=== PATIENT | male | born 1970 | race Caucasian/White ===

== ENCOUNTER 2020-06-06 12:29 | Outpatient (REF) | payer OTHER, SELFPAY ==
--- NOTE | ~2020-06-06 | XR_ITS ---
EXAMINATION: XR SHOULDER, LEFT CLINICAL INFORMATION: Pain left shoulder COMPARISON: MRI left shoulder 10/12/2018 TECHNIQUE: AP external rotation, Grashey, scapular Y, and axillary views of the left shoulder. FINDINGS: There is no visible acute fracture or dislocation. There are several hypodense lesions in the proximal humerus and the scapula compression lytic lesions. The soft tissues are normal. XR/XR shoulder LT min 2V IMPRESSION: No visible acute fracture or dislocation. Hypodense lesions in the proximal humerus question lytic lesions.
== END 2020-06-06 12:30 | disposition home or self-care (01) ==
LOC: HO.XRAY 12:29
PROVIDERS: PCP Internal Medicine; Visit Provider Physician Assistant
DX: M25.512 Pain in left shoulder (principal); M19.012 Primary osteoarthritis, left shoulder
CPT/HCPCS: 20610; 73030; 99212; J1040

== ENCOUNTER 2020-06-12 07:35 | Outpatient (REF) | payer OTHER, SELFPAY ==
--- NOTE | ~2020-06-12 | XR_ITS ---
EXAMINATION: XR SHOULDER, RIGHT CLINICAL INFORMATION: Pain in the right shoulder COMPARISON: 06/28/2016 TECHNIQUE: Three views of the right shoulder. FINDINGS: There is no fracture or dislocation. The glenohumeral joint is well aligned with the joint space maintained. The acromioclavicular joint is intact. Healed right scapular fracture. Vascular stents noted. The visualized lung is clear. The visualized ribs are intact. Calcifications in the right neck soft tissues. XR/XR shoulder RT min 2V IMPRESSION: Normal appearance of the right shoulder. Healed right scapular fracture.
== END 2020-06-12 07:36 | disposition home or self-care (01) ==
LOC: HO.HOSX 07:35
PROVIDERS: Visit Provider Physician Assistant
DX: M25.511 Pain in right shoulder (principal)
CPT/HCPCS: 20610; 73030; 99212; J1040

== ENCOUNTER 2020-07-04 04:29 | Inpatient (IN) | payer OTHER, SELFPAY ==
[2020-07-04] VITALS (9 sets, daily range): BP systolic 120–163; BP diastolic 62–86; PULSE 60–112; RESP 16–22; TEMP 36.1–39.3; O2SAT 96–100; BMI 29.2
--- NOTE | ~2020-07-04 | XR_ITS ---
EXAMINATION: CHEST AND RIGHT KNEE CLINICAL INFORMATION: Fever COMPARISON: Chest 07/09/2019. CT chest 08/15/2017 TECHNIQUE: Chest AP upright one view. Right knee 4 views. FINDINGS: Chest: The lungs are well-expanded with patchy radiopaque opacity in the right lower lobe and minimal density in the right middle lobe. This could be remote aspiration of barium contrast or calcification from old inflammatory process. Heart size and vascularity is normal. There is a right SVC stent in place. No gross bony abnormality seen. Right knee: There is diffuse osteopenia around the knee joint. No visible fracture, dislocation or subluxation seen. There is moderate suprapatellar joint effusion. There is bj along the distal posterior thigh likely vascular intervention. There is calcification in the infrapatellar bursa. There is mild edema. XR/XR chest 1V IMPRESSION: No acute process. Dense radiopaque material in the right lower lobe and minimal in right middle lobe is stable stable to last chest x-ray 07/09/[address] chest 08/15/2017. Diffuse osteopenia in this young patient. There is moderate suprapatellar joint effusion with soft tissue edema. Recommend outpatient MRI for further evaluation.
--- NOTE | ~2020-07-04 | CT_ITS ---
EXAMINATION: CT KNEE WITHOUT CONTRAST, RIGHT CLINICAL INFORMATION: Severe right knee pain. COMPARISON: XR right knee 07/04/2020. TECHNIQUE: Helical scanning was performed with submillimeter collimation in the axial plane with multiplanar 2-D reconstructions. This CT examination was performed using dose optimization techniques as appropriate, variously including the following: *Automated exposure control *Adjustment of mA and/or kV according to patient size (this includes techniques or standardized protocols for targeted exams where dose is matched to indication/reason for exam; i.e. extremities or head) *Use of iterative reconstruction technique DLP: 190 mGy-cm FINDINGS: There is no fracture or malalignment. There is no joint space narrowing. There is a small lateral patellar marginal osteophyte. There is patchy osteopenia in the visualized bones. There is scattered diffuse mild cortical irregularity. There is a moderate size joint effusion. There are extensive scattered vascular calcifications. CT/CT knee RT wo con IMPRESSION: 1. Moderate joint effusion. 2. No acute osseous abnormalities of the right knee. The soft tissue structures of the right knee cannot be adequately evaluated with CT scanning. MRI, unless contraindicated, is the imaging study of choice.
--- NOTE | ~2020-07-04 | XR_ITS ---
EXAMINATION: CHEST AND RIGHT KNEE CLINICAL INFORMATION: Fever COMPARISON: Chest 07/09/2019. CT chest 08/15/2017 TECHNIQUE: Chest AP upright one view. Right knee 4 views. FINDINGS: Chest: The lungs are well-expanded with patchy radiopaque opacity in the right lower lobe and minimal density in the right middle lobe. This could be remote aspiration of barium contrast or calcification from old inflammatory process. Heart size and vascularity is normal. There is a right SVC stent in place. No gross bony abnormality seen. Right knee: There is diffuse osteopenia around the knee joint. No visible fracture, dislocation or subluxation seen. There is moderate suprapatellar joint effusion. There is bj along the distal posterior thigh likely vascular intervention. There is calcification in the infrapatellar bursa. There is mild edema. XR/XR knee RT 4V IMPRESSION: No acute process. Dense radiopaque material in the right lower lobe and minimal in right middle lobe is stable stable to last chest x-ray 07/09/[address] chest 08/15/2017. Diffuse osteopenia in this young patient. There is moderate suprapatellar joint effusion with soft tissue edema. Recommend outpatient MRI for further evaluation.
[2020-07-04 05:54] LABS: COVID-19 Test Negative (Negative); IDNOW Serial# 9DD0AD1C
[2020-07-04 06:46] LABS: Basophils Percent Auto 0.1 % (0-2); MANUAL DIFF FLAG SCAN; PLT CLUMP 1; SCAN SMEAR FLAG 1
[2020-07-04] MEDS: Acetaminophen 325 MG TABLET 650 MG PO ×2 (06:46→13:48)
[2020-07-04 06:48] LABS: Eosinophils Percent Auto 0.1 % (0-4); Imm Gran Abs Auto 0.03 X10*3/uL (0.00-0.03); Imm Gran Pct Auto 0.4 % (0.0-0.4); Lymphocytes Absolute Auto 0.3 X10*3/uL (1.2-4.9); Mean Corpuscular HGB Conc 32.4 g/dl (31.0-36.0); Mean Corpuscular Volume 89.7 fL (80-98); Mean Platelet Volume 12.2 fL (9.4-12.4); Monocytes Absolute Auto 0.9 X10*3/uL (0.1-1.2); Monocytes Percent Auto 11.5 % (2-11); Neutrophils Absolute Auto 6.4 X10*3/uL (2.0-8.3); Neutrophils Percent Auto 83.9 % (45-73); Platelet Count 114 X10*3/uL (160-400); Red Blood Count 3.79 X10*6/uL (4.60-5.80); White Blood Count 7.6 X10*3/uL (4.8-10.8)
[2020-07-04 07:03] LABS: Lactic Acid 1.4 mmol/L (0.5-2.0)
[2020-07-04 07:22] LABS: SLIDE REVIEW VERIFIED
[2020-07-04 07:25] LABS: Anion Gap 24 (12-20); Blood Urea Nitrogen 62 mg/dL (9-16); Carbon Dioxide 22 mmol/L (22-29); Chloride 92 mmol/L (96-108); Creatinine Clr Calc Pharmacy 8.9; Estimated Glomerular Filt Rate 6; Glucose Random 132 mg/dL (60-115); Potassium 4.2 mmol/L (3.3-5.1); Sodium 134 mmol/L (135-145)
--- NOTE | 2020-07-04 07:50 | ED.GENADULT ---
HPI - General Adult General Chief complaint: Extremity Injury, Lower Stated complaint: R KNEE PAIN/SWELLING X'S 2 DAYS,NO INJURY Time Seen by Provider: 07/04/20 07:37 Source: patient Mode of arrival: ambulatory Limitations: no limitations History of Present Illness HPI narrative: Patient comes emergency room complaining of severe right knee pain. Patient denies any injury. Patient states the whole right knee hurts, started yesterday night, got worse at night around midnight. Patient denies fever or chills until it was noted that he has fever when he got to the emergency room. Patient states he is a dialysis patient, compliant, had dialysis yesterday and is due tomorrow Related Data Home Medications Medication Instructions Recorded Confirmed cholecalciferol (vitamin D3) 50 50 mcg PO DAILY 06/06/20 mcg (2,000 unit) capsule lanthanum 500 mg chewable tablet 500 mg PO TID 06/06/20 loratadine 10 mg tablet 10 mg PO DAILY 06/06/20 multivitamin 1 tab PO DAILY 06/06/20 warfarin 5 mg tablet 0 mg PO 06/06/20 Allergies Allergy/AdvReac Type Severity Reaction Status Date / Time No Known Drug Allergies Allergy Unknown UNKNOWN Verified 06/06/20 13:01 Review of Systems Review of Systems: Constitutional : No Weight loss, No Fever, No Chills, No Night Sweats, No Fatigue, No Malaise ENT/Mouth : No Hearing loss, No Ear Pain, No Nasal Congestion, No Sinus Pain, No Hoarseness, No sore throat, No Rhinorrhea, No Swallowing Difficulty Eyes: No Eye Pain, No Swelling, No Redness, No Foreign Body, No Discharge, No Vision Changes Cardiovascular : No Chest Pain, No SOB, No Dyspnea on Exertion, No Orthopnea, No Edema, No Palpitations Respiratory : No Cough, No Sputum, No Wheezing, No Smoke Exposure, No Dyspnea Gastrointestinal : No Nausea, No Vomiting, No Diarrhea, No Constipation, No abdominal Pain, No Hematochezia, No Melena Genitourinary : no irregular bleeding, No Dysuria, No Urinary Frequency, No Hematuria, No Urinary Incontinence, No Urgency, No Flank Pain, No Urinary Flow Changes, No Hesitancy Musculoskeletal : Complaining of right knee pain, unable to bear weight due to the pain, No Myalgias, No Joint Swelling Skin : No Skin Lesions, No rash Neuro : No Weakness, No Numbness, No Paresthesias, No Loss of Consciousness, No Dizziness, No Headache Psych : No Anxiety/Panic, No Depression, No SI/HI/AH/VH, No Social Issues, Heme/Lymph: No Bruising, No Bleeding,No Lymphadenopathy Endocrine : No Polyuria, No Polydipsia, No Temperature Intolerance [facility] Past Medical History Medical History Hyperlipidemia Hyperparathyroidism Hypertension Myocardial infarction Renal failure Social History Social History (Updated 06/06/20 @ 13:05 by Jocelyn Ledesma [facility] Alcohol intake: never Smoking Status: Never smoker Advance Directives: No Current occupational status: unemployed Physical Exam Vital Signs: Vital Signs: Last Vital Signs Temp 99.6 F 07/04/20 08:29 Pulse 96 07/04/20 10:14 Resp 22 H 07/04/20 10:14 BP 140/69 H 07/04/20 10:14 Pulse Ox 100 07/04/20 11:42 Body Mass Index 29.2 Appearance: Alert. Oriented X3. No acute distress. Eyes: Pupils equal, round and reactive to light on the right side, chronically opacified cornea on the left side ENT: Pharynx normal. Neck: Normal inspection. Neck supple. No lymph nodes noted. No crepitus CVS: Normal heart rate and rhythm. Pulses normal. Normal S1 and S2 Respiratory: No respiratory distress. Breath sounds normal. No Wheezing. No rales Abdomen: Soft and nontender. No rigidity. No distention. good BS x4 Skin: Skin warm and dry. Normal skin color. Normal skin turgor. Extremities: No lower extremity edema. Significant pain to palpation over the patella, moderate swelling/effusion appreciated on palpation, pain is worse over the medial and lateral aspects of the right patella. Neuro: Oriented X 3. No motor deficit. No sensory deficit. Moving all extermities. No slurred speech. Course Course Course Narrative: At this time, patient has fever. White blood cell count within normal limits and lactic acid as well. Patient recently had his 2nd immunization for COVID, likely having fever secondary to his immunization. At this time sepsis is not suspected. CT scan of the knee pending. Today's chest x-ray is stable, similar to July 2019 x-ray I discussed CT scan with the patient, there is fluid below the patella, we will attempt to drain fluid from the right knee joint and sent to the lab to rule out infection. 13:20: Arthrocentesis was done, we obtained 45 mL purulent appearing fluid, sent to the lab. Patient was empirically started on ceftriaxone and vancomycin for possible septic joint, pharmacy was consulted for the vancomycin dose due to the patient's chronic renal failure. IV fluids being given slowly, patient has history of severe renal insufficiency, trying to avoid fluid overloaded. Patient's fluid based on ideal body weight of 59 kg Synovial fluid shows a white blood cell count of 157,220, orthopedics consult is pending. It seems that the cultures were canceled, I spoke to the lab, seems that the cultures for the synovial fluid are included in the current orders. I spoke to JAY Diop from orthopedics will run the case by Dr. Castano. Patient is to be admitted by Medicine and patient will need an arthroscopy tomorrow morning Medical Decision Making Lab Data Result diagrams: 07/04/20 06:36 07/04/20 06:36 Labs: Lab Results 07/04/20 07/04/20 07/04/20 Range/Units 05:28 06:36 06:36 WBC 7.6 (4.8-10.8) X10*3/uL RBC 3.79 L (4.60-5.80) X10*6/uL Hgb 11.0 L (14.0-18.0) g/dl Hct 34.0 L (42-52) % MCV 89.7 (80-98) fL MCH 29.0 (27.0-33.0) pg MCHC 32.4 (31.0-36.0) g/dl RDW 15.0 (11.0-16.0) % Plt Count 114 L (160-400) X10*3/uL MPV 12.2 (9.4-12.4) fL Immature Gran % (Auto) 0.4 (0.0-0.4) % Neut % (Auto) 83.9 H (45-73) % Lymph % (Auto) 4.0 L (20-40) % [place] % (Auto) 11.5 H (2-11) % Eos % (Auto) 0.1 (0-4) % Baso % (Auto) 0.1 (0-2) % Lymph # (Auto) 0.3 L (1.2-4.9) X10*3/uL [place] # (Auto) 0.9 (0.1-1.2) X10*3/uL Eos # (Auto) 0.0 (0.0-0.4) X10*3/uL Baso # (Auto) 0.0 (0.0-0.2) X10*3/uL Abs Immat Gran (auto) 0.03 (0.00-0.03) X10*3/uL Absolute Neuts (auto) 6.4 (2.0-8.3) X10*3/uL Absolute Nucleated RBC 0.000 (0.0-0.012) X10*3/uL Nucleated RBC % (auto) 0.0 (0.0-0.2) /100WBC Smear Tech's Comments VERIFIED Sodium (135-145) mmol/L Potassium (3.3-5.1) mmol/L Chloride (96-108) mmol/L Carbon Dioxide (22-29) mmol/L Anion Gap (12-20) BUN (9-16) mg/dL Creatinine (0.5-1.4) mg/dL Estim Creat Clear Calc Estimated GFR Random Glucose (60-115) mg/dL Lactic Acid 1.4 (0.5-2.0) mmol/L Calcium (8.4-10.2) mg/dL Synovial Source Synovial WBC X10*3/uL Synovial RBC X10*6/uL Synovial Neutrophils % Synovial Monocytes % COVID-19 ([facility]) Negative (Negative) COVID-19 Clin Com See Note 07/04/20 07/04/20 Range/Units 06:36 13:20 WBC (4.8-10.8) X10*3/uL RBC (4.60-5.80) X10*6/uL Hgb (14.0-18.0) g/dl Hct (42-52) % MCV (80-98) fL MCH (27.0-33.0) pg MCHC (31.0-36.0) g/dl RDW (11.0-16.0) % Plt Count (160-400) X10*3/uL MPV (9.4-12.4) fL Immature Gran % (Auto) (0.0-0.4) % Neut % (Auto) (45-73) % Lymph % (Auto) (20-40) % [place] % (Auto) (2-11) % Eos % (Auto) (0-4) % Baso % (Auto) (0-2) % Lymph # (Auto) (1.2-4.9) X10*3/uL [place] # (Auto) (0.1-1.2) X10*3/uL Eos # (Auto) (0.0-0.4) X10*3/uL Baso # (Auto) (0.0-0.2) X10*3/uL Abs Immat Gran (auto) (0.00-0.03) X10*3/uL Absolute Neuts (auto) (2.0-8.3) X10*3/uL Absolute Nucleated RBC (0.0-0.012) X10*3/uL Nucleated RBC % (auto) (0.0-0.2) /100WBC Smear Tech's Comments Sodium 134 L (135-145) mmol/L Potassium 4.2 (3.3-5.1) mmol/L Chloride 92 L (96-108) mmol/L Carbon Dioxide 22 (22-29) mmol/L Anion Gap 24 H (12-20) BUN 62 H (9-16) mg/dL Creatinine 9.96 H* (0.5-1.4) mg/dL Estim Creat Clear Calc 8.9 Estimated GFR 6 Random Glucose 132 H (60-115) mg/dL Lactic Acid (0.5-2.0) mmol/L Calcium 8.0 L (8.4-10.2) mg/dL Synovial Source R knee Synovial WBC 157.220 X10*3/uL Synovial RBC 0.060 X10*6/uL Synovial Neutrophils 98 % Synovial Monocytes 2 % COVID-19 ([facility]) (Negative) COVID-19 Clin Com Imaging Data Chest x-ray: Radiologist's impression: FINDINGS: Chest: The lungs are well-expanded with patchy radiopaque opacity in the right lower lobe and minimal density in the right middle lobe. This could be remote aspiration of barium contrast or calcification from old inflammatory process. Heart size and vascularity is normal. There is a right SVC stent in place. No gross bony abnormality seen. Right knee: There is diffuse osteopenia around the knee joint. No visible fracture, dislocation or subluxation seen. There is moderate suprapatellar joint effusion. There is bj along the distal posterior thigh likely vascular intervention. There is calcification in the infrapatellar bursa. There is mild edema. XR/XR chest 1V IMPRESSION: No acute process. Dense radiopaque material in the right lower lobe and minimal in right middle lobe is stable stable to last chest x-ray 07/09/[address] chest 08/15/2017. Diffuse osteopenia in this young patient. There is moderate suprapatellar joint effusion with soft tissue edema. Recommend outpatient MRI for further evaluation. CT scan of knee: Radiologist's impression: FINDINGS: There is no fracture or malalignment. There is no joint space narrowing. There is a small lateral patellar marginal osteophyte. There is patchy osteopenia in the visualized bones. There is scattered diffuse mild cortical irregularity. There is a moderate size joint effusion. There are extensive scattered vascular calcifications. CT/CT knee RT wo con IMPRESSION: 1. Moderate joint effusion. 2. No acute osseous abnormalities of the right knee. The soft tissue structures of the right knee cannot be adequately evaluated with CT scanning. MRI, unless contraindicated, is the imaging study of choice. Discharge Plan Discharge Clinical Impression: Septic joint of right knee joint Qualifiers: Septic arthritis organism: due to unspecified organism Qualified Code(s): M00.9 - Pyogenic arthritis, unspecified Patient Disposition: Admitted As Inpatient
[2020-07-04] MEDS: 0.9 % Sodium Chloride 1,000 ML 999 ML IVCONT ×2 (08:38→15:15)
[2020-07-04] MEDS: Morphine Sulfate 2 MG/ML CARTRIDGE IVPUSH ×3 (10:23→22:59)
--- NOTE | 2020-07-04 12:51 | PC.NURSE ---
provider at bedside draining knee.
[2020-07-04 13:27] LABS: Source Synovial Fluid R knee
[2020-07-04] MEDS: Lidocaine HCl 2 % MPF 5 ML VIAL 15 ML INFILTRATI (13:49)
[2020-07-04] MEDS: cefTRIAXone sodium 1 GM in 0.9 % Sodium Chloride 50 ML IV (13:49)
[2020-07-04] MEDS: Lidocaine HCl 1 % MPF 5 ML VIAL SUBCUT ×2 (13:50)
[2020-07-04 14:13] LABS: MN% 8.9 %; PMN% 91.1 %
[2020-07-04 14:53] LABS: BF Shift QC OK YES; Man Diluent Bkgrd OK YES; Monocytes Synovial Fluid 2 %; Neutrophils Synovial Fluid 98 %
[2020-07-04] MEDS: vancomycin HCL 1,000 MG in 0.9 % Sodium Chloride 250 ML 270 MG IV (15:15)
--- NOTE | 2020-07-04 15:31 | PM.CNOR ---
History of Present Illness HPI Consult date: 07/04/20 Consult reason: joint pain Chief complaint: right knee septic arthritis Narrative: Patient presents to the ED for right knee pain. He states this began last evening and then this morning when he woke up this morning he was unable to WB on his right lower extremity. The patient presented to the ED where a CT was obtained and he was find to have a moderate effusion. The ED provider drained the right knee and observed purulent joint fluid. The fluid was sent for analysis and culture and orthopedics was then consulted. Review of Systems Review of Systems: Yes all other systems are reviewed and are negative [facility] Past Medical History Medical History (Updated 07/04/20 @ 17:05 by Chikis Moreira PA-C) Anemia of chronic disease Blind left eye ESRD (end stage renal disease) Hyperlipidemia Hyperparathyroidism Hypertension Myocardial infarction Renal failure Social History Social History Alcohol intake: never Smoking Status: Never smoker Advance Directives: No Current occupational status: unemployed Meds Allergies Allergy/AdvReac Type Severity Reaction Status Date / Time No Known Drug Allergies Allergy Unknown UNKNOWN Verified 06/06/20 13:01 Active Medications: Current Medications Generic Name Dose Route Start Last Admin Trade Name Freq PRN Reason Stop Dose Admin Sodium Chloride 1,000 mls @ 999 mls/hr 07/04/20 14:40 07/04/20 15:15 Ns IVCONT 07/04/20 15:40 999 mls/hr .[id number] ONE Administration Home Medications Medication Instructions Recorded Confirmed Last Taken Type cholecalciferol (vitamin D3) 50 50 mcg PO DAILY 06/06/20 Unknown History mcg (2,000 unit) capsule lanthanum 500 mg chewable tablet 500 mg PO TID 06/06/20 Unknown History loratadine 10 mg tablet 10 mg PO DAILY 06/06/20 Unknown History multivitamin 1 tab PO DAILY 06/06/20 Unknown History warfarin 5 mg tablet 0 mg PO 06/06/20 Unknown History Physical Exam Vital Signs: Vital Signs: Last Vital Signs Temp 99.6 F 07/04/20 08:29 Pulse 96 07/04/20 10:14 Resp 22 H 07/04/20 10:14 BP 140/69 H 07/04/20 10:14 Pulse Ox 100 07/04/20 11:42 Body Mass Index 29.2 Const: General: cooperative, healthy appearing, comfortable, no acute distress, well developed, alert and awake Orientation/consciousness: patient oriented x3 HENMT: Head: Yes normal to inspection, Yes normocephalic and Yes atraumatic Eyes: General: appearance normal, both eyes and all related structures Neck: Neck: Yes normal visual inspection and Yes no lymphadenopathy Resp: Effort & Inspection: normal respiratory effort and able to speak in complete sentences Cardio: Rate: regular rate Peripheral pulses: Peripheral pulses 2+ throughout GI: Inspection: Yes normal to inspection Palpation (GI): Soft to palpation Skin: General skin exam: no rashes or lesions noted Neuro: General: patient oriented x3 Extrem: Other: Right knee moderate swelling. Significant tenderness to palpation of all landmarks of the knee. Patient is unable to perform AROM or PROM of the right knee due to pain. Skin intact. Sensation intact. Pedal pulse intact. Psych: Mental Status: mental status grossly normal Results Labs Result Diagrams: 07/04/20 06:36 07/04/20 06:36 Labs: Abnormal lab results 07/04/20 07/04/20 Range/Units 06:36 06:36 RBC 3.79 L (4.60-5.80) X10*6/uL Hgb 11.0 L (14.0-18.0) g/dl Hct 34.0 L (42-52) % Plt Count 114 L (160-400) X10*3/uL Neut % (Auto) 83.9 H (45-73) % Lymph % (Auto) 4.0 L (20-40) % [place] % (Auto) 11.5 H (2-11) % Lymph # (Auto) 0.3 L (1.2-4.9) X10*3/uL Sodium 134 L (135-145) mmol/L Chloride 92 L (96-108) mmol/L Anion Gap 24 H (12-20) BUN 62 H (9-16) mg/dL Creatinine 9.96 H* (0.5-1.4) mg/dL Random Glucose 132 H (60-115) mg/dL Calcium 8.0 L (8.4-10.2) mg/dL H & H 07/04/20 Range/Units 06:36 Hgb 11.0 L (14.0-18.0) g/dl Hct 34.0 L (42-52) % All other labs normal. Assessment and Plan (1) Septic arthritis of knee, right: Status: Acute Patient admitted to the medicine service and plan for arthroscopy with Dr. Castano tomorrow. I discussed the case with Dr. Castano and explained the extent of the injury to the patient and options available which include surgical intervention. I explained the procedure in detail along with the length of recovery and rehab course. I explained the risk, benefits and alternatives. Risk including, but not limited to infection, blood clots, bleeding, and nerve/tissue damage to surrounding areas. I answered all their questions and with their understanding they have consented to move forward with a right knee arthroscopy. The patient will have a med clearance with the medical team, reverse Warfarin and NPO after midnight.
--- NOTE | 2020-07-04 15:45 | P.HPHOSP_ITS ---
History of Present Illness Date of Service: 07/04/20 Chief Complaint: Right knee pain and fever 47-year-old French-speaking male with a history of end-stage renal disease on hemodialysis, who presents to the emergency department today with complaint of right knee pain, swelling that started around midnight this morning and is associated with severe pain, especially with ambulation and fever, temperature was 102 in ED. He denies trauma to the knee. Gram stain of athrocentesis fluid shows gram positive cocci and therefore concern for staph. He is received Ceftriaxone and Vancomycin and ortho is a planning to take to the OR tomorrow for wash out. Review of Systems Review of Systems: Gen: no fever Resp: no sob, no cough CV: no chest, no GASTELUM, no leg edema GI: No n/v, no abd pain Neuro: No confusion MusK: right knee pain and swelling [facility] Medical History (Updated 07/04/20 @ 15:56 by Todd Rosenthal MD) Anemia of chronic disease Blind left eye ESRD (end stage renal disease) Hyperlipidemia Hyperparathyroidism Hypertension Myocardial infarction Renal failure Social History Alcohol intake: never Smoking Status: Never smoker Advance Directives: No Current occupational status: unemployed Meds Allergies Allergy/AdvReac Type Severity Reaction Status Date / Time No Known Drug Allergies Allergy Unknown UNKNOWN Verified 06/06/20 13:01 Active Medications: Current Medications Generic Name Dose Route Start Last Admin Trade Name Freq PRN Reason Stop Dose Admin Cefazolin Sodium/Dextrose 2 gm in 50 mls @ 100 mls/hr 07/04/20 15:31 Ancef IV 07/04/20 16:00 PREOP ONE Home Medications Medication Instructions Recorded Confirmed Last Taken Type cholecalciferol (vitamin D3) 50 50 mcg PO DAILY 06/06/20 Unknown History mcg (2,000 unit) capsule lanthanum 500 mg chewable tablet 500 mg PO TID 06/06/20 Unknown History loratadine 10 mg tablet 10 mg PO DAILY 06/06/20 Unknown History multivitamin 1 tab PO DAILY 06/06/20 Unknown History warfarin 5 mg tablet 0 mg PO 06/06/20 Unknown History Physical Exam Vital Signs and Narrative: Vital Signs: Last Vital Signs Temp 99.6 F 07/04/20 08:29 Pulse 96 07/04/20 10:14 Resp 22 H 07/04/20 10:14 BP 140/69 H 07/04/20 10:14 Pulse Ox 100 07/04/20 11:42 Body Mass Index 29.2 Constitutional Awake and Alert, No apparent distress HEENT--cataract of right eye Neck Supple, No lymphadenopathy Cardiovascular RRR, No M/R/G, S1 S2, No S3 S4, No pedal edema Respiratory Lungs clear, No respiratory distress Gastrointestinal Non tender, Non-distended Skin No rash Muscular SK: the righ knee is tenderness and swollen, hard to tell if red given dark complexion Neurological Alert & oriented x3 Psychological Appropriate affect Results Labs CBC and Chem 7: 07/04/20 06:36 07/04/20 06:36 Labs: Laboratory Results - last 24 hr 07/04/20 07/04/20 07/04/20 05:28 06:36 06:36 MCV 89.7 MCH 29.0 MCHC 32.4 RDW 15.0 Plt Count 114 L MPV 12.2 Immature Gran % (Auto) 0.4 Neut % (Auto) 83.9 H Lymph % (Auto) 4.0 L [place] % (Auto) 11.5 H Eos % (Auto) 0.1 Baso % (Auto) 0.1 Lymph # (Auto) 0.3 L [place] # (Auto) 0.9 Eos # (Auto) 0.0 Baso # (Auto) 0.0 Abs Immat Gran (auto) 0.03 Absolute Neuts (auto) 6.4 Absolute Nucleated RBC 0.000 Nucleated RBC % (auto) 0.0 Smear Tech's Comments VERIFIED Anion Gap Estim Creat Clear Calc Estimated GFR Random Glucose Lactic Acid 1.4 Calcium Synovial Source Synovial WBC Synovial RBC Synovial Neutrophils Synovial Monocytes COVID-19 ([facility]) Negative COVID-19 Clin Com See Note 07/04/20 07/04/20 06:36 13:20 MCV MCH MCHC RDW Plt Count MPV Immature Gran % (Auto) Neut % (Auto) Lymph % (Auto) [place] % (Auto) Eos % (Auto) Baso % (Auto) Lymph # (Auto) [place] # (Auto) Eos # (Auto) Baso # (Auto) Abs Immat Gran (auto) Absolute Neuts (auto) Absolute Nucleated RBC Nucleated RBC % (auto) Smear Tech's Comments Anion Gap 24 H Estim Creat Clear Calc 8.9 Estimated GFR 6 Random Glucose 132 H Lactic Acid Calcium 8.0 L Synovial Source R knee Synovial WBC 157.220 Synovial RBC 0.060 Synovial Neutrophils 98 Synovial Monocytes 2 COVID-19 ([facility]) COVID-19 Clin Com Imaging Radiologist's Impressions: Impressions Chest X-Ray 07/04/20 07:51 IMPRESSION: No acute process. Dense radiopaque material in the right lower lobe and minimal in right middle lobe is stable stable to last chest x-ray 07/09/[address] chest 08/15/2017. Diffuse osteopenia in this young patient. There is moderate suprapatellar joint effusion with soft tissue edema. Recommend outpatient MRI for further evaluation. Knee X-Ray 07/04/20 08:09 IMPRESSION: No acute process. Dense radiopaque material in the right lower lobe and minimal in right middle lobe is stable stable to last chest x-ray 07/09/[address] chest 08/15/2017. Diffuse osteopenia in this young patient. There is moderate suprapatellar joint effusion with soft tissue edema. Recommend outpatient MRI for further evaluation. Knee CT 07/04/20 09:27 IMPRESSION: 1. Moderate joint effusion. 2. No acute osseous abnormalities of the right knee. The soft tissue structures of the right knee cannot be adequately evaluated with CT scanning. MRI, unless contraindicated, is the imaging study of choice. Assessment and Plan (1) Septic joint of right knee joint: Qualifiers: Septic arthritis organism: due to unspecified organism Qualified Code(s): M00.9 - Pyogenic arthritis, unspecified Status: Acute (2) Anemia of chronic disease: Status: Acute (3) ESRD (end stage renal disease): Status: Acute (4) Hypertension: Status: Acute (5) Hyperparathyroidism: Status: Inactive 49 year old male with with ESRD on HD MWF here with right knee septic arthritis in abscence of trauma, suspect hematological spread 1. Septic Knee/ septic arthtis with gram positiv cocci -Vancomycin around dialysis -Continue Ceftriaxone -To OR tomorow for washout by Ortho -Follow blood culture -Echo to rule out IE -ID consult 2. ESRD--Dialysis per Nephrology 3. 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 Anemia of chronic disease--H/H stable. Full code
--- NOTE | 2020-07-04 15:51 | PC.NURSE ---
patient on NPO diet. on schedule for surgery tomorrow ahrdik to clean out knee infection.
--- NOTE | 2020-07-04 20:59 | PC.NURSE ---
Floor called more than a half hour to given report. This junior underwriter was told that the RN would call me back but I have not heard back so I called the floor again to give report.
[2020-07-04 22:59] LABS: INTERNATIONAL NORM RATIO 1.2 (0.9-1.1); Prothrombin Time 14.1 SEC (10.8-13.0)
[2020-07-05] VITALS (18 sets, daily range): BP systolic 105–168; BP diastolic 63–90; PULSE 81–122; RESP 12–20; TEMP 36.3–39.2; O2SAT 96–100
[2020-07-05] MEDS: 0.9 % Sodium Chloride Flush 3 ML SYRINGE IVFLUSH ×5 (00:58→23:48)
[2020-07-05] MEDS: Morphine Sulfate 2 MG/ML CARTRIDGE IVPUSH ×3 (07:43→19:56)
--- NOTE | 2020-07-05 10:37 | HO.PM.IMPN ---
Subjective Subjective Date of Service: 07/05/20 Interval History: f/u right septic knee. Has lots of pain Review of Systems Gen: no fever Resp: no sob, no cough CV: no chest, no GASTELUM, no leg edema GI: No n/v, no abd pain Neuro: No confusion MusK:right knee pain Physical Exam Vital Signs: Vital Signs: Last Vital Signs Temp 98.3 F 07/05/20 08:00 Pulse 97 07/05/20 08:00 Resp 19 07/05/20 08:00 BP 161/90 H 07/05/20 08:00 Pulse Ox 100 07/05/20 08:00 Body Mass Index 29.2 Const: Other: Constitutional Awake and Alert, No apparent distress HEENT--cataract of right eye Neck Supple, No lymphadenopathy Cardiovascular RRR, No M/R/G, S1 S2, No S3 S4, No pedal edema Respiratory Lungs clear, No respiratory distress Gastrointestinal Non tender, Non-distended Skin No rash Muscular SK: the righ knee is very tenderness and swollen, hard to tell if red given dark complexion Neurological Alert & oriented x3 Psychological Appropriate affect Objective Data Current Medications Generic Name Dose Route Start Last Admin Trade Name Freq PRN Reason Stop Dose Admin Acetaminophen 650 mg 07/04/20 18:11 Acetaminophen 325 Mg Tablet PO Q6H PRN Pain, Mild (Pain Scale 1-3) Cefazolin Sodium/Dextrose 2 gm in 50 mls @ 100 mls/hr 07/05/20 12:00 Ancef IV 07/05/20 12:29 PREOP ONE Morphine Sulfate 2 mg 07/04/20 18:11 07/05/20 07:43 Morphine Sulfate 2 Mg/Ml Cartridge IVPUSH 2 mg Q4H PRN Administration Pain, Severe (Pain Scale 7-10) Sodium Chloride 3 ml 07/05/20 00:00 07/05/20 07:37 0.9 % Sodium Chloride Flush 3 Ml Syringe IVFLUSH 3 ml QSHIFT [facility] Administration Labs CBC & Chem 7: 07/04/20 06:36 07/04/20 06:36 Microbiology Microbiology Results: Microbiology 07/04/20 13:19 Knee aspirate Gram Stain - Final 07/04/20 13:19 Knee aspirate Gross Specimen Examination - Final 07/04/20 13:19 Knee aspirate Fluid Crystals - Final 07/04/20 13:19 Knee aspirate Joint Fluid Culture - Preliminary Staphylococcus aureus 07/04/20 06:36 Blood - Venous Blood Culture - Preliminary No growth after 24 hours. 07/04/20 06:36 Blood - Venous Blood Culture - Preliminary No growth after 24 hours. Assessment and Plan (1) Septic joint of right knee joint: Status: Acute (2) Anemia of chronic disease: Status: Acute (3) ESRD (end stage renal disease): Status: Acute (4) Hypertension: Status: Acute (5) Hyperparathyroidism: Status: Inactive Assessment and Plan: 49 year old male with with ESRD on HD MWF here with right knee septic arthritis in abscence of trauma, suspect hematological spread 1. Septic Knee/ septic arthtis d/t Staph Aureus -Vancomycin around dialysis -Stop Ceftriaxone -To OR todayfor washout by Ortho -Follow blood culture -Echo to rule out IE -ID consult 2. ESRD--HD MWF 3. 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 Anemia of chronic disease--H/H stable, check after surgery Full code
--- NOTE | 2020-07-05 12:26 | P.CONAN_ITS ---
Documented by User: Kesha Farrar 07/05/20 13:38 [facility] Past Medical History Medical History Anemia of chronic disease Blind left eye ESRD (end stage renal disease) Hyperlipidemia Hyperparathyroidism Hypertension Myocardial infarction Renal failure Social History Social History Household Members: None Housing: Apartment Alcohol intake: never Smoking Status: Never smoker Current occupational status: unemployed Meds Allergies Allergy/AdvReac Type Severity Reaction Status Date / Time No Known Drug Allergies Allergy Unknown UNKNOWN Verified 06/06/20 13:01 Home Medications Medication Instructions Recorded Confirmed Last Taken Type cholecalciferol (vitamin D3) 50 50 mcg PO DAILY 06/06/20 07/04/20 07/03/20 History mcg (2,000 unit) capsule lanthanum 500 mg chewable tablet 500 mg PO TIDWM 06/06/20 07/04/20 07/03/20 History loratadine 10 mg tablet 10 mg PO DAILY 06/06/20 07/04/20 07/03/20 History multivitamin 1 tab PO DAILY 06/06/20 07/04/20 07/03/20 History warfarin 5 mg tablet 5 mg PO DAILY 06/06/20 07/04/20 07/03/20 History diphenhydramine HCl [Banophen] 25 mg PO BEDTIME 07/04/20 07/04/20 07/03/20 History midodrine 10 mg PO TUTHSA@1645 07/04/20 07/04/20 Unknown History Exam Airway Mallampati Class: III TM Dist: >3cm Neck ROM: Full Assessment and Plan Assessment Anesthesia Assessment: Anesthesia Plan Discussed and Chart Reviewed Final Anesthetic Review NPO: Yes ASA Class: III Final Preanesthetic Review: No Changes in Pt Med Stat, Meds/Allgs Chart Reviewed, Consent Obtained/Reviewed and Anes Risks/Benef Reviewed Patient Risk: Intermediate Procedure Risk: Low Assessment/Block/Sedation in SS: Assess/Block/Sedation-SS Anesthetic Plan Anesthetic Plan: GA Disposition: Standard PACU Documented by User: Jadon Horn MD 07/05/20 14:13 PMFSH Active Problems Active Problems: All Active Problems (Updated 07/04/20 @ 17:05 by Chikis Moreira PA-C) Septic arthritis of knee, right (Acute) Hypertension (Acute) Blind left eye (Acute) Anemia of chronic disease (Acute) ESRD (end stage renal disease) (Acute) Septic joint of right knee joint (Acute) Arthritis of shoulder region, right, degenerative (Acute) Right shoulder pain (Acute) Arthritis of shoulder region, left, degenerative (Acute) Left shoulder pain (Acute) Past Medical History Medical History Anemia of chronic disease Blind left eye ESRD (end stage renal disease) Hyperlipidemia Hyperparathyroidism Hypertension Myocardial infarction Renal failure Social History Social History Household Members: None Housing: Apartment Alcohol intake: never Smoking Status: Never smoker Current occupational status: unemployed Meds Allergies Allergy/AdvReac Type Severity Reaction Status Date / Time No Known Drug Allergies Allergy Unknown UNKNOWN Verified 06/06/20 13:01 Active Medications: Current Medications Generic Name Dose Route Start Last Admin Trade Name Freq PRN Reason Stop Dose Admin Acetaminophen 650 mg 07/04/20 18:11 Acetaminophen 325 Mg Tablet PO Q6H PRN Pain, Mild (Pain Scale 1-3) Cefazolin Sodium/Dextrose 2 gm in 50 mls @ 100 mls/hr 07/05/20 12:00 Ancef IV 07/05/20 12:29 PREOP ONE Vancomycin HCl 1,250 mg/ 250 mls @ 166.667 mls/hr 07/05/20 14:00 Sodium Chloride IV [id number]@1400 SOF[facility] Morphine Sulfate 2 mg 07/04/20 18:11 07/05/20 07:43 Morphine Sulfate 2 Mg/Ml Cartridge IVPUSH 2 mg Q4H PRN Administration Pain, Severe (Pain Scale 7-10) Pharmacy Consult 1 each 07/05/20 10:57 Consult Rx Vancomycin Dosing MISCELLANE DAILY PRN Consult order Sodium Chloride 3 ml 07/05/20 00:00 07/05/20 07:37 0.9 % Sodium Chloride Flush 3 Ml Syringe IVFLUSH 3 ml QSHIFT [facility] Administration Home Medications Medication Instructions Recorded Confirmed Last Taken Type cholecalciferol (vitamin D3) 50 50 mcg PO DAILY 06/06/20 07/04/20 07/03/20 History mcg (2,000 unit) capsule lanthanum 500 mg chewable tablet 500 mg PO TIDWM 06/06/20 07/04/20 07/03/20 History loratadine 10 mg tablet 10 mg PO DAILY 06/06/20 07/04/20 07/03/20 History multivitamin 1 tab PO DAILY 06/06/20 07/04/20 07/03/20 History warfarin 5 mg tablet 5 mg PO DAILY 06/06/20 07/04/20 07/03/20 History diphenhydramine HCl [Banophen] 25 mg PO BEDTIME 07/04/20 07/04/20 07/03/20 History midodrine 10 mg PO TUTHSA@1645 07/04/20 07/04/20 Unknown History Exam Exam Date and Time: July 05, 2020 1226 Height,Weight and Vital Signs: Height 5 ft 6 in Weight 82.024 kg Last Vital Signs Temp 98.3 F 07/05/20 08:00 Pulse 97 07/05/20 08:00 Resp 19 07/05/20 08:00 BP 161/90 H 07/05/20 08:00 Pulse Ox 100 07/05/20 08:00 Pertinent Lab Results Pertinent Lab Results: Laboratory Tests 07/04/20 07/04/20 07/04/20 05:28 06:36 06:36 WBC 7.6 RBC 3.79 L Hgb 11.0 L Hct 34.0 L MCV 89.7 MCH 29.0 MCHC 32.4 RDW 15.0 Plt Count 114 L MPV 12.2 Immature Gran % (Auto) 0.4 Neut % (Auto) 83.9 H Lymph % (Auto) 4.0 L [place] % (Auto) 11.5 H Eos % (Auto) 0.1 Baso % (Auto) 0.1 Lymph # (Auto) 0.3 L [place] # (Auto) 0.9 Eos # (Auto) 0.0 Baso # (Auto) 0.0 Abs Immat Gran (auto) 0.03 Absolute Neuts (auto) 6.4 Absolute Nucleated RBC 0.000 Nucleated RBC % (auto) 0.0 Smear Tech's Comments VERIFIED PT INR Sodium Potassium Chloride Carbon Dioxide Anion Gap BUN Creatinine Estim Creat Clear Calc Estimated GFR Random Glucose Lactic Acid 1.4 Calcium Synovial Source Synovial WBC Synovial RBC Synovial Neutrophils Synovial Monocytes Synovial Glucose COVID-19 (VAL[facility]IN) Negative [facility] Com See Note 07/04/20 07/04/20 07/04/20 06:36 13:20 13:20 WBC RBC Hgb Hct MCV MCH MCHC RDW Plt Count MPV Immature Gran % (Auto) Neut % (Auto) Lymph % (Auto) [place] % (Auto) Eos % (Auto) Baso % (Auto) Lymph # (Auto) [place] # (Auto) Eos # (Auto) Baso # (Auto) Abs Immat Gran (auto) Absolute Neuts (auto) Absolute Nucleated RBC Nucleated RBC % (auto) Smear Tech's Comments PT INR Sodium 134 L Potassium 4.2 Chloride 92 L Carbon Dioxide 22 Anion Gap 24 H BUN 62 H Creatinine 9.96 H* Estim Creat Clear Calc 8.9 Estimated GFR 6 Random Glucose 132 H Lactic Acid Calcium 8.0 L Synovial Source R knee Synovial WBC 157.220 Synovial RBC 0.060 Synovial Neutrophils 98 Synovial Monocytes 2 Synovial Glucose TNP COVID-19 ([facility]) [facility] Com 07/04/20 22:37 WBC RBC Hgb Hct MCV MCH MCHC RDW Plt Count MPV Immature Gran % (Auto) Neut % (Auto) Lymph % (Auto) [place] % (Auto) Eos % (Auto) Baso % (Auto) Lymph # (Auto) [place] # (Auto) Eos # (Auto) Baso # (Auto) Abs Immat Gran (auto) Absolute Neuts (auto) Absolute Nucleated RBC Nucleated RBC % (auto) Smear Tech's Comments PT 14.1 H INR 1.2 H Sodium Potassium Chloride Carbon Dioxide Anion Gap BUN Creatinine Estim Creat Clear Calc Estimated GFR Random Glucose Lactic Acid Calcium Synovial Source Synovial WBC Synovial RBC Synovial Neutrophils Synovial Monocytes Synovial Glucose COVID-19 (VALENTIN) [id number] Com
--- NOTE | 2020-07-05 12:35 | PM.CNNEP ---
History of Present Illness Reason for Consult Consult date: 07/05/20 Chief Complaint Chief complaint: right knee septic arthritis History of Present Illness Narrative: 47-year-old with a history of end-stage renal disease on hemodialysis, who presents to the emergency department yesterday with complaint of right knee pain and swelling that started around midnight which was getting worse with ambulation . It was associated with fever and his temperature was 102 in ED. He denies trauma to the knee. Gram stain of athrocentesis fluid shows gram positive cocci and therefore concern for staph. He is received Ceftriaxone and Vancomycin and ortho is a planning to take to the OR today for wash out. Nephrology has been consulted to assist in his clinical care during his current hospital stay Review of Systems Review of Systems Yes all other systems are reviewed and are negative PMFSH Past Medical History Medical History (Updated 07/05/20 @ 12:40 by Pedro Delgado MD) Anemia of chronic disease Blind left eye ESRD (end stage renal disease) Hyperlipidemia Hyperparathyroidism Hypertension Myocardial infarction Renal failure Social History Social History Household Members: None Housing: Apartment Alcohol intake: never Smoking Status: Never smoker Current occupational status: unemployed Meds Allergies Allergy/AdvReac Type Severity Reaction Status Date / Time No Known Drug Allergies Allergy Unknown UNKNOWN Verified 06/06/20 13:01 Active Medications: Current Medications Generic Name Dose Route Start Last Admin Trade Name Freq PRN Reason Stop Dose Admin Acetaminophen 650 mg 07/04/20 18:11 Acetaminophen 325 Mg Tablet PO Q6H PRN Pain, Mild (Pain Scale 1-3) Vancomycin HCl 1,250 mg/ 250 mls @ 166.667 mls/hr 07/05/20 14:00 Sodium Chloride IV [id number]@1400 [facility] Morphine Sulfate 2 mg 07/04/20 18:11 07/05/20 07:43 Morphine Sulfate 2 Mg/Ml Cartridge IVPUSH 2 mg Q4H PRN Administration Pain, Severe (Pain Scale 7-10) Pharmacy Consult 1 each 07/05/20 10:57 Consult Rx Vancomycin Dosing MISCELLANE DAILY PRN Consult order Sodium Chloride 3 ml 07/05/20 00:00 07/05/20 07:37 0.9 % Sodium Chloride Flush 3 Ml Syringe IVFLUSH 3 ml QSHIFT [facility] Administration Home Medications Medication Instructions Recorded Confirmed Last Taken Type cholecalciferol (vitamin D3) 50 50 mcg PO DAILY 06/06/20 07/04/20 07/03/20 History mcg (2,000 unit) capsule lanthanum 500 mg chewable tablet 500 mg PO TIDWM 06/06/20 07/04/20 07/03/20 History loratadine 10 mg tablet 10 mg PO DAILY 06/06/20 07/04/20 07/03/20 History multivitamin 1 tab PO DAILY 06/06/20 07/04/20 07/03/20 History warfarin 5 mg tablet 5 mg PO DAILY 06/06/20 07/04/20 07/03/20 History diphenhydramine HCl [Banophen] 25 mg PO BEDTIME 07/04/20 07/04/20 07/03/20 History midodrine 10 mg PO TUTHSA@1645 07/04/20 07/04/20 Unknown History Physical Exam Vital Signs: Last Vital Signs Temp 101.1 F H 07/05/20 12:31 Pulse 122 H 07/05/20 12:31 Resp 19 07/05/20 12:31 BP 105/63 07/05/20 12:31 Pulse Ox 96 07/05/20 12:31 Body Mass Index 29.2 Const General: No no acute distress Orientation/consciousness: patient oriented x3 Neck Neck: Yes supple Resp Auscultation: diminished lung sounds Cardio Heart sounds: no rubs GI Palpation (GI): Soft to palpation Neuro General: patient oriented x3 and moves all extremities Results Lab Results Result Diagrams: 07/04/20 06:36 07/04/20 06:36 Lab results: Chemistry 07/04/20 06:36 Sodium 134 L Potassium 4.2 Carbon Dioxide 22 BUN 62 H Creatinine 9.96 H* Calcium 8.0 L Hematology 07/04/20 06:36 WBC 7.6 Hgb 11.0 L Plt Count 114 L Assessment and Plan (1) ESRD (end stage renal disease): Problem details: Usually gets HD on MWF HD ordered. seen on HD For OR today; Renal Diet ( 2 Gm Na, 2 Gm K, phos restricted with fluid restriction 1500mls/24 hours) Renvela 1600 mg PO tid with meals No indication for Procrit Shall closely follow along Status: Acute
--- NOTE | 2020-07-05 13:24 | MHC.SHP ---
Pre-Procedural Eval Section A The patient is an INPATIENT: Yes Section B Chief Complaint: right knee septic arthritis Allergies: Allergies Allergy/AdvReac Type Severity Reaction Status Date / Time No Known Drug Allergies Allergy Unknown UNKNOWN Verified 06/06/20 13:01 Plan I have reviewed the history and physical and performed a pertinent physical examination on my patient. No changes have occurred unless specified.
--- NOTE | 2020-07-05 13:40 | P.CONAN_ITS ---
[facility] Active Problems Active Problems: All Active Problems (Updated 07/05/20 @ 12:40 by Pedro Delgado MD) Septic arthritis of knee, right (Acute) Hypertension (Acute) Blind left eye (Acute) Anemia of chronic disease (Acute) ESRD (end stage renal disease) (Acute) Septic joint of right knee joint (Acute) Arthritis of shoulder region, right, degenerative (Acute) Right shoulder pain (Acute) Arthritis of shoulder region, left, degenerative (Acute) Left shoulder pain (Acute) Past Medical History Medical History Anemia of chronic disease Blind left eye ESRD (end stage renal disease) Hyperlipidemia Hyperparathyroidism Hypertension Myocardial infarction Renal failure Social History Social History Household Members: None Housing: Apartment Alcohol intake: never Smoking Status: Never smoker Current occupational status: unemployed Meds Allergies Allergy/AdvReac Type Severity Reaction Status Date / Time No Known Drug Allergies Allergy Unknown UNKNOWN Verified 06/06/20 13:01 Active Medications: Current Medications Generic Name Dose Route Start Last Admin Trade Name Freq PRN Reason Stop Dose Admin Acetaminophen 650 mg 07/04/20 18:11 Acetaminophen 325 Mg Tablet PO Q6H PRN Pain, Mild (Pain Scale 1-3) Acetaminophen 650 mg 07/05/20 13:35 Acetaminophen 325 Mg Tablet PO ONCE PRN Pain, Mild (Pain Scale 1-3) Fentanyl 50 mcg 07/05/20 13:35 Fentanyl Citrate/Pf 100 Mcg/2 Ml Vial IVPUSH Q5M PRN Pain, Severe (Pain Scale 7-10) Vancomycin HCl 1,250 mg/ 250 mls @ 166.667 mls/hr 07/05/20 14:00 Sodium Chloride IV MOWEFR@1400 [facility] Sodium Chloride 500 mls @ 20 mls/hr 07/05/20 13:45 Ns IVCONT .Q24H [facility] Morphine Sulfate 2 mg 07/04/20 18:11 07/05/20 07:43 Morphine Sulfate 2 Mg/Ml Cartridge IVPUSH 2 mg Q4H PRN Administration Pain, Severe (Pain Scale 7-10) Ondansetron HCl 4 mg 07/05/20 13:35 Ondansetron Hcl 4 Mg/2 Ml Vial IVPUSH ONCE PRN Nausea and Vomiting Oxycodone HCl 5 mg 07/05/20 13:35 Oxycodone Hcl Immed Release 5 Mg Tablet PO ONCE PRN Pain, Severe (Pain Scale 7-10) Pharmacy Consult 1 each 07/05/20 10:57 Consult Rx Vancomycin Dosing MISCELLANE DAILY PRN Consult order Sodium Chloride 3 ml 07/05/20 00:00 07/05/20 07:37 0.9 % Sodium Chloride Flush 3 Ml Syringe IVFLUSH 3 ml QSMDFT [facility] Administration Home Medications Medication Instructions Recorded Confirmed Last Taken Type cholecalciferol (vitamin D3) 50 50 mcg PO DAILY 06/06/20 07/04/20 07/03/20 History mcg (2,000 unit) capsule lanthanum 500 mg chewable tablet 500 mg PO TIDWM 06/06/20 07/04/20 07/03/20 History loratadine 10 mg tablet 10 mg PO DAILY 06/06/20 07/04/20 07/03/20 History multivitamin 1 tab PO DAILY 06/06/20 07/04/20 07/03/20 History warfarin 5 mg tablet 5 mg PO DAILY 06/06/20 07/04/20 07/03/20 History diphenhydramine HCl [Banophen] 25 mg PO BEDTIME 07/04/20 07/04/20 07/03/20 History midodrine 10 mg PO TUTHSA@1645 07/04/20 07/04/20 Unknown History Exam Exam Date and Time: July 05, 2020 1340 Height,Weight and Vital Signs: Height 5 ft 6 in Weight 82.024 kg Last Vital Signs Temp 100.1 F 07/05/20 13:22 Pulse 114 H 07/05/20 13:22 Resp 18 07/05/20 13:22 BP 120/71 07/05/20 13:22 Pulse Ox 97 07/05/20 13:22 Pertinent Lab Results Pertinent Lab Results: Laboratory Tests 07/04/20 07/04/20 07/04/20 05:28 06:36 06:36 WBC 7.6 RBC 3.79 L Hgb 11.0 L Hct 34.0 L MCV 89.7 MCH 29.0 MCHC 32.4 RDW 15.0 Plt Count 114 L MPV 12.2 Immature Gran % (Auto) 0.4 Neut % (Auto) 83.9 H Lymph % (Auto) 4.0 L [place] % (Auto) 11.5 H Eos % (Auto) 0.1 Baso % (Auto) 0.1 Lymph # (Auto) 0.3 L [place] # (Auto) 0.9 Eos # (Auto) 0.0 Baso # (Auto) 0.0 Abs Immat Gran (auto) 0.03 Absolute Neuts (auto) 6.4 Absolute Nucleated RBC 0.000 Nucleated RBC % (auto) 0.0 Smear Tech's Comments VERIFIED PT INR Sodium Potassium Chloride Carbon Dioxide Anion Gap BUN Creatinine Estim Creat Clear Calc Estimated GFR Random Glucose Lactic Acid 1.4 Calcium Synovial Source Synovial WBC Synovial RBC Synovial Neutrophils Synovial Monocytes Synovial Glucose COVID-19 ([facility]) Negative COVID-19 Clin Com See Note 07/04/20 07/04/20 07/04/20 06:36 13:20 13:20 WBC RBC Hgb Hct MCV MCH MCHC RDW Plt Count MPV Immature Gran % (Auto) Neut % (Auto) Lymph % (Auto) [place] % (Auto) Eos % (Auto) Baso % (Auto) Lymph # (Auto) [place] # (Auto) Eos # (Auto) Baso # (Auto) Abs Immat Gran (auto) Absolute Neuts (auto) Absolute Nucleated RBC Nucleated RBC % (auto) Smear Tech's Comments PT INR Sodium 134 L Potassium 4.2 Chloride 92 L Carbon Dioxide 22 Anion Gap 24 H BUN 62 H Creatinine 9.96 H* Estim Creat Clear Calc 8.9 Estimated GFR 6 Random Glucose 132 H Lactic Acid Calcium 8.0 L Synovial Source R knee Synovial WBC 157.220 Synovial RBC 0.060 Synovial Neutrophils 98 Synovial Monocytes 2 Synovial Glucose TNP COVID-19 ([facility]IN) COVID-19 Clin Com 07/04/20 22:37 WBC RBC Hgb Hct MCV MCH MCHC RDW Plt Count MPV Immature Gran % (Auto) Neut % (Auto) Lymph % (Auto) [place] % (Auto) Eos % (Auto) Baso % (Auto) Lymph # (Auto) [place] # (Auto) Eos # (Auto) Baso # (Auto) Abs Immat Gran (auto) Absolute Neuts (auto) Absolute Nucleated RBC Nucleated RBC % (auto) Smear Tech's Comments PT 14.1 H INR 1.2 H Sodium Potassium Chloride Carbon Dioxide Anion Gap BUN Creatinine Estim Creat Clear Calc Estimated GFR Random Glucose Lactic Acid Calcium Synovial Source Synovial WBC Synovial RBC Synovial Neutrophils Synovial Monocytes Synovial Glucose COVID-19 (VALENTIN) COVID-19 Clin Com
[2020-07-05] MEDS: fentaNYL citrate/PF 100 MCG/2 ML VIAL 50 MCG IVPUSH (13:44)
--- NOTE | 2020-07-05 14:58 | P.OP_ITS ---
Operative Note Operative Note Date of Service: 07/05/20 Narrative: ARTHROSCOPIC SURGERY NOTE SURGEON: Dr Nela Jennings) Instrum SUPERVISOR PASTE PLANT: none PREOP DIAGNOSIS: Septic arthritis right knee POSTOP DIAGNOSIS: same OPERATIVE PROCEDURE: arthroscopic irrigation and debridement right knee CLINICAL NOTE: this unfortunate individual at developed a septic arthritic knee. He has a significant health issues including chronic renal failure for which he reaches dialysis. After explaining the risks benefits and alternatives and answering all his questions it was meshed agreed upon care following procedure MOTION: 10-90 STABILITY: Cruciate and collateral ligaments intact OPERATIVE DETAILS PREPARATION: GA, STANDARD TECHNIQUE, no turn a sharpe SURGICAL TIME-OUT: Patient identified; procedure confirmed; site confirmed. Medical and allergy history reviewed. No preoperative antibiotics. No DVT prophylaxis. All other items discussed and agreed upon. INCISIONS: Superolateral, inferolateral, inferomedial stab incisions[] SYNOVIUM: hemorrhagic synovial present. This synovial cyst changes were present throughout the knee and was debrided through all compartments SYNOVIAL FLUID: turbid fluid drained from the knee MEDIAL COMPARTMENT: there was degenerative changes seen in both the medial and femoral articular surfaces. The meniscus was intact. INTERCONDYLAR NOTCH: ACL intact. PCL intact. LATERAL COMPARTMENT: lateral meniscus intact. Articular surfaces demonstrated grade 3 injury on the femoral side and grade 2-3 on the tibial side. The popliteus tendon was intact. ANTERIOR COMPARTMENT: There was increased synovial tissue in the superior patellar pouch as well as the medial lateral gutters which were debrided. The patella demonstrated that there was grade 2 injury at the lateral facet. The femoral sulcus was intact. At this point a total of 9 L fluid was irrigated through the knee. At the completion of this the tissue in the knee looked devoid of any necrotic or purulence material CLOSURE: Steri-Strips and sterile dressing then applied. RECOMMENDATIONS: 1)Restore motion strength 2)Resume activities as tolerated with physical therapy
[2020-07-05] MEDS: vancomycin HCL 1,250 MG in 0.9 % Sodium Chloride 250 ML 166.67 MG IV (16:33)
--- NOTE | 2020-07-05 18:49 | PC.NURSE ---
Pt returned from PACU with keila dressing to right knee and ice applied. states pain improving from med given in PACU.
[2020-07-06 03:37] VITALS: BP 136/81; PULSE 97; RESP 20; TEMP 36.4; O2SAT 98
[2020-07-06 08:00] VITALS: BP 126/81; PULSE 90; RESP 19; TEMP 36.8; O2SAT 99
--- NOTE | 2020-07-06 08:33 | PM.PNORT ---
Subjective Subjective Date of Service: 07/06/20 Principal diagnosis: Right knee septic arthritis Interval history: POD 1 s/p arthroscopy I&D right knee No overnight events Patient is resting in bed this morning, states the pain has improved and is able to slightly bend the knee. Physical Exam Vital Signs: Vital Signs: Last Vital Signs Temp 97.6 F 07/06/20 03:37 Pulse 97 07/06/20 03:37 Resp 20 07/06/20 03:37 BP 136/81 07/06/20 03:37 Pulse Ox 98 07/06/20 03:37 Body Mass Index 29.2 Const: General: cooperative, healthy appearing and no acute distress Resp: Effort & Inspection: normal respiratory effort and able to speak in complete sentences Cardio: Rate: regular rate Peripheral pulses: Peripheral pulses 2+ throughout GI: Palpation (GI): Soft to palpation Skin: General skin exam: no rashes or lesions noted Extrem: Other: Right knee incision clean dry and intact. Mild swelling with tenderness. He is able to SLR. Flexion to about 30. Progress Note: A&P Assessment and plan (1) Septic arthritis of knee, right: Status: Acute Assessment and Plan: continue pain mgmnt continue abx begin PT for ROM and quad strength Dispo-PT eval and medical clearance. Fall Risk Details Current Medications: Current Medications Generic Name Dose Route Start Last Admin Trade Name Freq PRN Reason Stop Dose Admin Acetaminophen 650 mg 07/04/20 18:11 Acetaminophen 325 Mg Tablet PO Q6H PRN Pain, Mild (Pain Scale 1-3) Vancomycin HCl 1,250 mg/ 250 mls @ 166.667 mls/hr 07/05/20 14:00 07/05/20 18:03 Sodium Chloride IV Infused MOWEFR@1400 SOFIA Infusion Sodium Chloride 500 mls @ 20 mls/hr 07/05/20 13:45 07/05/20 16:45 Ns IVCONT Not Given .Q24H SOFIA Morphine Sulfate 2 mg 07/04/20 18:11 07/05/20 19:56 Morphine Sulfate 2 Mg/Ml Cartridge IVPUSH 2 mg Q4H PRN Administration Pain, Severe (Pain Scale 7-10) Pharmacy Consult 1 each 07/05/20 10:57 Consult Rx Vancomycin Dosing MISCELLANE DAILY PRN Consult order Sodium Chloride 3 ml 07/05/20 00:00 07/05/20 19:56 0.9 % Sodium Chloride Flush 3 Ml Syringe IVFLUSH 3 ml QSHIFT SOFIA Administration Sodium Chloride 3 ml 07/05/20 16:00 07/05/20 23:48 0.9 % Sodium Chloride Flush 3 Ml Syringe IVFLUSH 3 ml QSHIFT SOFIA Administration Time Spent With Patient Time: Total time spent is greater than 50% in coordination of care (as documented) at patient's floor/unit and/or counseling patient: Time with patient: less than 15 minutes
[2020-07-06 09:00] VITALS: BP 126/81; PULSE 90; O2SAT 99
[2020-07-06] MEDS: 0.9 % Sodium Chloride Flush 3 ML SYRINGE IVFLUSH ×4 (09:00→21:35)
[2020-07-06] MEDS: Morphine Sulfate 2 MG/ML CARTRIDGE IVPUSH ×2 (09:06→16:02)
--- NOTE | 2020-07-06 09:32 | MHC.CM.PN ---
PATIENT LIVES WITH FAMILY. HE USES A CANE AND WALKER NEEDED. SON (FLEX) IS ALSO PATIENT'S PAYROLL TAX SPECIALIST (10 HOURS/WEEK, M-F) [facility] RN MAKES Q6M VISITS TO HOME FOR ASSESSMENT OF NEEDS, BUT HE DOES NOT CURRENTLY HAVE [facility] CASE MANAGEMENT FOLLOWING FOR ANY DISCHARGE NEEDS.
--- NOTE | 2020-07-06 11:31 | MHC.CM.PN ---
PER PHYSICIAN ROUNDS, PATIENT WILL LIKELY REQUIRE LT IV ABX. CURRENTLY AWAITING CULTURES CALL TO EDUARDO OF [facility] ([phone]) TO UPDATE. CURRENTLY IT IS UNKNOWN IF ABX WILL BE MORE THAN ONCE PER DAY, OR WHAT ABX IT WILL BE. EDUARDO STATES THAT A REFERRAL CAN BE PLACED TO [facility] IF NEEDED. IF [facility] IS UNABLE TO OFFER SERVICES, EDUARDO ASKS THAT THE NEXT REFERRAL BE TO [facility] CASE MANAGEMENT FOLLOWING FOR RESULTS.
--- NOTE | 2020-07-06 13:08 | HO.POSTANES ---
Post Anesthesia Evaluation Post Anesthesia Evaluation Vital Signs: Vital Signs Temp Pulse Resp BP Pulse Ox 07/06/20 09:00 90 126/81 99 07/06/20 08:00 98.2 F 90 19 126/81 99 07/06/20 03:37 97.6 F 97 20 136/81 98 Anesthesia: General Mental Status: Awake Pain Control: Satisfactory Nausea/Vomiting: None Hydration: Adequate Anesthesia-Related Issues: No Anes. Related Issues
--- NOTE | 2020-07-06 13:59 | PM.PNNEP ---
Subjective Subjective Date of Service: 07/06/20 Principal diagnosis: Right knee septic arthritis Interval history: Events noted. All recent data reviewed Physical Exam Vital Signs: Vital Signs: Last Vital Signs Temp 98.2 F 07/06/20 08:00 Pulse 90 07/06/20 09:00 Resp 19 07/06/20 08:00 BP 126/81 07/06/20 09:00 Pulse Ox 99 07/06/20 09:00 Body Mass Index 29.2 Const: General: comfortable Neck: Neck: Yes supple Resp: Auscultation: diminished lung sounds Cardio: Jugular venous distension: no JVD GI: Palpation (GI): Soft to palpation Neuro: General: moves all extremities Objective Data Labs CBC & Chem 7: 07/04/20 06:36 07/04/20 06:36 Labs: Laboratory Results - last 24 hr 07/04/20 13:20 Synovial Total Protein TNP Microbiology Microbiology Results: Microbiology 07/04/20 13:19 Knee aspirate Gram Stain - Final 07/04/20 13:19 Knee aspirate Anaerobic Culture - Preliminary Culture in progress. 07/04/20 13:19 Knee aspirate Gross Specimen Examination - Final 07/04/20 13:19 Knee aspirate Fluid Crystals - Final 07/04/20 13:19 Knee aspirate Joint Fluid Culture - Final Staphylococcus aureus 07/04/20 06:36 Blood - Venous Blood Culture - Preliminary No growth after 48 hours. 07/04/20 06:36 Blood - Venous Blood Culture - Preliminary No growth after 48 hours. Assessment & Plan Assessment and plan (1) ESRD (end stage renal disease): Problem details: Usually gets HD on MWF HD tomorrow; Renal Diet ( 2 Gm Na, 2 Gm K, phos restricted with fluid restriction 1500mls/24 hours) Renvela 1600 mg PO tid with meals No indication for Procrit Vancomycin after HD Shall closely follow along Status: Acute Time Spent With Patient Time: Total time spent is greater than 50% in coordination of care (as documented) at patient's floor/unit and/or counseling patient:
[2020-07-06 16:00] VITALS: BP 119/87; PULSE 102; RESP 16; TEMP 36.7; O2SAT 94
--- NOTE | 2020-07-06 18:11 | CA_ITS ---
Transthoracic Echocardiogram Patient (Last, First, Middle): Meño Galvez, Gender: Male Date of : 1970 Age: 49 Procedure Date: 07/06/2020 Procedure Type: Transthoracic Echocardiogram Location: S3E Height: 167.64 cm Weight: 81.65 kg BSA: 1.91 m2 Heart Rate: bpm BP: 163 / 86 mmHg Manager Nc: [email or web address] Referring MD: Todd Rosenthal MD Motorized Squad Commanding Officer: Trey Velez MD Symptoms: sepsis, rule out endocarditis Study Quality: Poor ECG Rhythm: Sinus Conclusions: - 1. Technically extremely limited study with poor visualization of cardiac structure and function. 2. Vegetations cannot be ruled out on this study Findings Left Ventricle The left ventricle was not well visualized. Right Ventricle Normal right ventricular cavity size. Atria The left atrium was not well visualized. Interatrial shunt cannot be excluded. The right atrium was not well visualized. Aortic Valve The aortic valve was not well visualized. Mitral Valve The mitral valve was not well visualized. There is moderate mitral annular calcification. Pulmonic Valve The pulmonic valve was not well visualized. Tricuspid Valve The tricuspid valve was not well visualized. Great Vessels The aorta was not well visualized. The pulmonary artery was not well visualized. Venous The inferior vena cava was not well visualized. Pericardium/Pleural The pericardium was not well visualized. Prior Study Comparison Carton study was extremely limited and comparison cannot be made Recommendations, Care & Conclusions Consider a LADI if clinically appropriate. Measurements 2D Linear Measurements IVSd: 0.93 0.6-0.9/0.6-1.0 cm LVIDd: 5.48 3.9-5.3/4.2-5.9 cm LVPWd: 1.30 0.7-1.1 cm LV Mass: 307.08 67-162/88-224 g Mitral Valve MV VTI: 0.30 MV Pk Clint: 1.36 MV Mn Clint: 0.88 MV Pk Grad: 7.41 MV Mn Grad: 3.64 MV Pk E: 1.16 MV PK A: 1.32 MV Decel Time: 172.19 E/A: 0.88 E'Medial: 0.08 E/E' Med: 0.10 Decel Dawson: 6.76 Aortic Valve AoV Pk Clint: 1.40 AoV Pk Grad: 7.89 LVOT LVOT Pk Clint: 1.09 LVOT Mn Clint: 0.76 LVOT VTI: 0.18 LVOT Pk Grad: 4.79 LVOT Mn Grad: 2.64 Diastolic Function MV Pk E: 1.16 MV Pk A: 1.32 E/A: 0.88 E'Medial: 0.08 E/E' Med: 0.10 Tricuspid Valve RA Press: 3.00 Updated in Other Vendor System with Status of Final Trey Velez MD electronically signed on 07/07/2020 11:39:12 AM with status of Final
[2020-07-06 20:00] VITALS: BP 151/81; PULSE 92; RESP 16; TEMP 36.8; O2SAT 98
[2020-07-06 23:26] VITALS: BP 134/68; PULSE 100; RESP 16; TEMP 36.7; O2SAT 96
[2020-07-07] VITALS (7 sets, daily range): BP systolic 110–140; BP diastolic 72–92; PULSE 66–112; RESP 15–18; TEMP 36–36.8; O2SAT 93–100
[2020-07-07] MEDS: 0.9 % Sodium Chloride Flush 3 ML SYRINGE IVFLUSH ×4 (08:22→21:36)
--- NOTE | 2020-07-07 09:46 | PM.PNORT ---
Subjective Subjective Date of Service: 07/07/20 Principal diagnosis: Right knee septic arthritis Interval history: POD2 s/p right knee with I&D. Pain is well managed. No overnight events. Physical Exam Vital Signs: Vital Signs: Last Vital Signs Temp 97 F 07/07/20 08:00 Pulse 84 07/07/20 08:00 Resp 18 07/07/20 08:00 BP 140/72 H 07/07/20 08:00 Pulse Ox 100 07/07/20 08:00 Body Mass Index 29.2 Const: General: cooperative, healthy appearing and no acute distress Resp: Effort & Inspection: normal respiratory effort and able to speak in complete sentences Cardio: Rate: regular rate Peripheral pulses: Peripheral pulses 2+ throughout GI: Palpation (GI): Soft to palpation Skin: Lesions: no lesions Rashes: no rashes Extrem: Other: Right knee incision is clean, dry, and intact. Mild swelling and tenderness. Able to perform STR. ROM extension to 20 degrees flexion to 60 degrees. Progress Note: A&P Assessment and plan (1) Septic arthritis of knee, right: Status: Acute Assessment and Plan: continue pain mgmnt continue abx begin PT for ROM and quad strength Dispo-PT eval and medical clearance. Fall Risk Details Current Medications: Current Medications Generic Name Dose Route Start Last Admin Trade Name Freq PRN Reason Stop Dose Admin Acetaminophen 650 mg 07/04/20 18:11 Acetaminophen 325 Mg Tablet PO Q6H PRN Pain, Mild (Pain Scale 1-3) Vancomycin HCl 1,250 mg/ 250 mls @ 166.667 mls/hr 07/05/20 14:00 07/05/20 18:03 Sodium Chloride IV Infused MOWEFR@1400 SOFIA Infusion Morphine Sulfate 2 mg 07/04/20 18:11 07/06/20 16:02 Morphine Sulfate 2 Mg/Ml Cartridge IVPUSH 2 mg Q4H PRN Administration Pain, Severe (Pain Scale 7-10) Pharmacy Consult 1 each 07/05/20 10:57 Consult Rx Vancomycin Dosing MISCELLANE DAILY PRN Consult order Sodium Chloride 3 ml 07/05/20 00:00 07/07/20 08:22 0.9 % Sodium Chloride Flush 3 Ml Syringe IVFLUSH 3 ml QSHIFT SOFIA Administration Sodium Chloride 3 ml 07/05/20 16:00 07/07/20 08:27 0.9 % Sodium Chloride Flush 3 Ml Syringe IVFLUSH Not Given QSHIFT SOFIA Time Spent With Patient Time: Total time spent is greater than 50% in coordination of care (as documented) at patient's floor/unit and/or counseling patient: Time with patient: less than 15 minutes
--- NOTE | 2020-07-07 10:29 | P.PNIM_ITS ---
Subjective Subjective Date of Service: 07/07/20 Interval History: f/u right septic knee. Has moderate pain Review of Systems Gen: no fever Resp: no sob, no cough CV: no chest, no GASTELUM, no leg edema GI: No n/v, no abd pain Neuro: No confusion MusK:right knee pain Physical Exam Vital Signs: Vital Signs: Last Vital Signs Temp 97 F 07/07/20 08:00 Pulse 84 07/07/20 08:00 Resp 18 07/07/20 08:00 BP 140/72 H 07/07/20 08:00 Pulse Ox 100 07/07/20 08:00 Body Mass Index 29.2 Const: Other: Constitutional Awake and Alert, No apparent distress HEENT--cataract of right eye Neck Supple, No lymphadenopathy Cardiovascular RRR, No M/R/G, S1 S2, No S3 S4, No pedal edema Respiratory Lungs clear, No respiratory distress Gastrointestinal Non tender, Non-distended Skin No rash Muscular SK: the righ knee is very tenderness and swollen, dressing in place Neurological Alert & oriented x3 Psychological Appropriate affect Objective Data Current Medications Generic Name Dose Route Start Last Admin Trade Name Freq PRN Reason Stop Dose Admin Acetaminophen 650 mg 07/04/20 18:11 Acetaminophen 325 Mg Tablet PO Q6H PRN Pain, Mild (Pain Scale 1-3) Vancomycin HCl 1,250 mg/ 250 mls @ 166.667 mls/hr 07/05/20 14:00 07/05/20 18:03 Sodium Chloride IV Infused MOWEFR@1400 SOFIA Infusion Morphine Sulfate 2 mg 07/04/20 18:11 07/06/20 16:02 Morphine Sulfate 2 Mg/Ml Cartridge IVPUSH 2 mg Q4H PRN Administration Pain, Severe (Pain Scale 7-10) Pharmacy Consult 1 each 07/05/20 10:57 Consult Rx Vancomycin Dosing MISCELLANE DAILY PRN Consult order Sodium Chloride 3 ml 07/05/20 00:00 07/07/20 08:22 0.9 % Sodium Chloride Flush 3 Ml Syringe IVFLUSH 3 ml QSNDFT [facility] Administration Sodium Chloride 3 ml 07/05/20 16:00 07/07/20 08:27 0.9 % Sodium Chloride Flush 3 Ml [facility] & Chem 7: 07/04/20 06:36 07/04/20 06:36 Microbiology Microbiology Results: Microbiology 07/04/20 13:19 Knee aspirate Gram Stain - Final 07/04/20 13:19 Knee aspirate Anaerobic Culture - Final 07/04/20 13:19 Knee aspirate Gross Specimen Examination - Final 07/04/20 13:19 Knee aspirate Fluid Crystals - Final 07/04/20 13:19 Knee aspirate Joint Fluid Culture - Final Staphylococcus aureus 07/04/20 06:36 Blood - Venous Blood Culture - Preliminary No growth after 48 hours. 07/04/20 06:36 Blood - Venous Blood Culture - Preliminary No growth after 48 hours. Assessment and Plan (1) Septic joint of right knee joint: Status: Acute (2) Anemia of chronic disease: Status: Acute (3) ESRD (end stage renal disease): Status: Acute (4) Hypertension: Status: Acute (5) Hyperparathyroidism: Status: Inactive Assessment and Plan: 49 year old male with with ESRD on HD MWF here with right knee septic arthritis in abscence of trauma, suspect hematological spread 1. Septic Knee/ septic arthtis d/t Staph Aureus -Vancomycin around dialysis -Pen sensitive staph Aur. will ask ID if we need to switch to Nafcillin -To OR todayfor washout by Ortho -BCx are so far negative -Echo to rule out IE -ID following 2. ESRD--HD MWF 3. 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 Anemia of chronic disease--H/H stable, check after surgery Full code
--- NOTE | 2020-07-07 12:24 | PM.PNNEP ---
Subjective Subjective Date of Service: 07/07/20 Principal diagnosis: Right knee septic arthritis Interval history: Seen on HD. Events noted. D/W Hospitalist Physical Exam Vital Signs: Vital Signs: Last Vital Signs Temp 97 F 07/07/20 08:00 Pulse 84 07/07/20 08:00 Resp 18 07/07/20 08:00 BP 140/72 H 07/07/20 08:00 Pulse Ox 100 07/07/20 08:00 Body Mass Index 29.2 Const: General: No acute distress Orientation/consciousness: patient oriented x3 Neck: Neck: Yes supple Resp: Auscultation: diminished lung sounds Cardio: Rate: regular rate GI: Palpation (GI): Soft to palpation Neuro: General: patient oriented x3 and moves all extremities Objective Data Labs CBC & Chem 7: 07/04/20 06:36 07/04/20 06:36 Microbiology Microbiology Results: Microbiology 07/04/20 13:19 Knee aspirate Gram Stain - Final 07/04/20 13:19 Knee aspirate Anaerobic Culture - Final 07/04/20 13:19 Knee aspirate Gross Specimen Examination - Final 07/04/20 13:19 Knee aspirate Fluid Crystals - Final 07/04/20 13:19 Knee aspirate Joint Fluid Culture - Final Staphylococcus aureus 07/04/20 06:36 Blood - Venous Blood Culture - Preliminary No growth after 48 hours. 07/04/20 06:36 Blood - Venous Blood Culture - Preliminary No growth after 48 hours. Assessment & Plan Assessment and plan (1) ESRD (end stage renal disease): Problem details: Usually gets HD on MWF Seen on HD ; Renal Diet ( 2 Gm Na, 2 Gm K, phos restricted with fluid restriction 1500mls/24 hours) Renvela 1600 mg PO tid with meals No indication for Procrit Shall closely follow along Status: Acute Time Spent With Patient Time: Total time spent is greater than 50% in coordination of care (as documented) at patient's floor/unit and/or counseling patient:
[2020-07-07] MEDS: Acetaminophen 325 MG TABLET 650 MG PO ×2 (12:37→22:31)
[2020-07-07] MEDS: vancomycin HCL 1,250 MG in 0.9 % Sodium Chloride 250 ML 166.67 MG IV (13:10)
[2020-07-07 13:25] LABS: Vancomycin Trough 19.3 mcg/mL (10.0-20.0)
--- NOTE | 2020-07-07 15:12 | PC.NURSE ---
vanco trough 19.3, vanco administered, per Cliff in pharmacy stop vanco infusion. Patient received approximately 125mls of vanco dose.
--- NOTE | 2020-07-07 20:11 | P.CNID_ITS ---
History of Present Illness Data of Consult Service Date: 07/07/20 Requesting physician: Todd Rosenthal Primary Care Provider: Tessa Shelton MD [facility] Reason for consult: septic right knee He presents to hospital with one day of fever and chills and right knee swelling. He has MSSA in knee fluid and no crystals Orthopedics is falling him He does dialysis for ESRD. He denies trauma to area or recent other infections. Review of Systems Review of Systems: Yes all other systems are reviewed and are negative [facility] Past Medical History Medical History Anemia of chronic disease Blind left eye ESRD (end stage renal disease) Hyperlipidemia Hyperparathyroidism Hypertension Myocardial infarction Renal failure Family History Family history: reviewed and not pertinent Social History Social History Household Members: None Housing: Apartment Alcohol intake: never Smoking Status: Never smoker service: No Current occupational status: unemployed and disabled Meds Allergies Allergy/AdvReac Type Severity Reaction Status Date / Time No Known Drug Allergies Allergy Unknown UNKNOWN Verified 06/06/20 13:01 Active Medications: Current Medications Generic Name Dose Route Start Last Admin Trade Name Freq PRN Reason Stop Dose Admin Acetaminophen 650 mg 07/04/20 18:11 07/07/20 12:37 Acetaminophen 325 Mg Tablet PO 650 mg Q6H PRN Administration Pain, Mild (Pain Scale 1-3) Cefazolin Sodium/Dextrose 2 gm in 50 mls @ 100 mls/hr 07/08/20 16:45 Ancef IV DIALYSIS X2 TUTHSA SOFIA Morphine Sulfate 2 mg 07/04/20 18:11 07/06/20 16:02 Morphine Sulfate 2 Mg/Ml Cartridge IVPUSH 2 mg Q4H PRN Administration Pain, Severe (Pain Scale 7-10) Pharmacy Consult 1 each 07/05/20 10:57 Consult Rx Vancomycin Dosing MISCELLANE DAILY PRN Consult order Sodium Chloride 3 ml 07/05/20 00:00 07/07/20 15:38 0.9 % Sodium Chloride Flush 3 Ml Syringe IVFLUSH 3 ml QSHIFT SOFIA Administration Sodium Chloride 3 ml 07/05/20 16:00 07/07/20 15:38 0.9 % Sodium Chloride Flush 3 Ml Syringe IVFLUSH 3 ml QSHIFT SOFIA Administration Home Medications Medication Instructions Recorded Confirmed Last Taken Type cholecalciferol (vitamin D3) 50 50 mcg PO DAILY 06/06/20 07/04/20 07/03/20 History mcg (2,000 unit) capsule lanthanum 500 mg chewable tablet 500 mg PO TIDWM 06/06/20 07/04/20 07/03/20 History loratadine 10 mg tablet 10 mg PO DAILY 06/06/20 07/04/20 07/03/20 History multivitamin 1 tab PO DAILY 06/06/20 07/04/20 07/03/20 History warfarin 5 mg tablet 5 mg PO DAILY 06/06/20 07/04/20 07/03/20 History diphenhydramine HCl [Banophen] 25 mg PO BEDTIME 07/04/20 07/04/20 07/03/20 History midodrine 10 mg PO [id number]@[id number] 07/04/20 07/04/20 Unknown History Physical Exam Vital Signs: Vital Signs: Last Vital Signs Temp 97.3 F 07/07/20 19:26 Pulse 91 07/07/20 19:26 Resp 15 07/07/20 19:26 BP 140/92 H 07/07/20 19:26 Pulse Ox 100 07/07/20 16:00 Body Mass Index 29.2 Const: General: cooperative Orientation/consciousness: patient oriented x3 HENMT: Other: left eye blindness Head: Yes normal to inspection Mouth: Normal oral and palatal mucosa present Eyes: General: appearance normal, both eyes and all related structures Resp: Effort & Inspection: normal respiratory effort Cardio: Rate: regular rate Rhythm: regular rhythm GI: Palpation (GI): Soft to palpation and nontender Skin: General skin exam: no rashes or lesions noted Neuro: General: patient oriented x3 Extrem: Other: right knee swollen,wrapped Results Labs CBC & Chem 7: 07/04/20 06:36 07/04/20 06:36 Microbiology Microbiology Results: Microbiology 07/04/20 13:19 Knee aspirate Gram Stain - Final 07/04/20 13:19 Knee aspirate Anaerobic Culture - Final 07/04/20 13:19 Knee aspirate Gross Specimen Examination - Final 07/04/20 13:19 Knee aspirate Fluid Crystals - Final 07/04/20 13:19 Knee aspirate Joint Fluid Culture - Final Staphylococcus aureus 07/04/20 06:36 Blood - Venous Blood Culture - Preliminary No growth after 48 hours. 07/04/20 06:36 Blood - Venous Blood Culture - Preliminary No growth after 48 hours. Assessment and Plan (1) Septic arthritis of knee, right: Problem details: MSSA There is no bacteremia Organism sensitive to Kefzol Status: Acute Would give 2 g IV Kefzol after dialysis for four weeks Check echo even though blood cultures negative look for endocarditis. and make sure no metastatic site in knee (2) ESRD (end stage renal disease): Problem details: Usually gets HD on MWF Seen on HD ; Renal Diet ( 2 Gm Na, 2 Gm K, phos restricted with fluid restriction 1500mls/24 hours) Renvela 1600 mg PO tid with meals No indication for Procrit Shall closely follow along Status: Acute
[2020-07-07 21:14] LABS: INTERNATIONAL NORM RATIO 1.5 (0.9-1.1); Prothrombin Time 17.8 SEC (10.8-13.0)
[2020-07-07] MEDS: Calcium Carbonate 750 MG TAB.CHEW PO (21:35)
[2020-07-07] MEDS: Warfarin Sodium 5 MG TABLET PO (21:35)
[2020-07-08 04:00] VITALS: BP 115/75; PULSE 97; RESP 18; TEMP 35.8; O2SAT 100
[2020-07-08 07:25] LABS: INTERNATIONAL NORM RATIO 1.4 (0.9-1.1); Prothrombin Time 17.1 SEC (10.8-13.0)
[2020-07-08 08:00] VITALS: BP 131/58; PULSE 50; RESP 17; TEMP 36.3; O2SAT 98
--- NOTE | 2020-07-08 09:45 | HO.PM.IMPN ---
Subjective Subjective Date of Service: 07/08/20 Interval History: f/u right septic arthritis, has pain in the knee and trouble walking Review of Systems Gen: no fever Resp: no sob, no cough CV: no chest, no GASTELUM, no leg edema GI: No n/v, no abd pain Neuro: No confusion MusK:right knee pain, pain with walking Physical Exam Vital Signs: Vital Signs: Last Vital Signs Temp 97.3 F 07/08/20 08:00 Pulse 50 07/08/20 08:00 Resp 17 07/08/20 08:00 BP 131/58 L 07/08/20 08:00 Pulse Ox 98 07/08/20 08:00 Body Mass Index 29.2 Const: Other: Constitutional Awake and Alert, No apparent distress HEENT--cataract of right eye Neck Supple, No lymphadenopathy Cardiovascular RRR, No M/R/G, S1 S2, No S3 S4, No pedal edema Respiratory Lungs clear, No respiratory distress Gastrointestinal Non tender, Non-distended Skin No rash Muscular SK: the righ knee is very tenderness and swollen, dressing in place Neurological Alert & oriented x3 Psychological Appropriate affect Objective Data Current Medications Generic Name Dose Route Start Last Admin Trade Name Freq PRN Reason Stop Dose Admin Acetaminophen 650 mg 07/04/20 18:11 07/07/20 22:31 Acetaminophen 325 Mg Tablet PO 650 mg Q6H PRN Administration Pain, Mild (Pain Scale 1-3) Calcium Carbonate 750 mg 07/07/20 21:22 07/07/20 21:35 Calcium Carbonate 750 Mg Tab.Chew PO 750 mg Q6H PRN Administration Dyspepsia Cefazolin Sodium/Dextrose 2 gm in 50 mls @ 100 mls/hr 07/08/20 16:45 Ancef IV TuThSa@1645 [facility] Morphine Sulfate 2 mg 07/04/20 18:11 07/06/20 16:02 Morphine Sulfate 2 Mg/Ml Cartridge IVPUSH 2 mg Q4H PRN Administration Pain, Severe (Pain Scale 7-10) Pharmacy Consult 1 each 07/05/20 10:57 Consult Rx Vancomycin Dosing MISCELLANE DAILY PRN Consult order Sodium Chloride 3 ml 07/05/20 00:00 07/07/20 21:36 0.9 % Sodium Chloride Flush 3 Ml Syringe IVFLUSH 3 ml QSHIFT [facility] Administration Sodium Chloride 3 ml 07/05/20 16:00 04/03/21 01:21 0.9 % Sodium Chloride Flush 3 Ml Syringe IVFLUSH Not Given QSHIFT [facility] Warfarin Sodium 5 mg 07/07/20 20:15 07/07/20 21:35 Warfarin Sodium 5 Mg Tablet PO 5 mg DAILY@1800 [facility] Administration Labs CBC & Chem 7: 07/04/20 06:36 07/04/20 06:36 Microbiology Microbiology Results: Microbiology 07/04/20 13:19 Knee aspirate Gram Stain - Final 07/04/20 13:19 Knee aspirate Anaerobic Culture - Final 07/04/20 13:19 Knee aspirate Gross Specimen Examination - Final 07/04/20 13:19 Knee aspirate Fluid Crystals - Final 07/04/20 13:19 Knee aspirate Joint Fluid Culture - Final Staphylococcus aureus 07/04/20 06:36 Blood - Venous Blood Culture - Preliminary No growth after 48 hours. 07/04/20 06:36 Blood - Venous Blood Culture - Preliminary No growth after 48 hours. Assessment and Plan (1) Septic joint of right knee joint: Status: Acute (2) Anemia of chronic disease: Status: Acute (3) ESRD (end stage renal disease): Problem details: Usually gets HD on MWF Seen on HD ; Renal Diet ( 2 Gm Na, 2 Gm K, phos restricted with fluid restriction 1500mls/24 hours) Renvela 1600 mg PO tid with meals No indication for Procrit Shall closely follow along Status: Acute (4) Hypertension: Status: Acute (5) Hyperparathyroidism: Status: Inactive Assessment and Plan: 49 year old male with with ESRD on HD MWF here with right knee septic arthritis in abscence of trauma, suspect hematological spread 1. Septic Knee/ septic arthtis d/t Staph Aureus -2gram of Ancef post dialysis for 4 weeks -Pen sensitive staph Aur. ID recommend -To OR todayfor washout by Ortho -BCx are so far negative -Echo 07/06, no vegetatiion -ID following 2. ESRD--HD MWF 3. 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 Anemia of chronic disease--H/H stable, check after surgery Need for hospitalization: Needs IV Abx for septic arthritis and unable marked difficulty walking and will need rehab at this point and is being arranged by CM Full code
--- NOTE | 2020-07-08 10:17 | PM.DS ---
DS: Providers Provider Date of Service: 08/07/20 Date of admission: 07/04/20 16:04 Primary care physician: Tessa Shelton MD Consults: 07/04/20 16:05 Consult to Nephrology Routine Consulting Provider: Pedro Delgado Reason for consultation: ESRD on HD MWF 07/04/20 18:11 Consult to Infectious Diseases Routine Consulting Provider: Pham Keane Reason for consultation: septic knee Has provider been notified: No DS: Diagnosis Discharge Diagnosis (1) Septic joint of right knee joint: Status: Acute (2) Anemia of chronic disease: Status: Acute (3) ESRD (end stage renal disease): Status: Acute Problem details: Usually gets HD on MWF Seen AM ; Renal Diet ( 2 Gm Na, 2 Gm K, phos restricted with fluid restriction 1500mls/24 hours) Renvela 1600 mg PO tid with meals No indication for Procrit Shall arrange antibiotics in outpt HD UNit if D/[place] (4) Hypertension: Status: Acute (5) Hyperparathyroidism: Status: Inactive DS: Medications Discharge Medications Home Medications: Home Medications Medication Instructions Recorded Confirmed cholecalciferol (vitamin D3) 50 50 mcg PO DAILY 06/06/20 07/04/20 mcg (2,000 unit) capsule lanthanum 500 mg chewable tablet 500 mg PO TIDWM 06/06/20 07/04/20 loratadine 10 mg tablet 10 mg PO DAILY 06/06/20 07/04/20 multivitamin 1 tab PO DAILY 06/06/20 07/04/20 warfarin 5 mg tablet 5 mg PO DAILY 06/06/20 07/04/20 diphenhydramine HCl [Banophen] 25 mg PO BEDTIME 07/04/20 07/04/20 midodrine 10 mg PO TUTHSA@1645 07/04/20 07/04/20 DS: Summary Hospital Course Hospital Course: Chief Complaint: Right knee pain and fever HPI: 47-year-old Indonesian-speaking male with a history of end-stage renal disease on hemodialysis, who presents to the emergency department today with complaint of right knee pain, swelling that started around midnight this morning and is associated with severe pain, especially with ambulation and fever, temperature was 102 in ED. He denies trauma to the knee. Gram stain of athrocentesis fluid shows gram positive cocci and therefore concern for staph. He is received Ceftriaxone and Vancomycin and ortho is a planning to take to the OR tomorrow for wash out. Hospital course: Patient presented with right knee pain, swelling and fever. Arhtocentesis analysis was consitent with septic arthritis with gram positive cocci in gram stain and ultimately Staph Aureus, MSSA. He was started promptoly IV Vancomycin and Ceftriaxone. Orho took him the OR the next day for exploration and washout. Blood cultures have been negative. Echo showed no vegetation. Infectious disease has recommended transitioning to IV Ancef 2 gram around dialysis for 4 weeks. He is presently afebrile. He doesn have persitent pain in the knee and difficulty ambulation and therefore will go to short term rehab on PT's advise. He will continue to need dialysis MWF. He is on coumadin for history fistula thrombosis and has been resumeed on coumadin with goal of INR 2 to 3 Time Spent with Patient Time attestation: Total time spent providing and/or coordinating discharge services: Discharge coordination time: Greater than 30 minutes Physical Exam Vital Signs: Vital Signs: Last Vital Signs Temp 97.3 F 07/08/20 08:00 Pulse 50 07/08/20 08:00 Resp 17 07/08/20 08:00 BP 131/58 L 07/08/20 08:00 Pulse Ox 98 07/08/20 08:00 Body Mass Index 29.2 DS: Data Data Completed and Pending Labs on day of discharge: Laboratory Results - last 24 hr 07/07/20 07/07/20 07/08/20 12:17 20:50 06:30 PT 17.8 H D 17.1 H INR 1.5 H 1.4 H Vancomycin Trough 19.3 Preliminary micro results at discharge 07/04/20 06:36 Blood Culture - Preliminary Blood - Venous No growth after 48 hours. 07/04/20 06:36 Blood Culture - Preliminary Blood - Venous No growth after 48 hours. Discharge Plan Discharge Anticipated Discharge Date/Time: 07/08/20 10:07 Patient Disposition: Home Health Service Discharge Diagnosis: septic joint Referrals: [facility] [Outside] Tessa Shelton MD [Primary Care Provider] - Chikis Moreira PA-C [Physician Retail Management Trainee] - (2 weeks) Discharge Medications: New cefazolin 1 gram recon soln See Rx Instructions .ROUTE .COMPLEX Qty: 28 RF: 0 oxycodone 5 mg tablet 5 mg PO Q6H PRN (Reason: pain) Qty: 14 RF: 0 Continued diphenhydramine HCl [Banophen] 25 mg Tablet 25 mg PO BEDTIME RF: 0 midodrine 10 mg Tablet 10 mg PO TUTHSA@1645 RF: 0 No Action oxycodone 5 mg tablet 5 mg PO Q6H PRN (Reason: pain) Qty: 20 RF: 0 Discharge Orders: Discharge Order (Routine); Ordered 07/08/20 Ordered By: Todd Rosenthal Diet: advance to usual diet Activity on Discharge: As tolerated Stand Alone Forms: Patient Portal Discharge page Care Plan Goals: full recovery from septic arthritis Health Concerns: Septic arthritis Plan of Treatment: IV ancef 2 gram with dialysis for 4 weeks, short term rehab, follow INR per protocol goal of INR 2 to 3 Assessment: Septic joint on iv antibiotics Discharge Date/Time: 07/08/20 14:45
--- NOTE | 2020-07-08 10:33 | MHC.CM.PN ---
Addendum entered by Yaritza Cristobal 07/08/20 13:08: PATIENT NOW REFUSING REHAB. REFERRAL PLACED TO [facility] FOR SERVICES. (IN ROOM) AND PATIENT AWARE THAT VERIFICATION OF PCP WILL NEED TO BE DONE ON FRIDAY BEFORE AGENCY CAN START CARE. THIS CONTROL BOARD OPERATOR WILL FOLLOW UP WITH AGENCY ON FRIDAY. MD MADE AWARE OF PATIENT'S DESIRE TO HAVE HIS ORIGINAL HD SCHEDULE RESUMED (), HE IS CURRENTLY MOVED TO [facility] Original Note: , [place], AWARE OF PLANNED DISCHARGE TO [facility] FOR STR AND HD. TRAN[facility]ORT [facility]. REQUEST FOR 1300 DOWN FILLER AND TRANSPORT. PATIENT, RN AND UNIT AWARE OF PLAN. IMM 07/06 IN CHART.
[2020-07-08] MEDS: Acetaminophen 325 MG TABLET 650 MG PO (10:35)
[2020-07-08 11:09] LABS: COVID-19 Test Negative (Negative); IDNOW Serial# 9DD0AD1C
[2020-07-08 12:00] VITALS: BP 115/71; PULSE 88; RESP 18; TEMP 36.4; O2SAT 99
--- NOTE | 2020-07-08 13:11 | PM.PNNEP ---
Subjective Subjective Date of Service: 07/08/20 Principal diagnosis: Right knee septic arthritis Interval history: Events noted. All recent data reviewed Physical Exam Vital Signs: Vital Signs: Last Vital Signs Temp 97.5 F 07/08/20 12:00 Pulse 88 07/08/20 12:00 Resp 18 07/08/20 12:00 BP 115/71 07/08/20 12:00 Pulse Ox 99 07/08/20 12:00 Body Mass Index 29.2 Const: General: No acute distress Orientation/consciousness: patient oriented x3 Neck: Neck: Yes supple Resp: Auscultation: diminished lung sounds Cardio: Heart sounds: no rubs GI: Palpation (GI): Soft to palpation Neuro: General: patient oriented x3 and moves all extremities Objective Data Labs CBC & Chem 7: 07/04/20 06:36 07/04/20 06:36 Labs: Laboratory Results - last 24 hr 07/07/20 07/07/20 07/08/20 12:17 20:50 06:30 PT 17.8 H D 17.1 H INR 1.5 H 1.4 H Vancomycin Trough 19.3 COVID-19 ([facility]) COVID-19 Clin Com 07/08/20 10:36 PT INR Vancomycin Trough COVID-19 ([facility]) Negative COVID-19 Clin Com See Note Microbiology Microbiology Results: Microbiology 07/04/20 13:19 Knee aspirate Gram Stain - Final 07/04/20 13:19 Knee aspirate Anaerobic Culture - Final 07/04/20 13:19 Knee aspirate Gross Specimen Examination - Final 07/04/20 13:19 Knee aspirate Fluid Crystals - Final 07/04/20 13:19 Knee aspirate Joint Fluid Culture - Final Staphylococcus aureus 07/04/20 06:36 Blood - Venous Blood Culture - Preliminary No growth after 48 hours. 07/04/20 06:36 Blood - Venous Blood Culture - Preliminary No growth after 48 hours. Assessment & Plan Assessment and plan (1) ESRD (end stage renal disease): Problem details: Usually gets HD on MWF Seen AM ; Renal Diet ( 2 Gm Na, 2 Gm K, phos restricted with fluid restriction 1500mls/24 hours) Renvela 1600 mg PO tid with meals No indication for Procrit Shall arrange antibiotics in outpt HD UNit if D/[place] Status: Acute Time Spent With Patient Time: Total time spent is greater than 50% in coordination of care (as documented) at patient's floor/unit and/or counseling patient:
--- NOTE | 2020-07-08 14:04 | MHC.CM.PN ---
INSURANCE AUTH OBTAINED FROM [facility] RN [phone] BERNARDO TO START CARE ON FRIDAY. PATIENT WILL NEED INR DRAWN ATTHIS TIME. HE IS AUTHORIZED FOR HOME P.T. AND RN SKILLS. PATIENT WILL RECEIVE HIS IV ABX AT HD ON --FRI AND PATIENT AWARE
--- NOTE | 2020-07-08 14:19 | W.MHC.F2F ---
Service Date Service Date: 07/08/20 Encounter Date of encounter: 07/08/20 Reasons for Services Reason for fpc: wound care Homebound: Leaving the home is medically contraindicated at this time without the asist of a device and/or another person due th the listed conditions above and below. Homebound supporting statement: Homebound due to legally blind and now with septic knee that is making ambulating very difficulty in need of wound care therefore needs the asisance of another person Certification: Based on the above findings, I certify that this patient is confined to the home and needs intermittent fpc care, physical therapy and/or speech therapy, or continues to need occupational therapy. The patient is under my care, and I have initiated the establishment of the plan of care. The patient will be followed by a physician who will periodically review the plan of care.
== END 2020-07-08 14:45 | disposition home health service (06) | DRG 485 ==
LOC: HO.ED 16:24 → HO.EDOVER 16:55 → HO.S3 20:11
PROVIDERS: Orthopaedic Surgery; Admitting Provider Internal Medicine; Emergency Provider Emergency Medicine; PCP Internal Medicine; Visit Provider Internal Medicine
PROC: 0SBC4ZZ Excision of Right Knee Joint, Percutaneous Endoscopic Approach (ICD-10-PCS; CPT 29870; principal; 2020-07-05 13:00)
DX: M00.061 Staphylococcal arthritis, right knee (principal); N18.6 End stage renal disease; I12.0 Hypertensive chronic kidney disease with stage 5 chronic kidney disease or end stage renal disease; B95.61 Methicillin susceptible Staphylococcus aureus infection as the cause of diseases classified elsewhere; M71.38 Other bursal cyst, other site; E78.5 Hyperlipidemia, unspecified; D63.1 Anemia in chronic kidney disease; Z20.822 Contact with and (suspected) exposure to COVID-19; Z86.718 Personal history of other venous thrombosis and embolism; I25.2 Old myocardial infarction; Z99.2 Dependence on renal dialysis; Z79.01 Long term (current) use of anticoagulants; Z79.899 Other long term (current) drug therapy
CPT/HCPCS: 36415; 71045; 73564; 73700; 80048; 80202; 82945; 83605; 84157; 85025; 85610; 87040; 87071; 87073; 87077; 87186; 87205; 87635; 89051; 89060; 90999; 93306; 96365; 96367; 96368; 96372; 96375; 97110; 97116; 97162; 99285; J0131; J0690; J0696; J1170; J2250; J2270; J2405; J3010; J3370

== ENCOUNTER 2020-07-11 15:25 | Emergency (ER) | payer OTHER, SELFPAY ==
--- NOTE | ~2020-07-11 | US_ITS ---
EXAMINATION: US VENOUS ULTRASOUND WITH DOPPLER LOWER EXTREMITY, RIGHT CLINICAL INFORMATION: Right calf pain COMPARISON: Knee CT 07/04/2020 TECHNIQUE: Ultrasound of the deep veins is performed from the hip to the calf with compression sonography and color and pulse Doppler assessment. Spectral analysis with color-flow imaging is performed. FINDINGS: There is normal venous compression and respiratory variation and augmented flow. The visualized common femoral vein, superficial femoral vein, profunda femoral vein, popliteal vein, and the trifurcation region shows no evidence of deep venous thrombosis. There is no significant popliteal fossa cyst. A right-sided the joint effusion is present which was seen on the prior knee CT. The contralateral left femoral vein appears unremarkable. If the patient's symptoms persist, followup ultrasound in 5 days 7 days might be of value to exclude proximal propagation from a non-visualized calf vein. US/US venous duplex LE RT IMPRESSION: No DVT demonstrated in the right lower extremity. Right knee joint effusion
[2020-07-11 16:04] VITALS: BP 134/63; PULSE 67; RESP 17; TEMP 37.2; O2SAT 98; BMI 28.0
[2020-07-11 20:45] VITALS: BP 138/67; TEMP 36.9
--- NOTE | 2020-07-11 20:58 | ED.EXTPRO ---
HPI - Extremity Problem General Chief complaint: Extremity Problem Stated complaint: leg pain Time Seen by Provider: 07/11/20 20:51 Source: patient and family Mode of arrival: ambulatory Limitations: no limitations History of Present Illness HPI Narrative: Patient with history of septic arthritis right knee since 07/05 culture grew MSSA on 2 g IV Kefzol during dialysis noticed increased pain in right calf area today no fever no chills patient had dialysis today. Patient denied any fever or chills patient is on Coumadin Related Data Home Medications Medication Instructions Recorded Confirmed cholecalciferol (vitamin D3) 50 50 mcg PO DAILY 06/06/20 07/04/20 mcg (2,000 unit) capsule lanthanum 500 mg chewable tablet 500 mg PO TIDWM 06/06/20 07/04/20 loratadine 10 mg tablet 10 mg PO DAILY 06/06/20 07/04/20 multivitamin 1 tab PO DAILY 06/06/20 07/04/20 warfarin 5 mg tablet 5 mg PO DAILY 06/06/20 07/04/20 diphenhydramine HCl [Banophen] 25 mg PO BEDTIME 07/04/20 07/04/20 midodrine 10 mg PO TUTA@1645 07/04/20 07/04/20 Previous Rx's Medication Instructions Recorded cefazolin See Rx Instructions .ROUTE 07/08/20 .COMPLEX #28 ea oxycodone 5 mg PO Q6H PRN #14 tab 07/08/20 oxycodone 5 mg PO Q6H PRN #20 tab 07/11/20 Allergies Allergy/AdvReac Type Severity Reaction Status Date / Time No Known Drug Allergies Allergy Unknown UNKNOWN Verified 06/06/20 13:01 Review of Systems Review of Systems: Constitutional : No Weight loss, No Fever, No Chills ENT/Mouth : No sore throat, No Rhinorrhea Eyes: No Eye Pain, No Swelling Cardiovascular : No Chest Pain, no palpitations Respiratory : No Cough, No Sputum, no shortness of breath Gastrointestinal : no Nausea, No Vomiting, No Diarrhea, No abdominal Pain, no black stools Genitourinary : No Dysuria, No Urinary Frequency Musculoskeletal : No joint pain, No Myalgias, No Joint Swelling Skin : No Skin Lesions, No rash Neuro : No Weakness, No Numbness, No Dizziness, No Headache Psych : No Anxiety/Panic, No Depression Heme/Lymph: No Bruising, No Lymphadenopathy Endocrine : No Polyuria, No Polydipsia All other systems reviewed and are negative [facility] Past Medical History Medical History Anemia of chronic disease Blind left eye ESRD (end stage renal disease) Hyperlipidemia Hyperparathyroidism Hypertension Myocardial infarction Renal failure Social History Social History Household Members: None Housing: Apartment Alcohol intake: never Smoking Status: Never smoker Use of substances other than those prescribed or required for medical reasons: No Advance Directives: No Advance Directives Information Provided: Yes service: No Current occupational status: unemployed and disabled Physical Exam Vital Signs: Vital Signs: Last Vital Signs Temp 98.4 F 07/11/20 20:45 Pulse 67 07/11/20 16:04 Resp 17 07/11/20 16:04 BP 138/67 07/11/20 20:45 Pulse Ox 98 07/11/20 16:04 Body Mass Index 28.0 Const: General: comfortable and no acute distress Orientation/consciousness: patient oriented x3 HENMT: Head: Yes normocephalic and Yes atraumatic Eyes: Other: Left eye legally blind right eye normal pupils Neck: Neck: Yes normal visual inspection, Yes full ROM and Yes no lymphadenopathy Chest: Chest palpation & inspection: normal inspection of the chest and normal palpation of entire chest wall Resp: Effort & Inspection: normal respiratory effort Auscultation: clear to auscultation bilaterally, no crackles, no rales and no rhonchi Cardio: Palpation: normal PMI Rate: regular rate Rhythm: regular rhythm Heart sounds: S1 normal heart sound present and S2 normal heart sound present Peripheral pulses: Peripheral pulses 2+ throughout GI: Inspection: Yes normal to inspection Palpation (GI): Soft to palpation and nontender Auscultation: normal bowel sounds : General: Yes no CVA tenderness Back/Spine/Pelvis: Back: no CVA tenderness Thoracic/Lumbar Spine: thoracic and lumbar spine normal to inspection Skin: General skin exam: no rashes or lesions noted Neuro: General: patient oriented x3, gait normal, moves all extremities, no focal motor deficits and CN's II-XI intact bilaterally Extrem: Upper/lower leg/hip images: 1. Diffuse tenderness right calf area no significant swelling noticed no skin discoloration right knee joint good range of movement no effusion MDM - Extremity (Nontraumatic) MDM Narrative Medical decision making narrative: Patient history of septic arthritis on IV Kefzol during dialysis days came with right leg calf pain already on Coumadin INR is 2.5 Doppler test is negative for blood clot likely muscular pain discharge patient home on oxycodone Lab Data Attestation: I reviewed the patient's lab results. Result diagrams: 07/11/20 21:22 07/11/20 21: Labs: Lab Results 07/11/20 07/11/20 07/11/20 Range/Units 21:22 21:22 21:22 WBC 8.0 (4.8-10.8) X10*3/uL RBC 3.44 L (4.60-5.80) X10*6/uL Hgb 10.0 L (14.0-18.0) g/dl Hct 31.4 L (42-52) % MCV 91.3 (80-98) fL MCH 29.1 (27.0-33.0) pg MCHC 31.8 (31.0-36.0) g/dl RDW 15.3 (11.0-16.0) % Plt Count 280 D (160-400) X10*3/uL MPV 10.8 (9.4-12.4) fL Immature Gran % (Auto) 0.6 H (0.0-0.4) % Neut % (Auto) 82.9 H (45-73) % Lymph % (Auto) 6.5 L (20-40) % Stearns % (Auto) 9.3 (2-11) % Eos % (Auto) 0.6 (0-4) % Baso % (Auto) 0.1 (0-2) % Lymph # (Auto) 0.5 L (1.2-4.9) X10*3/uL Stearns # (Auto) 0.7 (0.1-1.2) X10*3/uL Eos # (Auto) 0.1 (0.0-0.4) X10*3/uL Baso # (Auto) 0.0 (0.0-0.2) X10*3/uL Abs Immat Gran (auto) 0.05 H (0.00-0.03) X10*3/uL Absolute Neuts (auto) 6.6 (2.0-8.3) X10*3/uL Absolute Nucleated RBC 0.000 (0.0-0.012) X10*3/uL Nucleated RBC % (auto) 0.0 (0.0-0.2) /100WBC Smear Tech's Comments VERIFIED PT 30.4 H D (10.8-13.0) SEC INR 2.5 H (0.9-1.1) APTT 46.2 H (24.1-38.0) SEC Sodium 140 (135-145) mmol/L Potassium 4.2 (3.3-5.1) mmol/L Chloride 93 L (96-108) mmol/L Carbon Dioxide 29 (22-29) mmol/L Anion Gap 22 H (12-20) BUN 62 H (9-16) mg/dL Creatinine 10.61 H* (0.5-1.4) mg/dL Estim Creat Clear Calc 8.4 Estimated GFR 5 Random Glucose 116 H (60-115) mg/dL Lactic Acid (0.5-2.0) mmol/L Calcium 7.4 L D (8.4-10.2) mg/dL Total Bilirubin 0.5 (0.0-1.0) mg/dL Direct Bilirubin 0.2 (0.0-0.5) mg/dL AST 27 (5-37) U/L ALT 24 (0-40) U/L Alkaline Phosphatase 134 H (39-117) U/L Total Protein 7.6 (6.5-8.0) g/dL Albumin 3.5 (3.5-5.0) g/dL 07/11/20 Range/Units 21:22 WBC (4.8-10.8) X10*3/uL RBC (4.60-5.80) X10*6/uL Hgb (14.0-18.0) g/dl Hct (42-52) % MCV (80-98) fL MCH (27.0-33.0) pg MCHC (31.0-36.0) g/dl RDW (11.0-16.0) % Plt Count (160-400) X10*3/uL MPV (9.4-12.4) fL Immature Gran % (Auto) (0.0-0.4) % Neut % (Auto) (45-73) % Lymph % (Auto) (20-40) % Stearns % (Auto) (2-11) % Eos % (Auto) (0-4) % Baso % (Auto) (0-2) % Lymph # (Auto) (1.2-4.9) X10*3/uL Stearns # (Auto) (0.1-1.2) X10*3/uL Eos # (Auto) (0.0-0.4) X10*3/uL Baso # (Auto) (0.0-0.2) X10*3/uL Abs Immat Gran (auto) (0.00-0.03) X10*3/uL Absolute Neuts (auto) (2.0-8.3) X10*3/uL Absolute Nucleated RBC (0.0-0.012) X10*3/uL Nucleated RBC % (auto) (0.0-0.2) /100WBC Smear Tech's Comments PT (10.8-13.0) SEC INR (0.9-1.1) APTT (24.1-38.0) SEC Sodium (135-145) mmol/L Potassium (3.3-5.1) mmol/L Chloride (96-108) mmol/L Carbon Dioxide (22-29) mmol/L Anion Gap (12-20) BUN (9-16) mg/dL Creatinine (0.5-1.4) mg/dL Estim Creat Clear Calc Estimated GFR Random Glucose (60-115) mg/dL Lactic Acid 1.8 (0.5-2.0) mmol/L Calcium (8.4-10.2) mg/dL Total Bilirubin (0.0-1.0) mg/dL Direct Bilirubin (0.0-0.5) mg/dL AST (5-37) U/L ALT (0-40) U/L Alkaline Phosphatase (39-117) U/L Total Protein (6.5-8.0) g/dL Albumin (3.5-5.0) g/dL Discharge Plan Discharge Clinical Impression: Musculoskeletal leg pain Qualifiers: Laterality: right Qualified Code(s): M79.604 - Pain in right leg Patient Disposition: Home, Self-Care Instructions: Musculoskeletal Pain (ED) Additional Instructions: The workup is negative for blood clot or any significant infection. Take pain medication as prescribed and follow with PCP Prescriptions: New oxycodone 5 mg tablet 5 mg PO Q6H PRN (Reason: pain) Qty: 20 RF: 0 No Action diphenhydramine HCl [Banophen] 25 mg Tablet 25 mg PO BEDTIME RF: 0 midodrine 10 mg Tablet 10 mg PO TUTHSA@1645 RF: 0 cefazolin 1 gram recon soln See Rx Instructions .ROUTE .COMPLEX Qty: 28 RF: 0 oxycodone 5 mg tablet 5 mg PO Q6H PRN (Reason: pain) Qty: 14 RF: 0
--- NOTE | 2020-07-11 21:29 | PC.NURSE ---
iv inserted, labs drawn, pt states it is always very difficult to obtain an O2 sat- unable to obtain one at this time
--- NOTE | 2020-07-11 21:30 | PC.NURSE ---
us at bedside
[2020-07-11 21:31] LABS: Basophils Percent Auto 0.1 % (0-2); Eosinophils Absolute Auto 0.1 X10*3/uL (0.0-0.4); Eosinophils Percent Auto 0.6 % (0-4); Hematocrit 31.4 % (42-52); Imm Gran Abs Auto 0.05 X10*3/uL (0.00-0.03); Imm Gran Pct Auto 0.6 % (0.0-0.4); Lymphocytes Absolute Auto 0.5 X10*3/uL (1.2-4.9); Lymphocytes Percent Auto 6.5 % (20-40); MANUAL DIFF FLAG SCAN; Mean Corpuscular HGB Conc 31.8 g/dl (31.0-36.0); Mean Corpuscular Hemoglobin 29.1 pg (27.0-33.0); Mean Corpuscular Volume 91.3 fL (80-98); Mean Platelet Volume 10.8 fL (9.4-12.4); Monocytes Absolute Auto 0.7 X10*3/uL (0.1-1.2); Monocytes Percent Auto 9.3 % (2-11); Neutrophils Absolute Auto 6.6 X10*3/uL (2.0-8.3); Neutrophils Percent Auto 82.9 % (45-73); Platelet Count 280 X10*3/uL (160-400); Red Blood Count 3.44 X10*6/uL (4.60-5.80); Red Cell Distribution Width 15.3 % (11.0-16.0); SCAN SMEAR FLAG 1
[2020-07-11 21:53] LABS: INTERNATIONAL NORM RATIO 2.5 (0.9-1.1); Prothrombin Time 30.4 SEC (10.8-13.0)
[2020-07-11 21:55] LABS: SLIDE REVIEW VERIFIED
[2020-07-11 22:00] LABS: Lactic Acid 1.8 mmol/L (0.5-2.0)
[2020-07-11 22:11] LABS: Partial Thromboplastin Time 46.2 SEC (24.1-38.0)
[2020-07-11 22:39] LABS: Alanine Aminotransferase 24 U/L (0-40); Albumin Level 3.5 g/dL (3.5-5.0); Alkaline Phosphatase 134 U/L (39-117); Anion Gap 22 (12-20); Aspartate Amino Transferase 27 U/L (5-37); Bilirubin Direct 0.2 mg/dL (0.0-0.5); Bilirubin Total 0.5 mg/dL (0.0-1.0); Blood Urea Nitrogen 62 mg/dL (9-16); Calcium 7.4 mg/dL (8.4-10.2); Carbon Dioxide 29 mmol/L (22-29); Chloride 93 mmol/L (96-108); Creatinine Clr Calc Pharmacy 8.4; Estimated Glomerular Filt Rate 5; Glucose Random 116 mg/dL (60-115); Potassium 4.2 mmol/L (3.3-5.1); Sodium 140 mmol/L (135-145); Total Protein 7.6 g/dL (6.5-8.0)
[2020-07-11] MEDS: oxyCODONE HCl Immed Release 5 MG TABLET PO (22:55)
[2020-07-11 22:59] VITALS: BP 133/68; PULSE 71; RESP 18; TEMP 37.1; O2SAT 97
== END 2020-07-11 23:08 | disposition home or self-care (01) ==
PROVIDERS: Emergency Provider Internal Medicine; PCP Internal Medicine
DX: M79.661 Pain in right lower leg (principal); I12.0 Hypertensive chronic kidney disease with stage 5 chronic kidney disease or end stage renal disease; N18.6 End stage renal disease; D63.1 Anemia in chronic kidney disease; Z99.2 Dependence on renal dialysis; E78.5 Hyperlipidemia, unspecified; I25.2 Old myocardial infarction; Z79.01 Long term (current) use of anticoagulants
CPT/HCPCS: 36415; 80048; 80076; 83605; 85025; 85610; 85730; 87040; 93971; 99283; 99284

== ENCOUNTER 2020-08-10 15:54 | Outpatient (REF) | payer OTHER, SELFPAY ==
--- NOTE | ~2020-08-10 | US_ITS ---
EXAMINATION: US SOFT TISSUE OF THE NECK CLINICAL INFORMATION: Lump, anterior neck. COMPARISON: None TECHNIQUE: Linear transducer grayscale and color Doppler examination of the neck and submandibular area. FINDINGS: Limited ultrasound imaging through the anterior neck reveals diffuse thickening of the subcutaneous soft tissues with several serpiginous and irregular-shaped hypoechoic areas in the right and left anterior neck. On color ultrasound, there is intraluminal filling in the left anterior neck of hypoechoic spaces suggestive of varicose veins or hemangioma. No such color filling is seen in the right anterior neck, however the soft tissue pattern is similar to the left side. No solid mass or fluid collection is seen in the anterior neck. US/US soft tiss head and/or neck IMPRESSION: Diffuse anterior neck subcutaneous soft tissue thickening, there is likely underlying cellulitis or edema. In the left anterior neck, there is color filling of hypoechoic spaces, vascular anomaly likely representing varicose veins or hemangioma. Swelling in the neck is a new finding finding as per the patient and this representing any kind of AV malformation or AV fistula is considered less likely. There is right anterior neck soft tissue swelling/edema or cellulitis with no color filling to suspect any vascular abnormality. Consider CT or MRI neck with and without contrast.
== END 2020-08-10 15:55 | disposition home or self-care (01) ==
LOC: HO.US 15:54
PROVIDERS: PCP Internal Medicine; Visit Provider Internal Medicine
DX: R22.1 Localized swelling, mass and lump, neck (principal)
CPT/HCPCS: 76536

== ENCOUNTER 2020-08-18 09:35 | Inpatient (IN) | payer OTHER, SELFPAY ==
[2020-08-18] VITALS (9 sets, daily range): BP systolic 114–158; BP diastolic 71–90; PULSE 76–91; RESP 14–20; TEMP 36.2–37.1; O2SAT 98–100; BMI 29.0
--- NOTE | 2020-08-18 10:05 | ED_ITS ---
HPI - General Adult General Chief complaint: General Medical Stated complaint: Low H&H Time Seen by Provider: 08/18/20 09:39 Source: patient Mode of arrival: ambulatory Limitations: no limitations History of Present Illness HPI narrative: Patient presents to ED for low hemoglobin/hematocrit. After dialysis patient labs drawn and seen him to be anemic. Patient presently denies any physical complaints. Patient states no dizziness, weakness, shortness of breath, chest pain, or passing out. Patient denies any rectal bleeding or vomiting blood Related Data Home Medications Medication Instructions Recorded Confirmed cholecalciferol (vitamin D3) 50 50 mcg PO DAILY 06/06/20 08/18/20 mcg (2,000 unit) capsule lanthanum 500 mg chewable tablet 500 mg PO TIDWM 06/06/20 08/18/20 loratadine 10 mg tablet 10 mg PO DAILY 06/06/20 08/18/20 multivitamin 1 tab PO DAILY 06/06/20 08/18/20 diphenhydramine HCl [Banophen] 25 mg PO BEDTIME 07/04/20 08/18/20 midodrine 10 mg PO MOWEFR@1645 07/04/20 08/18/20 epoetin beta, methoxy peg [Mircera] 130 mcg SUBCUT Q2W 08/18/20 08/18/20 Previous Rx's Medication Instructions Recorded cefazolin See Rx Instructions .ROUTE 07/08/20 .COMPLEX #28 ea oxycodone 5 mg PO Q6H PRN #20 tab 07/11/20 Allergies Allergy/AdvReac Type Severity Reaction Status Date / Time No Known Drug Allergies Allergy Unknown UNKNOWN Verified 06/06/20 13:01 Review of Systems Review of Systems: Yes all other systems are reviewed and are negative Constitutional: Constitutional: Reports as per HPI and Reports no additional constitutional complaints Eyes: Eyes: Reports as per HPI and Reports no additional eye complaints ENT: Reports system reviewed and no additional complaints, except as docum ented and Reports as per HPI Cardiovascular: Cardiovascular: Reports as per HPI and Reports no additional cardiovascular complaints Respiratory: Respiratory: Reports as per HPI and Reports no additional respiratory complaints Gastrointestinal: Gastrointestinal: Reports as per HPI and Reports no additional gastrointestinal complaints Genitourinary: Genitourinary: Reports no additional male genitourinary complaints and Reports as per HPI Musculoskeletal: Musculoskeletal: Reports no additional musculoskeletal complaints and Reports as per HPI Neurologic: Reports system reviewed and no additional complaints, except as documented and Reports as per HPI Psychiatric: Psychiatric: Reports no additional psychiatric complaints and Reports as per HPI [facility] Past Medical History Medical History Anemia of chronic disease Blind left eye ESRD (end stage renal disease) Hyperlipidemia Hyperparathyroidism Hypertension Myocardial infarction Renal failure Social History Social History Household Members: None Housing: Apartment Alcohol intake: never Smoking Status: Never smoker Advance Directives: No Advance Directives Information Provided: No service: No Current occupational status: unemployed and disabled Physical Exam Vital Signs: Vital Signs: Last Vital Signs Temp 97.5 F 08/18/20 12:53 Pulse 78 08/18/20 14:00 Resp 14 08/18/20 14:00 BP 114/84 08/18/20 14:00 Pulse Ox 100 08/18/20 09:51 Body Mass Index 29.0 Const: General: cooperative, healthy appearing, comfortable, no acute distress, well developed, alert and awake Orientation/consciousness: patient oriented x3 HENMT: Head: Yes normal to inspection, Yes No palpable skull fracture present, Yes normocephalic and Yes atraumatic Eyes: General: appearance normal, both eyes and all related structures Neck: Neck: Yes normal visual inspection, Yes full ROM, Yes no lymphadenopathy, Yes no meningeal signs, Yes trachea midline, Yes supple and No tender Chest: Chest palpation & inspection: normal inspection of the chest and normal palpation of entire chest wall Resp: Effort & Inspection: normal respiratory effort and able to speak in complete sentences Auscultation: clear to auscultation bilaterally Cardio: Jugular venous distension: no JVD Heart sounds: S1 normal heart sound present GI: Other: rectal exam negative for any black stool, melena, or bright celena blood Inspection: Yes normal to inspection and No abdominal wall ecchymosis Palpation (GI): Soft to palpation, not firm, nontender, no guarding and not rigid : General: No CVA tenderness and Yes no CVA tenderness Back/Spine/Pelvis: Back: no CVA tenderness, No CVA tenderness and No back tenderness Skin: General skin exam: no rashes or lesions noted and elasticity normal Neuro: General: patient oriented x3, gait normal, no meningeal signs and CN's II-XI intact bilaterally Cranial nerves: Yes CN's II-XII intact bilaterally Extrem: General: Yes normal to inspection and Yes full ROM Psych: Appearance: grossly normal, well kempt and not disheveled Course Course Course Narrative: Patient will labs drawan and than re-evaluate patient Reevaluation(s) Reevaluation #1: Patient labs shows anemia. vital signs are stable and patient is asymptomatic. Patient seems to have GI bleding as per decrease in hemoglobin/hematocrit, positive guac stool, and recently being on warafin. Will contact Dr. Diamond of [facility]. Reevaluation #2: Dr. Diamond of [facility] evaluated patient and agreed with patient to receive 1 RBCs, protnoix and admitted for endoscopy. patient signed conset for blood tranfusion. Dr. Florentino, the hospitalist, accepeted the case for admission. Medical Decision Making MDM Narrative Medical decision making narrative: GI bleed Lab Data Result diagrams: 08/18/20 10:07 08/18/20 10:07 Labs: Lab Results 08/18/20 08/18/20 08/18/20 Range/Units 10:07 10:07 10:07 WBC 5.5 (4.8-10.8) X10*3/uL RBC 2.18 L D (4.60-5.80) X10*6/uL Hgb 6.4 L* D (14.0-18.0) g/dl Hct 21.5 L D (42-52) % MCV 98.6 H (80-98) fL MCH 29.4 (27.0-33.0) pg MCHC 29.8 L (31.0-36.0) g/dl RDW 15.5 (11.0-16.0) % Plt Count 205 D (160-400) X10*3/uL MPV 11.4 (9.4-12.4) fL Immature Gran % (Auto) 0.4 (0.0-0.4) % Neut % (Auto) 70.3 (45-73) % Lymph % (Auto) 15.7 L (20-40) % [place] % (Auto) 11.4 H (2-11) % Eos % (Auto) 2.0 (0-4) % Baso % (Auto) 0.2 (0-2) % Lymph # (Auto) 0.9 L (1.2-4.9) X10*3/uL [place] # (Auto) 0.6 (0.1-1.2) X10*3/uL Eos # (Auto) 0.1 (0.0-0.4) X10*3/uL Baso # (Auto) 0.0 (0.0-0.2) X10*3/uL Abs Immat Gran (auto) 0.02 (0.00-0.03) X10*3/uL Absolute Neuts (auto) 3.9 (2.0-8.3) X10*3/uL Absolute Nucleated RBC 0.000 (0.0-0.012) X10*3/uL Nucleated RBC % (auto) 0.0 (0.0-0.2) /100WBC PT 14.6 H D (10.8-13.0) SEC INR 1.2 H (0.9-1.1) APTT 101.6 H* D (24.1-38.0) SEC Sodium 140 (135-145) mmol/L Potassium 3.8 (3.3-5.1) mmol/L Chloride 97 (96-108) mmol/L Carbon Dioxide 30 H (22-29) mmol/L Anion Gap 17 (12-20) BUN 27 H D (9-16) mg/dL Creatinine 4.96 H* (0.5-1.4) mg/dL Estim Creat Clear Calc 17.6 Estimated GFR 12 Random Glucose 82 (60-115) mg/dL Calcium 7.4 L (8.4-10.2) mg/dL Total Bilirubin 0.3 (0.0-1.0) mg/dL AST 20 (5-37) U/L ALT < 6 (0-40) U/L Alkaline Phosphatase 93 D (39-117) U/L Total Protein 8.2 H (6.5-8.0) g/dL Albumin 3.6 (3.5-5.0) g/dL Stool Occult Blood (NEGATIVE) Blood Type Antibody Screen Crossmatch 08/18/20 08/18/20 Range/Units 10:07 10:53 WBC (4.8-10.8) X10*3/uL RBC (4.60-5.80) X10*6/uL Hgb (14.0-18.0) g/dl Hct (42-52) % MCV (80-98) fL MCH (27.0-33.0) pg MCHC (31.0-36.0) g/dl RDW (11.0-16.0) % Plt Count (160-400) X10*3/uL MPV (9.4-12.4) fL Immature Gran % (Auto) (0.0-0.4) % Neut % (Auto) (45-73) % Lymph % (Auto) (20-40) % [place] % (Auto) (2-11) % Eos % (Auto) (0-4) % Baso % (Auto) (0-2) % Lymph # (Auto) (1.2-4.9) X10*3/uL [place] # (Auto) (0.1-1.2) X10*3/uL Eos # (Auto) (0.0-0.4) X10*3/uL Baso # (Auto) (0.0-0.2) X10*3/uL Abs Immat Gran (auto) (0.00-0.03) X10*3/uL Absolute Neuts (auto) (2.0-8.3) X10*3/uL Absolute Nucleated RBC (0.0-0.012) X10*3/uL Nucleated RBC % (auto) (0.0-0.2) /100WBC PT (10.8-13.0) SEC INR (0.9-1.1) APTT (24.1-38.0) SEC Sodium (135-145) mmol/L Potassium (3.3-5.1) mmol/L Chloride (96-108) mmol/L Carbon Dioxide (22-29) mmol/L Anion Gap (12-20) BUN (9-16) mg/dL Creatinine (0.5-1.4) mg/dL Estim Creat Clear Calc Estimated GFR Random Glucose (60-115) mg/dL Calcium (8.4-10.2) mg/dL Total Bilirubin (0.0-1.0) mg/dL AST (5-37) U/L ALT (0-40) U/L Alkaline Phosphatase (39-117) U/L Total Protein (6.5-8.0) g/dL Albumin (3.5-5.0) g/dL Stool Occult Blood POSITIVE (NEGATIVE) Blood Type A Positive Antibody Screen NEGATIVE Crossmatch See Detail Discharge Plan Discharge Clinical Impression: Acute GI bleeding Patient Disposition: Admitted As Inpatient
--- NOTE | 2020-08-18 10:09 | PC.NURSE ---
IV inserted and labs obtained. Awaiting type and screen draw from trained calibration technician at this time.
[2020-08-18 10:16] LABS: MANUAL DIFF FLAG NO
[2020-08-18 10:17] LABS: OBS Int Ctl Valid YES; OBS1 POSITIVE (NEGATIVE)
[2020-08-18 10:18] LABS: Basophils Percent Auto 0.2 % (0-2); Eosinophils Absolute Auto 0.1 X10*3/uL (0.0-0.4); Hematocrit 21.5 % (42-52); Imm Gran Abs Auto 0.02 X10*3/uL (0.00-0.03); Imm Gran Pct Auto 0.4 % (0.0-0.4); Lymphocytes Absolute Auto 0.9 X10*3/uL (1.2-4.9); Lymphocytes Percent Auto 15.7 % (20-40); Mean Corpuscular HGB Conc 29.8 g/dl (31.0-36.0); Mean Corpuscular Hemoglobin 29.4 pg (27.0-33.0); Mean Corpuscular Volume 98.6 fL (80-98); Mean Platelet Volume 11.4 fL (9.4-12.4); Monocytes Absolute Auto 0.6 X10*3/uL (0.1-1.2); Monocytes Percent Auto 11.4 % (2-11); Neutrophils Absolute Auto 3.9 X10*3/uL (2.0-8.3); Neutrophils Percent Auto 70.3 % (45-73); Platelet Count 205 X10*3/uL (160-400); Red Blood Count 2.18 X10*6/uL (4.60-5.80); Red Cell Distribution Width 15.5 % (11.0-16.0); White Blood Count 5.5 X10*3/uL (4.8-10.8)
[2020-08-18 10:24] LABS: INTERNATIONAL NORM RATIO 1.2 (0.9-1.1); Prothrombin Time 14.6 SEC (10.8-13.0)
[2020-08-18 10:26] LABS: Hemoglobin 6.4 g/dl (14.0-18.0)
[2020-08-18 10:40] LABS: Partial Thromboplastin Time 101.6 SEC (24.1-38.0)
[2020-08-18 11:12] LABS: Alanine Aminotransferase < 6 U/L (0-40); Albumin Level 3.6 g/dL (3.5-5.0); Alkaline Phosphatase 93 U/L (39-117); Anion Gap 17 (12-20); Aspartate Amino Transferase 20 U/L (5-37); Bilirubin Total 0.3 mg/dL (0.0-1.0); Blood Urea Nitrogen 27 mg/dL (9-16); Calcium 7.4 mg/dL (8.4-10.2); Carbon Dioxide 30 mmol/L (22-29); Chloride 97 mmol/L (96-108); Creatinine Clr Calc Pharmacy 17.6; Estimated Glomerular Filt Rate 12; Glucose Random 82 mg/dL (60-115); Potassium 3.8 mmol/L (3.3-5.1); Sodium 140 mmol/L (135-145); Total Protein 8.2 g/dL (6.5-8.0)
--- NOTE | 2020-08-18 11:15 | PC.NURSE ---
Mihai THOMPSON aware of critical labs with plan to consult the GI specialist and transfuse with one unit of blood. T&S in process at this time.
--- NOTE | 2020-08-18 12:00 | P.CNGI_ITS ---
History of Present Illness Data of Consult Service Date: 08/18/20 Requesting physician: Mihai Galdamez Primary Care Provider: Unknown Physician HPI Reason for consult: anemia 47-year-old with a history of end-stage renal disease on hemodialysis, who I am asked to see for assessment for anemia. In house counterintelligence specialist used. He denies any symptoms such as chest pain, SOB, wheezing, or melena, rectal bleeding, however he did have HGB 6.4 noted on dialysis routine labs so sent to the ED for assessment. His nml baseline HB is around 10-11 g/dl. He denies having had prior endoscopy or colonoscopy. denies hemturia, nose bleeds, or wounds. Rectal exam done by ED and brown stool noted.no melena or red blood. His only cmplaint of right knee pain which has been there since septic arthritis was treated 1 month ago. He does take ibuprofen but unsure of how much he was taking, said he stopped it 4-5 d ago. Review of Systems Review of Systems: Constitutional : No Weight loss, No Fever, No Chills ENT/Mouth : No sore throat, No Rhinorrhea Eyes: No Swelling, No Redness Cardiovascular : No Chest Pain, No SOB, No Edema Respiratory : No Cough, No Sputum, No Wheezing Gastrointestinal : see HPI Genitourinary : NO Dysuria, No Urinary Frequency, No Hematuria, No Urgency Musculoskeletal : POS joint pain--right knee, No Myalgias, No Joint Swelling Skin : No Skin Lesions, No rash Neuro : No Weakness, No Numbness, No Dizziness, No Headache Psych : No Anxiety/Panic, No Depression Heme/Lymph: No Bruising, No Lymphadenopathy Endocrine : No Polyuria, No Polydipsia All other systems reviewed and are negative. [facility] Past Medical History Medical History Anemia of chronic disease Blind left eye ESRD (end stage renal disease) Hyperlipidemia Hyperparathyroidism Hypertension Myocardial infarction Renal failure Social History Social History Household Members: None Housing: Apartment Alcohol intake: never Smoking Status: Never smoker Advance Directives: No Advance Directives Information Provided: No service: No Current occupational status: unemployed and disabled Meds Allergies Allergy/AdvReac Type Severity Reaction Status Date / Time No Known Drug Allergies Allergy Unknown UNKNOWN Verified 06/06/20 13:01 Home Medications Medication Instructions Recorded Confirmed Last Taken Type cholecalciferol (vitamin D3) 50 50 mcg PO DAILY 06/06/20 08/18/20 08/18/20 History mcg (2,000 unit) capsule lanthanum 500 mg chewable tablet 500 mg PO TIDWM 06/06/20 08/18/20 08/18/20 History loratadine 10 mg tablet 10 mg PO DAILY 06/06/20 08/18/20 08/18/20 History multivitamin 1 tab PO DAILY 06/06/20 08/18/20 08/18/20 History diphenhydramine HCl [Banophen] 25 mg PO BEDTIME 07/04/20 08/18/20 07/03/20 History midodrine 10 mg PO MOWEFR@1645 07/04/20 08/18/20 Unknown History epoetin beta, methoxy peg [Mircera] 130 mcg SUBCUT Q2W 08/18/20 08/18/20 08/09/20 History Physical Exam Vital Signs: Vital Signs: Last Vital Signs Temp 98.0 F 08/18/20 09:51 Pulse 79 08/18/20 09:51 Resp 18 08/18/20 09:51 BP 115/71 08/18/20 09:51 Pulse Ox 100 08/18/20 09:51 Body Mass Index 29.0 Const: General: cooperative, no acute distress, awake, Cushingoid facies and ill appearing Orientation/consciousness: patient oriented x3 HENMT: Head: Yes normal to inspection, Yes No palpable skull fracture present, Yes normocephalic and Yes atraumatic Eyes: General: appearance normal, both eyes and all related structures Neck: Neck: Yes normal visual inspection, Yes full ROM, Yes no lymphadenopathy, Yes no meningeal signs, Yes trachea midline, Yes supple and No tender Chest: Chest palpation & inspection: normal inspection of the chest and normal palpation of entire chest wall Resp: Effort & Inspection: normal respiratory effort and able to speak in complete sentences Auscultation: clear to auscultation bilaterally Cardio: Jugular venous distension: no JVD Heart sounds: S1 normal heart sound present GI: Inspection: Yes normal to inspection and No abdominal wall ecchymosis Palpation (GI): Soft to palpation, not firm, nontender, no guarding and not rigid : General: No CVA tenderness and Yes no CVA tenderness Back/Spine/Pelvis: Back: no CVA tenderness, No CVA tenderness and No back tenderness Skin: General skin exam: no rashes or lesions noted (right forearm AV fistula) and elasticity normal Neuro: General: patient oriented x3, gait normal, no meningeal signs and CN's II-XI intact bilaterally Cranial nerves: Yes CN's II-XII intact bilaterally Extrem: General: Yes normal to inspection and Yes full ROM Psych: Appearance: grossly normal, well kempt and not disheveled Results Labs CBC & Chem 7: 08/18/20 10:07 08/18/20 10:07 Labs: Short CBC 08/18/20 Range/Units 10:07 WBC 5.5 (4.8-10.8) X10*3/uL Hgb 6.4 L* D (14.0-18.0) g/dl Hct 21.5 L D (42-52) % Plt Count 205 D (160-400) X10*3/uL BMP 08/18/20 10:07 Sodium 140 Potassium 3.8 Chloride 97 Carbon Dioxide 30 H BUN 27 H D Creatinine 4.96 H* Calcium 7.4 L Liver Function 08/18/20 Range/Units 10:07 Total Bilirubin 0.3 (0.0-1.0) mg/dL AST 20 (5-37) U/L ALT < 6 (0-40) U/L Alkaline Phosphatase 93 D (39-117) U/L Albumin 3.6 (3.5-5.0) g/dL Assessment and Plan (1) Anemia: Status: Acute 1/ obscure occult GI bleeding is possible, may have AVM, enteropathy, neoplasia, ulcer, hemolysis PLAN: 1/ Fluid and vol resus aim for HGb 9-10 g/dl 2/ check hematinics and hemolysis labs 3/ plan for EGD and colonoscopy Friday, can eat today and tomorrow, clears on Friday with prep for Friday. will do earlier if any decompensation or overt GI bleeding. 4/ can commence standard dose PPI e.g pantoprzole 40 mg OD PO
[2020-08-18] MEDS: diphenhydrAMINE HCL 50 MG/ML VIAL IVPUSH (12:25)
[2020-08-18] MEDS: Pantoprazole Sodium 40 MG/10 ML VIAL 80 MG IVPUSH (12:28)
--- NOTE | 2020-08-18 12:39 | PC.NURSE ---
Blood transfusion started. Pt pre-medicated for benedryl for a history of urticaric reaction in the past.
--- NOTE | 2020-08-18 15:29 | PC.NURSE ---
Transfusion complete. No reaction noted. VSS. Lungs clear.
[2020-08-18 16:38] LABS: Partial Thromboplastin Time 41.8 SEC (24.1-38.0)
--- NOTE | 2020-08-18 17:06 | HP_ITS ---
DATE OF SERVICE: 08/18/2020 CHIEF COMPLAINT: Anemia. HISTORY OF PRESENTING ILLNESS: This is a 50-year-old gentleman, who was recently discharged from [facility] on July 08, 2020 after being diagnosed to have right knee septic arthritis and was discharged home on IV Ancef 2 g for 4 weeks. The patient was discharged to rehab facility. From there, he was transferred to home, currently ambulating with the use of a walker. He was receiving his hemodialysis this morning where blood work revealed that he has significant drop in his hematocrit to 21.5, with the last hematocrit on July 11 was 31.4. The patient denies any hematemesis. He has no melena. He denies any recent for fall, ecchymosis. He does sometimes use [id number] Motrin for muscular pain. He denies any chest pain or shortness of breath. He gets lightheaded sometimes after hemodialysis. The patient is not sure if he receives Procrit shots. In the emergency room, workup revealed a hematocrit of 21.5 with a hemoglobin of 6.4. Last hemoglobin on July 11 was 10. The patient's electrolytes were stable. Creatinine is 4.96 with history of end-stage renal disease, calcium is 7.4, total protein is 8.2. Imaging studies none obtained. The patient is receiving 1 unit of packed RBC. The patient was seen by Gastroenterology in the emergency room, and the plan is to proceed with colonoscopy and upper endoscopy on Friday. PAST MEDICAL HISTORY: Significant for, 1. Recent admission to [facility] on July 08 for right knee septic arthritis. Currently receiving IV Ancef. 2. The patient has history of anemia of chronic disease. 3. End-stage renal disease, on hemodialysis. 4. History of hyperlipidemia. 5. History of hyperparathyroidism. 6. History of hypertension. 7. History of myocardial infarction. 8. History of renal failure. 9. History of thrombosis of fistula, is on Coumadin. SOCIAL HISTORY: No history of smoking. No history of alcohol use. The patient usually walks without a walker, but currently due to right knee pain, has been using a wheeled walker. FAMILY HISTORY: Reviewed and noncontributory with no history of premature coronary artery disease. ALLERGIES: THE PATIENT HAS NO KNOWN DRUG ALLERGIES. MEDICATIONS: On admission are cefazolin (dose needs to be verified). Vitamin D3, 50 mcg daily. Benadryl 25 mg at bedtime. Claritin 10 mg daily. Midodrine 10 mg on Tuesdays, , and Saturdays. Multivitamin 1 by mouth daily. Oxycodone 5 mg q.6 hours as needed. Coumadin 5 mg by mouth daily. Medications needs to be reconciled. 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 No dizziness. CVS: No chest pain or palpitation. RESPIRATORY: No cough or sputum production. No shortness of breath with exertion. GI: No nausea. No vomiting. No abdominal discomfort. No melena or rectal bleeding. : No urinary symptoms. Rest of all other systems are reviewed and are negative. PHYSICAL EXAMINATION: GENERAL: The patient is sitting comfortably. Does not appear to be in acute distress. VITAL SIGNS: BP 114/84 with pulse of 78, respiratory rate of 14. The patient is afebrile. HEENT: The patient is blind in left eye. Right eye pupil equal and reactive. NECK: Supple. No JVD. LUNGS: Clear to auscultation bilaterally with no wheeze, crackles, or rhonchi. HEART: Regular rate and rhythm with no murmur, regurg, or gallop. No added sounds. GASTROINTESTINAL: Abdomen is soft, nontender. Bowel sounds are audible. SKIN: Without any rashes. EXTREMITIES: Without clubbing, cyanosis, or edema. Right knee tenderness with limited range of motion. Mild swelling. NEUROLOGIC: The patient is alert and oriented x3. PSYCHOLOGIC: Appropriate affect. LABORATORY DATA: Showed hemoglobin 6.4, hematocrit 21.5, WBC 5.5, and platelet count of 205. Sodium 140, potassium 3.8, bicarb 30, BUN 27, creatinine of 4.9. The patient's PTT is 101.6. IMAGING STUDIES: Not obtained. ASSESSMENT AND PLAN: This is a 50-year-old gentleman with history of end-stage renal disease (on hemodialysis Friday, Friday, Friday), here with significant drop in hematocrit as compared to last month with no active source of bleeding found. PROBLEM LIST: 1. Acute on chronic anemia. The patient is noted to have significant drop in hematocrit. He denies GI bleed. The patient's PTT is significantly elevated. We will repeat PTT. Question that was drawn soon after receiving heparin at the hemodialysis unit. The patient is evaluated by Gastroenterology. They recommend upper and lower endoscopy on Friday. The patient received 1 unit of packed RBC. We will follow hematocrit post transfusion. Currently asymptomatic. The patient previously was on Coumadin due to fistula thrombosis. His INR today is 1.1, likely the patient has stopped use of Coumadin. We will review medication reconciliation. 2. History of septic arthritis with gram-positive cocci. Currently on IV antibiotics. If the patient has not finished the full course of cefazolin, we will continue antibiotics. 3. End-stage renal disease. We will continue dialysis as per Nephrology. 4. History of hypertension. Current blood pressure is stable. We will continue home medications. 5. Code status: The patient is full code. MD ANA ROSA Abbott/RONY / [id number]
[2020-08-18] MEDS: 0.9 % Sodium Chloride Flush 3 ML SYRINGE IVFLUSH (18:05)
--- NOTE | 2020-08-18 18:06 | PC.NURSE ---
Pt resting in bed awaiting bed assignment for admission.
--- NOTE | 2020-08-18 19:57 | PC.NURSE ---
REPORT GIVEN PT AWAITING TRANSPORT TO FLOOR.
[2020-08-18] MEDS: Acetaminophen 325 MG TABLET 650 MG PO (21:43)
[2020-08-19] VITALS (11 sets, daily range): BP systolic 130–151; BP diastolic 70–86; PULSE 69–90; RESP 14–20; TEMP 36.1–37.1; O2SAT 96–100
[2020-08-19] MEDS: diphenhydrAMINE HCL 25 MG TABLET PO ×2 (00:01→13:57)
[2020-08-19] MEDS: 0.9 % Sodium Chloride Flush 3 ML SYRINGE IVFLUSH ×4 (00:01→23:33)
[2020-08-19 05:02] LABS: MANUAL DIFF FLAG NO
[2020-08-19 05:05] LABS: Basophils Percent Auto 0.4 % (0-2); Eosinophils Absolute Auto 0.1 X10*3/uL (0.0-0.4); Hematocrit 23.7 % (42-52); Hemoglobin 7.1 g/dl (14.0-18.0); Imm Gran Abs Auto 0.01 X10*3/uL (0.00-0.03); Imm Gran Pct Auto 0.2 % (0.0-0.4); Lymphocytes Absolute Auto 0.8 X10*3/uL (1.2-4.9); Lymphocytes Percent Auto 13.9 % (20-40); Mean Corpuscular Hemoglobin 30.2 pg (27.0-33.0); Mean Corpuscular Volume 100.9 fL (80-98); Mean Platelet Volume 12.1 fL (9.4-12.4); Monocytes Absolute Auto 0.5 X10*3/uL (0.1-1.2); Monocytes Percent Auto 9.6 % (2-11); Neutrophils Percent Auto 73.9 % (45-73); Platelet Count 200 X10*3/uL (160-400); Red Blood Count 2.35 X10*6/uL (4.60-5.80); Red Cell Distribution Width 15.6 % (11.0-16.0); White Blood Count 5.4 X10*3/uL (4.8-10.8)
[2020-08-19 05:11] LABS: INTERNATIONAL NORM RATIO 1.2 (0.9-1.1); Prothrombin Time 14.2 SEC (10.8-13.0)
[2020-08-19] MEDS: Omeprazole 40 MG CAPSULE.DR PO (09:33)
[2020-08-19 11:20] LABS: Hemoglobin 7.1 g/dl (14.0-18.0)
--- NOTE | 2020-08-19 13:04 | HO.PM.IMPN ---
Subjective Subjective Date of Service: 08/19/20 <Viviana Vela NP - Last Filed: 08/19/20 13:16> 08/19/20 <Todd Rosenthal MD - Last Filed: 08/19/20 14:32> Interval History: Follow up Anemia No dizziness, rectal bleeding or abdominal pain <Viviana Vela NP - Last Filed: 08/19/20 13:16> Physical Exam Vital Signs: Vital Signs: Last Vital Signs Temp 97.3 F 08/19/20 11:49 Pulse 81 08/19/20 11:49 Resp 20 08/19/20 11:49 BP 136/70 08/19/20 11:49 Pulse Ox 96 08/19/20 11:49 Body Mass Index 29.0 <Viviana Vela NP - Last Filed: 08/19/20 13:16> Appearing in no acute distress Left eye blind lung sounds are clear to auscultation heart regular rate rhythm, clear S1, S2 positive bowel sounds, abdomen is soft, nontender. obese neuro patient is alert x3, no focal deficits <Viviana Vela NP - Last Filed: 08/19/20 13:16> Objective Data Current Medications Generic Name Dose Route Start Last Admin Trade Name Freq PRN Reason Stop Dose Admin Acetaminophen 650 mg 08/18/20 14:35 08/18/20 21:43 Acetaminophen 325 Mg Tablet PO 650 mg Q6H PRN Administration Pain, Mild (Pain Scale 1-3) Omeprazole 40 mg 08/19/20 08:25 08/19/20 09:33 Omeprazole 40 Mg Capsule.Dr PO 40 mg DAILY@0630 SOFIA Administration Ondansetron HCl 4 mg 08/18/20 14:35 Ondansetron Hcl 4 Mg/2 Ml Vial IVPUSH Q8H PRN Nausea and Vomiting Pharmacy Consult 1 each 08/18/20 14:22 Consult Rx Perform Med Rec MISCELLANE ONCE PRN Consult order Sodium Chloride 3 ml 08/18/20 16:00 08/19/20 09:33 0.9 % Sodium Chloride Flush 3 Ml Syringe IVFLUSH 3 ml QSHIFT SOFIA Administration <Viviana Vela NP - Last Filed: 08/19/20 13:16> Labs CBC & Chem 7: : 08/19/20 10:56 08/18/20 10:07 <Viviana Vela NP - Last Filed: 08/19/20 13:16> Assessment and Plan (1) Anemia: Status: Acute <Viviana Vela NP - Last Filed: 08/19/20 13:16> Assessment and Plan: 50-year-old with history of end-stage renal disease on dialysis presents with significant in hematocrit with no source of bleeding. Acute on chronic anemia. No obvious bleeding. - seen and evaluated by Gastroenterology with rec to keep hemoglobin between 9-10, colonoscopy an EGD on Friday - transfuse 2 units today - H&H End-stage renal disease on dialysis. MWF - nephrology consultation to set up dialysis Subtherapeutic INR. Does not appear the patient has been taking his warfarin - continue to hold for now due to anemia Hypertension. Stable blood pressure. DVT prophylaxis with mechanical compression boots Full code Attending: Dr. Rosenthal <Viviana Vela NP - Last Filed: 08/19/20 13:16> (2) ESRD (end stage renal disease): Status: Acute <Viviana Vela NP - Last Filed: 08/19/20 13:16> Assessment and Plan: I saw and examined the patient and discussed findings and mangement with OCCUPATIONAL HEALTH PHYSIOTHERAPIST and agree with assessment and plan as outlined above. <Todd Rosenthal MD - Last Filed: 08/19/20 14:32>
[2020-08-19] MEDS: Acetaminophen 325 MG TABLET 650 MG PO (13:59)
--- NOTE | 2020-08-19 14:05 | PM.PNNEP ---
Subjective Subjective Date of Service: 08/19/20 Interval history: seen and examined Physical Exam Vital Signs: Vital Signs: Last Vital Signs Temp 97.3 F 08/19/20 11:49 Pulse 81 08/19/20 11:49 Resp 20 08/19/20 11:49 BP 136/70 08/19/20 11:49 Pulse Ox 96 08/19/20 11:49 Body Mass Index 29.0 Objective Data Labs CBC & Chem 7: 08/19/20 10:56 08/18/20 10:07 Labs: Laboratory Results - last 24 hr 08/18/20 08/18/20 08/19/20 10:53 16:12 04:44 WBC RBC Hgb Hct MCV MCH MCHC RDW Plt Count MPV Immature Gran % (Auto) Neut % (Auto) Lymph % (Auto) [place] % (Auto) Eos % (Auto) Baso % (Auto) Lymph # (Auto) [place] # (Auto) Eos # (Auto) Baso # (Auto) Abs Immat Gran (auto) Absolute Neuts (auto) Absolute Nucleated RBC Nucleated RBC % (auto) PT 14.2 H INR 1.2 H APTT 41.8 H D Blood Type A Positive Antibody Screen NEGATIVE Crossmatch See Detail 08/19/20 08/19/20 04:44 10:56 WBC 5.4 RBC 2.35 L Hgb 7.1 L 7.1 L Hct 23.7 L 23.0 L MCV 100.9 H MCH 30.2 MCHC 30.0 L RDW 15.6 Plt Count 200 MPV 12.1 Immature Gran % (Auto) 0.2 Neut % (Auto) 73.9 H Lymph % (Auto) 13.9 L [place] % (Auto) 9.6 Eos % (Auto) 2.0 Baso % (Auto) 0.4 Lymph # (Auto) 0.8 L [place] # (Auto) 0.5 Eos # (Auto) 0.1 Baso # (Auto) 0.0 Abs Immat Gran (auto) 0.01 Absolute Neuts (auto) 4.0 Absolute Nucleated RBC 0.000 Nucleated RBC % (auto) 0.0 PT INR APTT Blood Type Antibody Screen Crossmatch Assessment & Plan Assessment and plan (1) ESRD (end stage renal disease): Status: Acute (2) Anemia: Status: Acute Assessment and Plan: HD per schedule on Friday epogen 84257 units sc weekly renal diet phosphate binders blood transfusion per primary team GI following EGD and colonoscopy on Friday Time Spent With Patient Time: Total time spent is greater than 50% in coordination of care (as documented) at patient's floor/unit and/or counseling patient:
[2020-08-19] MEDS: oxyCODONE HCl Immed Release 5 MG TABLET PO (16:05)
--- NOTE | 2020-08-19 16:25 | MHC.CM.PN ---
CM MET WITH PT AND HIS WHO WAS AT BEDSIDE. 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 SHE REPORTS THE PT USUALLY USES A ROLLATOR FOR AMBULATION BUT ALSO HAS A CANE. PT ALSO GOES TO HD THREE TIMES PER WEEK. PTS REPORTS THEY ALREADY HAVE HCP'S COMPLETED AND SHE BELIEVES A COPY IS AT [facility]. PTS PCP IS JUAN LUIS EPSTEIN CURRENT DC PLAN IS HOME WITH RESUMPTION OF UNDERGROUND FOREMAN AND [facility] FAMILY WILL TRANSPORT
--- NOTE | 2020-08-19 16:36 | PC.NURSE ---
1611 Pt had a 10 BVT. Viviana Vela NP notified. Patient asymptomatic. No new orders at this time. Patient resting in bed with no complaints.
[2020-08-19 21:59] LABS: Hematocrit 27.3 % (42-52); Hemoglobin 8.6 g/dl (14.0-18.0)
[2020-08-20] VITALS (8 sets, daily range): BP systolic 139–149; BP diastolic 78–91; PULSE 79–88; RESP 16–20; TEMP 36.1–37.2; O2SAT 95–100
[2020-08-20 05:07] LABS: Hematocrit 27.2 % (42-52); Hemoglobin 8.5 g/dl (14.0-18.0); Mean Corpuscular HGB Conc 31.3 g/dl (31.0-36.0); Mean Corpuscular Hemoglobin 30.6 pg (27.0-33.0); Mean Corpuscular Volume 97.8 fL (80-98); Mean Platelet Volume 11.5 fL (9.4-12.4); Platelet Count 181 X10*3/uL (160-400); Red Blood Count 2.78 X10*6/uL (4.60-5.80); White Blood Count 6.4 X10*3/uL (4.8-10.8)
[2020-08-20] MEDS: Omeprazole 40 MG CAPSULE.DR PO (05:24)
[2020-08-20 05:33] LABS: Anion Gap 21 (12-20); Blood Urea Nitrogen 58 mg/dL (9-16); Carbon Dioxide 27 mmol/L (22-29); Chloride 98 mmol/L (96-108); Creatinine Clr Calc Pharmacy 9.8; Estimated Glomerular Filt Rate 6; Glucose Random 88 mg/dL (60-115); Potassium 4.6 mmol/L (3.3-5.1); Sodium 141 mmol/L (135-145)
[2020-08-20] MEDS: 0.9 % Sodium Chloride Flush 3 ML SYRINGE IVFLUSH ×3 (08:48→23:57)
[2020-08-20] MEDS: diphenhydrAMINE HCL 25 MG TABLET PO (08:48)
--- NOTE | 2020-08-20 09:48 | PM.PNNEP ---
Subjective Subjective Date of Service: 08/20/20 Interval history: seen and examined no complaints Physical Exam Vital Signs: Vital Signs: Last Vital Signs Temp 98.9 F 08/20/20 09:32 Pulse 88 08/20/20 09:32 Resp 18 08/20/20 09:32 BP 147/85 H 08/20/20 09:32 Pulse Ox 100 08/20/20 05:27 Body Mass Index 29.0 Const: General: no acute distress and awake HENMT: Head: Yes normocephalic and Yes atraumatic Neck: Neck: Yes supple Resp: Auscultation: clear to auscultation bilaterally Cardio: Heart sounds: S1 normal heart sound present and S2 normal heart sound present GI: Palpation (GI): Soft to palpation and nontender Extrem: General: No edema Objective Data Labs CBC & Chem 7: 08/20/20 04:43 08/20/20 04:42 Labs: Laboratory Results - last 24 hr 08/18/20 08/19/20 08/19/20 10:53 10:56 21:53 WBC RBC Hgb 7.1 L 8.6 L D Hct 23.0 L 27.3 L MCV MCH MCHC RDW Plt Count MPV Absolute Nucleated RBC Nucleated RBC % (auto) Sodium Potassium Chloride Carbon Dioxide Anion Gap BUN Creatinine Estim Creat Clear Calc Estimated GFR Random Glucose Calcium Blood Type A Positive Antibody Screen NEGATIVE Crossmatch See Detail 08/20/20 08/20/20 04:42 04:43 WBC 6.4 RBC 2.78 L Hgb 8.5 L Hct 27.2 L MCV 97.8 MCH 30.6 MCHC 31.3 RDW 16.0 Plt Count 181 MPV 11.5 Absolute Nucleated RBC 0.000 Nucleated RBC % (auto) 0.0 Sodium 141 Potassium 4.6 D Chloride 98 Carbon Dioxide 27 Anion Gap 21 H BUN 58 H D Creatinine 8.87 H* Estim Creat Clear Calc 9.8 Estimated GFR 6 Random Glucose 88 Calcium 7.0 L Blood Type Antibody Screen Crossmatch Assessment & Plan Assessment and plan (1) ESRD (end stage renal disease): Status: Acute (2) Anemia: Status: Acute Assessment and Plan: usually gets dialysis m-w-f presented with low Hb s/p blood transfusion REC HD tomorrow epogen [id number] units sc weekly renal diet phosphate binders blood transfusion per primary team EGD and colonoscopy on Friday Time Spent With Patient Time: Total time spent is greater than 50% in coordination of care (as documented) at patient's floor/unit and/or counseling patient:
--- NOTE | 2020-08-20 12:48 | HO.PM.IMPN ---
Subjective Subjective Date of Service: 08/20/20 <Viviana Vela NP - Last Filed: 08/20/20 12:52> 09/05/20 <Todd Rosenthal MD - Last Filed: 09/05/20 17:43> Interval History: Follow up anemia ESRD No pain appetite good no bleeding <Viviana Vela NP - Last Filed: 08/20/20 12:52> Physical Exam Vital Signs: Vital Signs: Last Vital Signs Temp 98.9 F 08/20/20 12:37 Pulse 86 08/20/20 12:37 Resp 16 08/20/20 12:37 BP 142/82 H 08/20/20 12:37 Pulse Ox 95 08/20/20 11:27 Body Mass Index 29.0 <Viviana Vela NP - Last Filed: 08/20/20 12:52> Appearing in no acute distress lung sounds are clear to auscultation heart regular rate rhythm, clear S1, S2 positive bowel sounds, abdomen is soft, nontender neuro patient is alert x3, no focal deficits <Viviana Vela NP - Last Filed: 08/20/20 12:52> Objective Data Current Medications Generic Name Dose Route Start Last Admin Trade Name Freq PRN Reason Stop Dose Admin Acetaminophen 650 mg 08/18/20 14:35 08/19/20 13:59 Acetaminophen 325 Mg Tablet PO 650 mg Q6H PRN Administration Pain, Mild (Pain Scale 1-3) Omeprazole 40 mg 08/19/20 08:25 08/20/20 05:24 Omeprazole 40 Mg Capsule.Dr PO 40 mg DAILY@0630 SOFIA Administration Ondansetron HCl 4 mg 08/18/20 14:35 Ondansetron Hcl 4 Mg/2 Ml Vial IVPUSH Q8H PRN Nausea and Vomiting Pharmacy Consult 1 each 08/18/20 14:22 Consult Rx Perform Med Rec MISCELLANE ONCE PRN Consult order Polyethylene Glycol/Electrolytes 4,000 ml 08/20/20 19:00 Peg 3350/Na Sulf,Bicarb,Cl/Kcl 4,000 Ml Soln.Recon PO 08/20/20 19:01 ONCE ONE Sodium Chloride 3 ml 08/18/20 16:00 08/20/20 08:48 0.9 % Sodium Chloride Flush 3 Ml Syringe IVFLUSH 3 ml QSHIFT SOFIA Administration <Viviana Vela NP - Last Filed: 08/20/20 12:52> Labs CBC & Chem 7: : 08/21/20 05:39 08/21/20 05:39 <Viviana Vela NP - Last Filed: 08/20/20 12:52> Assessment and Plan (1) Anemia: Status: Acute <Viviana Vela NP - Last Filed: 08/20/20 12:52> Assessment and Plan: 50-year-old with history of end-stage renal disease on dialysis presents with significant in hematocrit with no source of bleeding. Acute on chronic anemia. No obvious bleeding. - seen and evaluated by Gastroenterology - transfused 3 untits PRBC - H&H - NPO after midnight, bowel prep ordered for EGD and colo tomorrow End-stage renal disease on dialysis. MWF - Dialysis tomorrow Subtherapeutic INR. Does not appear the patient has been taking his warfarin - continue to hold for now due to anemia Hypertension. Stable blood pressure. DVT prophylaxis with mechanical compression boots Full code Attending: Dr. Rosenthal <Viviana Vela NP - Last Filed: 08/20/20 12:52>
[2020-08-20] MEDS: Acetaminophen 325 MG TABLET 650 MG PO (21:54)
[2020-08-20] MEDS: PEG 3350/Na Sulf,Bicarb,Cl/KCL 4,000 ML SOLN.RECON 4000 ML PO (22:23)
[2020-08-20] MEDS: ondansetron HCL 4 MG/2 ML VIAL IVPUSH (23:57)
[2020-08-21] VITALS (14 sets, daily range): BP systolic 101–164; BP diastolic 67–91; PULSE 74–91; RESP 15–20; TEMP 36.1–37.1; O2SAT 16–100
--- NOTE | 2020-08-21 02:06 | MHC.PIE ---
p - pt is scheduled for AM dialysis & upper endo/colonoscopy in afternoon. go-lytely prep unavailable until 2200 due to unavailability from pharmacy despite phone call to pharmacy. 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 i - go lytely prep began @ 2200, pt tolerating until 2330 -- vomited approx 1L bile. cleaned. stool still brown liquid. medicated with zofran 4mg iv @ 2357 with some effect but at 0130 reports he cannot drink any more. notified Dr. henderson/ hospitalist, Dr. Adair/ GI. e - no new orders as of yet. awaiting response from Dr. Diamond
[2020-08-21] MEDS: Metoclopramide HCl 10 MG/2 ML VIAL 5 MG IVPUSH (03:34)
--- NOTE | 2020-08-21 06:35 | MHC.PIE ---
p - pt unable to take more go lytely despite freq encouragement & reglan 5mg iv for nausea, took 2500ml only, dark brown liquid stool with moderate amount of small pieces of formed stool i - notified Dr. Diamond/GI and Dr. Crawford/hospitalist. per Dr. Diamond, will still do EGD e -pt on bsc moving bowels & will continue to monitor
[2020-08-21 06:54] LABS: Hematocrit 28.2 % (42-52); Hemoglobin 8.7 g/dl (14.0-18.0); Mean Corpuscular HGB Conc 30.9 g/dl (31.0-36.0); Mean Corpuscular Volume 97.2 fL (80-98); Mean Platelet Volume 12.1 fL (9.4-12.4); Platelet Count 188 X10*3/uL (160-400); Red Cell Distribution Width 15.9 % (11.0-16.0)
[2020-08-21 07:50] LABS: Anion Gap 26 (12-20); Blood Urea Nitrogen 71 mg/dL (9-16); Calcium 6.9 mg/dL (8.4-10.2); Carbon Dioxide 25 mmol/L (22-29); Chloride 95 mmol/L (96-108); Creatinine Clr Calc Pharmacy 8.3; Estimated Glomerular Filt Rate 5; Glucose Random 80 mg/dL (60-115); Potassium 4.5 mmol/L (3.3-5.1); Sodium 141 mmol/L (135-145)
[2020-08-21] MEDS: 0.9 % Sodium Chloride Flush 3 ML SYRINGE IVFLUSH ×2 (09:13→20:36)
--- NOTE | 2020-08-21 10:38 | CONS_ITS ---
DATE OF SERVICE: 08/19/2020 HISTORY OF PRESENT ILLNESS: I was asked to assist in the management of this 50-year-old patient, who has a history of end-stage renal disease on chronic hemodialysis, who presented to the hospital because of anemia. The patient was sent to the hospital for further management. He was noted to have a low hemoglobin at the dialysis unit. The patient denies any chest pain or shortness of breath. Denies any nausea, vomiting, or diarrhea. He is receiving a unit of blood, and was seen by Gastroenterology in the emergency room with a plan to proceed with colonoscopy and endoscopy, on Friday. PAST MEDICAL HISTORY: Remarkable for end-stage renal disease, hypertension, hyperparathyroidism, coronary artery disease, history of NH, history of right knee septic arthritis, and dyslipidemia. PAST SURGICAL HISTORY: Notable for vascular access placement. MEDICATIONS: As an inpatient and outpatient were reviewed. ALLERGIES: HE IS NOT ALLERGIC TO MEDICATION. SOCIAL HISTORY: He does not smoke. FAMILY HISTORY: Negative. REVIEW OF SYSTEMS: 10-point review of system is negative, except pertinent in history of present illness. PHYSICAL EXAMINATION: VITAL SIGNS: Blood pressure is 136/70, heart rate is 81, respiratory rate 20, and temperature . CONSTITUTIONAL: He looks his stated age, in no acute distress. NEUROLOGIC: Alert and awake. HEAD: Atraumatic and normocephalic. NECK: Supple. LUNGS: Good air entry bilaterally. CARDIOVASCULAR: S1 and S2. No rub. ABDOMEN: Soft and nontender. EXTREMITY: With peripheral edema. LABORATORY DATA: Labs showed a white count of 5.4, hemoglobin 7.1, and platelet count of 200. Sodium 140, potassium 3.8, chloride 97, CO2 of 30, BUN 27, and creatinine of 4.96. IMPRESSION: 1. End-stage renal disease. 2. Anemia. This is a patient with history of end-stage renal disease on chronic hemodialysis, who presented with low hemoglobin with questionable bleeding, although there is no evidence for upper GI bleeding. The patient is to be seen by Gastroenterology with a plan to proceed with a colonoscopy and an upper endoscopy on Friday. We will arrange for his hemodialysis as per schedule. We will have him on a renal diet. Continue phosphate binders and dose Epogen per protocol. Thank you for allowing me to participate in the care of this patient. MD ZAIRE Hall/RONY / [phone]
--- NOTE | 2020-08-21 11:00 | P.CDIC_ITS ---
CDI Concurrent Query Service Date: 08/21/20 Documentation Clarification: Please clarify if you are treating a proba ble/suspected/likely or confirmed: Acute Blood Loss Anemia Other Anemia, please specify PLEASE DO NOT DELETE/MODIFY EXISTING CONTENT Additional information is needed in order to code to the highest accuracy and appropriate Severity of Illness (SOI). Please clarify the information noted below in your progress notes and discharge summary. Risk Factors/Clinical Indicators/Treatments 50 year old male admitted with low H/H after dialysis stool occult blood positive ED Impression: GI Bleed H&P: Acute on Chronic Anemia GI: transfusion PRBC, Protonix, endoscopy planned. Acute Anemia obscure occult GIB is possible Nephrology: ESRD, Anemia CDS: Awilda Murillo RN Contact Number: [phone] Please Review the information above and exercise your independent professional judgment in responding to the query. If you concur, pleas document in the PROGRESS NOTES and DISCHARGE SUMMARY. If you do not agree with the query, please document in the query above. THIS QUERY IS PART OF THE PERMANENT MEDICAL RECORD
--- NOTE | 2020-08-21 12:11 | PM.PNNEP ---
Subjective Subjective Date of Service: 08/21/20 Interval history: Seen on HD this AM. Tolerating HD. Events noted. All recent data reviewed. D/W HD RN Physical Exam Vital Signs: Vital Signs: Last Vital Signs Temp 97.5 F 08/21/20 08:00 Pulse 79 08/21/20 08:00 Resp 19 08/21/20 08:00 BP 150/81 H 08/21/20 08:00 Pulse Ox 98 08/21/20 08:00 Body Mass Index 29.0 Const: General: cooperative Orientation/consciousness: patient oriented x3 HENMT: Head: Yes normal to inspection Eyes: EOM: EOMs intact bilaterally Resp: Auscultation: diminished lung sounds Cardio: Jugular venous distension: no JVD GI: Palpation (GI): Soft to palpation Neuro: General: patient oriented x3 Psych: Appearance: grossly normal Objective Data Labs CBC & Chem 7: 08/21/20 05:39 08/21/20 05:39 Labs: Laboratory Results - last 24 hr 08/18/20 08/21/20 08/21/20 10:53 05:39 05:39 WBC 6.0 RBC 2.90 L Hgb 8.7 L Hct 28.2 L MCV 97.2 MCH 30.0 MCHC 30.9 L RDW 15.9 Plt Count 188 MPV 12.1 Absolute Nucleated RBC 0.000 Nucleated RBC % (auto) 0.0 Sodium 141 Potassium 4.5 Chloride 95 L Carbon Dioxide 25 Anion Gap 26 H BUN 71 H Creatinine 10.49 H* Estim Creat Clear Calc 8.3 Estimated GFR 5 Random Glucose 80 Calcium 6.9 L Crossmatch See Detail Assessment & Plan Assessment and plan (1) ESRD (end stage renal disease): Problem details: usually gets dialysis m-w-f Seen on HD this AM; Tolerating HD presented with low Hb s/p blood transfusion Procrit 81785 units MWF renal diet; Phosphate binders with meals EGD and colonoscopy; Shall F/U Status: Acute Time Spent With Patient Time: Total time spent is greater than 50% in coordination of care (as documented) at patient's floor/unit and/or counseling patient: Procedures Date of Service Date of Service: 08/21/20
--- NOTE | 2020-08-21 13:55 | HO.PM.IMPN ---
Subjective Subjective Date of Service: 08/21/20 <Viviana Vela NP - Last Filed: 08/21/20 13:58> 08/21/20 <Que Mccoy MD - Last Filed: 08/21/20 15:40> Interval History: Follow up GI bleed No bleeding noted No nausea, vomiting ot diarrhea <Viviana Vela NP - Last Filed: 08/21/20 13:58> Physical Exam Vital Signs: Vital Signs: Last Vital Signs Temp 97.7 F 08/21/20 12:39 Pulse 84 08/21/20 12:39 Resp 18 08/21/20 12:39 BP 161/72 H 08/21/20 12:39 Pulse Ox 97 08/21/20 12:39 Body Mass Index 29.0 <Viviana Vela NP - Last Filed: 08/21/20 13:58> Appearing in no acute distress lung sounds are clear to auscultation heart regular rate rhythm, clear S1, S2 positive bowel sounds, abdomen is soft, nontender, obese neuro patient is alert x3, no focal deficits <Viviana Vela NP - Last Filed: 08/21/20 13:58> Objective Data Current Medications Generic Name Dose Route Start Last Admin Trade Name Freq PRN Reason Stop Dose Admin Acetaminophen 650 mg 08/18/20 14:35 08/20/20 21:54 Acetaminophen 325 Mg Tablet PO 650 mg Q6H PRN Administration Pain, Mild (Pain Scale 1-3) Omeprazole 40 mg 08/19/20 08:25 08/21/20 05:59 Omeprazole 40 Mg Capsule.Dr PO Not Given DAILY@0630 ON LICENSE OF [facility] Ondansetron HCl 4 mg 08/18/20 14:35 08/20/20 23:57 Ondansetron Hcl 4 Mg/2 Ml Vial IVPUSH 4 mg Q8H PRN Administration Nausea and Vomiting Pharmacy Consult 1 each 08/18/20 14:22 Consult Rx Perform Med Rec MISCELLANE ONCE PRN Consult order Sodium Biphosphate/Sodium Phosphate 133 ml 08/21/20 08:54 Sodium Phosphate,[place]-Dibasic 133 Ml Enema GA ONCE PRN Consult order Sodium Chloride 3 ml 08/18/20 16:00 08/21/20 09:13 0.9 % Sodium Chloride Flush 3 Ml Syringe IVFLUSH 3 ml QSHIFT SOFIA Administration <Viviana Vela NP - Last Filed: 08/21/20 13:58> Labs CBC & Chem 7: : 08/21/20 05:39 08/21/20 05:39 <Viviana Vela NP - Last Filed: 08/21/20 13:58> Assessment and Plan (1) Anemia: Status: Acute <Viviana Vela NP - Last Filed: 08/21/20 13:58> (2) ESRD (end stage renal disease): Status: Acute <Viviana Vela NP - Last Filed: 08/21/20 13:58> Assessment and Plan: 50-year-old with history of end-stage renal disease on dialysis presents with significant in hematocrit with no source of bleeding. Acute on chronic anemia. No obvious bleeding.Multifactorial secondary to ESRD and GI bleed - seen and evaluated by Gastroenterology - transfused 3 untits PRBC - H&H - EGD and colo today End-stage renal disease on dialysis. MWF - Dialysis today - Nephro following - Procrit Subtherapeutic INR. Does not appear the patient has been taking his warfarin - continue to hold for now due to anemia Hypertension. Stable blood pressure. DISPO: Discharge tomorrow if medically stable DVT prophylaxis with mechanical compression boots Full code Attending: Dr. Mccoy <Viviana Vela NP - Last Filed: 08/21/20 13:58>
--- NOTE | 2020-08-21 14:05 | MHC.CM.PN ---
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 Family will provide transportation. Anticipate DC tomorrow per MD rounds. CM will follow.
[2020-08-21] MEDS: Sodium Phosphate,Mono-Dibasic 133 ML ENEMA PR (15:10)
--- NOTE | 2020-08-21 15:18 | PC.NURSE ---
Fleet Enema administered per Dr. Diamond's order. Tolerated well. Output yellow liquid, no solids. Dr. Diamond notified.
--- NOTE | 2020-08-21 15:19 | MHC.SHP ---
Pre-Procedural Eval Section A The patient is an INPATIENT: Yes The History & Physical has been completed within 30 days and I have reviewed it.: Yes Section B Chief Complaint: profund anemia Allergies: Allergies Allergy/AdvReac Type Severity Reaction Status Date / Time No Known Drug Allergies Allergy Unknown UNKNOWN Verified 06/06/20 13:01 Plan Diagnosis/Plan: Unchanged I have reviewed the history and physical and performed a pertinent physical examination on my patient. No changes have occurred unless specified.
--- NOTE | 2020-08-21 15:20 | P.BOP_ITS ---
Brief Operative Note Date of Service: 08/21/20 Pre-op diagnosis: anemia Post-op diagnosis: same Procedure: see op note Surgeon: Lisa Diamond MD Anesthesia: MAC Was an Photographer'S Assistant used for this Procedure?: No Estimated blood loss (mL): 0 Condition: stable Disposition: PACU
--- NOTE | 2020-08-21 15:20 | W.PM.OPN ---
Operative Note Operative Note Date of Service: 08/21/20 Narrative: Operative Information Procedure Description: EGD, Colonoscopy FLEXIBLE TRANSORAL UPPER GASTROINTESTINAL ENDOSCOPY AND COLONOSCOPY PROCEDURE NOTE UPPER ENDOSCOPY Consent: Indications for the procedure and potential complications of bleeding, perforation, reaction to medications and missed diagnosis were discussed with the patient and informed consent was obtained. Instrument: Olympus GIF H 190 J mid size upper endoscope Monitoring: Vital signs and clinical assessment, continuous EKG monitoring, Pulse oximetry, Carbon Dioxide monitoring and blood pressure monitoring were done throughout the procedure. Procedure: The patient was placed in the left lateral decubitis position and pre-procedure medications were administered and a bite block was placed. The endoscope was inserted into the mouth and advanced under direct vision to the third part of duodenum. A careful inspection was made as the upper endoscope was withdrawn including a retroflexed examination of the proximal stomach; Findings and interventions are described below. Findings: Larynx:normal Esophagus: GE junction at 45 cm, diaphragm hiatus at 45 cm, mild esophagitis noted with irregular Z line and possible short segment barretts, bx taken Stomach: mild gastritis. Biopsies were obtained. Grade 2 flap valve on retroflexed examination of the cardia. Duodenum: bulbar duodenitis, bx taken Intervention: Biopsies as noted above COLONOSCOPY Instrument: Olympus variable stiffness adult scope 190L Colonoscopy Monitoring: Vital signs and clinical assessment, continuous EKG monitoring, Pulse oximetry, Carbon Dioxide monitoring and blood pressure monitoring were done throughout the procedure. Colon withdrawal time was 11 minutes. Procedure: The patient was placed in the left lateral decubitis position and pre-procedure medications were administered. After a digital rectal examination of the ano-rectum, the video colonoscope was inserted into the rectum and advanced through the colon to the cecum/TI. The colonoscope was slowly withdrawn in a retrograde panoramic fashion and the colon mucosa was carefully examined including a retroflexed view of the rectum. Findings and interventions are described below. Procedure Difficulty:normal Findings: Terminal Ileum-normal Cecum:7-9 mm sessile polyp removed with forceps Ascending Colon: 8-10 mm sessile polyp with fecal cap removed with cold snare Transverse Colon -8-10 mm sessile polyp removed with cold snare Descending Colon:normal Sigmoid Colon: few small diverticula seen Rectum: Retroflexion with small internal hemorrhoids, grade I Anorectum - normal Note: in some areas mucosa appeared atrophied and scarred, random colon bx taken to r/o any infiltrative disorder Colon preparation: Douglas Bowel Preparation Scale Right colon; 2 Transverse colon: 2 Left colon; 2 (0 = Unprepared colon segment with mucosa not seen due to solid stool that cannot be cleared. 1 = Portion of mucosa of the colon segment seen, but other areas of the colon segment not well seen due to staining, residual stool and/or opaque liquid. 2 = Minor amount of residual staining, small fragments of stool and/or opaque liquid, but mucosa of colon segment seen well. 3 = Entire mucosa of colon segment seen well with no residual staining, small fragments of stool or opaque liquid) Impression and Post Procedure Diagnosis: Endoscopy Findings: duodenitis esophagitis Colonoscopy Findings: polyps internal hemorrhoids diverticular disease Plan: Await Pathology results Repeat Colonoscopy in 3-5 years or earlier if clinically indicated High fiber diet leaflet avoid straining at stool, epsom salts and sitz bath, anusol supps or cream prn o/p small bowel capsule endoscopy as no active bleeding sites seen Above findings were reviewed with the patient and relevant handouts were provided if indicated.
--- NOTE | 2020-08-21 15:34 | HO.ANESPROP2 ---
[facility] Active Problems Active Problems: All Active Problems (Updated 08/21/20 @ 13:55 by Viviana Vela NP) Anemia (Acute) ESRD (end stage renal disease) (Acute) Anemia (Acute) Acute GI bleeding (Acute) Hypertension (Acute) Blind left eye (Acute) Anemia of chronic disease (Acute) ESRD (end stage renal disease) (Acute) Septic joint of right knee joint (Acute) Arthritis of shoulder region, right, degenerative (Acute) Right shoulder pain (Acute) Arthritis of shoulder region, left, degenerative (Acute) Left shoulder pain (Acute) Past Medical History Medical History Anemia of chronic disease Blind left eye ESRD (end stage renal disease) Hyperlipidemia Hyperparathyroidism Hypertension Myocardial infarction Renal failure Social History Social History Household Members: Spouse Housing: House Do you presently have visiting nurse or other home services: No Alcohol intake: never Smoking Status: Never smoker service: No Current occupational status: unemployed and disabled Meds Allergies Allergy/AdvReac Type Severity Reaction Status Date / Time No Known Drug Allergies Allergy Unknown UNKNOWN Verified 06/06/20 13:01 Active Medications: Current Medications Generic Name Dose Route Start Last Admin Trade Name Freq PRN Reason Stop Dose Admin Acetaminophen 650 mg 08/18/20 14:35 08/20/20 21:54 Acetaminophen 325 Mg Tablet PO 650 mg Q6H PRN Administration Pain, Mild (Pain Scale 1-3) Omeprazole 40 mg 08/19/20 08:25 08/21/20 05:59 Omeprazole 40 Mg Capsule.Dr PO Not Given DAILY@0630 [facility] Ondansetron HCl 4 mg 08/18/20 14:35 08/20/20 23:57 Ondansetron Hcl 4 Mg/2 Ml Vial IVPUSH 4 mg Q8H PRN Administration Nausea and Vomiting Pharmacy Consult 1 each 08/18/20 14:22 Consult Rx Perform Med Rec MISCELLANE ONCE PRN Consult order Sodium Biphosphate/Sodium Phosphate 133 ml 08/21/20 08:54 08/21/20 15:10 Sodium Phosphate,Bond-Dibasic 133 Ml Enema [place] 133 ml ONCE PRN Administration Consult order Sodium Chloride 3 ml 08/18/20 16:00 08/21/20 09:13 0.9 % Sodium Chloride Flush 3 Ml Syringe IVFLUSH 3 ml QSHIFT [facility] Administration Home Medications Medication Instructions Recorded Confirmed Last Taken Type cholecalciferol (vitamin D3) 50 50 mcg PO DAILY 06/06/20 08/18/20 08/18/20 History mcg (2,000 unit) capsule lanthanum 500 mg chewable tablet 500 mg PO TIDWM 06/06/20 08/18/20 08/18/20 History loratadine 10 mg tablet 10 mg PO DAILY 06/06/20 08/18/20 08/18/20 History multivitamin 1 tab PO DAILY 06/06/20 08/18/20 08/18/20 History diphenhydramine HCl [Banophen] 25 mg PO BEDTIME 07/04/20 08/18/20 07/03/20 History midodrine 10 mg PO MOWEFR@1645 07/04/20 08/18/20 Unknown History epoetin beta, methoxy peg [Mircera] 130 mcg SUBCUT Q2W 08/18/20 08/18/20 08/09/20 History Exam Exam Date and Time: August 21, 2020 1534 Height,Weight and Vital Signs: Height 5 ft 6 in Weight 81.647 kg Last Vital Signs Temp 98.3 F 08/21/20 14:53 Pulse 78 08/21/20 14:53 Resp 16 08/21/20 14:53 BP 164/87 H 08/21/20 14:53 Pulse Ox 100 08/21/20 14:53 Pertinent Lab Results Pertinent Lab Results: Laboratory Tests 08/18/20 08/18/20 08/18/20 10:07 10:07 10:07 WBC 5.5 RBC 2.18 L D Hgb 6.4 L* D Hct 21.5 L D MCV 98.6 H MCH 29.4 MCHC 29.8 L RDW 15.5 Plt Count 205 D MPV 11.4 Immature Gran % (Auto) 0.4 Neut % (Auto) 70.3 Lymph % (Auto) 15.7 L Bond % (Auto) 11.4 H Eos % (Auto) 2.0 Baso % (Auto) 0.2 Lymph # (Auto) 0.9 L Bond # (Auto) 0.6 Eos # (Auto) 0.1 Baso # (Auto) 0.0 Abs Immat Gran (auto) 0.02 Absolute Neuts (auto) 3.9 Absolute Nucleated RBC 0.000 Nucleated RBC % (auto) 0.0 PT 14.6 H D INR 1.2 H APTT 101.6 H* D Sodium 140 Potassium 3.8 Chloride 97 Carbon Dioxide 30 H Anion Gap 17 BUN 27 H D Creatinine 4.96 H* Estim Creat Clear Calc 17.6 Estimated GFR 12 Random Glucose 82 Calcium 7.4 L Total Bilirubin 0.3 AST 20 ALT < 6 Alkaline Phosphatase 93 D Total Protein 8.2 H Albumin 3.6 Stool Occult Blood Blood Type Antibody Screen Crossmatch 08/18/20 08/18/20 08/18/20 10:07 10:53 16:12 WBC RBC Hgb Hct MCV MCH MCHC RDW Plt Count MPV Immature Gran % (Auto) Neut % (Auto) Lymph % (Auto) Bond % (Auto) Eos % (Auto) Baso % (Auto) Lymph # (Auto) Bond # (Auto) Eos # (Auto) Baso # (Auto) Abs Immat Gran (auto) Absolute Neuts (auto) Absolute Nucleated RBC Nucleated RBC % (auto) PT INR APTT 41.8 H D Sodium Potassium Chloride Carbon Dioxide Anion Gap BUN Creatinine Estim Creat Clear Calc Estimated GFR Random Glucose Calcium Total Bilirubin AST ALT Alkaline Phosphatase Total Protein Albumin Stool Occult Blood POSITIVE Blood Type A Positive Antibody Screen NEGATIVE Crossmatch See Detail 08/19/20 08/19/20 08/19/20 04:44 04:44 10:56 WBC 5.4 RBC 2.35 L Hgb 7.1 L 7.1 L Hct 23.7 L 23.0 L MCV 100.9 H MCH 30.2 MCHC 30.0 L RDW 15.6 Plt Count 200 MPV 12.1 Immature Gran % (Auto) 0.2 Neut % (Auto) 73.9 H Lymph % (Auto) 13.9 L Bond % (Auto) 9.6 Eos % (Auto) 2.0 Baso % (Auto) 0.4 Lymph # (Auto) 0.8 L Bond # (Auto) 0.5 Eos # (Auto) 0.1 Baso # (Auto) 0.0 Abs Immat Gran (auto) 0.01 Absolute Neuts (auto) 4.0 Absolute Nucleated RBC 0.000 Nucleated RBC % (auto) 0.0 PT 14.2 H INR 1.2 H APTT Sodium Potassium Chloride Carbon Dioxide Anion Gap BUN Creatinine Estim Creat Clear Calc Estimated GFR Random Glucose Calcium Total Bilirubin AST ALT Alkaline Phosphatase Total Protein Albumin Stool Occult Blood Blood Type Antibody Screen Crossmatch 08/19/20 08/20/20 08/20/20 21:53 04:42 04:43 WBC 6.4 RBC 2.78 L Hgb 8.6 L D 8.5 L Hct 27.3 L 27.2 L MCV 97.8 MCH 30.6 MCHC 31.3 RDW 16.0 Plt Count 181 MPV 11.5 Immature Gran % (Auto) Neut % (Auto) Lymph % (Auto) Bond % (Auto) Eos % (Auto) Baso % (Auto) Lymph # (Auto) Bond # (Auto) Eos # (Auto) Baso # (Auto) Abs Immat Gran (auto) Absolute Neuts (auto) Absolute Nucleated RBC 0.000 Nucleated RBC % (auto) 0.0 PT INR APTT Sodium 141 Potassium 4.6 D Chloride 98 Carbon Dioxide 27 Anion Gap 21 H BUN 58 H D Creatinine 8.87 H* Estim Creat Clear Calc 9.8 Estimated GFR 6 Random Glucose 88 Calcium 7.0 L Total Bilirubin AST ALT Alkaline Phosphatase Total Protein Albumin Stool Occult Blood Blood Type Antibody Screen Crossmatch 08/21/20 08/21/20 05:39 05:39 WBC 6.0 RBC 2.90 L Hgb 8.7 L Hct 28.2 L MCV 97.2 MCH 30.0 MCHC 30.9 L RDW 15.9 Plt Count 188 MPV 12.1 Immature Gran % (Auto) Neut % (Auto) Lymph % (Auto) Bond % (Auto) Eos % (Auto) Baso % (Auto) Lymph # (Auto) Bond # (Auto) Eos # (Auto) Baso # (Auto) Abs Immat Gran (auto) Absolute Neuts (auto) Absolute Nucleated RBC 0.000 Nucleated RBC % (auto) 0.0 PT INR APTT Sodium 141 Potassium 4.5 Chloride 95 L Carbon Dioxide 25 Anion Gap 26 H BUN 71 H Creatinine 10.49 H* Estim Creat Clear Calc 8.3 Estimated GFR 5 Random Glucose 80 Calcium 6.9 L Total Bilirubin AST ALT Alkaline Phosphatase Total Protein Albumin Stool Occult Blood Blood Type Antibody Screen Crossmatch Airway Mallampati Class: IV TM Dist: >3cm Neck ROM: Full Heart: RRR Lungs: CTA
[2020-08-21] MEDS: 0.9 % Sodium Chloride 500 ML 20 ML IVCONT (15:47)
[2020-08-21] MEDS: Acetaminophen 325 MG TABLET 650 MG PO (17:00)
--- NOTE | 2020-08-21 18:30 | PM.DS ---
DS: Providers Provider Date of Service: 08/21/20 Date of admission: 08/18/20 14:35 Primary care physician: Unknown Physician Consults: 08/19/20 13:17 Consult to Nephrology Routine Consulting Provider: Cee Hernandez Reason for consultation: dialysis MWF Has provider been notified: No DS: Diagnosis Discharge Diagnosis (1) Anemia: Status: Acute (2) ESRD (end stage renal disease): Status: Acute DS: Medications Discharge Medications Home Medications: Home Medications Medication Instructions Recorded Confirmed cholecalciferol (vitamin D3) 50 50 mcg PO DAILY 06/06/20 08/18/20 mcg (2,000 unit) capsule lanthanum 500 mg chewable tablet 500 mg PO TIDWM 06/06/20 08/18/20 loratadine 10 mg tablet 10 mg PO DAILY 06/06/20 08/18/20 multivitamin 1 tab PO DAILY 06/06/20 08/18/20 diphenhydramine HCl [Banophen] 25 mg PO BEDTIME 07/04/20 08/18/20 midodrine 10 mg PO MOWEFR@1645 07/04/20 08/18/20 epoetin beta, methoxy peg [Mircera] 130 mcg SUBCUT Q2W 08/18/20 08/18/20 Previous Rx's Medication Instructions Recorded cefazolin See Rx Instructions .ROUTE 07/08/20 .COMPLEX #28 ea oxycodone 5 mg PO Q6H PRN #20 tab 07/11/20 DS: Summary Hospital Course Hospital Course: HP as per admitting provider This is a 50-year-old gentleman, who was recently discharged from [facility] [place] on July 08, 2020 after being diagnosed to have right knee septic arthritis and was discharged home on IV Ancef 2 g for 4 weeks. The patient was discharged to rehab facility. From there, he was transferred to home, currently ambulating with the use of a walker. He was receiving his hemodialysis this morning where blood work revealed that he has significant drop in his hematocrit to 21.5, with the last hematocrit on July 11 was 31.4. The patient denies any hematemesis. He has no melena. He denies any recent for fall, ecchymosis. He does sometimes use [id number] Motrin for muscular pain. He denies any chest pain or shortness of breath. He gets lightheaded sometimes after hemodialysis. The patient is not sure if he receives Procrit shots. In the emergency room, workup revealed a hematocrit of 21.5 with a hemoglobin of 6.4. Last hemoglobin on July 11 was 10. The patient's electrolytes were stable. Creatinine is 4.96 with history of end-stage renal disease, calcium is 7.4, total protein is 8.2. Imaging studies none obtained. The patient is receiving 1 unit of packed RBC. The patient was seen by Gastroenterology in the emergency room, and the plan is to proceed with colonoscopy and upper endoscopy on Friday . Anemia. Multifactorial as patient does have history of end-stage renal disease on dialysis but hemoglobin and hematocrit had gone down significantly. He received 3 units of packed red blood cells. He had EGD and colonoscopy which showed duodenitis, esophagitis, polyps and internal hemorrhoids. No overt bleeding noted. H&H stable. Continue on PPI. Follow up with Gastroenterology for capsule endoscopy. End-stage renal disease. Dialysis schedule Friday, Friday and Friday. Last dialysis session 08/21. continue as per regular schedule. Time Spent with Patient Time attestation: Total time spent providing and/or coordinating discharge services: Physical Exam Vital Signs: Vital Signs: Last Vital Signs Temp 97.7 F 08/21/20 18:00 Pulse 77 08/21/20 18:00 Resp 20 08/21/20 18:00 BP 145/76 H 08/21/20 18:00 Pulse Ox 100 08/21/20 18:00 Body Mass Index 29.0 DS: Data Data Completed and Pending Completed studies during hospitalization [Text1]: Procedures Drainage of Right Knee Joint, Percutaneous Approach, Diagnostic (07/04/20) Excision of Right Knee Joint, Percutaneous Endoscopic Approach (07/04/20) Irrigation of Joints using Irrigating Substance, Percutaneous Endoscopic Approach (07/04/20) Performance of Urinary Filtration, Intermittent, Less than 6 Hours Per Day (07/04/20) Pending studies at discharge: Pending at discharge 08/21/20 16:24 Surgical [PTH] Routine Labs on day of discharge: Laboratory Results - last 24 hr 08/21/20 08/21/20 05:39 05:39 WBC 6.0 RBC 2.90 L Hgb 8.7 L Hct 28.2 L MCV 97.2 MCH 30.0 MCHC 30.9 L RDW 15.9 Plt Count 188 MPV 12.1 Absolute Nucleated RBC 0.000 Nucleated RBC % (auto) 0.0 Sodium 141 Potassium 4.5 Chloride 95 L Carbon Dioxide 25 Anion Gap 26 H BUN 71 H Creatinine 10.49 H* Estim Creat Clear Calc 8.3 Estimated GFR 5 Random Glucose 80 Calcium 6.9 L Discharge Plan Discharge Patient Disposition: Home, Self-Care Discharge Diagnosis: Anemia Esophagitis End-stage renal disease on dialysis Referrals: Physician,Unknown [Primary Care Provider] - 1 Week Discharge Medications: Continued diphenhydramine HCl [Banophen] 25 mg Tablet 25 mg PO BEDTIME RF: 0 midodrine 10 mg Tablet 10 mg PO MOWEFR@1645 RF: 0 oxycodone 5 mg tablet 5 mg PO Q6H PRN (Reason: pain) Qty: 20 RF: 0 Mircera 150 mcg/0.3 mL Syringe 130 mcg SUBCUT Q2W RF: 0 loratadine 10 mg tablet 10 mg PO DAILY RF: 0 cholecalciferol (vitamin D3) 50 mcg (2,000 unit) capsule 50 mcg PO DAILY RF: 0 lanthanum 500 mg tablet,chewable 500 mg PO TIDWM RF: 0 multivitamin Tablet 1 tab PO DAILY RF: 0 Discontinued cefazolin 1 gram recon soln See Rx Instructions .ROUTE .COMPLEX Qty: 28 RF: 0 Diet: advance to usual diet Activity on Discharge: As tolerated Stand Alone Forms: Patient Portal Discharge page Care Plan Goals: Resolution of anemia No overt bleeding Health Concerns: Anemia Esophagitis End-stage renal disease on dialysis Plan of Treatment: Follow-up with primary care provider as needed Follow your regularly scheduled dialysis days of Friday, Friday and Friday Assessment: See discharge summary
--- NOTE | 2020-08-21 18:36 | P.PNIM_ITS ---
Subjective Subjective Date of Service: 08/21/20 Interval History: Follow-up anemia, end-stage renal disease on dialysis No overt bleeding, diarrhea No abdominal pain nausea or vomiting Physical Exam Vital Signs: Vital Signs: Last Vital Signs Temp 97.7 F 08/21/20 18:00 Pulse 77 08/21/20 18:00 Resp 20 08/21/20 18:00 BP 145/76 H 08/21/20 18:00 Pulse Ox 100 08/21/20 18:00 Body Mass Index 29.0 Appearing in no acute distress lung sounds are clear to auscultation heart regular rate rhythm, clear S1, S2 positive bowel sounds, abdomen is soft, nontender neuro patient is alert x3, no focal deficits Objective Data Current Medications Generic Name Dose Route Start Last Admin Trade Name Freq PRN Reason Stop Dose Admin Acetaminophen 650 mg 08/18/20 14:35 08/21/20 17:00 Acetaminophen 325 Mg Tablet PO 650 mg Q6H PRN Administration Pain, Mild (Pain Scale 1-3) Sodium Chloride 500 mls @ 20 mls/hr 08/21/20 15:45 08/21/20 15:47 Ns IVCONT 20 mls/hr .Q24H SOFIA Administration Omeprazole 40 mg 08/19/20 08:25 08/21/20 05:59 Omeprazole 40 Mg Capsule.Dr PO Not Given DAILY@0630 [facility] Ondansetron HCl 4 mg 08/18/20 14:35 08/20/20 23:57 Ondansetron Hcl 4 Mg/2 Ml Vial IVPUSH 4 mg Q8H PRN Administration Nausea and Vomiting Pharmacy Consult 1 each 08/18/20 14:22 Consult Rx Perform Med Rec MISCELLANE ONCE PRN Consult order Sodium Biphosphate/Sodium Phosphate 133 ml 08/21/20 08:54 08/21/20 15:10 Sodium Phosphate,Howell-Dibasic 133 Ml Enema ND 133 ml ONCE PRN Administration Consult order Sodium Chloride 3 ml 08/18/20 16:00 08/21/20 09:13 0.9 % Sodium Chloride Flush 3 Ml Syringe IVFLUSH 3 ml QSHIFT SOFIA Administration Labs CBC & Chem 7: 08/21/20 05:39 08/21/20 05:39 Assessment and Plan (1) Anemia: Status: Acute Assessment and Plan: 50-year-old with history of end-stage renal disease on dialysis presents with significant in hematocrit with no source of bleeding. Acute on chronic anemia. No obvious bleeding. Multifactorial secondary to ESRD and GI bleed EGD and colo, Esophagitis, duodenitis, Internal hemorrhoids. - seen and evaluated by Gastroenterology - transfused 3 untits PRBC during admission - H&H - continue PPI - Discuss with [employer] when patient can restart warfarin End-stage renal disease on dialysis. MWF - Dialysis today - Nephro following - Procrit Subtherapeutic INR. Does not appear the patient has been taking his warfarin - continue to hold for now due to anemia Hypertension. Stable blood pressure. DISPO: Discharge home tomorrow if medically stable DVT prophylaxis with mechanical compression boots Full code Attending: Dr. Mccoy
--- NOTE | 2020-08-21 19:27 | PC.NURSE ---
PT TO ROOM 478 FROM PACU AT 1750 IN NO ACUTE DISTRESS. PT IS A&O X3. HAS PAIN IN RIGHT KNEE WHICH IS WRAPPED WITH JOURDAN WRAP. TRANSFERRED SELF FROM STRETCHER TO BED. DIALYSIS CATH NOTED RIGHT BACK. BP 145/76. MONITOR SHOWS NSR, 70.S NO ECTOPY. O2 SAT 100% ON ROOM AIR. AT BEDSIDE. DIET CHANGED TO LOW SODIUM AND PT ATE 100% OF SUPPER.
[2020-08-22] MEDS: 0.9 % Sodium Chloride Flush 3 ML SYRINGE IVFLUSH ×2 (01:08→07:57)
[2020-08-22 04:00] VITALS: BP 145/82; PULSE 88; RESP 18; TEMP 36.9; O2SAT 99
[2020-08-22] MEDS: Omeprazole 40 MG CAPSULE.DR PO (05:51)
[2020-08-22 08:00] VITALS: BP 156/86; PULSE 85; RESP 19; TEMP 36.3; O2SAT 100
--- NOTE | 2020-08-22 10:17 | HO.POSTANES ---
Post Anesthesia Evaluation Post Anesthesia Evaluation Vital Signs: Vital Signs Temp Pulse Resp BP Pulse Ox 08/22/20 08:00 97.4 F 85 19 156/86 H 100 08/22/20 04:00 98.4 F 88 18 145/82 H 99 08/21/20 23:42 97.9 F 82 18 132/72 100 Anesthesia: Monitored Mental Status: Awake Pain Control: Satisfactory Nausea/Vomiting: None Hydration: Adequate Anesthesia-Related Issues: No Anes. Related Issues
[2020-08-22] MEDS: Acetaminophen 325 MG TABLET 650 MG PO (10:20)
[2020-08-22 11:58] VITALS: BP 153/81; PULSE 72; RESP 20; TEMP 36.8; O2SAT 100
--- NOTE | 2020-08-22 14:09 | PM.DS ---
DS: Providers Provider Date of Service: 08/22/20 Date of admission: 08/18/20 14:35 Date of discharge: 08/22/20 Primary care physician: Unknown Physician Consults: 08/19/20 13:17 Consult to Nephrology Routine Consulting Provider: Cee Hernandez Reason for consultation: dialysis MWF Has provider been notified: No DS: Diagnosis Discharge Diagnosis (1) Anemia: Status: Acute DS: Medications Discharge Medications Home Medications: Home Medications Medication Instructions Recorded Confirmed cholecalciferol (vitamin D3) 50 50 mcg PO DAILY 06/06/20 08/18/20 mcg (2,000 unit) capsule lanthanum 500 mg chewable tablet 500 mg PO TIDWM 06/06/20 08/18/20 loratadine 10 mg tablet 10 mg PO DAILY 06/06/20 08/18/20 multivitamin 1 tab PO DAILY 06/06/20 08/18/20 diphenhydramine HCl [Banophen] 25 mg PO BEDTIME 07/04/20 08/18/20 midodrine 10 mg PO MOWEFR@1645 07/04/20 08/18/20 Mircera 130 mcg SUBCUT Q2W 08/18/20 08/18/20 Previous Rx's Medication Instructions Recorded oxycodone 5 mg PO Q6H PRN #20 tab 07/11/20 DS: Summary Hospital Course Hospital Course: HP as per admitting provider This is a 50-year-old gentleman, who was recently discharged from [facility] on July 08, 2020 after being diagnosed to have right knee septic arthritis and was discharged home on IV Ancef 2 g for 4 weeks. The patient was discharged to rehab facility. From there, he was transferred to home, currently ambulating with the use of a walker. He was receiving his hemodialysis this morning where blood work revealed that he has significant drop in his hematocrit to 21.5, with the last hematocrit on July 11 was 31.4. The patient denies any hematemesis. He has no melena. He denies any recent for fall, ecchymosis. He does sometimes use [id number] Motrin for muscular pain. He denies any chest pain or shortness of breath. He gets lightheaded sometimes after hemodialysis. The patient is not sure if he receives Procrit shots. In the emergency room, workup revealed a hematocrit of 21.5 with a hemoglobin of 6.4. Last hemoglobin on July 11 was 10. The patient's electrolytes were stable. Creatinine is 4.96 with history of end-stage renal disease, calcium is 7.4, total protein is 8.2. Imaging studies none obtained. The patient is receiving 1 unit of packed RBC. The patient was seen by Gastroenterology in the emergency room, and the plan is to proceed with colonoscopy and upper endoscopy on Friday . Anemia. Multifactorial as patient does have history of end-stage renal disease on dialysis but hemoglobin and hematocrit had gone down significantly. He received 3 units of packed red blood cells. He had EGD and colonoscopy which showed duodenitis, esophagitis, polyps and internal hemorrhoids( official procedure report and patholgy report pending). No overt bleeding noted. H&H stable. Continue on PPI. Follow up with Gastroenterology for capsule [id number] with pathology report as well as CBC out patiently with PCP and GI. End-stage renal disease. Dialysis schedule Friday, Friday and Friday. Last dialysis session 08/21. continue as per regular schedule. Above management discussed with the patient and his in detail length -both understand and in agreement with the above plan, time spent 50 minutes and 50% time spent on counseling. Significant findings: As above. Procedures performed: None. Treatment and response: As above. Complications: None. Time Spent with Patient Time attestation: Total time spent providing and/or coordinating discharge services: Discharge coordination time: Greater than 30 minutes Quality: Stroke Does the patient have a stroke diagnosis?: No Physical Exam Vital Signs: Vital Signs: Last Vital Signs Temp 98.3 F 08/22/20 11:58 Pulse 72 08/22/20 11:58 Resp 20 08/22/20 11:58 BP 153/81 H 08/22/20 11:58 Pulse Ox 100 08/22/20 11:58 Body Mass Index 29.0 Physical exam: Constitutional: Not in acute distress Cvs: rrr, [id number] , no murmur res: clear to auscultation ,no rhonchii or wheezing abd: no rebound or guarding ,nt, bs present. ext pulses present , no cyanosis neuro: axo3 , nonfocal. Psych: Euthymic and pleasant. Muscular cutaneous mistry: No pain or swelling. skin: no rash. DS: Data Data Completed and Pending Completed studies during hospitalization [Text1]: Procedures Drainage of Right Knee Joint, Percutaneous Approach, Diagnostic (07/04/20) Excision of Right Knee Joint, Percutaneous Endoscopic Approach (07/04/20) Irrigation of Joints using Irrigating Substance, Percutaneous Endoscopic Approach (07/04/20) Performance of Urinary Filtration, Intermittent, Less than 6 Hours Per Day (07/04/20) Pending studies at discharge: Pending at discharge 08/21/20 16:28 Surgical [PTH] Routine Discharge Plan Discharge Patient Disposition: Home, Self-Care Discharge Diagnosis: Anemia Esophagitis End-stage renal disease on dialysis Referrals: Destinee RUFFIN [Outside] - 1 Week Lisa Diamond MD [Physician] - 1 Week (follow up outpatiently for further Gi workup.) Chasidy Fischer MD [Physician] - 1 Week (Follow-up with PCP in next 1-2 weeks time and monitor CBC.) Physician,Unknown [Primary Care Provider] - 1 Week Discharge Medications: New omeprazole 40 mg capsule,delayed release(DR/EC) 40 mg PO DAILY Qty: 30 RF: 0 Continued diphenhydramine HCl [Banophen] 25 mg Tablet 25 mg PO BEDTIME RF: 0 midodrine 10 mg Tablet 10 mg PO MOWEFR@1645 RF: 0 oxycodone 5 mg tablet 5 mg PO Q6H PRN (Reason: pain) Qty: 20 RF: 0 Mircera 150 mcg/0.3 mL Syringe 130 mcg SUBCUT Q2W RF: 0 Discontinued cefazolin 1 gram recon soln See Rx Instructions .ROUTE .COMPLEX Qty: 28 RF: 0 Discharge Orders: Discharge Order (Routine); Ordered 08/22/20 Ordered By: Alexis Martinez Diet: advance to usual diet Activity on Discharge: As tolerated Stand Alone Forms: Patient Portal Discharge page Care Plan Goals: Resolution of anemia No overt bleeding Health Concerns: Anemia Esophagitis End-stage renal disease on dialysis Plan of Treatment: Follow-up with primary care provider as needed Follow your regularly scheduled dialysis days of Friday, Friday and Friday. moniter cbc with pcp in 1 week. Further management outpatient as per PCP and Nephrology. Avoid aspirin or NSAIDs or blood thinners for now until seen by pcp. Further GI workup outpatient as per Dr Karthik Rinaldi MD. Assessment: See discharge summary Discharge Date/Time: 08/22/20 15:00
--- NOTE | 2020-08-22 14:09 | MHC.CM.PN ---
Patient will go home with resumption of [facility] and [facility] services. will provide transport. Patient, nurse are aware.
== END 2020-08-22 15:00 | disposition home or self-care (01) | DRG 377 ==
LOC: HO.ED 12:18 → HO.EDOVER 14:48 → HO.IMC 17:43
PROVIDERS: Internal Medicine Gastroenterology; Nurse Practitioner Acute Care; Physician Assistant; Admitting Provider Hospitalist; Emergency Provider Emergency Medicine; PCP Internal Medicine; Visit Provider Internal Medicine
PROC: 0DB98ZX Excision of Duodenum, Via Natural or Artificial Opening Endoscopic, Diagnostic (ICD-10-PCS; principal; 2020-08-21 15:10)
DX: K57.31 Diverticulosis of large intestine without perforation or abscess with bleeding (principal); N18.6 End stage renal disease; K20.91 Esophagitis, unspecified with bleeding; I12.0 Hypertensive chronic kidney disease with stage 5 chronic kidney disease or end stage renal disease; D62 Acute posthemorrhagic anemia; E03.9 Hypothyroidism, unspecified; K29.81 Duodenitis with bleeding; R79.1 Abnormal coagulation profile; K64.8 Other hemorrhoids; D63.1 Anemia in chronic kidney disease; E78.5 Hyperlipidemia, unspecified; Z99.2 Dependence on renal dialysis; Z79.899 Other long term (current) drug therapy
CPT/HCPCS: 36415; 80048; 80053; 82272; 85014; 85018; 85025; 85027; 85610; 85730; 86850; 86900; 86901; 86923; 88305; 88342; 96374; 96375; 99285; J1200; J2405; J2765; P9016; Q0163

== ENCOUNTER → 2020-09-07 08:32 | Outpatient (BNVA) | payer OTHER, SELFPAY | PROVIDERS: PCP Internal Medicine; Visit Provider Internal Medicine Gastroenterology ==

== ENCOUNTER → 2020-09-12 13:24 | Outpatient (BNVA) | payer OTHER, SELFPAY | PROVIDERS: PCP Internal Medicine; Visit Provider Physician Assistant | DX: M25.661 Stiffness of right knee, not elsewhere classified (principal); Z98.890 Other specified postprocedural states | CPT/HCPCS: 99212 ==

== ENCOUNTER 2020-09-16 19:30 | Emergency (ER) | payer OTHER, SELFPAY ==
--- NOTE | ~2020-09-16 | CT_ITS ---
EXAMINATION: CT ABDOMEN AND PELVIS WITH CONTRAST CLINICAL INFORMATION: Abdominal pain, left flank pain. COMPARISON: None TECHNIQUE: Multidetector volumetric images were obtained from the superior aspect of the liver through the pubic symphysis following administration 85 mL of Omnipaque 350 intravenous contrast. Sagittal and coronal reformatted images were obtained on the technologist's workstation. Oral contrast: No. This CT examination was performed using dose optimization techniques as appropriate, variously including the following: Automated exposure control. Adjustment of mA and/or kV according to patient size (this includes techniques or standardized protocols for targeted exams where dose is matched to indication/reason for exam; i.e. extremities or head). Use of iterative reconstruction technique. DLP: 943 mGy-cm FINDINGS: LUNG BASES: See chest CT report. LIVER, GALLBLADDER, AND BILIARY TREE: There is mild hepatomegaly, but the liver is normal in shape. Attenuation is difficult to judge's clerk after contrast.. No focal hepatic lesion or biliary ductal dilatation is present. The gallbladder is contracted and contains at least one small gallstone without gallbladder wall thickening or obvious pericholecystic inflammatory changes. PANCREAS: Unremarkable. SPLEEN: Spleen is enlarged measuring 14.4 cm in size. ADRENAL GLANDS: Unremarkable. KIDNEYS AND URETERS: Kidneys are atrophic and polycystic consistent with renal failure. BLADDER: Small and contracted. GASTROINTESTINAL TRACT: Dense structures are noted throughout the colon, most likely ingested. This produces significant artifact. The small and large bowel are otherwise unremarkable. The appendix is not seen, but there is no evidence of appendicitis. ABDOMINAL WALL: No significant hernia is appreciated. LYMPH NODES: Small shotty retroperitoneal lymph nodes are present, but there is no retroperitoneal lymphadenopathy. VASCULAR: A translumbar IVC hemodialysis catheter is present with its tip at the cavoatrial junction. Calcific atherosclerotic changes present in the aorta and iliac vessels. No aneurysm. Extensive abdominal wall collaterals secondary to occluded SVC. PELVIC VISCERA: Prostate and seminal vesicles are unremarkable. OSSEOUS STRUCTURES: Sclerotic bony changes of renal failure are present. There are rounded lytic lesions present in both femoral heads medially which probably represents brown tumors related to renal failure and secondary hyperparathyroidism. CT/CT abdomen pelvis w con IMPRESSION: 1. Hepatosplenomegaly. 2. Atrophic cystic kidneys consistent with chronic renal failure. 3. Scattered dense structures throughout the colon, presumably ingested of uncertain significance. Please correlate with clinical history. 4. Osseous changes of renal failure and femoral head brown tumors most likely secondary to secondary hyperparathyroidism. 5. There is cholelithiasis, but no convincing evidence of cholecystitis. This critical result was discussed with Dr. Alarcon at 1:15 PM on the day of the exam and it was ascertained that the content and urgency of the report was understood at the time of direct communication.
--- NOTE | ~2020-09-16 | CT_ITS ---
EXAMINATION: CT ANGIOGRAM OF THE CHEST WITH AND WITHOUT CONTRAST (CT PULMONARY ANGIOGRAM FOR PE) CLINICAL INFORMATION: Reason for Exam sob, flank pain COMPARISON: Prior chest radiographs and prior CT chest the most recent of which was 08/15/2017 TECHNIQUE: Prior to contrast administration, noncontrast localization images were obtained. Subsequently, multidetector volumetric imaging was performed from the thoracic inlet to below the diaphragms following the administration of 80 mL Omnipaque 350 intravenous contrast. No contrast reaction reported Sagittal, coronal, and MIP oblique sagittal reformatted images were obtained on the CT workstation, uploaded to PACS, and reviewed. This CT examination was performed using dose optimization techniques as appropriate, variously including the following: *Automated exposure control *Adjustment of mA and/or kV according to patient size (this includes techniques or standardized protocols for targeted exams where dose is matched to indication/reason for exam; i.e. extremities or head) *Use of iterative reconstruction technique Total exam dose-length product 943 mGy-cm FINDINGS: QUALITY OF STUDY/CONTRAST BOLUS: Suboptimal. The SVC is occluded and contrast injected has entered multiple chest wall and mediastinum collaterals. PULMONARY ARTERIES: No large central or segmental pulmonary emboli. Of note, new since the prior study, there is a stent present in a right lower lobe pulmonary artery that is about 1 cm in diameter. The stent is patent and there is no thrombosis around it. THORACIC AORTA: No aneurysm or dissection. Common trunk of the innominate and left carotid. LUNG: The lungs are grossly abnormal with innumerable calcified small nodular densities present in the right lower lobe and right upper lobe as well as to a lesser extent and not as calcified in the left lower. This is most likely related to prior aspiration event. There is most likely underlying emphysematous changes PLEURA: Small bilateral effusions are present. MEDIASTINUM: Normal heart size. No pericardial effusion. No hilar or mediastinal lymphadenopathy. No evidence of septal bowing or right heart strain. The stent is present in the SVC extending into the subclavian vein and probably cephalic vein. Stents are also present in the arm. These are all thrombosed and extensive chest wall and mediastinal collaterals filled. CHEST WALL/AXILLA: No axillary or internal mammary lymphadenopathy. Please see discussion above regarding chest wall collaterals. OSSEOUS STRUCTURES: No acute or suspicious osseous abnormality. Large Schmorl's node noted at the superior endplate of L1 UPPER ABDOMEN: Polycystic atrophic kidneys are present. A dialysis catheter is present with its tip in the distal IVC near the atrial junction. Gallstones are present No reflux of contrast into the hepatic veins to suggest elevated right heart pressures. CT/CT angio chest PE protocol IMPRESSION: 1. No evidence of pulmonary emboli but limited exam 2. A stent is present in the left lower lobe pulmonary artery that was not present previously 3. Dense calcific densities present in the lungs as described above possibly from remote aspiration event. 4. 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 Cholelithiasis 6. Small cystic kidneys with chronic renal failure VTE: Negative, but very limited This critical result was discussed with at 1:00 AM on the day the exam and it was ascertained that the content and urgency of the report was understood at the time of direct communication.
--- NOTE | ~2020-09-16 | XR_ITS ---
EXAMINATION: XR CHEST CLINICAL INFORMATION: Question of a stent in the left lower lobe pulmonary artery COMPARISON: CT scan earlier this evening TECHNIQUE: 2 views of the chest were obtained. FINDINGS: Heart size normal. Again seen is dense material in the right lower lobe better characterized on the CT scan. No evidence of CHF. Tiny pleural effusions are present. Stents are present in the SVC and subclavian vein. A translumbar hemodialysis catheter has its tip at the IVC atrial junction. On the lateral radiograph, it is possible to see a metallic stent in the position that was noted on the CT scan. The stent appears somewhat deformed. Please correlate with the surgical/vascular history. XR/XR chest 2V IMPRESSION: A stent is present in the right lower lobe pulmonary artery. This critical result was discussed with at 1:30 AM on the day the exam and it was ascertained that the content and urgency of the report was understood at the time of direct communication.
[2020-09-16 20:05] VITALS: BP 137/77; PULSE 99; RESP 20; TEMP 36.8; O2SAT 100; BMI 28.4
[2020-09-16 22:40] LABS: Basophils Percent Auto 0.1 % (0-2); Eosinophils Percent Auto 0.4 % (0-4); Hematocrit 30.3 % (42-52); Hemoglobin 9.4 g/dl (14.0-18.0); Imm Gran Abs Auto 0.04 X10*3/uL (0.00-0.03); Imm Gran Pct Auto 0.4 % (0.0-0.4); Lymphocytes Absolute Auto 0.5 X10*3/uL (1.2-4.9); Lymphocytes Percent Auto 4.7 % (20-40); MANUAL DIFF FLAG NO; Mean Corpuscular Hemoglobin 28.7 pg (27.0-33.0); Mean Corpuscular Volume 92.7 fL (80-98); Mean Platelet Volume 11.1 fL (9.4-12.4); Monocytes Absolute Auto 0.8 X10*3/uL (0.1-1.2); Monocytes Percent Auto 8.1 % (2-11); Neutrophils Absolute Auto 8.6 X10*3/uL (2.0-8.3); Neutrophils Percent Auto 86.3 % (45-73); Platelet Count 169 X10*3/uL (160-400); Red Blood Count 3.27 X10*6/uL (4.60-5.80); Red Cell Distribution Width 14.8 % (11.0-16.0); White Blood Count 9.9 X10*3/uL (4.8-10.8)
--- NOTE | 2020-09-16 23:03 | ED_ITS ---
HPI - General Adult General Chief complaint: General Medical Stated complaint: left sided pain Time Seen by Provider: 09/16/20 23:01 History of Present Illness HPI narrative: 50-year-old male with a long history of end-stage renal disease. On dialysis for the last 20 years. Presents today with having left sided chest and flank pain. No shortness of breath no diaphoresis. The pain is worse with movement. Patient had previous blood clots in the past. Never had a heart attack. Positive history of GI bleed. History of hypertension. Blind. No coughing or congestion or upper respiratory symptoms. No diaphoresis. No change in bowel movement. No history of kidney stones in past. Patient from home. No pain in legs. Patient gets dialysis Friday. Has been compliant with his regiment Related Data Home Medications Medication Instructions Recorded Confirmed cholecalciferol (vitamin D3) 50 50 mcg PO DAILY 06/06/20 08/18/20 mcg (2,000 unit) capsule lanthanum 500 mg chewable tablet 500 mg PO TIDWM 06/06/20 08/18/20 loratadine 10 mg tablet 10 mg PO DAILY 06/06/20 08/18/20 multivitamin 1 tab PO DAILY 06/06/20 08/18/20 diphenhydramine HCl [Banophen] 25 mg PO BEDTIME 07/04/20 08/18/20 midodrine 10 mg PO MOWEFR@1645 07/04/20 08/18/20 Mircera 130 mcg SUBCUT Q2W 08/18/20 08/18/20 Previous Rx's Medication Instructions Recorded oxycodone 5 mg PO Q6H PRN #20 tab 07/11/20 omeprazole 40 mg PO DAILY #30 cap 08/22/20 bisacodyl 5 mg tablet,delayed 10 mg PO ONCE 1 Days #2 tab 08/28/20 release polyethylene glycol 3350 17 238 g PO ONCE 1 Days #238 g 08/28/20 gram/dose oral powder Allergies Allergy/AdvReac Type Severity Reaction Status Date / Time No Known Drug Allergies Allergy Unknown UNKNOWN Verified 09/12/20 13:41 Review of Systems Review of Systems: Constitutional: No Weight loss, No Fever, No Chills, No Night Sweats, No Fatigue, No Malaise ENT/Mouth: No Hearing loss, No Ear Pain, No Nasal Congestion, No Sinus Pain, No Hoarseness, No sore throat, No Rhinorrhea, No Swallowing Difficulty Eyes: No Eye Pain, No Swelling, No Redness, No Foreign Body, No Discharge, No Vision Changes Cardiovascular: No Chest Pain, No SOB, No Dyspnea on Exertion, No Orthopnea, No Edema, No Palpitations Respiratory: No Cough, No Sputum, No Wheezing, No Smoke Exposure, No Dyspnea Gastrointestinal: No Nausea, No Vomiting, No Diarrhea, No Constipation, positive pain to the left chest, left flank area Genitourinary: no irregular bleeding, No Dysuria, No Urinary Frequency, No Hematuria, No Urinary Incontinence, No Urgency, No Flank Pain, No Urinary Flow Changes, No Hesitancy Musculoskeletal: No joint pain, No Myalgias, No Joint Swelling Skin: No Skin Lesions, No rash Neuro: No Weakness, No Numbness, No Paresthesias, No Loss of Consciousness, No Dizziness, No Headache Psych: No Anxiety/Panic, No Depression, No SI/HI/AH/VH, No Social Issues, Heme/Lymph: No Bruising, No Bleeding,No Lymphadenopathy Endocrine: No Polyuria, No Polydipsia, No Temperature Intolerance [facility] Past Medical History Medical History Anemia of chronic disease Blind left eye ESRD (end stage renal disease) Hyperlipidemia Hyperparathyroidism Hypertension Myocardial infarction Renal failure Social History Social History Household Members: Spouse Housing: House Do you presently have visiting nurse or other home services: No Alcohol intake: never Advance Directives: No service: No Current occupational status: unemployed and disabled Physical Exam Vital Signs: Vital Signs: Last Vital Signs Temp 98.2 F 09/16/20 20:05 Pulse 99 09/16/20 20:05 Resp 18 09/17/20 00:55 BP 137/77 09/16/20 20:05 Pulse Ox 100 09/16/20 20:05 Body Mass Index 28.4 Appearance: Alert. Oriented X3. No acute distress. Eyes: Pupils equal, round and reactive to light. ENT: Pharynx normal. Neck: Normal inspection. Neck supple. No lymph nodes noted. No crepitus CVS: Normal heart rate and rhythm. Pulses normal. Normal S1 and S2 Respiratory: No respiratory distress. Breath sounds normal. No Wheezing. No rales Abdomen: Soft and nontender. No rigidity. No distention. good BS x4 Skin: Skin warm and dry. Normal skin color. Normal skin turgor. Extremities: No lower extremity edema. Neurovascular intact to all extremities. No Lacerations. No Rash Neuro: Oriented X 3. No motor deficit. No sensory deficit. Moving all extermities. No slurred speech Medical Decision Making MDM Narrative Medical decision making narrative: Patient given pain medication with good results. Pain has subsided. CTA of the chest showed a stent in the left pulmonary artery. There is no pulmonary emboli noted. No obstruction. No abscess no perforation. CT scan of the abdomen is grossly negative for any acute evidence of obstruction, abscess, perforation. Will discharge patient home. Currently in stable condition. Patient's labs are consistent with having end-stage renal disease. CTA of the chest did not show any acute evidence of blood clots. There is no obvious obstruction, abscess, perforation in the abdomen. Of note patient has a shunt noted in the left lower lobe pulmonary artery. Question etiology of this shunt being there. Patient does not recall getting any procedures done. Patient is finding on CT was discussed with Dr. steele from vascular. [place] there was nothing to do acutely. Most likely the shunt traveled from somewhere else. Will have patient follow-up with Nephrology on an outpatient basis. Currently in stable condition interestingly patient's pain is now gone away. Lab Data Result diagrams: 09/16/20 22:35 09/16/20 22:35 Labs: Lab Results 09/16/20 09/16/20 Range/Units 22:35 22:35 WBC 9.9 (4.8-10.8) X10*3/uL RBC 3.27 L (4.60-5.80) X10*6/uL Hgb 9.4 L (14.0-18.0) g/dl Hct 30.3 L (42-52) % MCV 92.7 (80-98) fL MCH 28.7 (27.0-33.0) pg MCHC 31.0 (31.0-36.0) g/dl RDW 14.8 (11.0-16.0) % Plt Count 169 (160-400) X10*3/uL MPV 11.1 (9.4-12.4) fL Immature Gran % (Auto) 0.4 (0.0-0.4) % Neut % (Auto) 86.3 H (45-73) % Lymph % (Auto) 4.7 L (20-40) % [place] % (Auto) 8.1 (2-11) % Eos % (Auto) 0.4 (0-4) % Baso % (Auto) 0.1 (0-2) % Lymph # (Auto) 0.5 L (1.2-4.9) X10*3/uL [place] # (Auto) 0.8 (0.1-1.2) X10*3/uL Eos # (Auto) 0.0 (0.0-0.4) X10*3/uL Baso # (Auto) 0.0 (0.0-0.2) X10*3/uL Abs Immat Gran (auto) 0.04 H (0.00-0.03) X10*3/uL Absolute Neuts (auto) 8.6 H (2.0-8.3) X10*3/uL Absolute Nucleated RBC 0.000 (0.0-0.012) X10*3/uL Nucleated RBC % (auto) 0.0 (0.0-0.2) /100WBC Sodium 140 (135-145) mmol/L Potassium 3.9 (3.3-5.1) mmol/L Chloride 94 L (96-108) mmol/L Carbon Dioxide 31 H (22-29) mmol/L Anion Gap 19 (12-20) BUN 42 H (9-16) mg/dL Creatinine 8.80 H* (0.5-1.4) mg/dL Estim Creat Clear Calc 9.8 Estimated GFR 6 Random Glucose 125 H D (60-115) mg/dL Calcium 7.3 L (8.4-10.2) mg/dL Total Bilirubin 0.5 (0.0-1.0) mg/dL AST 15 (5-37) U/L ALT < 6 (0-40) U/L Alkaline Phosphatase 82 (39-117) U/L Total Protein 7.8 (6.5-8.0) g/dL Albumin 3.5 (3.5-5.0) g/dL Discharge Plan Discharge Clinical Impression: Acute chest wall pain Patient Disposition: Home, Self-Care Instructions: Chest Wall Pain (ED) Additional Instructions: A shunt was found in your left lower pulmonary artery. Question if this is a shunt that was placed tear versus a shunt that traveled there. You must follow- up with your kidney doctor for follow-up. Prescriptions: No Action diphenhydramine HCl [Banophen] 25 mg Tablet 25 mg PO BEDTIME RF: 0 midodrine 10 mg Tablet 10 mg PO MOWEFR@1645 RF: 0 oxycodone 5 mg tablet 5 mg PO Q6H PRN (Reason: pain) Qty: 20 RF: 0 Mircera 150 mcg/0.3 mL Syringe 130 mcg SUBCUT Q2W RF: 0 omeprazole 40 mg capsule,delayed release(DR/EC) 40 mg PO DAILY Qty: 30 RF: 0 loratadine 10 mg tablet 10 mg PO DAILY RF: 0 cholecalciferol (vitamin D3) 50 mcg (2,000 unit) capsule 50 mcg PO DAILY RF: 0 lanthanum 500 mg tablet,chewable 500 mg PO TIDWM RF: 0 multivitamin Tablet 1 tab PO DAILY RF: 0 polyethylene glycol 3350 [Miralax] 17 gram/dose powder 238 g PO ONCE 1 Days Qty: 238 RF: 0 bisacodyl [Dulcolax (bisacodyl)] 5 mg tablet,delayed release (DR/EC) 10 mg PO ONCE 1 Days Qty: 2 RF: 0 Referrals: Tessa Sheltno MD [Primary Care Provider] - 2 days Leonardo Steele MD [Physician] - 09/20/20 (Please follow-up with your kidney doctor next 2 days. Please also follow-up with your primary doctor. A shunt was found in your left lower pulmonary artery.)
[2020-09-16 23:17] LABS: Alanine Aminotransferase < 6 U/L (0-40); Albumin Level 3.5 g/dL (3.5-5.0); Alkaline Phosphatase 82 U/L (39-117); Anion Gap 19 (12-20); Aspartate Amino Transferase 15 U/L (5-37); Bilirubin Total 0.5 mg/dL (0.0-1.0); Blood Urea Nitrogen 42 mg/dL (9-16); Calcium 7.3 mg/dL (8.4-10.2); Carbon Dioxide 31 mmol/L (22-29); Chloride 94 mmol/L (96-108); Creatinine Clr Calc Pharmacy 9.8; Estimated Glomerular Filt Rate 6; Glucose Random 125 mg/dL (60-115); Potassium 3.9 mmol/L (3.3-5.1); Sodium 140 mmol/L (135-145); Total Protein 7.8 g/dL (6.5-8.0)
[2020-09-17 00:55] VITALS: RESP 18
[2020-09-17] MEDS: HYDROmorphone HCl 0.5 MG/0.5 ML SYRINGE IVPUSH (00:55)
--- NOTE | 2020-09-17 03:04 | PC.NURSE ---
spoke with another provider, agreed to plan to discharge home. Preparing for discharge.
== END 2020-09-17 03:10 | disposition home or self-care (01) ==
PROVIDERS: Emergency Provider Emergency Medicine Emergency Medical Services; PCP Internal Medicine
DX: R07.89 Other chest pain (principal); R10.9 Unspecified abdominal pain; I12.0 Hypertensive chronic kidney disease with stage 5 chronic kidney disease or end stage renal disease; N18.6 End stage renal disease; Z99.2 Dependence on renal dialysis; Z86.718 Personal history of other venous thrombosis and embolism
CPT/HCPCS: 36415; 71046; 71275; 74177; 80053; 85025; 96374; 99283; 99284; J1170

== ENCOUNTER → 2020-10-17 15:12 | Outpatient (BNVA) | payer OTHER, SELFPAY | PROVIDERS: PCP Internal Medicine; Visit Provider Orthopaedic Surgery | DX: Z98.890 Other specified postprocedural states (principal) | CPT/HCPCS: 99212 ==

== ENCOUNTER 2020-11-23 14:00 | Outpatient (RCR) | payer OTHER, SELFPAY ==
--- NOTE | 2020-09-29 15:16 | MHC.PT.EP ---
[facility] [place] Office [place] Office [place] Office [address] Rhonda Little [address] [phone] F: [phone] F: [phone] F: [phone] F: [phone] Physical Therapy Plan of Care Date of Evaluation: Date of Surgery: 07/05/20 Diagnosis: S/p R knee arthroscopy Assessment: Pt is a 50yo M with PMH including end stage renal disease, on dialysis who presents s/p R knee arthroscopy 07/05/20. Pt presents with current impairments in pain, ROM, strength, endurance, balance, and gait. He is significantly limited with R knee ROM, affecting his mobility. He is functionally limited by prolonged standing, ambulation, stairs, squatting, and ADLs. He is a good candidate for skilled PT to address current impairments and facilitate return to PLOF. Frequency and Duration: The patient will be seen 3x/week, 5 weeks Short Term Goals: Pt will be I with HEP to promote self management of symptoms. Pt will improve R knee flex/ext by 5 degrees Skilled Nursing Goals: Pt will tolerate prolonged standing >30 min with pain <5/10 to assist with ADLs Pt will ambulate with LRAD for 2500' with improved gait mechanics to assist with community mobility. Pt will demonstrate full strength R knee to assist with functional mobility Treatment Plan: Modalities to reduce pain, spasms and effusion. Manual therapy to restore motion and function. Therapeutic exercise to improve strength and flexibility. Neuromuscular re-education for posture and balance. Therapeutic activities to return to functional activities of daily living. Electronically signed by: Coty Castillo, PT, DPT Please sign and return to therapist. Thank you for your referral.
--- NOTE | 2020-11-23 18:01 | MHC.PT.DC ---
[facility] [place] Office [place] Office [place] Office [address] Rhonda Little [address] [phone] F: [phone] F: [phone] F: [phone] F: [phone] Physical Therapy Discharge Report Diagnosis: S/p R knee arthroscopy with I&D Date of Surgery: 07/05/20 Date of Evaluation: 09/28/20 Date of Discharge: 11/23/20 Treatments to Date: 12 Cancellations to Date: 2 No Shows to Date: 3 Discharge Status: Achieved Goals Improved Function Independent with HEP Discharge Summary: Pt has attended skilled PT services from 09/28/20-11/23/20. Pt has overall demonstrated improvements in strength and ROM since SOC. His R knee ROM is -8 to 112 degrees this date. His R knee extension strength is 4/5 within available range, and R knee flexion strength is 4+/5. Pt is being D/C from skilled PT services as he has improved function, achieved goals, and is I with HEP. Provided pt with updated printed copy of HEP this date. Pt reports no questions or concerns for PT at this time. Electronically signed by: Coty Castillo, PT, DPT Please sign and return to therapist. Thank you for your referral.
== END 2020-11-23 18:10 | disposition home or self-care (01) ==
LOC: HO.PT 14:00
PROVIDERS: Visit Provider Physician Assistant
DX: M25.661 Stiffness of right knee, not elsewhere classified (principal); Z98.890 Other specified postprocedural states
CPT/HCPCS: 97035; 97110; 97140; 97150; 97162; 97530

== ENCOUNTER 2020-12-19 09:07 | Outpatient (REF) | payer OTHER, SELFPAY ==
[2020-12-19 09:47] LABS: MANUAL DIFF FLAG NO
[2020-12-19 09:55] LABS: Basophils Percent Auto 0.2 % (0-2); Eosinophils Absolute Auto 0.1 X10*3/uL (0.0-0.4); Eosinophils Percent Auto 1.2 % (0-4); Hematocrit 33.1 % (42-52); Hemoglobin 10.5 g/dl (14.0-18.0); Imm Gran Abs Auto 0.01 X10*3/uL (0.00-0.03); Imm Gran Pct Auto 0.2 % (0.0-0.4); Lymphocytes Absolute Auto 0.8 X10*3/uL (1.2-4.9); Lymphocytes Percent Auto 15.7 % (20-40); Mean Corpuscular HGB Conc 31.7 g/dl (31.0-36.0); Mean Corpuscular Hemoglobin 28.8 pg (27.0-33.0); Mean Corpuscular Volume 90.7 fL (80-98); Mean Platelet Volume 11.6 fL (9.4-12.4); Monocytes Absolute Auto 0.7 X10*3/uL (0.1-1.2); Monocytes Percent Auto 13.5 % (2-11); Neutrophils Absolute Auto 3.4 X10*3/uL (2.0-8.3); Neutrophils Percent Auto 69.2 % (45-73); Platelet Count 176 X10*3/uL (160-400); Red Blood Count 3.65 X10*6/uL (4.60-5.80); White Blood Count 4.9 X10*3/uL (4.8-10.8)
[2020-12-19 10:28] LABS: Alanine Aminotransferase 6 U/L (0-40); Albumin Level 4.1 g/dL (3.5-5.0); Alkaline Phosphatase 87 U/L (39-117); Anion Gap 21 (12-20); Aspartate Amino Transferase 21 U/L (5-37); Bilirubin Total 0.9 mg/dL (0.0-1.0); Blood Urea Nitrogen 49 mg/dL (9-16); Calcium 8.8 mg/dL (8.4-10.2); Carbon Dioxide 29 mmol/L (22-29); Chloride 96 mmol/L (96-108); Cholesterol 161 mg/dL; Estimated Glomerular Filt Rate 7; Glucose Random 89 mg/dL (60-115); HDL Cholesterol 49 mg/dL; LDL Cholesterol Calculated 100 mg/dl; Potassium 4.6 mmol/L (3.3-5.1); Sodium 141 mmol/L (135-145); Total Protein 8.3 g/dL (6.5-8.0); Triglycerides 61 mg/dL
== END 2020-12-19 09:08 | disposition home or self-care (01) ==
LOC: HO.LAB 09:07
PROVIDERS: PCP Internal Medicine; Visit Provider Internal Medicine
DX: E78.00 Pure hypercholesterolemia, unspecified (principal); M25.512 Pain in left shoulder; N18.6 End stage renal disease
CPT/HCPCS: 36415; 80053; 80061; 85025

== ENCOUNTER 2021-04-25 09:23 | Inpatient (IN) | payer OTHER, SELFPAY ==
--- NOTE | ~2021-04-25 | XR_ITS ---
EXAMINATION: XR CHEST CLINICAL INFORMATION: Chest pain COMPARISON: Previous chest x-ray most recent September 2020 TECHNIQUE: Frontal view of the chest was obtained. FINDINGS: The cardiac and mediastinal contours are stable. There are are vascular stents right subclavian vein and SVC. There is a catheter seen in the IVC with tip projecting over the right atrium. This appears unchanged. There is dense material seen in the right lung base. This is unchanged. The lungs are otherwise clear. There is no pleural effusion or pneumothorax. There or old left posterior fifth and sixth rib fractures. XR/XR chest 1V IMPRESSION: Stable chest x-ray findings from September 2020. No evidence for acute disease in the chest.
--- NOTE | 2021-04-25 09:27 | ECG_ITS ---
Test Reason : svt Blood Pressure : / mmHG Vent. Rate : 090 BPM Atrial Rate : 090 BPM P-R Int : 198 ms QRS Dur : 066 ms QT Int : 420 ms P-R-T Axes : 000 022 092 degrees QTc Int : 513 ms Sinus rhythm with sinus arrhythmia with Fusion complexes Cannot rule out Anteroseptal infarct , age undetermined T wave abnormality, consider inferolateral ischemia Abnormal ECG When compared with ECG of 15-APR-2018 00:47, Fusion complexes are now Present Minimal criteria for Anteroseptal infarct are now Present Non-specific change in ST segment in Anterior leads T wave inversion now evident in Anterolateral leads QT has lengthened Referred By: Mihai Galdamez Electronically Signed By:
[2021-04-25 09:57] LABS: COVID-19 Test Negative (Negative); IDNOW Serial# 9DD0AD1C
--- NOTE | 2021-04-25 10:19 | ED.GENADULT ---
HPI - General Adult General Chief complaint: General Medical Stated complaint: CP,SVT RESOLVED Time Seen by Provider: 04/25/21 09:26 Source: patient Mode of arrival: ambulatory Limitations: no limitations History of Present Illness HPI narrative: 50-year-old male history of renal failure, hypertension, arthritis of left shoulder/right shoulder/bilateral knees presents to the ED for resolved chest pain during dialysis. Patient states while receiving dialysis this morning started having chest pain. Patient states he received 2 hours of dialysis. Patient states once dialysis was stopped patient states chest pain resolved. EMS came on the scene and did the EKG which showed patient was in SVT and was given adenosine and SVT resolved. Patient meets complaint presently is left shoulder. Related Data Home Medications Medication Instructions Recorded Confirmed cholecalciferol (vitamin D3) 50 50 mcg PO DAILY 06/06/20 08/18/20 mcg (2,000 unit) capsule lanthanum 500 mg chewable tablet 500 mg PO TIDWM 06/06/20 08/18/20 loratadine 10 mg tablet 10 mg PO DAILY 06/06/20 08/18/20 multivitamin 1 tab PO DAILY 06/06/20 08/18/20 diphenhydramine HCl 25 mg tablet 25 mg PO BEDTIME 07/04/20 08/18/20 (Banophen) midodrine 10 mg tablet 10 mg PO MOWEFR@1645 07/04/20 08/18/20 epoetin beta, methoxy peg 150 130 mcg SUBCUT Q2W 08/18/20 08/18/20 mcg/0.3 mL injection syringe (Mircera) Previous Rx's Medication Instructions Recorded oxycodone 5 mg tablet 5 mg PO Q6H PRN #20 tab 07/11/20 omeprazole 40 mg capsule,delayed 40 mg PO DAILY #30 cap 08/22/20 release bisacodyl 5 mg tablet,delayed 10 mg PO ONCE 1 Days #2 tab 08/28/20 release (Dulcolax (bisacodyl)) polyethylene glycol 3350 17 238 g PO ONCE 1 Days #238 g 08/28/20 gram/dose oral powder (Miralax) Allergies Allergy/AdvReac Type Severity Reaction Status Date / Time No Known Drug Allergies Allergy Unknown UNKNOWN Verified 09/12/20 13:41 Review of Systems Review of Systems: Resolved chest pain. Resolve SVT. Presently left shoulder pain. Yes all other systems are reviewed and are negative [facility] Past Medical History Medical History Anemia of chronic disease Blind left eye ESRD (end stage renal disease) Hyperlipidemia Hyperparathyroidism Hypertension Myocardial infarction Renal failure Social History Social History Household Members: Spouse Housing: House Do you presently have visiting nurse or other home services: No Alcohol intake: never Advance Directives: No Advance Directives Information Provided: No service: No Current occupational status: unemployed and disabled Physical Exam Vital Signs: Vital Signs: Last Vital Signs Temp 98 F 04/25/21 11:59 Pulse 94 04/25/21 11:59 Resp 18 04/25/21 11:59 BP 142/89 H 04/25/21 11:59 Pulse Ox 98 04/25/21 11:59 BMI result Body Mass Index 26.6 Const: General: cooperative, healthy appearing, comfortable, no acute distress, well developed, alert, awake and Physically active Orientation/consciousness: patient oriented x3 HENMT: Head: Yes normal to inspection, Yes No palpable skull fracture present, Yes normocephalic, Yes atraumatic and No abrasion Eyes: General: appearance normal, both eyes and all related structures Neck: Neck: Yes normal visual inspection, Yes full ROM, Yes no lymphadenopathy, Yes no meningeal signs, Yes trachea midline, Yes supple, No anterior neck swelling and No tender Chest: Chest palpation & inspection: normal inspection of the chest and normal palpation of entire chest wall Resp: Effort & Inspection: normal respiratory effort and able to speak in complete sentences Auscultation: clear to auscultation bilaterally Cardio: Jugular venous distension: no JVD Heart sounds: S1 normal heart sound present and S2 normal heart sound present GI: Inspection: Yes normal to inspection and No abdominal wall ecchymosis Palpation (GI): Soft to palpation, not firm, nontender, no guarding and not rigid : General: No CVA tenderness and Yes no CVA tenderness Back/Spine/Pelvis: Back: no CVA tenderness, No CVA tenderness and No back tenderness Skin: General skin exam: no rashes or lesions noted and elasticity normal Neuro: General: patient oriented x3, gait normal, no meningeal signs and CN's II-XI intact bilaterally Cranial nerves: Yes CN's II-XII intact bilaterally Extrem: Other: Left upper extremity normal negative for any swelling, deformity, ecchymosis, erythema, coldness, or hardness. Positive for mild shoulder tenderness on palpation.. Left upper extremity motor/neuro/vascular exam intact General: Yes normal to inspection and Yes full ROM Psych: Appearance: grossly normal, well kempt and not disheveled Course Course Course Narrative: Patient came to the ED but was not able to get a good EKG during ED visit due to left shoulder pain and patient not able to stay still. Dilaudid ordered a repeat EKG will be done. Labs, COVID, chest x-ray ordered Reevaluation(s) Reevaluation #1: Repeat EKG negative STEMI. Troponin negative. Chest x-ray negative pneumonia. COVID swab negative. Patient states pain resolved after Dilaudid. PTT 79. Patient's PTT usually elevated will do repeat troponin PTT. Time: 11:16 Reevaluation #2: Patient's 2nd troponin increased more than 50%. Went to re-evaluate patient and patient denies having any chest pain. Repeat EKG ordered. Patient states presently asymptomatic. Time: 15:15 Reevaluation #3: Case discussed with Dr. Marcia sparrow of Cardiology who recommends patient be admitted NSTEMI. Recommends heparinize Time: 15:30 Medical Decision Making MDM Narrative Medical decision making narrative: NSTEMI Lab Data Result diagrams: 04/25/21 10:26 04/25/21 10:26 Labs: Lab Results 04/25/21 04/25/21 04/25/21 Range/Units 09:38 10:26 10:26 WBC 4.2 L (4.8-10.8) X10*3/uL RBC 3.79 L (4.60-5.80) X10*6/uL Hgb 11.2 L (14.0-18.0) g/dl Hct 34.7 L (42.0-52.0) % MCV 91.6 (80.0-98.0) fL MCH 29.6 (27.0-33.0) pg MCHC 32.3 (31.0-36.0) g/dl RDW 14.6 (11.0-16.0) % Plt Count 124 L (160-400) X10*3/uL MPV 11.7 (9.4-12.4) fL Immature Gran % (Auto) 0.2 (0.0-0.4) % Neut % (Auto) 70.0 (45-73) % Lymph % (Auto) 17.3 L (20-40) % [place] % (Auto) 11.1 H (2-11) % Eos % (Auto) 1.2 (0-4) % Baso % (Auto) 0.2 (0-2) % Lymph # (Auto) 0.7 L (1.2-4.9) X10*3/uL [place] # (Auto) 0.5 (0.1-1.2) X10*3/uL Eos # (Auto) 0.1 (0.0-0.4) X10*3/uL Baso # (Auto) 0.0 (0.0-0.2) X10*3/uL Abs Immat Gran (auto) 0.01 (0.00-0.03) X10*3/uL Absolute Neuts (auto) 3.0 (2.0-8.3) x10*3/uL Absolute Nucleated RBC 0.000 (0.0-0.012) X10*3/uL Nucleated RBC % (auto) 0.0 (0.0-0.2) /100WBC PT 11.7 (9.9-13.0) SEC INR 1.0 (0.9-1.1) APTT 73.9 H* (24.1-38.0) SEC Sodium (135-145) mmol/L Potassium (3.3-5.1) mmol/L Chloride (96-108) mmol/L Carbon Dioxide (22-29) mmol/L Anion Gap (12-20) BUN (9-16) mg/dL Creatinine (0.5-1.4) mg/dL Estim Creat Clear Calc Estimated GFR Random Glucose (60-115) mg/dL Calcium (8.4-10.2) mg/dL Total Bilirubin (0.0-1.0) mg/dL AST (5-37) U/L ALT (0-40) U/L Alkaline Phosphatase (39-117) U/L Troponin I High Sens (<3.5-35.0) ng/L B-Natriuretic Peptide (<100) pg/mL Total Protein (6.5-8.0) g/dL Albumin (3.5-5.0) g/dL COVID-19 (VALENTIN) Negative (Negative) COVID-19 Clin Com See Note 04/25/21 04/25/21 04/25/21 Range/Units 10:26 10:26 13:46 WBC (4.8-10.8) X10*3/uL RBC (4.60-5.80) X10*6/uL Hgb (14.0-18.0) g/dl Hct (42.0-52.0) % MCV (80.0-98.0) fL MCH (27.0-33.0) pg MCHC (31.0-36.0) g/dl RDW (11.0-16.0) % Plt Count (160-400) X10*3/uL MPV (9.4-12.4) fL Immature Gran % (Auto) (0.0-0.4) % Neut % (Auto) (45-73) % Lymph % (Auto) (20-40) % [place] % (Auto) (2-11) % Eos % (Auto) (0-4) % Baso % (Auto) (0-2) % Lymph # (Auto) (1.2-4.9) X10*3/uL [place] # (Auto) (0.1-1.2) X10*3/uL Eos # (Auto) (0.0-0.4) X10*3/uL Baso # (Auto) (0.0-0.2) X10*3/uL Abs Immat Gran (auto) (0.00-0.03) X10*3/uL Absolute Neuts (auto) (2.0-8.3) x10*3/uL Absolute Nucleated RBC (0.0-0.012) X10*3/uL Nucleated RBC % (auto) (0.0-0.2) /100WBC PT (9.9-13.0) SEC INR (0.9-1.1) APTT 45.6 H D (24.1-38.0) SEC Sodium 142 (135-145) mmol/L Potassium 4.0 (3.3-5.1) mmol/L Chloride 95 L (96-108) mmol/L Carbon Dioxide 31 H (22-29) mmol/L Anion Gap 20 (12-20) BUN 29 H (9-16) mg/dL Creatinine 6.92 H* (0.5-1.4) mg/dL Estim Creat Clear Calc TNP Estimated GFR 8 Random Glucose 88 (60-115) mg/dL Calcium 9.1 (8.4-10.2) mg/dL Total Bilirubin 0.7 (0.0-1.0) mg/dL AST 23 (5-37) U/L ALT 12 (0-40) U/L Alkaline Phosphatase 75 (39-117) U/L Troponin I High Sens 16.8 (<3.5-35.0) ng/L B-Natriuretic Peptide (<100) pg/mL Total Protein 8.4 H (6.5-8.0) g/dL Albumin 4.2 (3.5-5.0) g/dL COVID-19 (VALENTIN) (Negative) COVID-19 Clin Com 04/25/21 Range/Units 13:46 WBC (4.8-10.8) X10*3/uL RBC (4.60-5.80) X10*6/uL Hgb (14.0-18.0) g/dl Hct (42.0-52.0) % MCV (80.0-98.0) fL MCH (27.0-33.0) pg MCHC (31.0-36.0) g/dl RDW (11.0-16.0) % Plt Count (160-400) X10*3/uL MPV (9.4-12.4) fL Immature Gran % (Auto) (0.0-0.4) % Neut % (Auto) (45-73) % Lymph % (Auto) (20-40) % [place] % (Auto) (2-11) % Eos % (Auto) (0-4) % Baso % (Auto) (0-2) % Lymph # (Auto) (1.2-4.9) X10*3/uL [place] # (Auto) (0.1-1.2) X10*3/uL Eos # (Auto) (0.0-0.4) X10*3/uL Baso # (Auto) (0.0-0.2) X10*3/uL Abs Immat Gran (auto) (0.00-0.03) X10*3/uL Absolute Neuts (auto) (2.0-8.3) x10*3/uL Absolute Nucleated RBC (0.0-0.012) X10*3/uL Nucleated RBC % (auto) (0.0-0.2) /100WBC PT (9.9-13.0) SEC INR (0.9-1.1) APTT (24.1-38.0) SEC Sodium (135-145) mmol/L Potassium (3.3-5.1) mmol/L Chloride (96-108) mmol/L Carbon Dioxide (22-29) mmol/L Anion Gap (12-20) BUN (9-16) mg/dL Creatinine (0.5-1.4) mg/dL Estim Creat Clear Calc Estimated GFR Random Glucose (60-115) mg/dL Calcium (8.4-10.2) mg/dL Total Bilirubin (0.0-1.0) mg/dL AST (5-37) U/L ALT (0-40) U/L Alkaline Phosphatase (39-117) U/L Troponin I High Sens 135.9 H* D (<3.5-35.0) ng/L B-Natriuretic Peptide 142 H (<100) pg/mL Total Protein (6.5-8.0) g/dL Albumin (3.5-5.0) g/dL COVID-19 (VALENTIN) (Negative) COVID-19 Clin Com ECG Data Interpretation: EKG 1: SInus rhyth with 1st degree AV block Vent Rate 68, CT 228, QRS 92, QTC 455. Negative STEMI EKG 2: Sinus rhythm with 1st degree AV block. Vent Rate, CT 214, QRS 86, and QTC 450. Negative STemi Critical Care Time Critical Care Time Critical Care Time: Yes Total Critical Care Time: 60 Attestation: Repeat EKG ordered. Spoke with cardiology. Patient started on heparin Discharge Plan Discharge Clinical Impression: Non-ST elevation [place] (NSTEMI) Patient Disposition: Admitted As Inpatient
--- NOTE | 2021-04-25 10:27 | ECG_ITS ---
Test Reason : svt Blood Pressure : / mmHG Vent. Rate : 082 BPM Atrial Rate : 082 BPM P-R Int : 214 ms QRS Dur : 086 ms QT Int : 386 ms P-R-T Axes : 058 061 098 degrees QTc Int : 450 ms Sinus rhythm with 1st degree A-V block Cannot rule out Anterior infarct (cited on or before 25-APR-2021) Lateral T wave changes - consider ischemia Abnormal ECG When compared with ECG of 25-APR-2021 09:57, Fusion complexes are no longer Present Nonspecific T wave abnormality has replaced inverted T waves in Anterior leads QT has shortened Referred By: Mihai Galdamez Electronically Signed By:Gilbert Middleton
[2021-04-25 10:30] LABS: MANUAL DIFF FLAG NO
[2021-04-25 10:33] LABS: Basophils Percent Auto 0.2 % (0-2); Eosinophils Absolute Auto 0.1 X10*3/uL (0.0-0.4); Eosinophils Percent Auto 1.2 % (0-4); Hematocrit 34.7 % (42.0-52.0); Hemoglobin 11.2 g/dl (14.0-18.0); Imm Gran Abs Auto 0.01 X10*3/uL (0.00-0.03); Imm Gran Pct Auto 0.2 % (0.0-0.4); Lymphocytes Absolute Auto 0.7 X10*3/uL (1.2-4.9); Lymphocytes Percent Auto 17.3 % (20-40); Mean Corpuscular HGB Conc 32.3 g/dl (31.0-36.0); Mean Corpuscular Hemoglobin 29.6 pg (27.0-33.0); Mean Corpuscular Volume 91.6 fL (80.0-98.0); Mean Platelet Volume 11.7 fL (9.4-12.4); Monocytes Absolute Auto 0.5 X10*3/uL (0.1-1.2); Monocytes Percent Auto 11.1 % (2-11); Platelet Count 124 X10*3/uL (160-400); Red Blood Count 3.79 X10*6/uL (4.60-5.80); Red Cell Distribution Width 14.6 % (11.0-16.0); White Blood Count 4.2 X10*3/uL (4.8-10.8)
[2021-04-25 10:45] LABS: Prothrombin Time 11.7 SEC (9.9-13.0)
[2021-04-25] MEDS: HYDROmorphone HCl 0.5 MG/0.5 ML SYRINGE IVPUSH (10:47)
[2021-04-25 10:54] LABS: Troponin-I High Sensitivity 16.8 ng/L (<3.5-35.0)
[2021-04-25 11:07] LABS: Partial Thromboplastin Time 73.9 SEC (24.1-38.0)
[2021-04-25 11:57] LABS: Alanine Aminotransferase 12 U/L (0-40); Albumin Level 4.2 g/dL (3.5-5.0); Alkaline Phosphatase 75 U/L (39-117); Anion Gap 20 (12-20); Aspartate Amino Transferase 23 U/L (5-37); Bilirubin Total 0.7 mg/dL (0.0-1.0); Blood Urea Nitrogen 29 mg/dL (9-16); Calcium 9.1 mg/dL (8.4-10.2); Carbon Dioxide 31 mmol/L (22-29); Chloride 95 mmol/L (96-108); Estimated Glomerular Filt Rate 8; Glucose Random 88 mg/dL (60-115); Sodium 142 mmol/L (135-145); Total Protein 8.4 g/dL (6.5-8.0)
[2021-04-25 11:59] VITALS: BP 142/89; PULSE 94; RESP 18; TEMP 36.6; O2SAT 98; BMI 26.6
[2021-04-25 14:00] LABS: Partial Thromboplastin Time 45.6 SEC (24.1-38.0)
[2021-04-25 14:17] LABS: Troponin-I High Sensitivity 135.9 ng/L (<3.5-35.0)
--- NOTE | 2021-04-25 14:18 | ECG_ITS ---
Test Reason : SVT Blood Pressure : / mmHG Vent. Rate : 068 BPM Atrial Rate : 068 BPM P-R Int : 228 ms QRS Dur : 092 ms QT Int : 428 ms P-R-T Axes : 077 060 096 degrees QTc Int : 455 ms Sinus rhythm with 1st degree A-V block Cannot rule out Anterior infarct (cited on or before 25-APR-2021) Abnormal ECG When compared with ECG of 25-APR-2021 10:28, No significant change was found Referred By: Mihai Galdamez Electronically Signed By:Gilbert Middleton
[2021-04-25 14:45] LABS: B Type Natriuretic Peptide 142 pg/mL (<100)
[2021-04-25] MEDS: Heparin Sodium,Porcine 5,000 UNIT/ML VIAL 4000 UNIT IVPUSH (15:51)
--- NOTE | 2021-04-25 16:14 | PHA.MEDREC ---
Pharmacy Consult ? Medication Reconciliation Pharmacy has completed the medication reconciliation. Pt states that he was at [facility] and they stopped all his medication, has not taken anything in a few month
--- NOTE | 2021-04-25 16:29 | PM.IMHP ---
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 Presented with chest pain from hemodialysis. Patient stated he was feeling well when he went into hemodialys. then suddenly he had midsternal chest pressure radiating to arm last about 5 minutes, denies shortness of breath, diaphoresis. Was found to be in SVT, was given adenosine and rhythm broke. In ED, EKG with no ST elevations, troponin increased from 16.8 to 135.9. patient is currently asymptomatic. Review of Systems Review of Systems: Constitutional: Denies fever, denies Chills Eyes: denies blurry vision ENT: denies sore throat CVS:chest pain Respiratory: Denies dyspnea GI: no abdominal pain : denies dysuria MSK: denies neck pain Skin: denies rash Neuro: denies specific motor weakness Psych: denies suicidal ideation Endocrine: denies heat/cold intolerance Hematologic: denies easy bleeding Allergy: denies hives [facility] Medical History Acute GI bleeding Anemia of chronic disease Arthritis of shoulder region, right, degenerative Blind left eye CAD (coronary artery disease) ESRD (end stage renal disease) Hyperlipidemia Hyperparathyroidism Hypertension MSSA bacteremia Myocardial infarction MILAD (obstructive sleep apnea) Peripheral vascular disease Septic joint of right knee joint Family History Mother HTN (hypertension) Surgical History S/P left knee arthroscopy Social History Household Members: Spouse Housing: House Do you presently have visiting nurse or other home services: No Alcohol intake: never Patient Tobacco Use Status: Never used Tobacco Advance Directives: No Advance Directives Information Provided: No service: No Current occupational status: unemployed and disabled Meds Allergies Allergy/AdvReac Type Severity Reaction Status Date / Time No Known Drug Allergies Allergy Unknown UNKNOWN Verified 09/12/20 13:41 Active Medications: Current Medications Aspirin (Aspirin 81 Mg Tab.Chew) 81 mg PO DAILY [facility] Atorvastatin Calcium (Atorvastatin Calcium 80 Mg Tablet) 80 mg PO BEDTIME [facility] Heparin Sodium (Porcine) (Heparin Sodium,Porcine 5,000 Unit/Ml Vial) 3,000 unit 40 unit/kg (3000 unit) IVPUSH PROTOCOL BOLUS PRN; Protocol PRN Reason: 40 unit/kg - Heparin Protocol Heparin Sodium (Porcine) (Heparin Sodium,Porcine 5,000 Unit/Ml Vial) 6,000 unit 80 unit/kg (6000 unit) IVPUSH PROTOCOL BOLUS PRN; Protocol PRN Reason: 80 unit/kg - Heparin Protocol Heparin Sodium/Sodium Chloride () 25,000 unit in 250 mls @ 0 mls/hr IVCONT .Q0M SOFIA; Protocol Metoprolol Tartrate (Metoprolol Tartrate 25 Mg Tablet) 25 mg PO BID SOFIA; Protocol Pharmacy Consult (Consult Rx Perform Med Rec) 1 each MISCELLANE ONCE PRN PRN Reason: Consult order Sodium Chloride (0.9 % Sodium Chloride Flush 3 Ml Syringe) 3 ml IVFLUSH QSHIFT [facility] Home Medications Medication Instructions Recorded Confirmed Last Taken Type No Known Home Meds 04/25/21 04/25/21 Unknown History Physical Exam Vital Signs and Narrative: Vital Signs: Last Vital Signs Temp 98 F 04/25/21 11:59 Pulse 94 04/25/21 11:59 Resp 18 04/25/21 11:59 BP 142/89 H 04/25/21 11:59 Pulse Ox 98 04/25/21 11:59 BMI result Body Mass Index 26.6 General: no acute distress HEENT: atraumatic Neck: normal to visual inspection CVS: S1, S2, RRR Resp: CTA bilateral Chest: non tender GI: soft, non tender, non distended : no CVA tenderness Skin: no rashes Extremities: no edema Neuro: Oriented X3, grossly intact Psych: cooperative Results Labs CBC and Chem 7: 04/25/21 10:26 04/25/21 10:26 Labs: Laboratory Results - last 24 hr 04/25/21 04/25/21 04/25/21 09:38 10:26 10:26 MCV 91.6 MCH 29.6 MCHC 32.3 RDW 14.6 Plt Count 124 L MPV 11.7 Immature Gran % (Auto) 0.2 Neut % (Auto) 70.0 Lymph % (Auto) 17.3 L [place] % (Auto) 11.1 H Eos % (Auto) 1.2 Baso % (Auto) 0.2 Lymph # (Auto) 0.7 L [place] # (Auto) 0.5 Eos # (Auto) 0.1 Baso # (Auto) 0.0 Abs Immat Gran (auto) 0.01 Absolute Neuts (auto) 3.0 Absolute Nucleated RBC 0.000 Nucleated RBC % (auto) 0.0 PT 11.7 INR 1.0 APTT 73.9 H* Anion Gap Estim Creat Clear Calc Estimated GFR Random Glucose Calcium Total Bilirubin AST ALT Alkaline Phosphatase Troponin I High Sens B-Natriuretic Peptide Total Protein Albumin COVID-19 (VALENTIN) Negative COVID-19 DxTerity Com See Note 04/25/21 04/25/21 04/25/21 10:26 10:26 13:46 MCV MCH MCHC RDW Plt Count MPV Immature Gran % (Auto) Neut % (Auto) Lymph % (Auto) [place] % (Auto) Eos % (Auto) Baso % (Auto) Lymph # (Auto) [place] # (Auto) Eos # (Auto) Baso # (Auto) Abs Immat Gran (auto) Absolute Neuts (auto) Absolute Nucleated RBC Nucleated RBC % (auto) PT INR APTT 45.6 H D Anion Gap 20 Estim Creat Clear Calc TNP Estimated GFR 8 Random Glucose 88 Calcium 9.1 Total Bilirubin 0.7 AST 23 ALT 12 Alkaline Phosphatase 75 Troponin I High Sens 16.8 B-Natriuretic Peptide Total Protein 8.4 H Albumin 4.2 COVID-19 (VALENTIN) COVID-19 DxTerity Com 04/25/21 13:46 MCV MCH MCHC RDW Plt Count MPV Immature Gran % (Auto) Neut % (Auto) Lymph % (Auto) [place] % (Auto) Eos % (Auto) Baso % (Auto) Lymph # (Auto) [place] # (Auto) Eos # (Auto) Baso # (Auto) Abs Immat Gran (auto) Absolute Neuts (auto) Absolute Nucleated RBC Nucleated RBC % (auto) PT INR APTT Anion Gap Estim Creat Clear Calc Estimated GFR Random Glucose Calcium Total Bilirubin AST ALT Alkaline Phosphatase Troponin I High Sens 135.9 H* D B-Natriuretic Peptide 142 H Total Protein Albumin COVID-19 (VALENTIN) COVID-19 DxTerity Com Imaging Radiologist's Impressions: Impressions Chest X-Ray 04/25/21 10:21 IMPRESSION: Stable chest x-ray findings from September 2020. No evidence for acute disease in the chest. Assessment and Plan (1) Non-ST elevation [place] (NSTEMI): Status: Acute 50-year-old male presented with chest pain NSTEMI in setting of known coronary and peripheral vascular disease IV heparin aspirin, statin, beta-isadora check echo cardiology eval end-stage renal disease on hemodialysis nephrology history of hypertension no longer taking medications, continue metoprolol, monitor Quality Stroke Does the patient have a stroke diagnosis?: No VTE Prior VTE?: No VTE Risk Level:: Medical - moderate - high VTE Device Contraindication: Treatment Not Indicated VTE Drug Contraindication: N/A - Med Ordered
[2021-04-25 16:54] VITALS: BP 160/67; PULSE 67; RESP 18; TEMP 36.4; O2SAT 98
[2021-04-25] MEDS: Aspirin 81 MG TAB.CHEW PO (17:39)
[2021-04-25] MEDS: Heparin Sodium,Porcine/1/2NS 25,000 UNIT/250 ML IV.SOLN 8.98 UNIT IVCONT (17:46)
[2021-04-25] MEDS: Metoprolol Tartrate 25 MG TABLET PO (22:07)
[2021-04-25] MEDS: Atorvastatin Calcium 80 MG TABLET PO (22:08)
[2021-04-25] MEDS: 0.9 % Sodium Chloride Flush 3 ML SYRINGE IVFLUSH (22:08)
[2021-04-26 01:16] LABS: Hematocrit 34.8 % (42.0-52.0); Hemoglobin 11.2 g/dl (14.0-18.0); Mean Corpuscular HGB Conc 32.2 g/dl (31.0-36.0); Mean Corpuscular Hemoglobin 29.7 pg (27.0-33.0); Mean Corpuscular Volume 92.3 fL (80.0-98.0); Mean Platelet Volume 11.4 fL (9.4-12.4); Platelet Count 120 X10*3/uL (160-400); Red Blood Count 3.77 X10*6/uL (4.60-5.80); Red Cell Distribution Width 14.6 % (11.0-16.0); White Blood Count 3.5 X10*3/uL (4.8-10.8)
[2021-04-26] MEDS: oxyCODONE HCl Immed Release 5 MG TABLET PO (01:23)
[2021-04-26 01:27] VITALS: BP 140/62; PULSE 72; RESP 15; TEMP 36.6; O2SAT 97
--- NOTE | 2021-04-26 03:48 | PC.NURSE ---
Addendum entered by Wilton Min RN 04/26/21 07:23: Dilaudid 0.5mg IVP ordered and given @ 0427 with good affect. Trop trending up 450.2 - Dr Florentino made aware - Heparin drip running as ordered. Next PTTHD in for tomorrow morning at 0600. Patient reports relief - sleeping. Original Note: Patient c/o left shoulder pain - same pain as admission. Patient encouraged to try oxycodone - medicated w/ 5mg IR @ 0123 with little affect. Patient still moaning. Dr Talbot made aware of issue w/ pain control.
[2021-04-26 04:00] VITALS: BP 153/66; PULSE 69; RESP 11; TEMP 36.4; O2SAT 99
[2021-04-26] MEDS: HYDROmorphone HCl 0.5 MG/0.5 ML SYRINGE IVPUSH (04:27)
[2021-04-26 05:20] VITALS: BP 153/68; PULSE 80; RESP 19
[2021-04-26 06:17] LABS: PLT CLUMP 1; Red Cell Distribution Width 14.6 % (11.0-16.0)
[2021-04-26 06:19] LABS: Hemoglobin 10.7 g/dl (14.0-18.0); Mean Corpuscular HGB Conc 31.5 g/dl (31.0-36.0); Mean Corpuscular Hemoglobin 29.1 pg (27.0-33.0); Mean Corpuscular Volume 92.4 fL (80.0-98.0); Mean Platelet Volume 11.9 fL (9.4-12.4); Red Blood Count 3.68 X10*6/uL (4.60-5.80)
[2021-04-26 06:24] LABS: Platelet Count 118 X10*3/uL (160-400); White Blood Count 4.1 X10*3/uL (4.8-10.8)
[2021-04-26 06:28] LABS: Prothrombin Time 11.7 SEC (9.9-13.0)
[2021-04-26 06:30] LABS: PTT Heparin Drip 68.5 SEC (53-77.9)
[2021-04-26 06:32] LABS: Anion Gap 21 (12-20); Blood Urea Nitrogen 39 mg/dL (9-16); Calcium 8.6 mg/dL (8.4-10.2); Carbon Dioxide 30 mmol/L (22-29); Chloride 94 mmol/L (96-108); Creatinine Clr Calc Pharmacy 8.8; Estimated Glomerular Filt Rate 6; Glucose Random 86 mg/dL (60-115); Potassium 4.6 mmol/L (3.3-5.1); Sodium 140 mmol/L (135-145)
[2021-04-26 06:47] LABS: Troponin-I High Sensitivity 450.2 ng/L (<3.5-35.0)
--- NOTE | 2021-04-26 08:44 | PC.NURSE ---
Critical lab received (Troponin 450). Dr. Florentino aware, no new orders. will continue to monitor. pt currently having a cardiac echo done at bedside.
--- NOTE | 2021-04-26 09:30 | CA_ITS ---
Transthoracic Echocardiogram Patient (Last, First, Middle): Meño Galvez, Gender: Male Date of : 1970 Age: 50 Procedure Date: 04/26/2021 Procedure Type: Transthoracic Echocardiogram Location: ER Height: 167.64 cm Weight: 74.84 kg BSA: 1.84 m2 Heart Rate: bpm BP: 153 / 68 mmHg Registered Clinical Dietitian: JOHAN Referring MD: Abelardo Florentino MD Symptoms: nstemi Study Quality: Technically Difficult/Contrast Conclusions: - The left ventricular systolic function is low normal. The visually estimated ejection fraction is between 50-55%. - The apex and apical anterior segments are hypokinetic. - The apical septum and mid anteroseptal segments are akinetic. - Normal right ventricular cavity size and systolic function. Findings Procedure Information Contrast agent, definity, is being given per protocol without apparent complications. Left Ventricle Normal left ventricular cavity size. The left ventricular systolic function is low normal. The visually estimated ejection fraction is between 50-55%. Abnormal diastolic function is noted. Spectral Doppler is indicative of an impaired relaxation filling pattern. E/E prime ratio is between 8 and 15 consistent with indeterminate filling pressures. Wall Motion Rest Echo Findings The apex and apical anterior segments are hypokinetic. The apical septum and mid anteroseptal segments are akinetic. Right Ventricle Normal right ventricular cavity size and systolic function. Atria The left atrium is mildly dilated. Aortic Valve The aortic valve was not well visualized. There is no aortic valve stenosis. There is no aortic valve regurgitation. Mitral Valve There is moderate mitral annular calcification. There is no mitral valve regurgitation. There is no mitral valve stenosis. Pulmonic Valve The pulmonic valve is likely normal. Tricuspid Valve The tricuspid valve was not well visualized. There is no tricuspid valve regurgitation. Tricuspid regurgitation envelope is inadequate for calculation of right ventricular systolic pressure. Normal right atrial pressure. Venous The inferior vena cava is normal in size and collapses greater than 50% with inspiration. Pericardium/Pleural There is no evidence of pericardial effusion. Prior Study Comparison Changes noted compared to prior study dated: 07/06/2020. EF 5055%, RWMA from CAD. Measurements 2D Linear Measurements Ao Root: 3.50 2.1-3.5 cm LVOT Diam: 2.20 3.0+(-)1.3 cm Mitral Valve MV Pk E: 1.08 MV PK A: 1.25 MV Decel Time: 215.00 E/A: 0.90 E'Lateral: 7.94 E'Medial: 6.74 E/E' Med: 16.00 E/E' Lat: 13.60 PHT: 63.00 MVA PHT: 3.49 Decel [place]: 5.00 Aortic Valve AoV Pk Clint: 1.18 AoV Mn Clint: 0.70 AoV VTI: 0.21 AoV Pk Grad: 6.00 Aov Mn Grad: 2.00 CHARLEY Cont.VTI: 3.62 LVOT LVOT Pk Clint: 0.90 LVOT Mn Clint: 0.59 LVOT VTI: 0.20 LVOT Pk Grad: 3.00 LVOT Mn Grad: 2.00 LVOT Diam: 2.20 LVOT Area: 3.80 Diastolic Function MV Pk E: 1.08 MV Pk A: 1.25 E/A: 0.90 E'Medial: 6.74 E/E' Med: 16.00 E' Laterial: 7.94 E/E' Lat: 13.60 Right Ventricle TAPSE (mm): 1.68 TVS' Clint: 9.57 Great Vessels Aorta Ao Root-2D: 3.50 2.0-3.7 cm Updated in Other Vendor System with Status of Final Gilbert Middleton MD electronically signed on 04/26/2021 4:20:20 PM with status of Final
[2021-04-26 10:28] VITALS: BP 131/68; PULSE 73; RESP 14; TEMP 36.1; O2SAT 100
[2021-04-26] MEDS: Metoprolol Tartrate 25 MG TABLET PO (10:36)
[2021-04-26] MEDS: Aspirin 81 MG TAB.CHEW PO (10:36)
--- NOTE | 2021-04-26 11:15 | MHC.CM.PN ---
Addendum entered by Kelli Rodriguez 04/26/21 11:18: PER MD ROUNDS, PT MAY BE TRANSFERRED TO [facility] Original Note: PT REPORTS HE LIVES AT HOME WITH HIS AND HAS A TUBE TRAILER FILLER THAT ASSISTS WITH HIS CARE HE REPORTS HE HAS DAILY TUBE TRAILER FILLER HOURS, PERIODIC VISITS FROM A [facility] NURSE, AND OP HD 3X/WEEK. PT REPORTS HE HAS BOTH A CANE AND A WALKER HE USES NEEDED. PT REPORTS HIS IS HIS HCP, COPY REQUESTED PTS PCP IS JUAN LUIS WESLEY, ORIGINAL LEFT AT BEDSIDE, COPY SENT TO [facility] CURRENT DC PLAN IS HOME WITH RESUMPTION OF SERVICES FAMILY TO TRANSPORT
--- NOTE | 2021-04-26 11:24 | PM.DS ---
DS: Providers Provider Date of Service: 04/26/21 Date of admission: 04/25/21 16:22 Primary care physician: Tessa Shelton MD Consults: 04/25/21 15:54 Consult to Cardiology Routine Consulting Provider: Gilbert Middleton Reason for consultation: nstemi Consult to Nephrology Routine Consulting Provider: Michael Kaba Reason for consultation: esrd DS: Diagnosis Discharge Diagnosis (1) Non-ST elevation AR (NSTEMI): Status: Acute DS: Summary Hospital Course Hospital Course: from hpi: Chief Complaint: chest pain ? 50-year-old male with an extensive past medical history including end-stage renal disease on hemodialysis, coronary disease, peripheral vascular disease, multiple failed AV fistulas - previously on Coumadin, hypertension, hyperlipidemia, no longer on medications.? Presented with chest pain from hemodialysis.? Patient stated he was feeling well when he went into hemodialys.? then suddenly he had midsternal chest pressure radiating to arm last about 5 minutes, denies shortness of breath, diaphoresis.? Was found to be in SVT, was given adenosine and rhythm broke.? In ED, EKG with no ST elevations, troponin increased from 16.8 to 135.9.? patient is currently asymptomatic. summary of hospitalization: Patient was admitted for NSTEMI, he was placed on IV heparin, aspirin, statin, beta-isadora his troponin increased to 450. he is currently chest pain free. he was seen by Cardiology recommended transfer to [facility] for further evaluation possible cardiac catheterization. Time Spent with Patient Time attestation: Total time spent providing and/or coordinating discharge services: Discharge coordination time: Greater than 30 minutes Quality: Stroke Does the patient have a stroke diagnosis?: No Physical Exam Vital Signs: Vital Signs: Last Vital Signs Temp 96.9 F 04/26/21 10:28 Pulse 73 04/26/21 10:28 Resp 14 04/26/21 10:28 BP 131/68 04/26/21 10:28 Pulse Ox 100 04/26/21 10:28 BMI result Body Mass Index 26.6 General: AO X 3, no acute distress Resp: CTA bilateral, no accessory muscles used CVS: S1,S2,RRR GI: soft, non tender, non distended Neuro: motor grossly intact, alert Psych: appropriate affect, appropriate insight DS: Data Data Completed and Pending Completed studies during hospitalization [Text1]: Procedures Drainage of Right Knee Joint, Percutaneous Approach, Diagnostic (07/04/20) Excision of Ascending Colon, Via Natural or Artificial Opening Endoscopic, Diagnostic (08/18/20) Excision of Cecum, Via Natural or Artificial Opening Endoscopic, Diagnostic (08/18/20) Excision of Duodenum, Via Natural or Artificial Opening Endoscopic, Diagnostic (08/18/20) Excision of Esophagogastric Junction, Via Natural or Artificial Opening Endoscopic, Diagnostic (08/18/20) Excision of Right Knee Joint, Percutaneous Endoscopic Approach (07/04/20) Excision of Stomach, Pylorus, Via Natural or Artificial Opening Endoscopic, Diagnostic (08/18/20) Excision of Transverse Colon, Via Natural or Artificial Opening Endoscopic, Diagnostic (08/18/20) Irrigation of Joints using Irrigating Substance, Percutaneous Endoscopic Approach (07/04/20) Performance of Urinary Filtration, Intermittent, Less than 6 Hours Per Day (08/18/20) Transfusion of Nonautologous Red Blood Cells into Peripheral Vein, Percutaneous Approach (08/18/20) Labs on day of discharge: Laboratory Results - last 24 hr 04/25/21 04/25/21 04/25/21 10:26 13:46 13:46 WBC RBC Hgb Hct MCV MCH MCHC RDW Plt Count MPV Absolute Nucleated RBC Nucleated RBC % (auto) PT INR APTT 45.6 H D PTT (Heparin Protocol) Sodium 142 Potassium 4.0 Chloride 95 L Carbon Dioxide 31 H Anion Gap 20 BUN 29 H Creatinine 6.92 H* Estim Creat Clear Calc TNP Estimated GFR 8 Random Glucose 88 Calcium 9.1 Total Bilirubin 0.7 AST 23 ALT 12 Alkaline Phosphatase 75 Troponin I High Sens 135.9 H* D B-Natriuretic Peptide 142 H Total Protein 8.4 H Albumin 4.2 04/25/21 04/25/21 04/26/21 23:46 23:46 05:54 WBC 3.5 L 4.1 L RBC 3.77 L 3.68 L Hgb 11.2 L 10.7 L Hct 34.8 L 34.0 L MCV 92.3 92.4 MCH 29.7 29.1 MCHC 32.2 31.5 RDW 14.6 14.6 Plt Count 120 L 118 L MPV 11.4 11.9 Absolute Nucleated RBC 0.000 0.000 Nucleated RBC % (auto) 0.0 0.0 PT INR APTT PTT (Heparin Protocol) 70.0 Sodium Potassium Chloride Carbon Dioxide Anion Gap BUN Creatinine Estim Creat Clear Calc Estimated GFR Random Glucose Calcium Total Bilirubin AST ALT Alkaline Phosphatase Troponin I High Sens B-Natriuretic Peptide Total Protein Albumin 04/26/21 04/26/21 04/26/21 05:54 05:54 05:54 WBC RBC Hgb Hct MCV MCH MCHC RDW Plt Count MPV Absolute Nucleated RBC Nucleated RBC % (auto) PT 11.7 INR 1.0 APTT PTT (Heparin Protocol) 68.5 Sodium 140 Potassium 4.6 Chloride 94 L Carbon Dioxide 30 H Anion Gap 21 H BUN 39 H Creatinine 8.93 H* Estim Creat Clear Calc 8.8 Estimated GFR 6 Random Glucose 86 Calcium 8.6 Total Bilirubin AST ALT Alkaline Phosphatase Troponin I High Sens 450.2 H* D B-Natriuretic Peptide Total Protein Albumin Discharge Plan Discharge Patient Disposition: Xfer Acute Care Hospital Discharge Diagnosis: nstemi Referrals: Tessa Shelton MD [Primary Care Provider] - 1 Week Discharge Medications: No Action No Known Home Meds RF: 0 Discharge Orders: Discharge Order (Routine); Ordered 04/26/21 Ordered By: Abelardo Florentino Diet: advance to usual diet Activity on Discharge: As tolerated Stand Alone Forms: Patient Portal Discharge page Care Plan Goals: Recovery Health Concerns: NSTEMI Plan of Treatment: transfer to [facility] for cardiac catheterization, continue IV heparin, aspirin, statin, beta-isadora Assessment: see above
--- NOTE | 2021-04-26 11:27 | CONS_ITS ---
DATE OF SERVICE: 04/26/2021 HISTORY OF PRESENT ILLNESS: I was asked to see patient to assist in evaluation and management of patient's dialysis needs in the setting of being an ESRD patient, who came to the hospital yesterday after having an episode of chest pain at dialysis. It turns out he was in SVT, was given adenosine, which broke his rhythm and his symptoms resolved. He is being further monitored to see whether he needs to have further cardiac evaluation. His normal dialysis days are Friday, Friday, Friday. As mentioned, he is feeling well now without any particular complaints. PAST MEDICAL HISTORY: Notable for ESRD, dialyzed on Friday, Friday, Friday. History of a gastrointestinal bleed. Anemia. Degenerative joint disease. Blind in his left eye. Hyperlipidemia. Hypertension. Coronary artery disease. Obstructive sleep apnea. Peripheral vascular disease. MEDICATIONS: His medications on admission are noted in the admitting notes. Current medications are noted in the MAR. ALLERGIES: HE HAS NO KNOWN DRUG ALLERGIES. FAMILY HISTORY: Known for hypertension. PHYSICAL EXAMINATION: VITAL SIGNS: Blood pressure 130/70 with heart rate in the 70s. HEAD: Atraumatic. NECK: He does have a very wide neck and I think this has been evaluated in the past for an SVC syndrome. LUNGS: Breath sounds bilaterally. CARDIAC: Regular rate. ABDOMEN: Soft. EXTREMITIES: Show no edema. LABORATORY DATA: Hemoglobin 10.7, hematocrit 34, white blood cell count 4.1, platelet count 118. Sodium 140, potassium 4.6, chloride 94, bicarb 30. IMPRESSION: End-stage renal disease patient admitted with episode of chest pain, supraventricular tachycardia. 1. End-stage renal disease. We will dialyze him tomorrow. Keep him on Friday, Friday, Friday schedule. If he gets discharged, we will dialyze him at the outpatient unit. If he gets admitted, we will do dialysis here in the hospital. 2. Supraventricular tachycardia episode. He is being evaluated by Cardiology as he may need medications to prevent these episodes. 3. Hypertension. Blood pressure controlled. SUGGESTIONS: At this time include continuing him on his routine medications, cardiac evaluation regarding prevention of SVT, hemodialysis tomorrow to be determined whether it is inpatient or at the outpatient dialysis unit. We will follow with the team. MD GRZEGORZ Preciado/RONY / [id number]
--- NOTE | 2021-04-26 11:51 | PC.NURSE ---
Pt seen by Dr. Huggins. pt to be transported to [facility]. Transportation being arranged by Executive Director Of Nursing. Pt aware of plan. will continue to monitor.
--- NOTE | 2021-04-26 12:39 | P.CONCA_ITS ---
History of Present Illness History of Present Illness Date of Service: 04/26/21 Requesting physician: Abelardo Florentino Chief complaint: nstemi Narrative: 50-year-old gentleman who was background history of end-stage renal disease on hemodialysis, anemia of chronic disease and hypertension who presented with chest pain from hemodialysis. He said he has central chest tightness while he was on hemodialysis. He was given nitroglycerin which improved his chest pain. He is denying any chest pain before. With these symptoms he came to [facility] and ruled in for NSTEMI. He did not have any dynamic EKG changes. He was started on heparin drip for treatment of NSTEMI. In August 2020 he had upper GI bleed which was due to esophagitis based on endoscopy. He has been on baby aspirin. We will add proton pump inhibitor. [facility] Past Medical History Medical History Acute GI bleeding Anemia of chronic disease Arthritis of shoulder region, right, degenerative Blind left eye CAD (coronary artery disease) ESRD (end stage renal disease) Hyperlipidemia Hyperparathyroidism Hypertension MSSA bacteremia Myocardial infarction [place] (obstructive sleep apnea) Peripheral vascular disease Septic joint of right knee joint Family History Family History Mother HTN (hypertension) Surgical History Surgical History S/P left knee arthroscopy Social History Social History Household Members: Spouse Housing: House Do you presently have visiting nurse or other home services: No Alcohol intake: never Patient Tobacco Use Status: Never used Tobacco Advance Directives: No Advance Directives Information Provided: No service: No Current occupational status: unemployed and disabled Meds Allergies Allergy/AdvReac Type Severity Reaction Status Date / Time No Known Drug Allergies Allergy Unknown UNKNOWN Verified 09/12/20 13:41 Active Medications: Current Medications Aspirin (Aspirin 81 Mg Tab.Chew) 81 mg PO DAILY COUNT INCLUDES THE [facility] Last Admin: 04/26/21 10:36 Dose: 81 mg Documented by: Atorvastatin Calcium (Atorvastatin Calcium 80 Mg Tablet) 80 mg PO BEDTIME COUNT INCLUDES THE [facility] Last Admin: 04/25/21 22:08 Dose: 80 mg Documented by: Heparin Sodium (Porcine) (Heparin Sodium,Porcine 5,000 Unit/Ml Vial) 3,000 unit 40 unit/kg (3000 unit) IVPUSH PROTOCOL BOLUS PRN; Protocol PRN Reason: 40 unit/kg - Heparin Protocol Heparin Sodium (Porcine) (Heparin Sodium,Porcine 5,000 Unit/Ml Vial) 6,000 unit 80 unit/kg (6000 unit) IVPUSH PROTOCOL BOLUS PRN; Protocol PRN Reason: 80 unit/kg - Heparin Protocol Heparin Sodium/Sodium Chloride () 25,000 unit in 250 mls @ 0 mls/hr IVCONT .Q0M COUNT INCLUDES THE [facility]; Protocol Last Titration: 04/26/21 06:00 Dose: 12 units/kg/hr, 8.98 mls/hr Documented by: Metoprolol Tartrate (Metoprolol Tartrate 25 Mg Tablet) 25 mg PO BID COUNT INCLUDES THE [facility]; Protocol Last Admin: 04/26/21 10:36 Dose: 25 mg Documented by: Oxycodone HCl (Oxycodone Hcl Immed Release 5 Mg Tablet) 5 mg PO Q6H PRN PRN Reason: Breakthrough Pain Last Admin: 04/26/21 01:23 Dose: 5 mg Documented by: Pharmacy Consult (Consult Rx Perform Med Rec) 1 each MISCELLANE ONCE PRN PRN Reason: Consult order Sodium Chloride (0.9 % Sodium Chloride Flush 3 Ml Syringe) [facility] Last Admin: 04/26/21 10:26 Dose: Not Given Documented by: Home Medications Medication Instructions Recorded Confirmed Last Taken Type No Known Home Meds 04/25/21 04/25/21 Unknown History Physical Exam Vital Signs: Vital Signs: Last Vital Signs Temp 96.9 F 04/26/21 10:28 Pulse 73 04/26/21 10:28 Resp 14 04/26/21 10:28 BP 131/68 04/26/21 10:28 Pulse Ox 100 04/26/21 10:28 BMI result Body Mass Index 26.6 GENERAL APPEARANCE: in no acute distress, pleasant. NECK: no carotid bruit, no jugular venous distention. SKIN: no suspicious lesions, warm and dry. HEART: no murmurs, regular rate and rhythm. LUNGS: clear to auscultation bilaterally. ABDOMEN: soft, nontender. EXTREMITIES: no edema. Fistula right upper extremity PERIPHERAL PULSES: equal. NEUROLOGIC: No gross deficits, AAO X 3 Objective Labs and Meds Result diagrams: 04/26/21 05:54 04/26/21 05:54 Lab results: Laboratory Results - last 24 hr 04/25/21 04/25/21 04/25/21 13:46 13:46 23:46 WBC 3.5 L RBC 3.77 L Hgb 11.2 L Hct 34.8 L MCV 92.3 MCH 29.7 MCHC 32.2 RDW 14.6 Plt Count 120 L MPV 11.4 Absolute Nucleated RBC 0.000 Nucleated RBC % (auto) 0.0 PT INR APTT 45.6 H D PTT (Heparin Protocol) Sodium Potassium Chloride Carbon Dioxide Anion Gap BUN Creatinine Estim Creat Clear Calc Estimated GFR Random Glucose Calcium Troponin I High Sens 135.9 H* D B-Natriuretic Peptide 142 H 04/25/21 04/26/21 04/26/21 23:46 05:54 05:54 WBC 4.1 L RBC 3.68 L Hgb 10.7 L Hct 34.0 L MCV 92.4 MCH 29.1 MCHC 31.5 RDW 14.6 Plt Count 118 L MPV 11.9 Absolute Nucleated RBC 0.000 Nucleated RBC % (auto) 0.0 PT INR APTT PTT (Heparin Protocol) 70.0 Sodium 140 Potassium 4.6 Chloride 94 L Carbon Dioxide 30 H Anion Gap 21 H BUN 39 H Creatinine 8.93 H* Estim Creat Clear Calc 8.8 Estimated GFR 6 Random Glucose 86 Calcium 8.6 Troponin I High Sens B-Natriuretic Peptide 04/26/21 04/26/21 05:54 05:54 WBC RBC Hgb Hct MCV MCH MCHC RDW Plt Count MPV Absolute Nucleated RBC Nucleated RBC % (auto) PT 11.7 INR 1.0 APTT PTT (Heparin Protocol) 68.5 Sodium Potassium Chloride Carbon Dioxide Anion Gap BUN Creatinine Estim Creat Clear Calc Estimated GFR Random Glucose Calcium Troponin I High Sens 450.2 H* D B-Natriuretic Peptide Assessment and Plan (1) Non-ST elevation IN (NSTEMI): Status: Acute 50-year-old gentleman here for chest pain and non ST elevation IN. He has background history of end-stage renal disease hemodialysis and hypertension. He has been on heparin drip. Blood pressure control is reasonable. I had a detailed discussion with the patient and we have decided to proceed with diagnostic angiogram. I will arrange this for him at [facility] will transfer him. He will stay NPO after midnight for potential cardiac catheterization tomorrow. Continue high intensity statin and beta-isadora. Thank you for allowing me to participate in the care of your patient. Please feel free to contact me if you have any questions. Procedures Date of Service Date of Service: 04/26/21
--- NOTE | 2021-04-26 13:25 | PC.NURSE ---
nurse to nurse given to receiving RN Evon at [facility]. Pt will be transported to [place] [id number] room 10A. ([phone]). pt aware of plan.
[2021-04-26] MEDS: Omeprazole 40 MG CAPSULE.DR PO (14:20)
--- NOTE | 2021-04-26 14:30 | PC.NURSE ---
pt [facility] [place] [facility] [place] pt alert and oriented, vss, pt denies pain.
== END 2021-04-26 14:42 | disposition short-term general hospital (02) | DRG 280 ==
LOC: HO.ED 16:03 → HO.EDOVER 16:32
PROVIDERS: Hospitalist; Physician Assistant; Admitting Provider Internal Medicine; Emergency Provider Emergency Medicine; PCP Internal Medicine; Visit Provider Internal Medicine
DX: I21.4 Non-ST elevation (NSTEMI) myocardial infarction (principal); N18.6 End stage renal disease; I12.0 Hypertensive chronic kidney disease with stage 5 chronic kidney disease or end stage renal disease; D63.1 Anemia in chronic kidney disease; Z99.2 Dependence on renal dialysis; I25.10 Atherosclerotic heart disease of native coronary artery without angina pectoris; Z20.822 Contact with and (suspected) exposure to COVID-19
CPT/HCPCS: 36415; 71045; 80048; 80053; 83880; 84484; 85025; 85027; 85610; 85730; 87635; 93005; 93306; 96365; 96375; 99285; 99291; J1170; Q9957

== ENCOUNTER → 2021-05-17 15:06 | Outpatient (BNVA) | payer OTHER, SELFPAY | PROVIDERS: PCP Internal Medicine; Referring Provider Internal Medicine; Visit Provider Internal Medicine Cardiovascular Disease | DX: I25.118 Atherosclerotic heart disease of native coronary artery with other forms of angina pectoris (principal) | CPT/HCPCS: 99212 ==

== ENCOUNTER 2021-07-05 09:29 | Outpatient (REF) | payer OTHER, SELFPAY ==
[2021-07-05 10:01] LABS: MANUAL DIFF FLAG NO
[2021-07-05 10:23] LABS: Basophils Percent Auto 0.4 % (0-2); Eosinophils Absolute Auto 0.2 X10*3/uL (0.0-0.4); Eosinophils Percent Auto 2.7 % (0-4); Hematocrit 31.8 % (42.0-52.0); Hemoglobin 9.8 g/dl (14.0-18.0); Imm Gran Abs Auto 0.04 X10*3/uL (0.00-0.03); Imm Gran Pct Auto 0.7 % (0.0-0.4); Lymphocytes Absolute Auto 0.9 X10*3/uL (1.2-4.9); Lymphocytes Percent Auto 17.2 % (20-40); Mean Corpuscular HGB Conc 30.8 g/dl (31.0-36.0); Mean Corpuscular Hemoglobin 29.2 pg (27.0-33.0); Mean Corpuscular Volume 94.6 fL (80.0-98.0); Mean Platelet Volume 12.6 fL (9.4-12.4); Monocytes Absolute Auto 0.8 X10*3/uL (0.1-1.2); Monocytes Percent Auto 14.1 % (2-11); Neutrophils Absolute Auto 3.6 x10*3/uL (2.0-8.3); Neutrophils Percent Auto 64.9 % (45-73); Platelet Count 124 X10*3/uL (160-400); Red Blood Count 3.36 X10*6/uL (4.60-5.80); Red Cell Distribution Width 14.2 % (11.0-16.0); White Blood Count 5.5 X10*3/uL (4.8-10.8)
[2021-07-05 11:05] LABS: Alanine Aminotransferase 17 U/L (0-40); Albumin Level 4.3 g/dL (3.5-5.0); Alkaline Phosphatase 104 U/L (39-117); Anion Gap 22 (12-20); Aspartate Amino Transferase 24 U/L (5-37); Bilirubin Total 0.6 mg/dL (0.0-1.0); Blood Urea Nitrogen 35 mg/dL (9-16); Calcium 8.4 mg/dL (8.4-10.2); Carbon Dioxide 30 mmol/L (22-29); Chloride 96 mmol/L (96-108); Cholesterol 111 mg/dL; Estimated Glomerular Filt Rate 7; Glucose Random 79 mg/dL (60-115); HDL Cholesterol 45 mg/dL; LDL Cholesterol Calculated 54 mg/dl; Potassium 4.5 mmol/L (3.3-5.1); Sodium 143 mmol/L (135-145); Total Protein 8.2 g/dL (6.5-8.0); Triglycerides 60 mg/dL
[2021-07-05 11:10] LABS: Thyroid Stimulating Hormone 2.56 uIU/mL (0.32-4.0)
== END 2021-07-05 09:30 | disposition home or self-care (01) ==
LOC: HO.LAB 09:29
PROVIDERS: PCP Internal Medicine; Visit Provider Internal Medicine
DX: E78.00 Pure hypercholesterolemia, unspecified (principal); G47.33 Obstructive sleep apnea (adult) (pediatric); I21.09 ST elevation (STEMI) myocardial infarction involving other coronary artery of anterior wall; N18.6 End stage renal disease; Z99.2 Dependence on renal dialysis
CPT/HCPCS: 36415; 80053; 80061; 84443; 85025

== ENCOUNTER → 2021-08-14 12:53 | Outpatient (BNVA) | payer OTHER, SELFPAY | PROVIDERS: PCP Internal Medicine | DX: R31.9 Hematuria, unspecified (principal) | CPT/HCPCS: 99202 ==

== ENCOUNTER 2021-11-22 13:54 | Inpatient (IN) | payer OTHER, SELFPAY ==
--- NOTE | ~2021-11-22 | XR_ITS ---
EXAMINATION: XR CHEST CLINICAL INFORMATION: Shortness of breath COMPARISON: 04/25/2021 and priors Chronic renal failure TECHNIQUE: AP portable upright (2 images) view of the chest was obtained. FINDINGS: Chronic, high density airspace filling opacities in the right lower lobe consistent with chronic calcified pneumonia in this patient with long-standing renal failure. There do appear to be new bilateral right greater than left partially loculated pleural effusions. The central pulmonary vasculature is slightly more prominent and this may represent fluid overload. Cardiac and mediastinal contours are stable. Extensive right-sided venous vascular stents are again noted. Osseous structures reveal a mottled density likely chronic renal osteodystrophy. Nonobstructive gas pattern. Vascular clips also noted in the left axilla. XR/XR chest 1V IMPRESSION: 1. New moderate-sized loculated bilateral pleural effusions. 2. Suspect mild fluid overload. 3. Chronic calcified right lower lobe and right middle lobe pneumonia.
[2021-11-22 14:04] VITALS: BP 137/85; PULSE 89; O2SAT 95
[2021-11-22 14:44] VITALS: BP 149/85; PULSE 82; RESP 18; O2SAT 95; BMI 27.2
--- NOTE | 2021-11-22 14:47 | ECG_ITS ---
Test Reason : GI BLEED Blood Pressure : / mmHG Vent. Rate : 077 BPM Atrial Rate : 077 BPM P-R Int : 260 ms QRS Dur : 062 ms QT Int : 428 ms P-R-T Axes : 070 051 105 degrees QTc Int : 484 ms Sinus rhythm with 1st degree A-V block Low voltage QRS Nonspecific T wave abnormality Septal infarct (cited on or before 25-APR-2021) Abnormal ECG When compared with ECG of 25-APR-2021 14:26, Questionable change in initial forces of Anterior leads Referred By: Andrew Gustafson Electronically Signed By:BIJAL LUBIN
--- NOTE | 2021-11-22 14:50 | ED.GENADULT ---
HPI - General Adult General Chief complaint: GI Bleed Stated complaint: VOMITING BLOOD Time Seen by Provider: 11/22/21 14:01 Source: patient History of Present Illness HPI narrative: This is a 51-year-old male with history of end-stage renal disease, last dialysis yesterday, also peripheral vascular disease hypertension anemia of chronic disease, coronary artery disease, who has been vomiting celena blood since this morning. Patient is not sure if he is on aspirin, though medical records suggest that he is. He denies being on any anticoagulants. He denies any dizziness. Denies any shortness of breath. He denies chest pain. He has had some abdominal discomfort on the sides of his abdomen only when he is vomiting. He denies any history of liver disease, does not use alcohol. He denies any black or bloody stool. Related Data Home Medications Medication Instructions Recorded Confirmed aspirin 81 mg tablet,delayed 81 mg PO DAILY 05/17/21 11/22/21 release atorvastatin 80 mg tablet 80 mg PO BEDTIME 05/17/21 11/22/21 cholecalciferol (vitamin D3) 50 50 mcg PO DAILY 05/17/21 11/22/21 mcg (2,000 unit) capsule (Vitamin D3) pantoprazole 40 mg tablet,delayed 40 mg PO DAILY 05/17/21 11/22/21 release sevelamer carbonate 800 mg tablet 2,400 mg PO TIDWM 05/17/21 11/22/21 acetaminophen 325 mg tablet 650 mg PO Q4H PRN Pain (Scale 11/22/21 11/22/21 Score 1-3) Previous Rx's Medication Instructions Recorded metoprolol tartrate 50 mg tablet 50 mg PO BID #100 tabs 05/17/21 Allergies Allergy/AdvReac Type Severity Reaction Status Date / Time No Known Drug Allergies Allergy Unknown UNKNOWN Verified 09/12/20 13:41 Review of Systems Review of Systems: Yes all other systems are reviewed and are negative Constitutional: Constitutional: Reports as per HPI and Denies fever(s) Eyes: Eyes: Reports as per HPI and Reports no additional eye complaints ENT: Reports system reviewed and no additional complaints, except as documented, Reports as per HPI, Denies nasal congestion, Denies nasal discharge and Denies sore throat Cardiovascular: Cardiovascular: Reports as per HPI, Denies chest pain and Denies dyspnea Respiratory: Respiratory: Reports as per HPI, Denies cough and Denies dyspnea Gastrointestinal: Gastrointestinal: Reports as per HPI, Denies abdominal pain, Denies melena, Denies hematochezia, Denies diarrhea, Reports vomiting and Reports hematemesis Musculoskeletal: Musculoskeletal: Reports no additional musculoskeletal complaints and Denies numbness Integumentary/Breasts: Skin/Breast: Reports as per HPI and Denies rash Neurologic: Reports as per HPI, Denies focal weakness and Denies numbness Psychiatric: Psychiatric: Reports no additional psychiatric complaints and Reports as per HPI Endocrine: Endocrine: Reports no additional endocrine complaints and Reports as per HPI Hematologic/Lymphatic: Hematologic/Lymphatic: Reports no additional hematologic/lymphatic complaints, Reports as per HPI and Reports other (No peripheral edema) [facility] Past Medical History Medical History (Updated 11/22/21 @ 21:04 by Andrew Gustafson MD) Acute GI bleeding Anemia of chronic disease Arthritis of shoulder region, right, degenerative Blind left eye CAD (coronary artery disease) ESRD (end stage renal disease) Hematuria of undiagnosed cause Hyperlipidemia Hyperparathyroidism Hypertension MSSA bacteremia Myocardial infarction MILAD (obstructive sleep apnea) Peripheral vascular disease Septic joint of right knee joint Surgical History S/P left knee arthroscopy Family History Family History Mother HTN (hypertension) Social History Social History Household Members: Spouse Housing: House Do you presently have visiting nurse or other home services: No Alcohol intake: never Patient Tobacco Use Status: Never used Tobacco Advance Directives: No Advance Directives Information Provided: No service: No Current occupational status: unemployed and disabled Physical Exam ED Vital Signs: Vital Signs - 24 hr 11/22/21 14:44 Pulse Rate 82 Respiratory Rate 18 Blood Pressure 149/85 H Pulse Oximetry 95 Oxygen Delivery Method Room Air BMI result Body Mass Index 27.2 Const General: no acute distress Orientation/consciousness: patient oriented x3 HENMT Head: Yes normal to inspection General nose exam: Normal external nose present Mouth: moist mucous membranes Throat: Yes posterior oropharynx normal, Yes tonsils normal and Yes uvula midline Eyes Eyelids: Yes eyelids normal Conjunctivae: conjunctivae normal Pupils: Equal, round and reactive pupils present Neck Neck: Yes supple Resp Effort & Inspection: normal respiratory effort Auscultation: clear to auscultation bilaterally Cardio Rate: regular rate Rhythm: regular rhythm Heart sounds: S1 normal heart sound present, S2 normal heart sound present, no gallops, no murmurs and no rubs GI Inspection: No distended Palpation (GI): Soft to palpation and nontender Auscultation: normal bowel sounds Skin General skin exam: other (Warm and dry) Neuro General: patient oriented x3 and CN's II-XI intact bilaterally Cranial nerves: Yes Equal, round and reactive pupils present Extrem General: Yes no pedal edema Psych Affect: normal affect Attitude: cooperative Medical Decision Making MDM Narrative Medical decision making narrative: Patient with hematemesis which began this morning, with several episodes, with witnessed red blood in the vomitus bag here in the ED initially. Patient was treated with Zofran, Protonix IV bolus and drip. He has remained stable. Dr. Nash of GI was consulted by phone and recommended repeat hemoglobin and hematocrit at about 4 hours which was done and showed decreased from 20/6 and 25 of the hematocrit. Patient is being admitted to the hospitalist service, Dr. Talbot accepting. Critical care time for this life-threatening illness exclusive of all other billable procedures was approximately 40 minutes including initial evaluation of the patient, ordering tests, x-ray interpretation, EKG interpretation, medical consultation, documentation, reevaluation. Lab Data Lab results reviewed: Yes I reviewed the patient's lab results. Result diagrams: 11/22/21 17:50 11/22/21 17:50 Labs: Lab Results 11/22/21 11/22/21 11/22/21 Range/Units 15:18 15:18 17:50 WBC 4.6 L (4.8-10.8) X10*3/uL RBC 2.84 L (4.60-5.80) X10*6/uL Hgb 7.9 L (14.0-18.0) g/dl Hct 26.2 L (42.0-52.0) % MCV 92.3 (80.0-98.0) fL MCH 27.8 (27.0-33.0) pg MCHC 30.2 L (31.0-36.0) g/dl RDW 16.4 H (11.0-16.0) % Plt Count 228 D (160-400) X10*3/uL MPV 11.9 (9.4-12.4) fL Immature Gran % (Auto) 0.4 (0.0-0.4) % Neut % (Auto) 74.0 H (45-73) % Lymph % (Auto) 11.6 L (20-40) % [place] % (Auto) 11.2 H (2-11) % Eos % (Auto) 2.4 (0-4) % Baso % (Auto) 0.4 (0-2) % Lymph # (Auto) 0.5 L (1.2-4.9) X10*3/uL [place] # (Auto) 0.5 (0.1-1.2) X10*3/uL Eos # (Auto) 0.1 (0.0-0.4) X10*3/uL Baso # (Auto) 0.0 (0.0-0.2) X10*3/uL Abs Immat Gran (auto) 0.02 (0.00-0.03) X10*3/uL Absolute Neuts (auto) 3.4 (2.0-8.3) x10*3/uL Absolute Nucleated RBC 0.000 (0.0-0.012) X10*3/uL Nucleated RBC % (auto) 0.0 (0.0-0.2) /100WBC PT 13.1 (10.0-13.1) SEC INR 1.1 (0.9-1.1) APTT 49.9 H (26.0-36.4) SEC Sodium 140 (135-145) mmol/L Potassium 4.0 (3.3-5.1) mmol/L Chloride 94 L (96-108) mmol/L Carbon Dioxide 28 (22-29) mmol/L Anion Gap 22 H (12-20) BUN 36 H (9-16) mg/dL Creatinine 8.39 H* (0.5-1.4) mg/dL Estim Creat Clear Calc 10.0 Estimated GFR 7 Random Glucose 81 (60-115) mg/dL Calcium 7.1 L D (8.4-10.2) mg/dL Total Bilirubin 0.4 (0.0-1.0) mg/dL AST 27 (5-37) U/L ALT < 6 (0-40) U/L Alkaline Phosphatase 87 (39-117) U/L Total Protein 8.3 H (6.5-8.0) g/dL Albumin 2.8 L D (3.5-5.0) g/dL COVID-19 ([facility]) (Negative) COVID-19 [facility] Blood Type Antibody Screen 11/22/21 11/22/21 11/22/21 Range/Units 17:50 17:50 17:50 WBC (4.8-10.8) X10*3/uL RBC (4.60-5.80) X10*6/uL Hgb 7.8 L (14.0-18.0) g/dl Hct 25.1 L (42.0-52.0) % MCV (80.0-98.0) fL MCH (27.0-33.0) pg MCHC (31.0-36.0) g/dl RDW (11.0-16.0) % Plt Count (160-400) X10*3/uL MPV (9.4-12.4) fL Immature Gran % (Auto) (0.0-0.4) % Neut % (Auto) (45-73) % Lymph % (Auto) (20-40) % [place] % (Auto) (2-11) % Eos % (Auto) (0-4) % Baso % (Auto) (0-2) % Lymph # (Auto) (1.2-4.9) X10*3/uL [place] # (Auto) (0.1-1.2) X10*3/uL Eos # (Auto) (0.0-0.4) X10*3/uL Baso # (Auto) (0.0-0.2) X10*3/uL Abs Immat Gran (auto) (0.00-0.03) X10*3/uL Absolute Neuts (auto) (2.0-8.3) x10*3/uL Absolute Nucleated RBC (0.0-0.012) X10*3/uL Nucleated RBC % (auto) (0.0-0.2) /100WBC PT (10.0-13.1) SEC INR (0.9-1.1) APTT (26.0-36.4) SEC Sodium (135-145) mmol/L Potassium (3.3-5.1) mmol/L Chloride (96-108) mmol/L Carbon Dioxide (22-29) mmol/L Anion Gap (12-20) BUN (9-16) mg/dL Creatinine (0.5-1.4) mg/dL Estim Creat Clear Calc Estimated GFR Random Glucose (60-115) mg/dL Calcium (8.4-10.2) mg/dL Total Bilirubin (0.0-1.0) mg/dL AST (5-37) U/L ALT (0-40) U/L Alkaline Phosphatase (39-117) U/L Total Protein (6.5-8.0) g/dL Albumin (3.5-5.0) g/dL COVID-19 ([facility]) Negative (Negative) COVID-19 Clin Com See Note Blood Type A Positive Antibody Screen NEGATIVE Imaging Data Chest x-ray: Radiologist's impression: 1. New moderate-sized loculated bilateral pleural effusions. 2. Suspect mild fluid overload. 3. Chronic calcified right lower lobe and right middle lobe pneumonia. ECG Data Attestation: I personally reviewed and interpreted this ECG as follows: Interpretation: Sinus rhythm with first-degree AV block, rate of 77. Anterior Q-waves consistent with an old septal infarct. Low voltage QRS. Normal QRS axis. Nonspecific T-wave changes. Discharge Plan Discharge Clinical Impression: Gastrointestinal hemorrhage with hematemesis, Pleural effusion Patient Disposition: Admitted As Inpatient
[2021-11-22 15:23] LABS: MANUAL DIFF FLAG NO
[2021-11-22 15:26] LABS: Basophils Percent Auto 0.4 % (0-2); Eosinophils Absolute Auto 0.1 X10*3/uL (0.0-0.4); Eosinophils Percent Auto 2.4 % (0-4); Hematocrit 26.2 % (42.0-52.0); Hemoglobin 7.9 g/dl (14.0-18.0); Imm Gran Abs Auto 0.02 X10*3/uL (0.00-0.03); Imm Gran Pct Auto 0.4 % (0.0-0.4); Lymphocytes Absolute Auto 0.5 X10*3/uL (1.2-4.9); Lymphocytes Percent Auto 11.6 % (20-40); Mean Corpuscular HGB Conc 30.2 g/dl (31.0-36.0); Mean Corpuscular Hemoglobin 27.8 pg (27.0-33.0); Mean Corpuscular Volume 92.3 fL (80.0-98.0); Mean Platelet Volume 11.9 fL (9.4-12.4); Monocytes Absolute Auto 0.5 X10*3/uL (0.1-1.2); Monocytes Percent Auto 11.2 % (2-11); Neutrophils Absolute Auto 3.4 x10*3/uL (2.0-8.3); Platelet Count 228 X10*3/uL (160-400); Red Blood Count 2.84 X10*6/uL (4.60-5.80); Red Cell Distribution Width 16.4 % (11.0-16.0); White Blood Count 4.6 X10*3/uL (4.8-10.8)
[2021-11-22 15:36] LABS: INTERNATIONAL NORM RATIO 1.1 (0.9-1.1); Prothrombin Time 13.1 SEC (10.0-13.1)
[2021-11-22 15:39] LABS: Partial Thromboplastin Time 49.9 SEC (26.0-36.4)
[2021-11-22] MEDS: Pantoprazole Sodium 40 MG/10 ML VIAL 80 MG IVPUSH (15:44)
[2021-11-22] MEDS: Pantoprazole Sodium 80 MG in 0.9 % Sodium Chloride 80 ML 10 MG IV (15:45)
[2021-11-22] MEDS: ondansetron HCL 4 MG/2 ML VIAL IVPUSH (15:45)
[2021-11-22 18:18] LABS: COVID-19 Test Negative (Negative)
[2021-11-22 18:25] LABS: Alanine Aminotransferase < 6 U/L (0-40); Albumin Level 2.8 g/dL (3.5-5.0); Alkaline Phosphatase 87 U/L (39-117); Anion Gap 22 (12-20); Aspartate Amino Transferase 27 U/L (5-37); Bilirubin Total 0.4 mg/dL (0.0-1.0); Blood Urea Nitrogen 36 mg/dL (9-16); Calcium 7.1 mg/dL (8.4-10.2); Carbon Dioxide 28 mmol/L (22-29); Chloride 94 mmol/L (96-108); Estimated Glomerular Filt Rate 7; Glucose Random 81 mg/dL (60-115); Sodium 140 mmol/L (135-145); Total Protein 8.3 g/dL (6.5-8.0)
[2021-11-22 18:27] LABS: Hematocrit 25.1 % (42.0-52.0); Hemoglobin 7.8 g/dl (14.0-18.0)
--- NOTE | 2021-11-22 19:32 | PM.IMHP ---
History of Present Illness Date of Service: 11/22/21 Chief Complaint: hematemesis 51-year-old male with a past medical history of hypertension, hyperlipidemia, ESRD on hemodialysis, peripheral vascular disease, CAD, MILAD, anemia of chronic disease, history of GI bleed presented to the hospital today with a chief complaint of hematemesis. Patient denies any fever chills cough, abdominal pain, chest pain or palpitations. denies any shortness of breath or dyspnea on exertion. Review of all other systems is negative except mentioned above ER course: Per ER team patient reportedly had few episodes of hematemesis prior to coming to the ER, did not have any episodes after coming to the ER. Hemoglobin slightly dropped from his baseline but remained stable on follow-up hemoglobin. Notified Gastroenterology Dr. Nash. Admitted to the hospital for further management [facility] Medical History (Updated 11/22/21 @ 19:33 by Chris Talbot MD) Acute GI bleeding Anemia of chronic disease Arthritis of shoulder region, right, degenerative Blind left eye CAD (coronary artery disease) ESRD (end stage renal disease) Hematuria of undiagnosed cause Hyperlipidemia Hyperparathyroidism Hypertension MSSA bacteremia Myocardial infarction MILAD (obstructive sleep apnea) Peripheral vascular disease Septic joint of right knee joint Family History Mother HTN (hypertension) Surgical History S/P left knee arthroscopy Social History Household Members: Spouse Housing: House Do you presently have visiting nurse or other home services: No Alcohol intake: never Patient Tobacco Use Status: Never used Tobacco Advance Directives: No Advance Directives Information Provided: No service: No Current occupational status: unemployed and disabled Meds Allergies Allergy/AdvReac Type Severity Reaction Status Date / Time No Known Drug Allergies Allergy Unknown UNKNOWN Verified 09/12/20 13:41 Active Medications: Current Medications Pantoprazole Sodium 80 mg/ (Sodium Chloride) 100 mls @ 10 mls/hr IV .Q10H SOFIA Last Admin: 11/22/21 15:45 Dose: 8 mg/hr, 10 mls/hr Melatonin (Melatonin 3 Mg Tablet) 6 mg PO BEDTIME PRN PRN Reason: Insomnia Senna (Sennosides 8.6 Mg Tablet) 17.2 mg PO BEDTIME PRN PRN Reason: Constipation Sodium Chloride (0.9 % Sodium Chloride Flush 3 Ml Syringe) 3 ml IVFLUSH QSHIFT [facility] Home Medications Medication Instructions Recorded Confirmed Last Taken Type aspirin 81 mg tablet,delayed 81 mg PO DAILY 05/17/21 05/17/21 Unknown History release atorvastatin 80 mg tablet 80 mg PO BEDTIME 05/17/21 05/17/21 Unknown History cholecalciferol (vitamin D3) 50 50 mcg PO DAILY 05/17/21 05/17/21 Unknown History mcg (2,000 unit) capsule (Vitamin D3) lisinopril 2.5 mg tablet 2.5 mg PO DAILY 05/17/21 05/17/21 Unknown History pantoprazole 40 mg tablet,delayed 40 mg PO DAILY 05/17/21 05/17/21 Unknown History release sevelamer carbonate 800 mg tablet 1,600 mg PO TID 05/17/21 05/17/21 Unknown History Physical Exam Vital Signs and Narrative: Vital Signs: Last Vital Signs Pulse 82 11/22/21 14:44 Resp 18 11/22/21 14:44 BP 149/85 H 11/22/21 14:44 Pulse Ox 95 11/22/21 14:44 O2 Del Method 11/22/21 14:44 BMI result Body Mass Index 27.2 Gen: Appears be in no acute distress HEENT: NCAT, Moist mucosa. Pulmonary: Vesicular breath sounds, fair air entry CVS: Normal S1-S2 Abdomen: BS+, Soft, Nontender Extremities: Warm well perfused Neuro: Alert and awake. Results Labs CBC and Chem 7: 11/22/21 17:50 11/22/21 17:50 Labs: Laboratory Results - last 24 hr 11/22/21 11/22/21 11/22/21 15:18 15:18 17:50 MCV 92.3 MCH 27.8 MCHC 30.2 L RDW 16.4 H Plt Count 228 D MPV 11.9 Immature Gran % (Auto) 0.4 Neut % (Auto) 74.0 H Lymph % (Auto) 11.6 L [place] % (Auto) 11.2 H Eos % (Auto) 2.4 Baso % (Auto) 0.4 Lymph # (Auto) 0.5 L [place] # (Auto) 0.5 Eos # (Auto) 0.1 Baso # (Auto) 0.0 Abs Immat Gran (auto) 0.02 Absolute Neuts (auto) 3.4 Absolute Nucleated RBC 0.000 Nucleated RBC % (auto) 0.0 PT 13.1 INR 1.1 APTT 49.9 H Anion Gap 22 H Estim Creat Clear Calc 10.0 Estimated GFR 7 Random Glucose 81 Calcium 7.1 L D Total Bilirubin 0.4 AST 27 ALT < 6 Alkaline Phosphatase 87 Total Protein 8.3 H Albumin 2.8 L D COVID-19 ([facility]) COVID-19 Clin Com Blood Type Antibody Screen 11/22/21 11/22/21 17:50 17:50 MCV MCH MCHC RDW Plt Count MPV Immature Gran % (Auto) Neut % (Auto) Lymph % (Auto) [place] % (Auto) Eos % (Auto) Baso % (Auto) Lymph # (Auto) [place] # (Auto) Eos # (Auto) Baso # (Auto) Abs Immat Gran (auto) Absolute Neuts (auto) Absolute Nucleated RBC Nucleated RBC % (auto) PT INR APTT Anion Gap Estim Creat Clear Calc Estimated GFR Random Glucose Calcium Total Bilirubin AST ALT Alkaline Phosphatase Total Protein Albumin COVID-19 ([facility]) Negative COVID-19 Clin Com See Note Blood Type A Positive Antibody Screen NEGATIVE Imaging Radiologist's Impressions: Impressions Chest X-Ray 11/22/21 15:08 IMPRESSION: 1. New moderate-sized loculated bilateral pleural effusions. 2. Suspect mild fluid overload. 3. Chronic calcified right lower lobe and right middle lobe pneumonia. Assessment and Plan (1) Acute GI bleeding: Status: Acute (2) ESRD (end stage renal disease): Status: Acute Plan 51-year-old male with a past medical history of hypertension, hyperlipidemia, ESRD on hemodialysis, peripheral vascular disease, CAD, MILAD, anemia of chronic disease, history of GI bleed presented to the hospital today with a chief complaint of hematemesis. hematemesis: Denies any prior history of liver disease. Hemoglobin on presentation is 7.8. Remained stable on follow-up Vitals stable Serial H&H IV PPI b.i.d. Gastroenterology Dr. Nash aware of the patient NPO ESRD: Patient on hemodialysis. Continue home sevelamer. Nephrology consult. History of hypertension: Hold home antihypertensives in all to provide room for blood pressure given acute GI bleed concerns. History of CAD: Hold home aspirin until cleared by Gastroenterology History of Hyperlipidemia: Continue home statin DVT prophylaxis: SCD boots Code status: Full code Quality Stroke Does the patient have a stroke diagnosis?: No VTE Prior VTE?: No VTE Risk Level:: Medical - moderate - high VTE Device Contraindication: N/A - Device Ordered VTE Drug Contraindication: Treatment Not Indicated
--- NOTE | 2021-11-22 20:13 | PHA.MEDREC ---
MED REC COMPLETE, SPOKE TO PATIENTS PT DOES NOT REALLY KNOW HIS MEDICATIONS. UNCLEAR IF PT WAS STILL ON ASPIRIN AT HOME, LAST FILLED 90 DAY SUPPLY IN , BUT SPOUSE THINKS HE IS STILL SUPPOSED TO BE ON IT. Pharmacy Consult ? Medication Reconciliation Pharmacy has completed the medication reconciliation.
[2021-11-22 21:47] VITALS: BP 138/78; PULSE 70; RESP 20; TEMP 36.6; O2SAT 97
[2021-11-22 23:50] VITALS: BP 148/82; PULSE 72; RESP 20; O2SAT 90
[2021-11-23] VITALS (18 sets, daily range): BP systolic 101–152; BP diastolic 62–85; PULSE 64–89; RESP 16–23; TEMP 36.1–37.1; O2SAT 90–99; BMI 27.2
[2021-11-23] MEDS: Pantoprazole Sodium 80 MG in 0.9 % Sodium Chloride 80 ML 10 MG IV (00:37)
[2021-11-23] MEDS: Melatonin 3 MG TABLET 6 MG PO (00:42)
[2021-11-23] MEDS: Benzonatate 100 MG CAPSULE PO (00:42)
[2021-11-23 06:43] LABS: MANUAL DIFF FLAG NO
--- NOTE | 2021-11-23 06:45 | P.CNGI_ITS ---
History of Present Illness Data of Consult Service Date: 11/23/21 Requesting physician: Chris Talbot Primary Care Provider: Tessa Shelton MD [facility] Reason for consult: Upper GI bleed 51 YM with hypertension, hyperlipidemia, ESRD on hemodialysis, PVD, CAD, MILAD, anemia of chronic disease, history of GI bleed seen at [facility] on 11/22/21 with hematemesis/vomiting celena blood yesterday morning. Patient is unsure if he is taking aspirin (aspirin listed on his medication list) and denies being on any anticoagulants.? Pt denied any dizziness, shortness of breath, chest pain, palpitations, fever chills or cough? He complained of some abdominal discomfort on the sides of his abdomen only while vomiting.? Pt denied know history of liver disease or ETOH abuse.? He denied any black or bloody stool. Review of all other systems is negative except mentioned above ER course: Per ER team patient reportedly had few episodes of hematemesis prior to coming to the ER, did not have any episodes after coming to the ER.? Pt was hemodynamically stable and H & H decreased slightly from his baseline but remained stable on follow-up labs.? Pt was admitted to the hospital for further management LABS IN [facility] : Reviewed. IMAGING STUDIES: 09/[address] SCAN SHOWED: 1.? Hepatosplenomegaly. 2.? Atrophic cystic kidneys consistent with chronic renal failure. 3.? Scattered dense structures throughout the colon, presumably ingested of uncertain significance. Please correlate with clinical history. 4.? Osseous changes of renal failure and femoral head brown tumors most likely secondary to secondary hyperparathyroidism.? 5.? There is cholelithiasis, but no convincing evidence of cholecystitis. ENDOSCOPIC STUDIES: 08/21/20 EGD AND COLONOSCOPY WERE PERFORMED BY DR. MORA DURING HOSPITALIZATION FOR ANEMIA EGD showed esophagitis, gastritis and bulbar duodenitis. Colonoscopy showed diverticulosis and hemorrhoids. Three small to medium-sized polyps were removed (one polyp was a tubular adenoma). An outpatient Capsule Endoscopy showed antral gastritis and erosive duodenitis and no small bowel pathology was noted. Patient denies symptoms of dysphagia, change in appetite or weight. Denies being on chronic anticoagulation. Patient denies known family history of colon polyps, colon cancer or other GI malignancies. Review of Systems Review of Systems: Yes all other systems are reviewed and are negative Constitutional: Constitutional: Reports as per HPI and Denies fever(s) Eyes: Eyes: Reports as per HPI and Reports no additional eye complaints ENT: Reports system reviewed and no additional complaints, except as doc umented, Reports as per HPI, Denies nasal congestion, Denies nasal discharge and Denies sore throat Cardiovascular: Cardiovascular: Reports as per HPI, Denies chest pain and Denies dyspnea Respiratory: Respiratory: Reports as per HPI, Denies cough and Denies dyspnea Gastrointestinal: Gastrointestinal: Reports as per HPI, Denies abdominal pain, Denies melena, Denies hematochezia, Denies diarrhea, Reports vomiting and Reports hematemesis Musculoskeletal: Musculoskeletal: Reports no additional musculoskeletal complaints and Denies numbness Integumentary/Breasts: Skin/Breast: Reports as per HPI and Denies rash Neurologic: Reports as per HPI, Denies focal weakness and Denies numbness Psychiatric: Psychiatric: Reports no additional psychiatric complaints and Reports as per HPI Endocrine: Endocrine: Reports no additional endocrine complaints and Reports as per HPI Hematologic/Lymphatic: Hematologic/Lymphatic: Reports no additional hematologic/lymphatic complaints, Reports as per HPI and Reports other (No peripheral edema) [facility] Past Medical History Medical History (Updated 01/17/22 @ 00:04 by [facility] Dajason) Acute GI bleeding Anemia of chronic disease Arthritis of shoulder region, right, degenerative Blind left eye CAD (coronary artery disease) End stage kidney disease End stage renal disease on dialysis ESRD (end stage renal disease) ESRD (end stage renal disease) Hematuria of undiagnosed cause Hemoptysis Hyperlipidemia Hyperparathyroidism Hypertension MSSA bacteremia Myocardial infarction MILAD (obstructive sleep apnea) Peripheral vascular disease Pleural effusion Septic joint of right knee joint Family History Family History Mother HTN (hypertension) Surgical History Surgical History S/P left knee arthroscopy Social History Social History Household Members: Spouse Housing: Apartment Do you presently have visiting nurse or other home services: Yes ([employer]) Alcohol intake: never Patient Tobacco Use Status: Never used Tobacco Second Hand Smoke Exposure: No service: No Current occupational status: unemployed and disabled Meds Allergies Allergy/AdvReac Type Severity Reaction Status Date / Time No Known Drug Allergies Allergy Unknown UNKNOWN Verified 12/20/21 13:56 Active Medications: Current Medications Benzonatate (Benzonatate 100 Mg Capsule) 100 mg PO TID PRN PRN Reason: Cough Last Admin: 11/23/21 00:42 Dose: 100 mg Pantoprazole Sodium 80 mg/ (Sodium Chloride) 100 mls @ 10 mls/hr IV .Q10H REPLACED BY [facility] Last Admin: 11/23/21 00:37 Dose: 8 mg/hr, 10 mls/hr Melatonin (Melatonin 3 Mg Tablet) 6 mg PO BEDTIME PRN PRN Reason: Insomnia Last Admin: 11/23/21 00:42 Dose: 6 mg Pharmacy Consult (Consult Rx Perform Med Rec) 1 each MISCELLANE ONCE PRN PRN Reason: Consult order Senna (Sennosides 8.6 Mg Tablet) 17.2 mg PO BEDTIME PRN PRN Reason: Constipation Sodium Chloride (0.9 % Sodium Chloride Flush 3 Ml Syringe) 3 ml IVFLUSH QSHIFT REPLACED BY [facility] Last Admin: 11/22/21 23:26 Dose: Not Given Home Medications Medication Instructions Recorded Confirmed Last Taken Type atorvastatin 80 mg tablet 80 mg PO BEDTIME 05/17/21 01/07/22 01/06/22 History cholecalciferol (vitamin D3) 50 50 mcg PO DAILY 05/17/21 01/07/22 01/06/22 History mcg (2,000 unit) capsule (Vitamin D3) sevelamer carbonate 800 mg tablet 2,400 mg PO TIDWM 05/17/21 01/07/22 01/06/22 History Physical Exam Vital Signs: Vital Signs: Last Vital Signs Temp 97.8 F 11/22/21 21:47 Pulse 83 11/23/21 04:07 Resp 20 11/23/21 04:07 BP 117/62 11/23/21 04:07 Pulse Ox 90 L 11/22/21 23:50 O2 Del Method 11/23/21 04:07 O2 Flow Rate 2 11/23/21 04:07 BMI result Body Mass Index 27.2 Const: General: no acute distress and ill appearing Nutritional Appearance: overweight Orientation/consciousness: patient oriented x3 HEENT: Head: Yes normal to inspection Ears: hearing grossly normal bilaterally Eyes: Sclerae: sclerae normal Pupils: Equal, round and reactive pupils present Neck: Neck: Yes normal visual inspection Chest: Chest palpation & inspection: normal inspection of the chest Resp: Effort & Inspection: normal respiratory effort Auscultation: clear to auscultation bilaterally Cardio: Palpation: normal PMI Rate: regular rate Rhythm: regular rhythm Heart sounds: S1 normal heart sound present, S2 normal heart sound present and no murmurs GI: Palpation (GI): Soft to palpation, nontender and No hepatosplenomegaly present Auscultation: normal bowel sounds Rectal Exam - Male: Yes deferred Skin: General skin exam: no rashes or lesions noted Neuro: General: patient oriented x3, gait normal and moves all extremities Cranial nerves: Yes Equal, round and reactive pupils present Psych: Appearance: grossly normal Mental Status: mental status grossly normal Results Labs CBC & Chem 7: 11/23/21 06:22 11/23/21 06:22 Labs: Short CBC 11/22/21 11/22/21 Range/Units 15:18 17:50 WBC 4.6 L (4.8-10.8) X10*3/uL Hgb 7.9 L 7.8 L (14.0-18.0) g/dl Hct 26.2 L 25.1 L (42.0-52.0) % Plt Count 228 D (160-400) X10*3/uL BMP 11/22/21 17:50 Sodium 140 Potassium 4.0 Chloride 94 L Carbon Dioxide 28 BUN 36 H Creatinine 8.39 H* Calcium 7.1 L D Liver Function 11/22/21 Range/Units 17:50 Total Bilirubin 0.4 (0.0-1.0) mg/dL AST 27 (5-37) U/L ALT < 6 (0-40) U/L Alkaline Phosphatase 87 (39-117) U/L Albumin 2.8 L D (3.5-5.0) g/dL Assessment and Plan (1) Acute blood loss anemia: Status: Resolved (2) Gastrointestinal hemorrhage with hematemesis: Status: Resolved Plan 51 YM with hypertension, hyperlipidemia, ESRD on hemodialysis, PVD, CAD, MILAD, anemia of chronic disease, history of GI bleed seen at [facility] on 11/22/21 with hematemesis/vomiting celena blood yesterday morning. Patient is unsure if he is taking aspirin (aspirin listed on his medication list) and denies being on any anticoagulants.? Per ER team patient reportedly had few episodes of hematemesis prior to coming to the ER, did not have any episodes after coming to the ER.? Pt was hemodynamically stable and H & H decreased slightly from his baseline but remained stable on follow-up labs.? Pt was admitted to the hospital for further management IMAGING STUDIES: 09/[address] SCAN SHOWED: 1.? Hepatosplenomegaly. 2.? Atrophic cystic kidneys consistent with chronic renal failure. 3.? Scattered dense structures throughout the colon, presumably ingested of uncertain significance. Please correlate with clinical history. 4.? Osseous changes of renal failure and femoral head brown tumors most likely secondary to secondary hyperparathyroidism.? 5.? There is cholelithiasis, but no convincing evidence of cholecystitis. ENDOSCOPIC STUDIES: 08/21/20 EGD AND COLONOSCOPY WERE PERFORMED BY DR. MORA DURING HOSPITALIZATION FOR ANEMIA EGD showed esophagitis, gastritis and bulbar duodenitis. Colonoscopy showed diverticulosis and hemorrhoids. Three small to medium-sized polyps were removed (one polyp was a tubular adenoma). An outpatient Capsule Endoscopy showed antral gastritis and erosive duodenitis and no small bowel pathology was noted. RECOMMENDATIONS: 1. Follow H & H 2. Agree with IV PPI infusion 3. Proceed with EGD today to rule out PUD, erosive esophagitis, UGI AVMs. Procedures Date of Service Date of Service: 11/23/21
[2021-11-23 06:47] LABS: Basophils Percent Auto 0.5 % (0-2); Eosinophils Absolute Auto 0.2 X10*3/uL (0.0-0.4); Eosinophils Percent Auto 4.1 % (0-4); Hematocrit 26.7 % (42.0-52.0); Hemoglobin 8.1 g/dl (14.0-18.0); Imm Gran Abs Auto 0.02 X10*3/uL (0.00-0.03); Imm Gran Pct Auto 0.5 % (0.0-0.4); Lymphocytes Absolute Auto 0.6 X10*3/uL (1.2-4.9); Lymphocytes Percent Auto 15.3 % (20-40); Mean Corpuscular HGB Conc 30.3 g/dl (31.0-36.0); Mean Corpuscular Volume 92.4 fL (80.0-98.0); Mean Platelet Volume 11.8 fL (9.4-12.4); Monocytes Absolute Auto 0.5 X10*3/uL (0.1-1.2); Monocytes Percent Auto 13.6 % (2-11); Neutrophils Absolute Auto 2.4 x10*3/uL (2.0-8.3); Platelet Count 205 X10*3/uL (160-400); Red Blood Count 2.89 X10*6/uL (4.60-5.80); Red Cell Distribution Width 16.2 % (11.0-16.0); White Blood Count 3.7 X10*3/uL (4.8-10.8)
[2021-11-23 07:13] LABS: Anion Gap 23 (12-20); Blood Urea Nitrogen 40 mg/dL (9-16); Calcium 7.5 mg/dL (8.4-10.2); Carbon Dioxide 28 mmol/L (22-29); Chloride 93 mmol/L (96-108); Creatinine Clr Calc Pharmacy 9.1; Estimated Glomerular Filt Rate 6; Glucose Random 72 mg/dL (60-115); Potassium 4.3 mmol/L (3.3-5.1); Sodium 140 mmol/L (135-145)
--- NOTE | 2021-11-23 09:34 | P.PNIM_ITS ---
Subjective Subjective Date of Service: 11/23/21 Interval History: Follow-up on GI bleed, acute blood loss anemia. Interval history: HIDA hematemesis as earlier this morning. He is hemodyn amically stable. Review of Systems Hematemesis this morning no sob, no cp Physical Exam Vital Signs: Vital Signs: Last Vital Signs Temp 97.8 F 11/22/21 21:47 Pulse 77 11/23/21 08:17 Resp 18 11/23/21 08:17 BP 134/81 11/23/21 08:17 Pulse Ox 94 11/23/21 08:17 O2 Del Method 11/23/21 08:17 O2 Flow Rate 2 11/23/21 08:17 BMI result Body Mass Index 27.2 Objective Data Active Medications Benzonatate (Benzonatate 100 Mg Capsule) 100 mg PO TID PRN PRN Reason: Cough Last Admin: 11/23/21 00:42 Dose: 100 mg Documented By: CORNELIUS Pantoprazole Sodium 80 mg/ (Sodium Chloride) 100 mls @ 10 mls/hr IV .Q10H [facility] Last Admin: 11/23/21 00:37 Dose: 8 mg/hr, 10 mls/hr Documented By: CORNELIUS Melatonin (Melatonin 3 Mg Tablet) 6 mg PO BEDTIME PRN PRN Reason: Insomnia Last Admin: 11/23/21 00:42 Dose: 6 mg Documented By: CORNELIUS Pharmacy Consult (Consult Rx Perform Med Rec) 1 each MISCELLANE ONCE PRN PRN Reason: Consult order Senna (Sennosides 8.6 Mg Tablet) 17.2 mg PO BEDTIME PRN PRN Reason: Constipation Sodium Chloride (0.9 % Sodium Chloride Flush 3 Ml Syringe) 3 ml IVFLUSH QSHIFT [facility] Last Admin: 11/23/21 08:16 Dose: Not Given Documented By: MASON Non-Admin Reason: IV Running Labs CBC & Chem 7: 11/23/21 06:22 11/23/21 06:22 Labs: Laboratory Results - last 24 hr 11/22/21 11/22/21 11/22/21 15:18 15:18 17:50 MCV 92.3 MCH 27.8 MCHC 30.2 L RDW 16.4 H Plt Count 228 D MPV 11.9 Immature Gran % (Auto) 0.4 Neut % (Auto) 74.0 H Lymph % (Auto) 11.[address] [place] % (Auto) 11.2 H Eos % (Auto) 2.4 Baso % (Auto) 0.4 Lymph # (Auto) 0.[address] # (Auto) 0.5 Eos # (Auto) 0.1 Baso # (Auto) 0.0 Abs Immat Gran (auto) 0.02 Absolute Neuts (auto) 3.4 Absolute Nucleated RBC 0.000 Nucleated RBC % (auto) 0.0 PT 13.1 INR 1.1 APTT 49.9 H Anion Gap 22 H Estim Creat Clear Calc 10.0 Estimated GFR 7 Random Glucose 81 Calcium 7.1 L D Total Bilirubin 0.4 AST 27 ALT < 6 Alkaline Phosphatase 87 Total Protein 8.3 H Albumin 2.8 L D COVID-19 (VALENTIN) [email or web address] Com Blood Type Antibody Screen 11/22/21 11/22/21 11/23/21 17:50 17:50 06:22 MCV 92.4 MCH 28.0 MCHC 30.3 L RDW 16.2 H Plt Count 205 MPV 11.8 Immature Gran % (Auto) 0.5 H Neut % (Auto) 66.0 Lymph % (Auto) 15.[address] [place] % (Auto) 13.6 H Eos % (Auto) 4.1 H Baso % (Auto) 0.5 Lymph # (Auto) 0.[address] # (Auto) 0.5 Eos # (Auto) 0.2 Baso # (Auto) 0.0 Abs Immat Gran (auto) 0.02 Absolute Neuts (auto) 2.4 Absolute Nucleated RBC 0.000 Nucleated RBC % (auto) 0.0 PT INR APTT Anion Gap Estim Creat Clear Calc Estimated GFR Random Glucose Calcium Total Bilirubin AST ALT Alkaline Phosphatase Total Protein Albumin COVID-19 ([facility]) Negative [email or web address] Com See Note Blood Type A Positive Antibody Screen NEGATIVE 11/23/21 06:22 MCV MCH MCHC RDW Plt Count MPV Immature Gran % (Auto) Neut % (Auto) Lymph % (Auto) [place] % (Auto) Eos % (Auto) Baso % (Auto) Lymph # (Auto) [place] # (Auto) Eos # (Auto) Baso # (Auto) Abs Immat Gran (auto) Absolute Neuts (auto) Absolute Nucleated RBC Nucleated RBC % (auto) PT INR APTT Anion Gap 23 H Estim Creat Clear Calc 9.1 Estimated GFR 6 Random Glucose 72 Calcium 7.5 L Total Bilirubin AST ALT Alkaline Phosphatase Total Protein Albumin COVID-19 ([facility]) COVID-19 Clin Com Blood Type Antibody Screen Assessment and Plan (1) Gastrointestinal hemorrhage with hematemesis: Status: Acute (2) Acute GI bleeding: Status: Acute (3) Acute blood loss anemia: Status: Acute Plan 51-year-old male with a past medical history of hypertension, hyperlipidemia, ESRD on hemodialysis, peripheral vascular disease, CAD, MILAD, anemia of chronic disease, history of GI bleed presented to the hospital today with a chief complaint of hematemesis.? hematemesis with acute blood loss anemia Hemoglobin on presentation is 7.8.? Remained stable on follow-up Serial H&H IV PPI b.i.d. Gastroenterology Dr. Nash aware of the patient NPO ESRD: Patient on hemodialysis MWF.? Continue home sevelamer.? Nephrology consult.? History of hypertension: Hold home antihypertensives in all to provide room for blood pressure given acute GI bleed concerns.? History of CAD: Hold home aspirin until cleared by Gastroenterology History of ? Hyperlipidemia: Continue home statin DVT prophylaxis:? SCD boots Code status:? Full code Need for inpatient:Ongoing GI bleed, anemia and need GI work up Quality Stroke Does the patient have a stroke diagnosis?: No VTE Prior VTE?: No VTE Risk Level:: Medical - moderate - high VTE Device Contraindication: N/A - Device Ordered VTE Drug Contraindication: Treatment Not Indicated
--- NOTE | 2021-11-23 09:58 | P.CONAN_ITS ---
[facility] Active Problems Active Problems: All Active Problems (Updated 11/23/21 @ 09:46 by Todd Rosenthal MD) Acute blood loss anemia (Acute) Gastrointestinal hemorrhage with hematemesis (Acute) Pleural effusion (Acute) Acute GI bleeding (Acute) Hematuria of undiagnosed cause (Acute) Stable angina (Acute) MILAD (obstructive sleep apnea) (Acute) Peripheral vascular disease (Acute) CAD (coronary artery disease) (Acute) Non-ST elevation CA (NSTEMI) (Acute) ESRD (end stage renal disease) (Acute) Hypertension (Acute) Anemia of chronic disease (Acute) ESRD (end stage renal disease) (Acute) Arthritis of shoulder region, left, degenerative (Acute) Past Medical History Medical History (Updated 11/23/21 @ 09:46 by Todd Rosenthal MD) Acute GI bleeding Anemia of chronic disease Arthritis of shoulder region, right, degenerative Blind left eye CAD (coronary artery disease) ESRD (end stage renal disease) Hematuria of undiagnosed cause Hyperlipidemia Hyperparathyroidism Hypertension MSSA bacteremia Myocardial infarction MILAD (obstructive sleep apnea) Peripheral vascular disease Septic joint of right knee joint Family History Family History Mother HTN (hypertension) Family history of problems with anesthesia: No Surgical History Surgical History S/P left knee arthroscopy History of Problems with Anesthesia: No Social History Social History Household Members: Spouse Housing: House Do you presently have visiting nurse or other home services: No Alcohol intake: never Patient Tobacco Use Status: Never used Tobacco Second Hand Smoke Exposure: No Use of substances other than those prescribed or required for medical reasons: No Advance Directives: No Advance Directives Information Provided: No Advance Directives on File: No service: No Current occupational status: unemployed and disabled Meds Allergies Allergy/AdvReac Type Severity Reaction Status Date / Time No Known Drug Allergies Allergy Unknown UNKNOWN Verified 09/12/20 13:41 Active Medications: Current Medications Benzonatate (Benzonatate 100 Mg Capsule) 100 mg PO TID PRN PRN Reason: Cough Last Admin: 11/23/21 00:42 Dose: 100 mg Pantoprazole Sodium 80 mg/ (Sodium Chloride) 100 mls @ 10 mls/hr IV .Q10H [facility] Last Admin: 11/23/21 00:37 Dose: 8 mg/hr, 10 mls/hr Melatonin (Melatonin 3 Mg Tablet) 6 mg PO BEDTIME PRN PRN Reason: Insomnia Last Admin: 11/23/21 00:42 Dose: 6 mg Pharmacy Consult (Consult Rx Perform Med Rec) 1 each MISCELLANE ONCE PRN PRN Reason: Consult order Senna (Sennosides 8.6 Mg Tablet) 17.2 mg PO BEDTIME PRN PRN Reason: Constipation Sodium Chloride (0.9 % Sodium Chloride Flush 3 Ml Syringe) 3 ml IVFLUSH QSHIFT [facility] Last Admin: 11/23/21 08:16 Dose: Not Given Home Medications Medication Instructions Recorded Confirmed Last Taken Type aspirin 81 mg tablet,delayed 81 mg PO DAILY 05/17/21 11/22/21 Unknown History release atorvastatin 80 mg tablet 80 mg PO BEDTIME 05/17/21 11/22/21 Unknown History cholecalciferol (vitamin D3) 50 50 mcg PO DAILY 05/17/21 11/22/21 Unknown History mcg (2,000 unit) capsule (Vitamin D3) pantoprazole 40 mg tablet,delayed 40 mg PO DAILY 05/17/21 11/22/21 Unknown History release sevelamer carbonate 800 mg tablet 2,400 mg PO TIDWM 05/17/21 11/22/21 Unknown History acetaminophen 325 mg tablet 650 mg PO Q4H PRN Pain (Scale 11/22/21 11/22/21 Unkn own History Score 1-3) Exam Exam Date and Time: November 23, 2021 0958 Height,Weight and Vital Signs: Height 5 ft 6 in Weight 76.657 kg Last Vital Signs Temp 97.8 F 11/22/21 21:47 Pulse 77 11/23/21 08:17 Resp 18 11/23/21 08:17 BP 134/81 11/23/21 08:17 Pulse Ox 94 11/23/21 08:17 O2 Del Method 11/23/21 08:17 O2 Flow Rate 2 11/23/21 08:17 Pertinent Lab Results Pertinent Lab Results: Laboratory Tests 11/22/21 11/22/21 11/22/21 15:18 15:18 17:50 WBC 4.6 L RBC 2.84 L Hgb 7.9 L Hct 26.2 L MCV 92.3 MCH 27.8 MCHC 30.2 L RDW 16.4 H Plt Count 228 D MPV 11.9 Immature Gran % (Auto) 0.4 Neut % (Auto) 74.0 H Lymph % (Auto) 11.6 L [place] % (Auto) 11.2 H Eos % (Auto) 2.4 Baso % (Auto) 0.4 Lymph # (Auto) 0.5 L [place] # (Auto) 0.5 Eos # (Auto) 0.1 Baso # (Auto) 0.0 Abs Immat Gran (auto) 0.02 Absolute Neuts (auto) 3.4 Absolute Nucleated RBC 0.000 Nucleated RBC % (auto) 0.0 PT 13.1 INR 1.1 APTT 49.9 H Sodium 140 Potassium 4.0 Chloride 94 L Carbon Dioxide 28 Anion Gap 22 H BUN 36 H Creatinine 8.39 H* Estim Creat Clear Calc 10.0 Estimated GFR 7 Random Glucose 81 Calcium 7.1 L D Total Bilirubin 0.4 AST 27 ALT < 6 Alkaline Phosphatase 87 Total Protein 8.3 H Albumin 2.8 L D COVID-19 (VAL[facility]IN) COVID-19 [employer] Com Blood Type Antibody Screen 11/22/21 11/22/21 11/22/21 17:50 17:50 17:50 WBC RBC Hgb 7.8 L Hct 25.1 L MCV MCH MCHC RDW Plt Count MPV Immature Gran % (Auto) Neut % (Auto) Lymph % (Auto) [place] % (Auto) Eos % (Auto) Baso % (Auto) Lymph # (Auto) [place] # (Auto) Eos # (Auto) Baso # (Auto) Abs Immat Gran (auto) Absolute Neuts (auto) Absolute Nucleated RBC Nucleated RBC % (auto) PT INR APTT Sodium Potassium Chloride Carbon Dioxide Anion Gap BUN Creatinine Estim Creat Clear Calc Estimated GFR Random Glucose Calcium Total Bilirubin AST ALT Alkaline Phosphatase Total Protein Albumin COVID-19 (VALENTIN) Negative COVID-19 [employer] See Note Blood Type A Positive Antibody Screen NEGATIVE 11/23/21 11/23/21 06:22 06:22 WBC 3.7 L RBC 2.89 L Hgb 8.1 L Hct 26.7 L MCV 92.4 MCH 28.0 MCHC 30.3 L RDW 16.2 H Plt Count 205 MPV 11.8 Immature Gran % (Auto) 0.5 H Neut % (Auto) 66.0 Lymph % (Auto) 15.3 L [place] % (Auto) 13.6 H Eos % (Auto) 4.1 H Baso % (Auto) 0.5 Lymph # (Auto) 0.6 L [place] # (Auto) 0.5 Eos # (Auto) 0.2 Baso # (Auto) 0.0 Abs Immat Gran (auto) 0.02 Absolute Neuts (auto) 2.4 Absolute Nucleated RBC 0.000 Nucleated RBC % (auto) 0.0 PT INR APTT Sodium 140 Potassium 4.3 Chloride 93 L Carbon Dioxide 28 Anion Gap 23 H BUN 40 H Creatinine 9.23 H* Estim Creat Clear Calc 9.1 Estimated GFR 6 Random Glucose 72 Calcium 7.5 L Total Bilirubin AST ALT Alkaline Phosphatase Total Protein Albumin COVID-19 ([facility]) COVID-19 Clin Com Blood Type Antibody Screen Airway Mallampati Class: III (Thick neck) TM Dist: >3cm Neck ROM: Full Heart: rrr Lungs: cta Assessment and Plan Assessment Anesthesia Assessment: Anesthesia Plan Discussed and Chart Reviewed Final Anesthetic Review Family History of Problems with Anesthesia: No History of Problems with Anesthesia: No ASA Class: IV and Emergency Final Preanesthetic Review: No Changes in Pt Med Stat, Meds/Allgs Chart Reviewed and Consent Obtained/Reviewed Patient Risk: High Procedure Risk: Intermediate Anesthetic Plan Anesthetic Plan: GA (Secondary to airway and MILAD) Disposition: Standard PACU
--- NOTE | 2021-11-23 10:02 | PC.NURSE ---
Report given to GRISEL Mojica in [facility] for upper endoscopy.
--- NOTE | 2021-11-23 10:41 | PC.NURSE ---
pt has IV protonix infusing, per Dr. Nash protonix can be stopped for procedure to be able to access IV site for anesthesia.
--- NOTE | 2021-11-23 11:47 | PM.OP ---
Brief Operative Note Date of Service: 11/23/21 Pre-op diagnosis: upper GI bleeding Post-op diagnosis: other (Esophageal Varix, gastritis, duodenitis) Procedure: FLEXIBLE TRANSORAL UPPER GASTROINTESTINAL ENDOSCOPY Consent: Indications for the procedure and potential complications of bleeding, perforation, reaction to medications and missed diagnosis were discussed with the patient and informed consent was obtained. Instrument: Olympus GIF H 190 mid size upper endoscope Monitoring: Vital signs and clinical assessment, continuous EKG monitoring, Pulse oximetry, Carbon Dioxide monitoring and blood pressure monitoring were done throughout the procedure. Procedure: The patient was placed in the left lateral decubitis position and pre-procedure medications were administered and a bite block was placed. The endoscope was inserted into the mouth and advanced under direct vision to the third part of duodenum. A careful inspection was made as the upper endoscope was withdrawn including a retroflexed examination of the proximal stomach; Findings and interventions are described below. Findings: Larynx: Normal Esophagus: A single column grade 1 to 2 non bleeding varix from 28 to 45 cms without high risk stigmata for bleeding and not amenable to band ligation. GE junction at 45 cms. No esophagitis and no Sheppard's found on biopsies obtained during past EGD.. Stomach: Mild gastric erythema. Grade 2 flap valve and no gastric varices noted on retroflexed examination of the cardia. Duodenum: Patchy erythema with duodenitis in the bulb and normal descending duodenum Intervention: None Impression and Post Procedure Diagnosis: Endoscopy Findings: ESOPHAGUS: A single column grade 1 to 2 non bleeding varix from 28 to 45 cms without high risk stigmata for bleeding and not amenable to band ligation. GE junction at 45 cms. No esophagitis and no Sheppard's found on biopsies obtained during past EGD.. STOMACH: Mild gastric erythema. Grade 2 flap valve and no gastric varices noted on retroflexed examination of the cardia. DUODENUM: Patchy erythema with duodenitis in the bulb No blood seen in the UGI tract seen during EGD. Some fresh blood noted around the larynx by anesthesia during intubation. No clear etiology found for UGI bleed - ? ENT source Plan: OK to start PO diet and switch to oral PPI. ENT evaluation if he has recurrent bleeding. 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 Above findings were reviewed with the patient Surgeon: Irvin Nash MD Anesthesia: GETA (Dr Chamberlain) Was an Tourist Camp Attendant used for this Procedure?: Yes Tourist Camp Attendant: Gem Lundberg Estimated blood loss (mL): 0 Pathology: none sent Condition: stable Disposition: PACU
--- NOTE | 2021-11-23 11:59 | P.OP_ITS ---
Operative Note Operative Note Date of Service: 11/23/21 Narrative: Pre-op diagnosis: upper GI bleeding Post-op diagnosis:?other (esophageal Varix, gastritis, duodenitis) Procedure: FLEXIBLE TRANSORAL UPPER GASTROINTESTINAL ENDOSCOPY Consent:?Indications for the procedure and potential complications of bleeding, perforation, reaction to medications and missed diagnosis were discussed with the patient and informed consent was obtained. Instrument:?Olympus GIF H 190 mid size upper endoscope Monitoring: Vital signs and clinical assessment, continuous EKG monitoring, Pulse oximetry, Carbon Dioxide monitoring and blood pressure monitoring were done throughout the procedure. Procedure:?The patient was placed in the left lateral decubitis position and pre-procedure medications were administered and a bite block was placed. The endoscope was inserted into the mouth and advanced under direct vision to the third part of duodenum. A careful inspection was made as the upper endoscope was withdrawn including a retroflexed examination of the proximal stomach; Findings and interventions are described below. Findings: Larynx:? Normal Esophagus: A single column grade 1 to 2 non bleeding varix from 28 to 45 cms without high risk stigmata for bleeding and not amenable to band ligation. GE junction at 45 cms. No esophagitis and no Sheppard's? found on biopsies obtained during past EGD.. Stomach: Mild gastric erythema. Grade 2 flap valve and no gastric varices noted on retroflexed examination of the cardia. Duodenum: Patchy erythema with duodenitis in the bulb and normal descending duodenum Intervention: None Impression and Post Procedure Diagnosis: Endoscopy Findings: ESOPHAGUS: A single column grade 1 to 2 non bleeding varix from 28 to 45 cms without high risk stigmata for bleeding and not amenable to band ligation. GE junction at 45 cms. No esophagitis and no Sheppard's? found on biopsies obtained during past EGD.. STOMACH: Mild gastric erythema. Grade 2 flap valve and no gastric varices noted on retroflexed examination of the cardia. DUODENUM: Patchy erythema with duodenitis in the bulb No blood seen in the UGI tract seen during EGD. Some fresh blood noted around the larynx by anesthesia during intubation. No clear etiology found for UGI bleed - ? ENT source Plan: OK to start PO diet and switch to oral PPI. ENT evaluation if he has recurrent bleeding. Above findings were reviewed with the patient Surgeon: Irvin Nash MD Anesthesia:?GETA (Dr Chamberlain) Was an Termite Renewal Inspector used for this Procedure?:?Yes Termite Renewal Inspector:?Gem Lundberg Estimated blood loss (mL):?0 Pathology:?none sent Condition:?stable Disposition:?PACU
--- NOTE | 2021-11-23 14:08 | MHC.CM.PN ---
CM ATTEMPTED TO MEET WITH PT WITH THE ASSISTANCE OF STOCK PREPARATION OPERATOR PT OFF UNIT CM TO RETURN
--- NOTE | 2021-11-23 15:43 | PC.NURSE ---
Spoke to ED charge nurse who has patient belongings still in ED. She will bring up patient's belongings to 454
[2021-11-24] VITALS (7 sets, daily range): BP systolic 101–163; BP diastolic 68–85; PULSE 73–82; RESP 16–19; TEMP 36.6–37.2; O2SAT 91–96
--- NOTE | 2021-11-24 | ECG_ITS ---
Test Reason : CHEST TIGHTNESS Blood Pressure : / mmHG Vent. Rate : 082 BPM Atrial Rate : 082 BPM P-R Int : 256 ms QRS Dur : 060 ms QT Int : 362 ms P-R-T Axes : 071 055 121 degrees QTc Int : 422 ms Sinus rhythm with 1st degree A-V block Low voltage QRS Septal infarct (cited on or before 25-APR-2021) Nonspecific T wave abnormality Abnormal ECG When compared with ECG of 22-NOV-2021 15:54, Nonspecific T wave abnormality now evident in Inferior leads QT has shortened Referred By: Chris Talbot Electronically Signed By:BIJAL LUBIN
--- NOTE | 2021-11-24 00:03 | PM.EVENT ---
Event Note Date of Service: 11/24/21 Event Note: Chest pain/Shoulder pain: EKg, troponins ordered NTG SL
[2021-11-24] MEDS: Nitroglycerin 0.4 MG TAB.SUBL SUBLINGUAL (00:13)
[2021-11-24] MEDS: Melatonin 3 MG TABLET 6 MG PO (00:39)
[2021-11-24] MEDS: HYDROmorphone HCl 0.5 MG/0.5 ML SYRINGE IVPUSH ×2 (00:42→21:13)
[2021-11-24 00:49] LABS: Troponin-I High Sensitivity 11.7 ng/L (<3.5-35.0)
[2021-11-24] MEDS: Pantoprazole Sodium 80 MG in 0.9 % Sodium Chloride 80 ML 10 MG IV (01:10)
[2021-11-24 08:23] LABS: Ferritin 3708 ng/mL (20-250)
[2021-11-24] MEDS: 0.9 % Sodium Chloride Flush 3 ML SYRINGE IVFLUSH ×3 (08:56→21:20)
--- NOTE | 2021-11-24 15:05 | HO.POSTANES ---
Post Anesthesia Evaluation Post Anesthesia Evaluation Vital Signs: Vital Signs Temp Pulse Resp BP Pulse Ox O2 Del Method O2 Flow Rate 11/24/21 11:58 93 Nasal Cannula 11/24/21 11:25 98.9 F 73 19 146/81 H 93 Nasal Cannula 2 11/24/21 07:36 98.9 F 76 19 163/85 H 96 Nasal Cannula 2 Anesthesia: General Mental Status: Awake Pain Control: Satisfactory Nausea/Vomiting: None Hydration: Adequate Anesthesia-Related Issues: No Anes. Related Issues
--- NOTE | 2021-11-24 16:31 | HO.PM.IMPN ---
Subjective Subjective Date of Service: 11/25/21 Interval History: no new issues, no gib waiting for dialysis Review of Systems no n/v no gib Physical Exam Vital Signs: Vital Signs: Last Vital Signs Temp 97.8 F 11/24/21 15:16 Pulse 78 11/24/21 15:16 Resp 16 11/24/21 15:16 BP 141/73 H 11/24/21 15:16 Pulse Ox 95 11/24/21 15:16 O2 Del Method 11/24/21 15:16 O2 Flow Rate 2 11/24/21 11:25 Oxygen Flow Rate 2 11/24/21 11:58 BMI result Body Mass Index 27.2 Objective Data Active Medications Benzonatate (Benzonatate 100 Mg Capsule) 100 mg PO TID PRN PRN Reason: Cough Last Admin: 11/23/21 00:42 Dose: 100 mg Documented By: CORNELIUS Hydromorphone HCl (Hydromorphone Hcl 0.5 Mg/0.5 Ml Syringe) 0.5 mg IVPUSH Q4H PRN; Protocol PRN Reason: Breakthrough Pain Last Admin: 11/24/21 00:42 Dose: 0.5 mg Documented By: DARREN Melatonin (Melatonin 3 Mg Tablet) 6 mg PO BEDTIME PRN PRN Reason: Insomnia Last Admin: 11/24/21 00:39 Dose: 6 mg Documented By: DARREN Nitroglycerin (Nitroglycerin 0.4 Mg Tab.Subl) 0.4 mg SUBLINGUAL Q5MX3 PRN PRN Reason: Chest Pain Last Admin: 11/24/21 00:13 Dose: 0.4 mg Documented By: DARREN Pharmacy Consult (Consult Rx Perform Med Rec) 1 each MISCELLANE ONCE PRN PRN Reason: Consult order Senna (Sennosides 8.6 Mg Tablet) 17.2 mg PO BEDTIME PRN PRN Reason: Constipation Sodium Chloride (0.9 % Sodium Chloride Flush 3 Ml Syringe) 3 ml IVFLUSH QSHIFT SOFIA Last Admin: 11/24/21 15:11 Dose: 3 ml Documented By: GEORGE Labs CBC & Chem 7: 11/23/21 06:22 11/23/21 06:22 Labs: Laboratory Results - last 24 hr 11/24/21 06:28 Ferritin 3708 H Assessment and Plan (1) Gastrointestinal hemorrhage with hematemesis: Status: Acute (2) Acute GI bleeding: Status: Acute (3) Acute blood loss anemia: Status: Acute Plan 51-year-old male with a past medical history of hypertension, hyperlipidemia, ESRD on hemodialysis, peripheral vascular disease, CAD, MILAD, anemia of chronic disease, history of GI bleed presented to the hospital today with a chief complaint of hematemesis.? hematemesis with acute blood loss anemia EGD no source of bleed, H/H stable no further bleed. PPI, ENT eval if rebleed ESRD: Patient on hemodialysis MWF.? Missed dialysis yesterday, make up today (friday)? History of hypertension: Hold home antihypertensives in all to provide room for blood pressure given acute GI bleed concerns.? History of CAD: Hold home aspirin until cleared by Gastroenterology History of ? Hyperlipidemia: Continue home statin DVT prophylaxis:? SCD boots Code status:? Full code Need for inpatient:Ongoing GI bleed, anemia and need GI work up and need for late dialysis Quality Stroke Does the patient have a stroke diagnosis?: No VTE Prior VTE?: No VTE Risk Level:: Medical - moderate - high VTE Device Contraindication: N/A - Device Ordered VTE Drug Contraindication: Treatment Not Indicated
--- NOTE | 2021-11-24 22:37 | PM.EVENT ---
Event Note Date of Service: 11/24/21 Event Note: Bacteremia: Will continue Cefazolin Records from [facility] show the following--> MSSA bactremia: History of line related MSSA bacteremia with multiple attempts at vascular access Blood culture x2 from 11/02 positive for staph aureus. Catheter tip culture grow staph aureus and SERGIO PARAPSILOSIS. patient had a low-grade temperature, currently afebrile with no leukocytosis -follow blood cultures 11/04--->NGTD ID consulted, Recommend switching to Cefazolin [id number] post every dialysis session for a total of 6 weeks 11/03-12/15/2021. Renal will arrange it. CBC with diff, LFTs weekly as an outpatient. Fluconazole 50 mg for 5 days for candidal dermatitis. Follow up in clinic in 2-4 weeks -[facility] reconsulted, the source has been HD catheter infection. Repeat blood cultures are negative and patient does not appear to be septic now. TTE does not show vegetation but its not sensitive enough. If there is high clinical suspicion for infective endocarditis from ID team then recommend transesophageal echocardiogram, otherwise continue antibiotics. Follow-up with ID outpatient Pulmonary nodule (R91.1): -New 2 cm mass in the left upper lobe on CTA 11/02/2021 -Stable on RA, no sob or cp -Seen by Pulm--->possible endocarditis vs septic emboli, obtain echo. repeat ct scan in 6 weeks to evaluate for resolution and then likely EBUS/biopsy if concern for malignancy remains -Echo ---> The left ventricle is poorly visualized. The overall LV systolic function is grossly normal . Regional wall motion is difficult to assess due to poor endocardial definition despite use of Definity contrast. Cannot rule out anteroseptal wall severe hypokinesis . Cannot rule out apical wall hypokinesis . The right ventricle is poorly visualized. -[facility] reconsulted, the source has been HD catheter infection. Repeat blood cultures are negative and patient does not appear to be septic now. TTE does not show vegetation but its not sensitive enough. If there is high clinical suspicion for infective endocarditis from ID team then recommend transesophageal echocardiogram, otherwise continue antibiotics. Follow-up pulmonary outpatient
--- NOTE | 2021-11-24 22:56 | HE.PHANOTE ---
Dr. Mcguire called regarding pt's post dialysis doses for cefazolin 2g - cefazolin 2g - cefazolin 3g to be given on dialysis days respectively. Confirmed with Ni that he is scheduled for dialysis days [facility] and put in orders accordingly.
[2021-11-25] MEDS: Melatonin 3 MG TABLET 6 MG PO (00:47)
[2021-11-25 00:51] VITALS: RESP 18
[2021-11-25] MEDS: HYDROmorphone HCl 0.5 MG/0.5 ML SYRINGE IVPUSH (00:51)
[2021-11-25 03:34] VITALS: BP 133/72; PULSE 80; RESP 16; TEMP 37.2; O2SAT 93
[2021-11-25 06:00] VITALS: BMI 28.1
[2021-11-25 07:42] VITALS: BP 135/80; PULSE 75; RESP 18; TEMP 36.9; O2SAT 95
[2021-11-25] MEDS: 0.9 % Sodium Chloride Flush 3 ML SYRINGE IVFLUSH (08:17)
--- NOTE | 2021-11-25 08:47 | PM.DS ---
DS: Providers Provider Date of Service: 11/25/21 Date of admission: 11/22/21 19:29 Primary care physician: Tessa Shelton MD Consults: 11/22/21 19:29 Consult to Nephrology Routine Consulting Provider: Pedro Delgado Reason for consultation: ESRD 11/22/21 19:31 Consult to Gastroenterology Routine Consulting Provider: Irvin Nash Reason for consultation: hematemesis DS: Diagnosis Discharge Diagnosis (1) Acute blood loss anemia: Status: Acute (2) Gastrointestinal hemorrhage with hematemesis: Status: Acute DS: Summary Hospital Course Hospital Course: Chief Complaint:? hematemesis ?51-year-old male with a past medical history of hypertension, hyperlipidemia, ESRD on hemodialysis, peripheral vascular disease, CAD, MILAD, anemia of chronic disease, history of GI bleed presented to the hospital today with a chief complaint of hematemesis.? Patient denies any fever chills cough, abdominal pain, chest pain or palpitations.? ?denies any shortness of breath or dyspnea on exertion.? Review of all other systems is negative except mentioned above ER course: Per ER team patient reportedly had few episodes of hematemesis prior to coming to the ER, did not have any episodes after coming to the ER.? Hemoglobin slightly dropped from his baseline but remained stable on follow-up hemoglobin.? Notified Gastroenterology Dr. Nash.? Admitted to the hospital for further management Hospital course: patient was admitted for upper gi bleed, acute blood loss anemia. He did not require transfusion. He underwent EGD that showe esophageal Varix, gastritis, duodenitis but no clear source of bleed and has not had any further bleed. Will increase protonix to twice a day and if rebleed shoud be investigated for ENT source of bleed Time Spent with Patient Time attestation: Total time spent providing and/or coordinating discharge services: Discharge coordination time: Greater than 30 minutes Quality: Safe Use of Opioids Does Pt have an Active Cancer Diagnosis on the Problem List?: No Quality: Stroke Does the patient have a stroke diagnosis?: No Physical Exam Vital Signs: Vital Signs: Selected Entries 11/25/21 07:42 Temperature 98.5 F Pulse Rate 75 Respiratory Rate 18 Blood Pressure 135/80 Pulse Oximetry 95 Oxygen Delivery Me thod Nasal Cannula Oxygen Flow Rate 2 DS: Data Data Completed and Pending Labs on day of discharge: Laboratory Results - last 24 hr 11/24/21 11/24/21 00:24 06:28 Ferritin 3708 H Troponin I High Sens 11.7 D Discharge Plan Discharge Anticipated Discharge Date/Time: 11/25/21 08:45 Patient Disposition: Home Health Service Discharge Diagnosis: Acute gi bleeding, acute blood loss anemia Referrals: Tessa Shelton MD [Primary Care Provider] - 1 Week Discharge Medications: Continued acetaminophen 325 mg Tablet 650 mg PO Q4H PRN (Reason: Pain (Scale Score 1-3)) cholecalciferol (vitamin D3) [Vitamin D3] 50 mcg (2,000 unit) capsule 50 mcg PO DAILY sevelamer carbonate 800 mg tablet 2,400 mg PO TIDWM atorvastatin 80 mg tablet 80 mg PO BEDTIME metoprolol tartrate 50 mg tablet 50 mg PO BID Qty: 100 3RF Changed pantoprazole 40 mg tablet,delayed release (DR/EC) 40 mg PO BID Qty: 60 0RF Discontinued aspirin 81 mg tablet,delayed release (DR/EC) 81 mg PO DAILY Discharge Orders: Discharge Order (Routine); Ordered 11/25/21 Ordered By: Todd Rosenthal Diet: Advance to usual diet Activity on Discharge: As tolerated Stand Alone Forms: Patient Portal Discharge page Care Plan Goals: Present further bleeding Health Concerns: GI bleeding Plan of Treatment: Take Protonix twice a day. Go to dialysis as usual Assessment: As above
[2021-11-25] MEDS: ceFAZolin Sodium/Dextrose,Iso 2 GM/50 ML PIGGYBACK IV (09:30)
--- NOTE | 2021-11-25 09:49 | MHC.CM.PN ---
Lives w/ and son. Son is MAINTENANCE PLANNER 1.5 hrs/day through [employer]. Still drives self. Owns cane and walker. requesting [facility] for in-home nursing services. MD order for D/C w/home health today. Referral placed w/[facility] per request. MD in agreement w/12:00 D/C. and son to transport home at 12:00 today.
[2021-11-26 08:12] LABS: HBc Num1 0.11 S/CO (0.00-0.79); HBsAGNum1 0.15 S/CO (0.00-0.99); Hepatitis B Core Antibody Nonreactive (Nonreactive); Hepatitis B Surface Antigen Negative (Negative); ~HepC Num1 0.11 S/CO (0.00-0.79); ~Hepatitis B Surface Antibody NONREACTIVE (Nonreactive); ~Hepatitis C Antibody Nonreactive (Nonreactive)
[2021-11-28 07:18] LABS: Hepatitis A Antibody IgM 0.39 Index (0-0.79); ~Hepatitis A Antibody IgM Nonreactive (Nonreactive)
== END 2021-11-25 11:33 | disposition home health service (06) | DRG 377 ==
LOC: HO.ED 16:27 → HO.EDOVER 20:16 → HO.IMC 11-23 15:00
PROVIDERS: Internal Medicine Gastroenterology; Admitting Provider Hospitalist; Emergency Provider Emergency Medicine; PCP Internal Medicine; Visit Provider Internal Medicine
PROC: 0DJ08ZZ Inspection of Upper Intestinal Tract, Via Natural or Artificial Opening Endoscopic (ICD-10-PCS; CPT 43235; principal; 2021-11-23 14:40)
DX: K29.81 Duodenitis with bleeding (principal); N18.6 End stage renal disease; I12.0 Hypertensive chronic kidney disease with stage 5 chronic kidney disease or end stage renal disease; D62 Acute posthemorrhagic anemia; K29.71 Gastritis, unspecified, with bleeding; I85.00 Esophageal varices without bleeding; D63.1 Anemia in chronic kidney disease; Z99.2 Dependence on renal dialysis; I25.10 Atherosclerotic heart disease of native coronary artery without angina pectoris; H54.62 Unqualified visual loss, left eye, normal vision right eye; I25.2 Old myocardial infarction; E78.5 Hyperlipidemia, unspecified; G47.33 Obstructive sleep apnea (adult) (pediatric); Z20.822 Contact with and (suspected) exposure to COVID-19; Z79.899 Other long term (current) drug therapy
CPT/HCPCS: 36415; 71045; 80048; 80053; 82728; 84484; 85014; 85018; 85025; 85610; 85730; 86704; 86706; 86709; 86803; 86850; 86900; 86901; 87340; 87635; 90999; 93005; 96365; 96366; 96375; 99285; J0690; J1170; J2250; J2370; J2405

== ENCOUNTER → 2021-12-13 13:37 | Outpatient (BNVA) | payer OTHER, SELFPAY | PROVIDERS: PCP Internal Medicine; Referring Provider Internal Medicine; Visit Provider Nurse Practitioner Family | DX: Z09 Encounter for follow-up examination after completed treatment for conditions other than malignant neoplasm (principal); I25.10 Atherosclerotic heart disease of native coronary artery without angina pectoris; I25.2 Old myocardial infarction; Z98.890 Other specified postprocedural states | CPT/HCPCS: 99212 ==

== ENCOUNTER → 2021-12-20 13:47 | Outpatient (BNVA) | payer OTHER, SELFPAY | PROVIDERS: PCP Internal Medicine; Visit Provider Student in an Organized Health Care Education/Training Program | DX: M25.512 Pain in left shoulder (principal); G89.29 Other chronic pain | CPT/HCPCS: 99202 ==

== ENCOUNTER 2021-12-25 12:17 | Outpatient (REF) | payer OTHER, SELFPAY ==
--- NOTE | ~2021-12-25 | XR_ITS ---
EXAMINATION: XR SHOULDER, RIGHT XR SHOULDER, LEFT CLINICAL INFORMATION: Bilateral shoulder pain. COMPARISON: Chest radiograph 11/22/2021, right shoulder radiographs 06/12/2020, left shoulder radiographs 06/24/2020. TECHNIQUE: Right shoulder is imaged in 5 views. Left shoulder is imaged in 4 views. There are a total of 9 views. FINDINGS: Right shoulder: There is no acute or healing fracture, dislocation, or destructive process. The glenohumeral joint appears normal. There is no joint narrowing or erosive change. The acromioclavicular alignment is normal. There are no visible rotator cuff calcifications. There are intravascular stents again seen overlying the medial right upper arm, right subclavicular region and right mediastinum similar to prior exam. Left shoulder: There is no acute or healing fracture, dislocation, or destructive process. The glenohumeral joint appears normal. There is no joint narrowing or erosive change. The acromioclavicular alignment is normal. There are no definite rotator cuff calcifications. There are surgical clips overlying proximal upper arm. XR/XR shoulder LT min 2V IMPRESSION: -No acute fracture or dislocation or destructive process.
--- NOTE | ~2021-12-25 | XR_ITS ---
EXAMINATION: XR SHOULDER, RIGHT XR SHOULDER, LEFT CLINICAL INFORMATION: Bilateral shoulder pain. COMPARISON: Chest radiograph 11/22/2021, right shoulder radiographs 06/12/2020, left shoulder radiographs 06/24/2020. TECHNIQUE: Right shoulder is imaged in 5 views. Left shoulder is imaged in 4 views. There are a total of 9 views. FINDINGS: Right shoulder: There is no acute or healing fracture, dislocation, or destructive process. The glenohumeral joint appears normal. There is no joint narrowing or erosive change. The acromioclavicular alignment is normal. There are no visible rotator cuff calcifications. There are intravascular stents again seen overlying the medial right upper arm, right subclavicular region and right mediastinum similar to prior exam. Left shoulder: There is no acute or healing fracture, dislocation, or destructive process. The glenohumeral joint appears normal. There is no joint narrowing or erosive change. The acromioclavicular alignment is normal. There are no definite rotator cuff calcifications. There are surgical clips overlying proximal upper arm. XR/XR shoulder RT min 2V IMPRESSION: -No acute fracture or dislocation or destructive process.
--- NOTE | ~2021-12-25 | XR_ITS ---
EXAMINATION: XR HAND WRIST, RIGHT XR HAND WRIST, LEFT CLINICAL INFORMATION: M25.541 - Pain in joints of right hand. M25.542 - Pain in joints of left hand COMPARISON: None TECHNIQUE: Each hand and wrist are imaged together in 3 large [id number] images along with a navicular view of each wrist. There are a total of 8 views, 4 views for each side. FINDINGS: Right: Normal bony mineralization. No periarticular demineralization. The ulnar variance is neutral. No acute or healing fracture or dislocation or destructive process. Suspect old healed fractures second and third distal phalanges. There is ununited corticated ulnar styloid process. Carpus shows no joint narrowing or erosive changes. No definite chondrocalcinosis triangular fibrocartilage. The MCP joints are normal. There are osteoarthritic changes involving the DIP joints, greatest second, third, and fifth fingers. No erosive change. Left: Normal bony mineralization. No periarticular demineralization. The ulnar variance is neutral. No acute or healing fracture or dislocation or destructive process. Suspect old healed fractures second and third distal phalanges. There is ununited corticated ossicle at tip of ulnar styloid process. No carpal joint narrowing or erosive changes. No chondrocalcinosis triangular fibrocartilage. The MCP joints are normal. There are osteoarthritic changes involving the DIP joints, greatest second and third fingers. No erosive change. XR/XR hand wrist LT IMPRESSION: -Variable bilateral degenerative changes DIP joints. No erosive change. -No carpal or MCP joint narrowing.
--- NOTE | ~2021-12-25 | XR_ITS ---
EXAMINATION: XR HAND WRIST, RIGHT XR HAND WRIST, LEFT CLINICAL INFORMATION: M25.541 - Pain in joints of right hand. M25.542 - Pain in joints of left hand COMPARISON: None TECHNIQUE: Each hand and wrist are imaged together in 3 large [id number] images along with a navicular view of each wrist. There are a total of 8 views, 4 views for each side. FINDINGS: Right: Normal bony mineralization. No periarticular demineralization. The ulnar variance is neutral. No acute or healing fracture or dislocation or destructive process. Suspect old healed fractures second and third distal phalanges. There is ununited corticated ulnar styloid process. Carpus shows no joint narrowing or erosive changes. No definite chondrocalcinosis triangular fibrocartilage. The MCP joints are normal. There are osteoarthritic changes involving the DIP joints, greatest second, third, and fifth fingers. No erosive change. Left: Normal bony mineralization. No periarticular demineralization. The ulnar variance is neutral. No acute or healing fracture or dislocation or destructive process. Suspect old healed fractures second and third distal phalanges. There is ununited corticated ossicle at tip of ulnar styloid process. No carpal joint narrowing or erosive changes. No chondrocalcinosis triangular fibrocartilage. The MCP joints are normal. There are osteoarthritic changes involving the DIP joints, greatest second and third fingers. No erosive change. XR/XR hand wrist RT IMPRESSION: -Variable bilateral degenerative changes DIP joints. No erosive change. -No carpal or MCP joint narrowing.
[2021-12-25 12:41] LABS: MANUAL DIFF FLAG NO
[2021-12-25 13:24] LABS: Basophils Percent Auto 0.3 % (0-2); Eosinophils Absolute Auto 0.1 X10*3/uL (0.0-0.4); Eosinophils Percent Auto 2.1 % (0-4); Hematocrit 26.2 % (42.0-52.0); Hemoglobin 7.9 g/dl (14.0-18.0); Imm Gran Abs Auto 0.02 X10*3/uL (0.00-0.03); Imm Gran Pct Auto 0.6 % (0.0-0.4); Lymphocytes Absolute Auto 0.4 X10*3/uL (1.2-4.9); Lymphocytes Percent Auto 12.1 % (20-40); Mean Corpuscular HGB Conc 30.2 g/dl (31.0-36.0); Mean Corpuscular Hemoglobin 29.5 pg (27.0-33.0); Mean Corpuscular Volume 97.8 fL (80.0-98.0); Mean Platelet Volume 12.1 fL (9.4-12.4); Monocytes Absolute Auto 0.4 X10*3/uL (0.1-1.2); Monocytes Percent Auto 12.4 % (2-11); Neutrophils Absolute Auto 2.5 x10*3/uL (2.0-8.3); Neutrophils Percent Auto 72.5 % (45-73); Platelet Count 155 X10*3/uL (160-400); Red Blood Count 2.68 X10*6/uL (4.60-5.80); Red Cell Distribution Width 18.4 % (11.0-16.0); White Blood Count 3.4 X10*3/uL (4.8-10.8)
[2021-12-25 14:04] LABS: Erythrocyte Sedimentation Rate 123 MM/HR (0-15)
[2021-12-25 14:14] LABS: Alanine Aminotransferase < 6 U/L (0-40); Albumin Level 3.3 g/dL (3.5-5.0); Alkaline Phosphatase 116 U/L (39-117); Anion Gap 22 (12-20); Aspartate Amino Transferase 27 U/L (5-37); Bilirubin Total 0.4 mg/dL (0.0-1.0); Blood Urea Nitrogen 44 mg/dL (9-16); C Reactive Protein 3.78 mg/dL (< or = 0.50); Calcium 8.2 mg/dL (8.4-10.2); Carbon Dioxide 27 mmol/L (22-29); Chloride 97 mmol/L (96-108); Free T4 (Free Thyroxine) 1.09 ng/dL (0.71-1.85); Glucose Random 129 mg/dL (60-115); Iron 51 mcg/dL (45-160); Percent Iron Saturation 22 % (15-50); Potassium 4.5 mmol/L (3.3-5.1); Sodium 141 mmol/L (135-145); Total Iron Binding Capacity 228 mcg/dL (228-428); Total Protein 8.6 g/dL (6.5-8.0); Unsaturated Iron Binding 177 ug/dL
[2021-12-25 14:24] LABS: Estimated Glomerular Filt Rate 7
[2021-12-25 14:35] LABS: Rheumatoid Factor 16.2 IU/mL (<15.0)
[2021-12-25 14:53] LABS: Thyroid Stimulating Hormone 6.79 uIU/mL (0.32-4.0)
[2021-12-25 14:54] LABS: Ferritin 2354 ng/mL (20-250)
[2021-12-26 05:16] LABS: HBS Num1 1.57 mIU/mL (0-7.99); HBsAGNum1 0.22 S/CO (0.00-0.99); HIV AB/AG Nonreactive (Nonreactive); HIV Num 1 0.06 S/CO (0.00-0.99); Hepatitis B Core Antibody Nonreactive (Nonreactive); Hepatitis B Surface Antigen Negative (Negative); ~HepC Num1 0.09 S/CO (0.00-0.79); ~Hepatitis A Antibody IgM Nonreactive (Nonreactive); ~Hepatitis B Surface Antibody NONREACTIVE (Nonreactive); ~Hepatitis C Antibody Nonreactive (Nonreactive)
[2021-12-26 08:52] LABS: Lyme Abs Screen <0.90 index
[2021-12-26 11:46] LABS: Calcium (PTHI) 8.1 mg/dL (8.6-10.3); PTHI 9 pg/mL (16-77)
[2021-12-26 12:18] LABS: Anti DNA DS Antibody 1 IU/mL; Antibody to SS-A Antigen <1.0 NEG AI (<1.0 NEG); Antibody to SS-B Antigen <1.0 NEG AI (<1.0 NEG); SM/Ribonucleoprotein Ab <1.0 NEG AI (<1.0 NEG); Smith Protein <1.0 NEG AI (<1.0 NEG)
[2021-12-26 14:56] LABS: Transferrin 168 mg/dL (188-341)
[2021-12-26 16:52] LABS: Complement C3 126 mg/dL (82-185)
[2021-12-27 13:32] LABS: Anti Nuclear Antibody Screen NEGATIVE (NEGATIVE)
[2021-12-27 16:32] LABS: Cyclic Citrullinated Peptide <16 UNITS
[2022-01-03 14:31] LABS: Vitamin D 25-OH, D2 <4 ng/mL; Vitamin D 25-OH, D3 70 ng/mL; Vitamin D 25-OH, Total 70 ng/mL (30-100)
== END 2021-12-25 12:18 | disposition home or self-care (01) ==
LOC: HO.XRAY 12:17
PROVIDERS: PCP Internal Medicine; Visit Provider Student in an Organized Health Care Education/Training Program
DX: Z13.21 Encounter for screening for nutritional disorder (principal); Z11.59 Encounter for screening for other viral diseases; Z11.4 Encounter for screening for human immunodeficiency virus [HIV]; M25.512 Pain in left shoulder; R53.83 Other fatigue; M19.012 Primary osteoarthritis, left shoulder; D64.9 Anemia, unspecified; E87.8 Other disorders of electrolyte and fluid balance, not elsewhere classified; E83.51 Hypocalcemia; M25.541 Pain in joints of right hand; M25.542 Pain in joints of left hand
CPT/HCPCS: 36415; 73030; 73110; 73130; 80053; 82306; 82550; 82728; 83540; 83735; 83970; 84439; 84443; 84466; 84550; 85025; 85652; 86038; 86039; 86140; 86160; 86200; 86225; 86235; 86431; 86617; 86618; 86704; 86706; 86709; 86803; 87340; 87389

== ENCOUNTER 2022-01-07 05:07 | Inpatient (IN) | payer OTHER, SELFPAY ==
[2022-01-07] VITALS (8 sets, daily range): BP systolic 140–161; BP diastolic 65–96; PULSE 62–79; RESP 14–22; TEMP 36.4; O2SAT 87–100; BMI 39.0
--- NOTE | ~2022-01-07 | CT_ITS ---
EXAMINATION: CT CHEST WITHOUT CONTRAST CLINICAL INFORMATION: Hemoptysis. COMPARISON: Chest CT from 09/16/2020. CXR from 01/07/2022. TECHNIQUE: Multidetector volumetric CT imaging of the chest was done. Axial MIP volume rendering provided. Sagittal and coronal reformatted images were obtained. This CT examination was performed using dose optimization techniques as appropriate, variously including the following: *Automated exposure control *Adjustment of mA and/or kV according to patient size (this includes techniques or standardized protocols for targeted exams where dose is matched to indication/reason for exam; i.e. extremities or head) *Use of iterative reconstruction technique DLP: 313 mGy-cm FINDINGS: LUNGS AND PLEURA: Pulmonary vessels are large and lungs have mosaic attenuation. Mild, smooth thickening of septa in the periphery of the lungs. Findings are suggestive of pulmonary vascular congestion and mild interstitial edema. Small bilateral pleural effusions are present. Atelectasis is present in the dependent aspect of each lung. There are old reticulonodular calcific densities in the region of the anterior segment of the right upper lobe along the minor fissure and within both lower lobes. The cause of this is uncertain with differential including prior aspiration of contrast, foci of chronic pulmonary ossification, or areas of metastatic calcification in this patient with chronic renal disease. Nonspecific 0.8 cm nodule of the right lung apex is new compared to 09/17/2020 (image 83, series 6). Linear opacity of scar or atelectasis in the posterior segment right upper lobe. Also, there is curvilinear opacity from scar or atelectasis in the anteromedial left upper lobe. CARDIOVASCULAR: Cardiac chambers are in the normal size range. Three-vessel coronary artery atherosclerotic calcification is present. No pericardial effusion. Again noted is the stent involving the right subclavian vein and SVC. Thoracic aorta atherosclerosis without aneurysm. There is chronic calcific density along mathur of the proximal right and left lower lobe pulmonary arteries. MEDIASTINUM AND LOWER NECK: No mediastinal mass. The esophagus and partially visualized thyroid gland are grossly unremarkable. LYMPHATICS: A nonspecific, mildly enlarged lymph node of the mediastinum at the level of the aortic arch is 1 cm short axis dimension. UPPER ABDOMEN: An IVC catheter is partially included in the [id number]. The catheter tip is in the region of junction of the right atrium and SVC. Chronic multicystic disease of the kidneys which are partially included in the [id number]. SKELETAL AND CHEST WALL: Chronic finding of prominent collateral vessels in subcutaneous tissues of the chest wall. Anasarca with diffuse edema of the subcutaneous tissues. No focal, organized fluid collection. Bones are chronically sclerotic with somewhat regular jersey appearance of the spine compatible with changes of renal osteodystrophy. No aggressive osseous lesion. CT/CT chest wo IV con IMPRESSION: * Chronic atherosclerotic disease of coronary arteries. * Lungs have mosaic attenuation and there are findings of mild interstitial edema with small bilateral pleural effusions. Anasarca is present. The subcutaneous tissues of the chest wall are diffusely edematous. * Old foci of calcific density are present in the anterior segment right upper lobe and within both lower lobes. A new, nonspecific 0.8 cm nodule is detected in the right lung apex. If Fleischner Society guidelines are followed, then chest CT follow-up would be recommended in the next 6-12 months. * Renal osteodystrophy.
--- NOTE | ~2022-01-07 | XR_ITS ---
EXAMINATION: XR CHEST CLINICAL INFORMATION: Abnormal x-ray. COMPARISON: 01/07/[address] CT. Chest radiographs dated 08/14/2017. TECHNIQUE: Frontal view of the chest was obtained. FINDINGS: Small to moderate bilateral pleural effusion/pleural thickening is again seen. Bibasilar nodular opacities are also seen, right greater than left. The heart and mediastinal structures are unremarkable. Right-sided vascular stent is again noted in place. The soft tissues are unremarkable. XR/XR chest 1V IMPRESSION: Persistent mild to moderate pleural thickening/pleural effusions and nodular opacities. Please refer to the recent CT report for more detailed findings.
--- NOTE | ~2022-01-07 | XR_ITS ---
EXAMINATION: XR CHEST CLINICAL INFORMATION: Shortness breath COMPARISON: 11/22/2021 TECHNIQUE: Frontal view of the chest was obtained. XR/XR chest 1V FINDINGS/IMPRESSION: * Chronic calcific parenchymal opacity in the right lower lung, compatible with known parenchymal calcifications (possibly nodular pulmonary ossification). Likely superimposed acute airspace opacity as well. * increasing patchy airspace opacity in the left lower lung. * Bilateral pleural effusions redemonstrated, increasing on the left. * Cardiac silhouette incompletely assessed. Pulmonary venous congestion without overt edema. Right mediastinal vascular stents. * Renal osteodystrophy.
[2022-01-07] MEDS: Nitroglycerin 2 % Oint 1 GM Packet 1 INCH TRANSDERMA (05:16)
--- NOTE | 2022-01-07 05:16 | ECG_ITS ---
Test Reason : cough Blood Pressure : / mmHG Vent. Rate : 068 BPM Atrial Rate : 066 BPM P-R Int : 218 ms QRS Dur : 064 ms QT Int : 418 ms P-R-T Axes : 045 034 112 degrees QTc Int : 444 ms Undetermined rhythm Low voltage QRS Cannot rule out Anteroseptal infarct (cited on or before 25-APR-2021) Abnormal ECG When compared with ECG of 24-NOV-2021 00:11, Current undetermined rhythm precludes rhythm comparison, needs review Nonspecific T wave abnormality no longer evident in Inferior leads Referred By: Fuentes Davila Electronically Signed By:BIJAL LUBIN
--- NOTE | 2022-01-07 05:29 | ED_ITS ---
HPI - SOB/Dyspnea General Chief Complaint: Dyspnea Stated Complaint: SOB/Vomiting blood Time Seen by Provider: 01/07/22 05:16 Source: patient Mode of arrival: ambulatory Limitations: no limitations History of Present Illness HPI Narrative: 51-year-old male end-stage renal disease on dialysis 3 times a week last indira lysis was 3 days ago and patient is due for dialysis today came in for evaluation of worsening of shortness of breath that started yesterday, patient has been coughing frothy bloody sputum, no fever, no chills. Patient does not make urine. Related Data Home Medications Medication Instructions Recorded Confirmed atorvastatin 80 mg tablet 80 mg PO BEDTIME 05/17/21 12/20/21 cholecalciferol (vitamin D3) 50 50 mcg PO DAILY 05/17/21 12/20/21 mcg (2,000 unit) capsule (Vitamin D3) sevelamer carbonate 800 mg tablet 2,400 mg PO TIDWM 05/17/21 12/20/21 acetaminophen 325 mg tablet 650 mg PO Q4H PRN Pain (Scale 11/22/21 12/20/21 Score 1-3) Previous Rx's Medication Instructions Recorded metoprolol tartrate 50 mg tablet 50 mg PO BID #100 tabs 05/17/21 pantoprazole 40 mg tablet,delayed 40 mg PO BID #60 tabs 11/24/21 release aspirin 81 mg tablet,delayed 81 mg PO DAILY #90 tabs 12/17/21 release (Enteric Coated Aspirin) Allergies Allergy/AdvReac Type Severity Reaction Status Date / Time No Known Drug Allergies Allergy Unknown UNKNOWN Verified 12/20/21 13:56 Review of Systems Review of Systems: All other systems are reviewed and are negative Constitutional: Reports as per HPI and Reports no additional constitutional complaints Eyes: Reports as per HPI and Reports no additional eye complaints Reports system reviewed and no additional complaints, except as documented Cardiovascular: Reports as per HPI and Reports no additional cardiovascular c omplaints Respiratory: Reports as per HPI and Reports no additional respiratory complaints Gastrointestinal: Reports as per HPI and Reports no additional gastrointestinal complaints Genitourinary: Reports no additional female genitourinary complaints Musculoskeletal: Reports no additional musculoskeletal complaints Skin/Breast: Reports system reviewed and no additional complaints, except as docu Psychiatric: Reports no additional psychiatric complaints Endocrine: Reports no additional endocrine complaints Hematologic/Lymphatic: Reports no additional hematologic/lymphatic complaints Allergic/Immunologic: Reports no additional allergic/immunologic complaints Reports system reviewed and no additional complaints, except as documented and Reports Abnormal speech present [facility] Past Medical History Medical History Acute GI bleeding Anemia of chronic disease Arthritis of shoulder region, right, degenerative Blind left eye CAD (coronary artery disease) ESRD (end stage renal disease) ESRD (end stage renal disease) Hematuria of undiagnosed cause Hyperlipidemia Hyperparathyroidism Hypertension MSSA bacteremia Myocardial infarction MILAD (obstructive sleep apnea) Peripheral vascular disease Pleural effusion Septic joint of right knee joint Surgical History S/P left knee arthroscopy Family History Family History Mother HTN (hypertension) Social History Social History Household Members: Spouse Housing: Apartment Do you presently have visiting nurse or other home services: Yes ([employer] program) Alcohol intake: never Patient Tobacco Use Status: Never used Tobacco Second Hand Smoke Exposure: No Advance Directives: No service: No Current occupational status: unemployed and disabled Physical Exam Vital Signs: Vital Signs: Last Vital Signs Temp 97.5 F 01/07/22 05:52 Pulse 67 01/07/22 06:01 Resp 14 01/07/22 06:01 BP 154/83 H 01/07/22 06:01 Pulse Ox 97 01/07/22 06:01 O2 Del Method 01/07/22 06:01 O2 Flow Rate 2 01/07/22 06:01 BMI result Body Mass Index 39.0 Vital signs have been reviewed as appeared to be correct. Blood pressure nor mal. Heart rate normal. Respiration rate normal. Temperature normal. Oxygen saturation normal. Appearance: Alert. Oriented X3. Mild acute respiratory distress. Head: Normal external exam. Normocephalic. Atraumatic. No Ornelas signs noted. No raccoon eyes noted Eyes: PERRLA. EOMI. Conjunctiva and sclera normal. Eyelids normal. ENT: TM's Normal. Pharynx normal. Uvula midline. Moist mucous membranes. No trismus noted. No drooling noted. No muffled voice noted. Neck: Normal inspection. Neck supple. FROM. No adenopathy. Thyroid Normal. No meningeal signs. No neck mass noted. CVS: Normal heart rate and rhythm. Heart sound normal. No murmurs noted. Pulses normal throughout. Respiratory: Mild respiratory distress. Painless inspiration. Breath sounds normal. Diffuse rales to both lung flores. Chest nontender. No accessory muscle usage noted or decreased air movement noted. Abdomen: Soft and nontender. Bowel sounds normal in all 4 quadrants. No distent ion noted. No organomegaly noted. No visible injury noted. Back: No CVA tenderness. Full range of motion noted. Skin: Skin warm and dry. Normal skin color. Normal skin turgor. No rashes/lesions/lacerations noted. Extremities: No lower extremity edema. Extremities exhibit normal range of mot ion. Extremities nontender. Neuro: Oriented X 3. Cranial nerve exam: II-XII are grossly intact No motor deficit. No sensory deficit. Reflexes normal. Course Course Course Narrative: 51-year-old male end-stage renal disease on dialysis due for dialysis today came in for progressive worsening of shortness of breath patient will require emergent dialysis, case discussed with Dr. Banerjee will arrange for inpatient dialysis today. Patient to not make urine 1 in of nitropaste was placed on the chest patient is improving. Patient is hemodynamically stable. MDM - SOB/Dyspnea Medical Records Attestation: I reviewed the patient's medical records. Lab Data Attestation: I reviewed the patient's lab results. Result diagrams: 01/07/22 05:35 01/07/22 05:35 Labs: Lab Results 01/07/22 01/07/22 01/07/22 Range/Units 05:30 05:35 05:35 WBC 7.4 (4.8-10.8) X10*3/uL RBC 3.13 L (4.60-5.80) X10*6/uL Hgb 9.3 L (14.0-18.0) g/dl Hct 30.7 L (42.0-52.0) % MCV 98.1 H (80.0-98.0) fL MCH 29.7 (27.0-33.0) pg MCHC 30.3 L (31.0-36.0) g/dl RDW 16.4 H (11.0-16.0) % Plt Count 197 D (160-400) X10*3/uL MPV 10.9 (9.4-12.4) fL Immature Gran % (Auto) 0.3 (0.0-0.4) % Neut % (Auto) 76.2 H (45-73) % Lymph % (Auto) 12.3 L (20-40) % [place] % (Auto) 8.8 (2-11) % Eos % (Auto) 2.0 (0-4) % Baso % (Auto) 0.4 (0-2) % Lymph # (Auto) 0.9 L (1.2-4.9) X10*3/uL [place] # (Auto) 0.7 (0.1-1.2) X10*3/uL Eos # (Auto) 0.2 (0.0-0.4) X10*3/uL Baso # (Auto) 0.0 (0.0-0.2) X10*3/uL Abs Immat Gran (auto) 0.02 (0.00-0.03) X10*3/uL Absolute Neuts (auto) 5.6 (2.0-8.3) x10*3/uL Absolute Nucleated RBC 0.000 (0.0-0.012) X10*3/uL Nucleated RBC % (auto) 0.0 (0.0-0.2) /100WBC Sodium 142 (135-145) mmol/L Potassium 4.7 (3.3-5.1) mmol/L Chloride 98 (96-108) mmol/L Carbon Dioxide 21 L (22-29) mmol/L Anion Gap 28 H (12-20) BUN 55 H (9-16) mg/dL Creatinine 10.09 H* (0.5-1.4) mg/dL Estim Creat Clear Calc 8.0 Estimated GFR 5 Random Glucose 168 H (60-115) mg/dL Calcium 7.9 L (8.4-10.2) mg/dL Total Bilirubin 0.3 (0.0-1.0) mg/dL Direct Bilirubin 0.2 (0.0-0.5) mg/dL AST 19 (5-37) U/L ALT < 6 (0-40) U/L Alkaline Phosphatase 115 (39-117) U/L Troponin I High Sens (<3.5-35.0) ng/L B-Natriuretic Peptide (<100) pg/mL Total Protein 9.7 H (6.5-8.0) g/dL Albumin 3.9 (3.5-5.0) g/dL Lipase 78 (8-78) U/L Influenza Type A (PCR) NEGATIVE (Negative) Influenza Type B (PCR) NEGATIVE (Negative) RSV RNA Qual (PCR) NEGATIVE (Negative) SARS-CoV-2 RNA (RT-PCR) NEGATIVE (Negative) 01/07/22 Range/Units 05:35 WBC (4.8-10.8) X10*3/uL RBC (4.60-5.80) X10*6/uL Hgb (14.0-18.0) g/dl Hct (42.0-52.0) % MCV (80.0-98.0) fL MCH (27.0-33.0) pg MCHC (31.0-36.0) g/dl RDW (11.0-16.0) % Plt Count (160-400) X10*3/uL MPV (9.4-12.4) fL Immature Gran % (Auto) (0.0-0.4) % Neut % (Auto) (45-73) % Lymph % (Auto) (20-40) % [place] % (Auto) (2-11) % Eos % (Auto) (0-4) % Baso % (Auto) (0-2) % Lymph # (Auto) (1.2-4.9) X10*3/uL [place] # (Auto) (0.1-1.2) X10*3/uL Eos # (Auto) (0.0-0.4) X10*3/uL Baso # (Auto) (0.0-0.2) X10*3/uL Abs Immat Gran (auto) (0.00-0.03) X10*3/uL Absolute Neuts (auto) (2.0-8.3) x10*3/uL Absolute Nucleated RBC (0.0-0.012) X10*3/uL Nucleated RBC % (auto) (0.0-0.2) /100WBC Sodium (135-145) mmol/L Potassium (3.3-5.1) mmol/L Chloride (96-108) mmol/L Carbon Dioxide (22-29) mmol/L Anion Gap (12-20) BUN (9-16) mg/dL Creatinine (0.5-1.4) mg/dL Estim Creat Clear Calc Estimated GFR Random Glucose (60-115) mg/dL Calcium (8.4-10.2) mg/dL Total Bilirubin (0.0-1.0) mg/dL Direct Bilirubin (0.0-0.5) mg/dL AST (5-37) U/L ALT (0-40) U/L Alkaline Phosphatase (39-117) U/L Troponin I High Sens 7.2 (<3.5-35.0) ng/L B-Natriuretic Peptide 572 H (<100) pg/mL Total Protein (6.5-8.0) g/dL Albumin (3.5-5.0) g/dL Lipase (8-78) U/L Influenza Type A (PCR) (Negative) Influenza Type B (PCR) (Negative) RSV RNA Qual (PCR) (Negative) SARS-CoV-2 RNA (RT-PCR) (Negative) Imaging Data Chest x-ray: Attestation: I personally reviewed and interpreted this imaging study as follows: Radiologist's impression: *? Chronic calcific parenchymal opacity in the right lower lung, compatible with known parenchymal calcifications (possibly nodular pulmonary ossification). Likely superimposed acute airspace opacity as well. *? increasing patchy airspace opacity in the left lower lung. *? Bilateral pleural effusions redemonstrated, increasing on the left. *? Cardiac silhouette incompletely assessed. Pulmonary venous congestion without overt edema. Right mediastinal vascular stents. *? Renal osteodystrophy. ? Critical Care Time Critical Care Time Critical Care Time: Yes Total Critical Care Time: 60 Attestation: I spent 60 minutes providing critical care service to the patient, this including time spent at the bedside to evaluate the patient, reassess the patient, monitoring vital signs, review labs, and radiographic studies, counseling the patient/family, discussing the case with consultants, disposition the patient. Discharge Plan Discharge Clinical Impression: Pulmonary edema, End stage kidney disease Patient Disposition: Admitted As Inpatient Prescriptions: No Action acetaminophen 325 mg Tablet 650 mg PO Q4H PRN (Reason: Pain (Scale Score 1-3)) pantoprazole 40 mg tablet,delayed release (DR/EC) 40 mg PO BID Qty: 60 0RF cholecalciferol (vitamin D3) [Vitamin D3] 50 mcg (2,000 unit) capsule 50 mcg PO DAILY sevelamer carbonate 800 mg tablet 2,400 mg PO TIDWM atorvastatin 80 mg tablet 80 mg PO BEDTIME metoprolol tartrate 50 mg tablet 50 mg PO BID Qty: 100 3RF aspirin [Enteric Coated Aspirin] 81 mg tablet,delayed release (DR/EC) 81 mg PO DAILY Qty: 90 3RF
[2022-01-07 05:39] LABS: Basophils Percent Auto 0.4 % (0-2); Eosinophils Absolute Auto 0.2 X10*3/uL (0.0-0.4); Hematocrit 30.7 % (42.0-52.0); Hemoglobin 9.3 g/dl (14.0-18.0); Imm Gran Abs Auto 0.02 X10*3/uL (0.00-0.03); Imm Gran Pct Auto 0.3 % (0.0-0.4); Lymphocytes Absolute Auto 0.9 X10*3/uL (1.2-4.9); Lymphocytes Percent Auto 12.3 % (20-40); MANUAL DIFF FLAG NO; Mean Corpuscular HGB Conc 30.3 g/dl (31.0-36.0); Mean Corpuscular Hemoglobin 29.7 pg (27.0-33.0); Mean Corpuscular Volume 98.1 fL (80.0-98.0); Mean Platelet Volume 10.9 fL (9.4-12.4); Monocytes Absolute Auto 0.7 X10*3/uL (0.1-1.2); Monocytes Percent Auto 8.8 % (2-11); Neutrophils Absolute Auto 5.6 x10*3/uL (2.0-8.3); Neutrophils Percent Auto 76.2 % (45-73); Platelet Count 197 X10*3/uL (160-400); Red Blood Count 3.13 X10*6/uL (4.60-5.80); Red Cell Distribution Width 16.4 % (11.0-16.0); White Blood Count 7.4 X10*3/uL (4.8-10.8)
[2022-01-07 06:02] LABS: B Type Natriuretic Peptide 572 pg/mL (<100); Troponin-I High Sensitivity 7.2 ng/L (<3.5-35.0)
[2022-01-07 06:04] LABS: Alanine Aminotransferase < 6 U/L (0-40); Albumin Level 3.9 g/dL (3.5-5.0); Alkaline Phosphatase 115 U/L (39-117); Anion Gap 28 (12-20); Aspartate Amino Transferase 19 U/L (5-37); Bilirubin Direct 0.2 mg/dL (0.0-0.5); Bilirubin Total 0.3 mg/dL (0.0-1.0); Blood Urea Nitrogen 55 mg/dL (9-16); Calcium 7.9 mg/dL (8.4-10.2); Carbon Dioxide 21 mmol/L (22-29); Chloride 98 mmol/L (96-108); Estimated Glomerular Filt Rate 5; Glucose Random 168 mg/dL (60-115); Lipase 78 U/L (8-78); Potassium 4.7 mmol/L (3.3-5.1); Sodium 142 mmol/L (135-145); Total Protein 9.7 g/dL (6.5-8.0)
[2022-01-07 06:11] LABS: Influenza A PCR NEGATIVE (Negative); Influenza B PCR NEGATIVE (Negative); Resp Syncy Virus RNA Qual PCR NEGATIVE (Negative); SARS COV2 PCR INHOUSE NEGATIVE (Negative)
--- NOTE | 2022-01-07 07:56 | PC.NURSE ---
pt in nsr in lead 2. resps nonlabored, coarse ls in all flores, no accessory muscle use noted. 20 ga iv inserted in r hand 1 attempt. pt denies pain or discomfort. awaiting hospitalist for admission.
--- NOTE | 2022-01-07 09:01 | PM.IMHP ---
History of Present Illness Date of Service: 01/07/22 Chief Complaint: shortness of breath This is a 51 year old, Lao speaking male (history obtained with the help of a Lao speaking parks and recreation worker) with a PMH of ESRD On MWF (last went the Friday prior to admission) who presents to the ED with complaints of progressive shortness of breath over the last 2 days. He reports orthopnea and PND. He reports exertional fatigue and dyspnea. He denies anginal chest pain. He reports that he vomited blood and hence he came to the ED. Upon further questioning regarding his vomiting he clarifies that his vomiting was actually hemoptysis. He states that he had severe coughing spells in the supine position and noticed some blood in his sputum which began yesterday. He reports that he had this happen before several months ago when he was evaluated for a GI bleed. He reports that he was on aspirin currently and was told to restart it several weeks ago by [facility] services. He denies any melena or hematochezia. He denies any fevers or chills. Upon arrival to the ED, the patient was noted to be in respiratory distress. His oxygen saturation remains below 88% and hence nasal cannula was applied. He was given nitroglycerine. His work up revealed abnormal CXR (see full details) and signs of fluid overload. His case was d/w Nephrology and he will under go urgent dialysis. Review of Systems Review of Systems: negative exept HPI [facility] Medical History Acute GI bleeding Anemia of chronic disease Arthritis of shoulder region, right, degenerative Blind left eye CAD (coronary artery disease) ESRD (end stage renal disease) ESRD (end stage renal disease) Hematuria of undiagnosed cause Hyperlipidemia Hyperparathyroidism Hypertension MSSA bacteremia Myocardial infarction MILAD (obstructive sleep apnea) Peripheral vascular disease Pleural effusion Septic joint of right knee joint Family History Mother HTN (hypertension) Surgical History S/P left knee arthroscopy Social History Household Members: Spouse Housing: Apartment Do you presently have visiting nurse or other home services: Yes ([employer] program) Alcohol intake: never Patient Tobacco Use Status: Never used Tobacco Second Hand Smoke Exposure: No Advance Directives: No service: No Current occupational status: unemployed and disabled Meds Allergies Allergy/AdvReac Type Severity Reaction Status Date / Time No Known Drug Allergies Allergy Unknown UNKNOWN Verified 12/20/21 13:56 Active Medications: Current Medications Acetaminophen (Acetaminophen 325 Mg Tablet) 650 mg PO Q6H PRN PRN Reason: Pain, Mild (Pain Scale 1-3) Ondansetron HCl (Ondansetron Hcl 4 Mg/2 Ml Vial) 4 mg IVPUSH Q8H PRN PRN Reason: Nausea and Vomiting Pharmacy Consult (Consult Rx Perform Med Rec) 1 each MISCELLANE ONCE PRN PRN Reason: Consult order Sodium Chloride (0.9 % Sodium Chloride Flush 3 Ml Syringe) [facility] Medications Medication Instructions Recorded Confirmed Last Taken Type atorvastatin 80 mg tablet 80 mg PO BEDTIME 05/17/21 12/20/21 Unknown History cholecalciferol (vitamin D3) 50 50 mcg PO DAILY 05/17/21 12/20/21 Unknown History mcg (2,000 unit) capsule (Vitamin D3) sevelamer carbonate 800 mg tablet 2,400 mg PO TIDWM 05/17/21 12/20/21 Unknown History acetaminophen 325 mg tablet 650 mg PO Q4H PRN Pain (Scale 11/22/21 12/20/21 Unknown History Score 1-3) Physical Exam Vital Signs and Narrative: Vital Signs: Last Vital Signs Temp 97.5 F 01/07/22 05:52 Pulse 65 01/07/22 07:54 Resp 22 H 01/07/22 07:54 BP 150/68 H 01/07/22 07:54 Pulse Ox 98 01/07/22 07:54 O2 Del Method 01/07/22 07:54 O2 Flow Rate 2 01/07/22 07:54 BMI result Body Mass Index 39.0 Const: Other: Constitutional - Awake and Alert, No apparent distress Eyes - PERRLA, EOMI Cardiovascular - S1S2, RRR, No edema Respiratory - scattered bronchial breath sounds; mild accessory muscle usage with conversation Gastrointestinal - NT / ND; +BS; No rebound or guarding - No CVA tenderness Extremities - no calf tenderness bilaterally, no swelling Musculoskeletal - Normal inspection, normal ROM Skin - Warm/Dry Neurological - Alert & oriented x3, No focal deficit Psychological - Appropriate affect Results Labs CBC and Chem 7: 01/07/22 05:35 01/07/22 05:35 Labs: Laboratory Results - last 24 hr 01/07/22 01/07/22 01/07/22 05:30 05:35 05:35 MCV 98.1 H MCH 29.7 MCHC 30.3 L RDW 16.4 H Plt Count 197 D MPV 10.9 Immature Gran % (Auto) 0.3 Neut % (Auto) 76.2 H Lymph % (Auto) 12.3 L [place] % (Auto) 8.8 Eos % (Auto) 2.0 Baso % (Auto) 0.4 Lymph # (Auto) 0.9 L [place] # (Auto) 0.7 Eos # (Auto) 0.2 Baso # (Auto) 0.0 Abs Immat Gran (auto) 0.02 Absolute Neuts (auto) 5.6 Absolute Nucleated RBC 0.000 Nucleated RBC % (auto) 0.0 Anion Gap 28 H Estim Creat Clear Calc 8.0 Estimated GFR 5 Random Glucose 168 H Calcium 7.9 L Total Bilirubin 0.3 Direct Bilirubin 0.2 AST 19 ALT < 6 Alkaline Phosphatase 115 Troponin I High Sens B-Natriuretic Peptide Total Protein 9.7 H Albumin 3.9 Lipase 78 Influenza Type A (PCR) NEGATIVE Influenza Type B (PCR) NEGATIVE RSV RNA Qual (PCR) NEGATIVE SARS-CoV-2 RNA (RT-PCR) NEGATIVE 01/07/22 05:35 MCV MCH MCHC RDW Plt Count MPV Immature Gran % (Auto) Neut % (Auto) Lymph % (Auto) [place] % (Auto) Eos % (Auto) Baso % (Auto) Lymph # (Auto) [place] # (Auto) Eos # (Auto) Baso # (Auto) Abs Immat Gran (auto) Absolute Neuts (auto) Absolute Nucleated RBC Nucleated RBC % (auto) Anion Gap Estim Creat Clear Calc Estimated GFR Random Glucose Calcium Total Bilirubin Direct Bilirubin AST ALT Alkaline Phosphatase Troponin I High Sens 7.2 B-Natriuretic Peptide 572 H Total Protein Albumin Lipase Influenza Type A (PCR) Influenza Type B (PCR) RSV RNA Qual (PCR) SARS-CoV-2 RNA (RT-PCR) Imaging Radiologist's Impressions: Impressions Chest X-Ray 01/07/22 05:32 FINDINGS/IMPRESSION: * Chronic calcific parenchymal opacity in the right lower lung, compatible with known parenchymal calcifications (possibly nodular pulmonary ossification). Likely superimposed acute airspace opacity as well. * increasing patchy airspace opacity in the left lower lung. * Bilateral pleural effusions redemonstrated, increasing on the left. * Cardiac silhouette incompletely assessed. Pulmonary venous congestion without overt edema. Right mediastinal vascular stents. * Renal osteodystrophy. Assessment and Plan (1) End stage kidney disease: Status: Acute Plan 51 yo M with a PMH of ESRD on HD MWF who presents with shortness of breath and mild hemoptysis. His work up reveals fluid overload and acute respiratory failure with hypoxia. He will be admitted for further work up. 1. Acute Respiratory failure with hypoxia secondary to fluid overload from ESRD Hypoxia below 88% with respiraory symptoms of tachypnea and dyspnea with min exertion -- continue supplemental O2; Nephrology consult with plans for dialysis today IV lasix for now 2. Hemoptysis CXR is abnormal; will check CT scan without contrast Consult pulmoanry monitor h/h hold aspirin 3. CAD s/p TX continue baseline meds with the exception of aspirin for now 4. HTN med rec pending, continue baseline meds once completed. Full Code DVT pptx, mechanical due to reported hemoptysis Due to the patients respiratory failure with hypoxia requiring supplemental oxygen, in addition to the fact that he has an abnormal CXR with hemoptysis, he will require an inpatient hospitalization which is likely to span at least 2 midnights. This cannot be completed in a less acute setting. Quality Stroke Does the patient have a stroke diagnosis?: No VTE Prior VTE?: No VTE Risk Level:: Medical - moderate - high VTE Device Contraindication: N/A - Device Ordered VTE Drug Contraindication: Treatment Not Tolerated
[2022-01-07] MEDS: Furosemide 40 MG/4 ML VIAL IVPUSH (09:39)
--- NOTE | 2022-01-07 09:44 | P.CONPL_ITS ---
History of Present Illness History of Present Illness Consult date: 01/07/22 Chief complaint: shortness of breath, hypoxia, hemotysis Narrative: I have seen this gentleman for pulmonary consultation. He presents with increased shortness of breath, and along with that he also coughed up some blood few times. No fever chills or chest pain. He is a known case of end-stage renal failure, and is on dialysis program 3 times a week the last dialysis session was 3 days ago. He is short of breath on lying down. During the night when he coughed up there was some blood he thought he had vomi marcelle blood, because he has past history of acute GI bleeding a few times. In general he has been more tired and short of breath in the last 2 days. He has been on 1 aspirin daily which he had restarted since a few weeks ago. This gentleman does not have any ongoing chronic pulmonary disease, but he is obese and does have history of obstructive sleep apnea. Not sure if he is using CPAP regularly. Review of Systems Review of Systems: Yes all other systems are reviewed and are negative [facility] Past Medical History Medical History (Updated 01/07/22 @ 10:28 by Erinn Gloria MD) Acute GI bleeding Anemia of chronic disease Arthritis of shoulder region, right, degenerative Blind left eye CAD (coronary artery disease) End stage renal disease on dialysis ESRD (end stage renal disease) ESRD (end stage renal disease) Hematuria of undiagnosed cause Hemoptysis Hyperlipidemia Hyperparathyroidism Hypertension MSSA bacteremia Myocardial infarction MILAD (obstructive sleep apnea) Peripheral vascular disease Pleural effusion Septic joint of right knee joint Family History Family History Mother HTN (hypertension) Surgical History Surgical History S/P left knee arthroscopy Social History Social History Household Members: Spouse Housing: Apartment Do you presently have visiting nurse or other home services: Yes ([employer] program) Alcohol intake: never Patient Tobacco Use Status: Never used Tobacco Second Hand Smoke Exposure: No Advance Directives: No service: No Current occupational status: unemployed and disabled Meds Allergies Allergy/AdvReac Type Severity Reaction Status Date / Time No Known Drug Allergies Allergy Unknown UNKNOWN Verified 12/20/21 13:56 Active Medications: Current Medications Acetaminophen (Acetaminophen 325 Mg Tablet) 650 mg PO Q6H PRN PRN Reason: Pain, Mild (Pain Scale 1-3) Ondansetron HCl (Ondansetron Hcl 4 Mg/2 Ml Vial) 4 mg IVPUSH Q8H PRN PRN Reason: Nausea and Vomiting Pharmacy Consult (Consult Rx Perform Med Rec) 1 each MISCELLANE ONCE PRN PRN Reason: Consult order Sodium Chloride (0.9 % Sodium Chloride Flush 3 Ml Syringe) [facility] Medication Instructions Recorded Confirmed Last Taken Type atorvastatin 80 mg tablet 80 mg PO BEDTIME 05/17/21 01/07/22 01/06/22 History cholecalciferol (vitamin D3) 50 50 mcg PO DAILY 05/17/21 01/07/22 01/06/22 History mcg (2,000 unit) capsule (Vitamin D3) sevelamer carbonate 800 mg tablet 2,400 mg PO TIDWM 05/17/21 01/07/22 01/06/22 History Physical Exam Vital Signs: Vital Signs: Last Vital Signs Temp 97.6 F 01/07/22 09:36 Pulse 62 01/07/22 09:36 Resp 18 01/07/22 09:36 BP 161/89 H 01/07/22 09:36 Pulse Ox 95 01/07/22 09:36 O2 Del Method 01/07/22 09:36 O2 Flow Rate 2 01/07/22 09:36 BMI result Body Mass Index 39.0 Const: General: comfortable (But slightly short of breath), no acute distress, alert and awake Orientation/consciousness: patient oriented x3 HEENT: Other: Has a round face. Oropharynx is crowded and narrow, Mallampati class 4. No bleeding noted in the oropharynx Head: Yes normal to inspection General nose exam: No nasal polyps present and No nasal discharge present Face and sinus: Yes sinuses nontender Mouth: oropharynx normal Throat: Yes posterior oropharynx normal Eyes: Other: Left eye is blind General: appearance normal, both eyes and all related structures Neck: Neck: Yes normal visual inspection, Yes no lymphadenopathy, Yes trachea midline, Yes no JVD and Yes other (Neck is short and obese.) Thyroid: Thyroid normal Chest: Chest palpation & inspection: normal inspection of the chest, normal palpation of entire chest wall and no tenderness Resp: Other: Percussion note is not perceptible due to thick chest wall. Breath sounds are somewhat distant, A few inspiratory crepitations heard over the basilar areas. No wheezes are heard. Cardio: Palpation: normal PMI Rate: regular rate Rhythm: regular rhythm Heart sounds: no gallops and no murmurs GI: Palpation (GI): Soft to palpation, nontender, No hepatosplenomegaly present, no masses and Other GI palpation findings present (Abdomen is protuberant) Auscultation: normal bowel sounds Back/Spine/Pelvis: Other: Not examined Thoracic/Lumbar Spine: thoracic and lumbar spine normal to inspection Skin: General skin exam: no rashes or lesions noted Neuro: General: patient oriented x3 and no focal motor deficits Cranial nerves: Yes CN's II-XII intact bilaterally Extrem: General: Yes normal to inspection, Yes no calf tenderness and Yes edema (Mild edema around the ankle) Psych: Appearance: grossly normal Speech and movement: Normal speech and movement present Results Laboratory Findings CBC and BMP: 01/07/22 05:35 01/07/22 05:35 Abnormal lab findings: Abnormal Labs 01/07/22 01/07/22 01/07/22 05:35 05:35 05:35 RBC 3.13 L Hgb 9.3 L Hct 30.7 L MCV 98.1 H MCHC 30.3 L RDW 16.4 H Neut % (Auto) 76.2 H Lymph % (Auto) 12.3 L Lymph # (Auto) 0.9 L Carbon Dioxide 21 L Anion Gap 28 H BUN 55 H Creatinine 10.09 H* Random Glucose 168 H Calcium 7.9 L B-Natriuretic Peptide 572 H Total Protein 9.7 H Diagnostic Findings Chest x-ray: report reviewed and image reviewed CT scan - chest: image reviewed Assessment and Plan (1) Pulmonary edema: Status: Acute (2) MILAD (obstructive sleep apnea): Status: Acute (3) ESRD (end stage renal disease): Status: Acute (4) Hemoptysis: Status: Acute Plan I THINK THIS GENTLEMAN'S PROBLEM AT THIS TIME IS FLUID OVERLOAD/PULMONARY EDEMA, AND IT SHOULD RESPOND TO URGENT SESSION OF DIALYSIS. HEMOPTYSIS IS MINIMAL, MAY BE CONTRIBUTED BY ASPIRIN THAT HE WAS TAKING, OR FROM A MILD CASE OF TRACHEOBRONCHITIS. IT SHOULD JUST BE WATCHED CLOSELY. TREAT HYPOXEMIA WITH OXYGEN SUPPLEMENTATION JUST TO KEEP O2 SAT ABOVE 90-92%. PATIENT MAY BE TREATED WITH DUONEB UPDRAFT Q 6 HOURS P.R.N. FOR ANY WHEEZING. REPEAT CHEST X-RAY AFTER THE SESSION OF DIALYSIS IS COMPLETED. HE ALSO HAS HISTORY OF MILAD, NOT SURE IF HE IS USING CPAP AT HOME. ONCE HE FEELS BETTER, WILL TO FURTHER INTERROGATE HIM, ABOUT THE USE OF CPAP. THANK YOU VERY MUCH FOR ASTHMA TO SEE THIS GENTLEMAN. Procedures Date of Service Date of Service: 01/07/22
--- NOTE | 2022-01-07 10:21 | PHA.MEDREC ---
Pharmacy Consult ? Medication Reconciliation Pharmacy has completed the medication reconciliation. [employer] services used; spoke to pt's over phone
[2022-01-07] MEDS: diphenhydrAMINE HCL 25 MG TABLET PO (12:17)
--- NOTE | 2022-01-07 12:17 | PC.NURSE ---
Pt reported itching. Given 25mg po benedryl
--- NOTE | 2022-01-07 12:28 | PC.NURSE ---
Patient in dialysis.
[2022-01-07] MEDS: Omeprazole 20 MG CAPSULE.DR PO (15:42)
[2022-01-07] MEDS: 0.9 % Sodium Chloride Flush 3 ML SYRINGE IVFLUSH ×2 (15:43→23:42)
[2022-01-07] MEDS: Sevelamer Carbonate Tablet 800 MG TABLET 2400 MG PO (18:27)
--- NOTE | 2022-01-07 20:05 | PC.NURSE ---
Nurse to nurse report given to S3 RN. Patient to be transported to room 384.
[2022-01-07] MEDS: Atorvastatin Calcium 80 MG TABLET PO (20:49)
[2022-01-07] MEDS: Metoprolol Tartrate 50 MG TABLET PO (20:49)
[2022-01-08] VITALS (8 sets, daily range): BP systolic 132–167; BP diastolic 65–89; PULSE 56–68; RESP 16–18; TEMP 35.8–36.5; O2SAT 94–98
--- NOTE | 2022-01-08 02:26 | CONS_ITS ---
DATE OF SERVICE: 01/07/2022 REASON FOR CONSULTATION: I was asked to see patient to assist in evaluation and management of patient's dialysis needs. HISTORY OF PRESENT ILLNESS: In summary, patient is a 51-year-old ESRD patient, maintained on hemodialysis 3 times a week, who presented to the hospital with increasing shortness of breath and some hemoptysis. He has a quite extensive past medical history including ESRD with issues pertaining to hemodialysis with complications associated with hemo access. He currently has had PermCath in the femoral vein as well as in translumbar at different times because of hemo access issues. Patient states that he has been coughing up some blood and short of breath. Therefore, he came to the emergency room. He denies fever, sweats, or chills. PAST MEDICAL HISTORY: Includes ESRD, dialysis 3 times a week, hemo access problems, coronary artery disease, recurrent episodes of bacteremia, obstructive sleep apnea, and peripheral vascular disease. He has had a septic joint in the past. MEDICATIONS: On admission are noted in the admitting notes. Current medications are on the JUN. ALLERGIES: HE HAS NO KNOWN DRUG ALLERGIES. PHYSICAL EXAMINATION: VITAL SIGNS: Blood pressure 160/80, on 3 L of oxygen. 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 LUNGS: Decreased breath sounds at bases. CARDIAC: Regular rate and rhythm. ABDOMEN: Soft, nontender. EXTREMITIES: Show 1+ edema. LABORATORY DATA: Show hemoglobin 9.3, hematocrit 30.7, and white blood count 7.4. Sodium 142, potassium 4.7, chloride 98, and bicarb 21. IMPRESSION: END-STAGE RENAL DISEASE PATIENT ADMITTED WITH VOLUME OVERLOAD, HYPOXIA, AND HEMOPTYSIS. 1. End-stage renal disease. We will dialyze him today and pull fluid as tolerated to help with his hypoxemia. 2. Hemoptysis. Being evaluated by Pulmonary. 3. hypervolemia. He has evidence of edema and again we will pull fluid. 4. Hemo access issues. We will continue to use the PermCath that he has presently. We will follow patient closely with the team and we will see how he tolerates fluid removal and reassess the issue about hemoptysis and follow along with Pulmonary's recommendations. MD GRZEGORZ Preciado/RONY / [phone]
[2022-01-08] MEDS: Omeprazole 20 MG CAPSULE.DR PO (05:15)
[2022-01-08] MEDS: guaiFENesin DM 100/10/5 ML 5 ML SYRUP PO ×2 (05:15→12:15)
[2022-01-08] MEDS: Acetaminophen 325 MG TABLET 650 MG PO (05:17)
[2022-01-08 06:58] LABS: Hematocrit 29.6 % (42.0-52.0); Hemoglobin 8.9 g/dl (14.0-18.0); Mean Corpuscular HGB Conc 30.1 g/dl (31.0-36.0); Mean Corpuscular Hemoglobin 29.3 pg (27.0-33.0); Mean Corpuscular Volume 97.4 fL (80.0-98.0); Mean Platelet Volume 11.3 fL (9.4-12.4); Platelet Count 160 X10*3/uL (160-400); Red Blood Count 3.04 X10*6/uL (4.60-5.80); Red Cell Distribution Width 15.9 % (11.0-16.0); White Blood Count 4.4 X10*3/uL (4.8-10.8)
[2022-01-08 07:46] LABS: Anion Gap 21 (12-20); Blood Urea Nitrogen 28 mg/dL (9-16); Carbon Dioxide 21 mmol/L (22-29); Chloride 98 mmol/L (96-108); Creatinine Clr Calc Pharmacy 11.9; Estimated Glomerular Filt Rate 9; Glucose Random 87 mg/dL (60-115); Potassium 4.7 mmol/L (3.3-5.1); Sodium 135 mmol/L (135-145)
[2022-01-08] MEDS: Cholecalciferol (Vitamin D3) 25 MCG TABLET 50 MCG PO (09:15)
[2022-01-08] MEDS: Sevelamer Carbonate Tablet 800 MG TABLET 2400 MG PO ×3 (09:16→17:20)
[2022-01-08] MEDS: Metoprolol Tartrate 50 MG TABLET PO ×2 (09:16→21:26)
[2022-01-08] MEDS: 0.9 % Sodium Chloride Flush 3 ML SYRINGE IVFLUSH ×2 (09:19→17:20)
--- NOTE | 2022-01-08 10:17 | PM.PNNEP ---
Subjective Subjective Date of Service: 01/08/22 Interval history: Seen and examined, overall feeling better Physical Exam Vital Signs: Vital Signs: Last Vital Signs Temp 96.4 F L 01/08/22 07:15 Pulse 63 01/08/22 07:15 Resp 18 01/08/22 07:15 BP 143/65 H 01/08/22 07:15 Pulse Ox 97 01/08/22 07:15 O2 Del Method 01/08/22 07:15 O2 Flow Rate 3.0 01/08/22 07:15 BMI result Body Mass Index 39.0 Const: Other: Constitutional - Awake and Alert, No apparent distress Eyes - PERRLA, EOMI Cardiovascular - S1S2, RRR, No edema Respiratory - scattered bronchial breath sounds; mild accessory muscle usage with conversation Gastrointestinal - NT / ND; +BS; No rebound or guarding - No CVA tenderness Extremities - no calf tenderness bilaterally, no swelling Musculoskeletal - Normal inspection, normal ROM Skin - Warm/Dry Neurological - Alert & oriented x3, No focal deficit Psychological - Appropriate affect General: comfortable (But slightly short of breath), no acute distress, alert and awake Orientation/consciousness: patient oriented x3 HEENT: Other: Has a round face. Oropharynx is crowded and narrow, Mallampati class 4. No bleeding noted in the oropharynx Head: Yes normal to inspection General nose exam: No nasal polyps present and No nasal discharge present Face and sinus: Yes sinuses nontender Mouth: oropharynx normal Throat: Yes posterior oropharynx normal Eyes: Other: Left eye is blind General: appearance normal, both eyes and all related structures Neck: Neck: Yes normal visual inspection, Yes no lymphadenopathy, Yes trachea midline, Yes no JVD and Yes other (Neck is short and obese.) Thyroid: Thyroid normal Chest: Chest palpation & inspection: normal inspection of the chest, normal palpation of entire chest wall and no tenderness Resp: Other: Percussion note is not perceptible due to thick chest wall. Breath sounds are somewhat distant, A few inspiratory crepitations heard over the basilar areas. No wheezes are heard. Cardio: Palpation: normal PMI Rate: regular rate Rhythm: regular rhythm Heart sounds: no gallops and no murmurs GI: Palpation (GI): Soft to palpation, nontender, No hepatosplenomegaly present, no masses and Other GI palpation findings present (Abdomen is protuberant) Auscultation: normal bowel sounds Back/Spine/Pelvis: Other: Not examined Thoracic/Lumbar Spine: thoracic and lumbar spine normal to inspection Skin: General skin exam: no rashes or lesions noted Neuro: General: patient oriented x3 and no focal motor deficits Cranial nerves: Yes CN's II-XII intact bilaterally Extrem: General: Yes normal to inspection, Yes no calf tenderness and Yes edema (Mild edema around the ankle) Psych: Appearance: grossly normal Speech and movement: Normal speech and movement present Objective Data Labs CBC & Chem 7: 01/08/22 06:06 01/08/22 06:06 Labs: Laboratory Results - last 24 hr 01/08/22 01/08/22 06:06 06:06 WBC 4.4 L RBC 3.04 L Hgb 8.9 L Hct 29.6 L MCV 97.4 MCH 29.3 MCHC 30.1 L RDW 15.9 Plt Count 160 MPV 11.3 Absolute Nucleated RBC 0.000 Nucleated RBC % (auto) 0.0 Sodium 135 Potassium 4.7 Chloride 98 Carbon Dioxide 21 L Anion Gap 21 H BUN 28 H Creatinine 6.76 H* Estim Creat Clear Calc 11.9 Estimated GFR 9 Random Glucose 87 D Calcium 8.0 L Procedures Date of Service Date of Service: 01/08/22 Assessment & Plan Assessment and plan (1) Pulmonary edema: Status: Acute (2) MILAD (obstructive sleep apnea): Status: Acute (3) ESRD (end stage renal disease): Status: Acute (4) Hemoptysis: Status: Acute Plan ESRD: mwf ( [facility]) SOB: CHF Hemoaccess: translumbar Pcath Anemia: epo as ordered MBD REC: ok to d/c home today and HD tommorrow as outpt; ques home O2 candidate Time Spent With Patient Time: Total time spent is greater than 50% in coordination of care (as documented) at patient's floor/unit and/or counseling patient: Progress Note: Quality Stroke Does the patient have a stroke diagnosis?: No
--- NOTE | 2022-01-08 11:36 | MHC.CLN ---
PT WITH REPORTED WT LOSS 24-33# ON NURSING ADMISSION ASSESSMENT REVIEWED PREVIOUS WT HX FOLLOWS: CURRENT 90.7KG 82.1KG (05/17/21)-10% SIGNIFICANT WT GAIN X 6 MONTHS 79.8KG (10/17/20) -14% NON-SIGNIFICANT WT GAIN X 1 YEAR PT WITH ESRD ON HD AND WAS RECENTLY NONCOMPLIANT WITH HD TX DIET RX: 2GM NA-APPROPRIATE MAY NEED LOW K+ AND lOW PHOS ADDED TO DIET RX PER RENAL REVIEWED LABS MONITOR PO INTAKE CLOSELY FOLLOWING WITH TEAM
--- NOTE | 2022-01-08 15:08 | HO.PM.IMPN ---
Subjective Subjective Date of Service: 01/08/22 Interval History: Acute Respiratory failure with hypoxia secondary to fluid overload from ESRD Review of Systems Shortness of breath somewhat improving, but still short of breath with little exertion. Denies any chest painor abdominal pain fever or chills no new haemoptysis episode -seems like previous episode possible related to forceful coughing Physical Exam Vital Signs: Vital Signs: Last Vital Signs Temp 97.2 F 01/08/22 11:04 Pulse 56 01/08/22 11:04 Resp 16 01/08/22 11:04 BP 167/75 H 01/08/22 11:04 Pulse Ox 98 01/08/22 11:04 O2 Del Method 01/08/22 11:04 O2 Flow Rate 2.0 01/08/22 11:04 BMI result Body Mass Index 39.0 Appearance: Alert.? Oriented X3.?sob cvs: rrr, [id number] . res: air entry fair , diminshed at bases ,few scattered rales. abd: no rebound or guarding ,nt, bs present. ext pulses present , no cyanosis. neuro: axo3 , nonfocal. Objective Data Active Medications Acetaminophen (Acetaminophen 325 Mg Tablet) 650 mg PO Q6H PRN PRN Reason: Pain, Mild (Pain Scale 1-3) Last Admin: 01/08/22 05:17 Dose: 650 mg Documented By: ELANA Atorvastatin Calcium (Atorvastatin Calcium 80 Mg Tablet) 80 mg PO BEDTIME [facility] Last Admin: 01/07/22 20:49 Dose: 80 mg Documented By: MONTSERRAT Guaifenesin/Dextromethorphan (Guaifenesin Dm 100/10/5 Ml 5 Ml Syrup) 5 ml PO Q4H PRN PRN Reason: cough Last Admin: 01/08/22 12:15 Dose: 5 ml Documented By: RAMÓN Metoprolol Tartrate (Metoprolol Tartrate 50 Mg Tablet) 50 mg PO BID [facility]; Protocol Last Admin: 01/08/22 09:16 Dose: 50 mg Documented By: RAMÓN Omeprazole (Omeprazole 40 Mg Capsule.) 40 mg PO BID@0630,1630 [facility] Ondansetron HCl (Ondansetron Hcl 4 Mg/2 Ml Vial) 4 mg IVPUSH Q8H PRN PRN Reason: Nausea and Vomiting Pharmacy Consult (Consult Rx Perform Med Rec) 1 each MISCELLANE ONCE PRN PRN Reason: Consult order Sevelamer Carbonate (Sevelamer Carbonate Tablet 800 Mg Tablet) 2,400 mg PO TIDWM [facility] Last Admin: 01/08/22 12:15 Dose: 2,400 mg Documented By: RAMÓN Sodium Chloride (0.9 % Sodium Chloride Flush 3 Ml Syringe) 3 ml IVFLUSH QSHIFT [facility] Last Admin: 01/08/22 09:19 Dose: 3 ml Documented By: RAMÓN Vitamin D (Cholecalciferol (Vitamin D3) 25 Mcg Tablet) 50 mcg PO DAILY [facility] Last Admin: 01/08/22 09:15 Dose: 50 mcg Documented By: RAMÓN Labs CBC & Chem 7: 01/08/22 06:06 01/08/22 06:06 Labs: Laboratory Results - last 24 hr 01/08/22 01/08/22 06:06 06:06 MCV 97.4 MCH 29.3 MCHC 30.1 L RDW 15.9 Plt Count 160 MPV 11.3 Absolute Nucleated RBC 0.000 Nucleated RBC % (auto) 0.0 Anion Gap 21 H Estim Creat Clear Calc 11.9 Estimated GFR 9 Random Glucose 87 D Calcium 8.0 L Assessment and Plan (1) Hemoptysis: Status: Acute (2) End stage renal disease on dialysis: Status: Acute (3) Pulmonary edema: Status: Acute Plan 51 yo M with a PMH of ESRD on HD MWF who presents with shortness of breath and mild hemoptysis. His work up reveals fluid overload and acute respiratory failure with hypoxia. He will be admitted for further work up. 1. Acute Respiratory failure with hypoxia secondary to fluid overload from ESRD Hypoxia below 88% with respiraory symptoms of tachypnea and dyspnea with min exertion -- continue supplemental O2-please wean slowly Nephrology consult with plans for dialysis today [facility] nephro followin 2. Hemoptysis CXR is abnormal; ct chest reviewed as well as cxr this [place] and d/w pulmonary: monitor h/h hold aspirin possible MILAD: not sure if using cpap, added nebs, intacnetice sprio and chest physio. 3. CAD s/p PR continue baseline meds with the exception of aspirin for now 4. HTN med rec pending, continue baseline meds once completed. Full Code DVT pptx, mechanical due to reported hemoptysis Inpatient need:Acute Respiratory failure with hypoxia secondary to fluid overload from ESRD Quality Stroke Does the patient have a stroke diagnosis?: No VTE Prior VTE?: No VTE Risk Level:: Medical - moderate - high VTE Device Contraindication: N/A - Device Ordered VTE Drug Contraindication: Treatment Not Tolerated
--- NOTE | 2022-01-08 15:09 | MHC.CM.PN ---
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 LIVES IN AN APARTMENT WITH SPOUSE, INDEPENDENT AT BASELINE WITH 8 H, 45 MINUTES CUSTOMER ENGINEER SERVICES PER WEEK. STATES HE IS ACTIVE WITH [facility], RETURN REFERRAL SENT. HAS WALKER, CANE AND SHOWER CHAIR IN HOME. HAS COPY OF HCP AT HOME AND WILL REQUEST TO BRING IN. COVID VAX X 3 WITH CLIFF. ATTENDS DIALYSIS M-W- . PCP DR. EPSTEIN FAMILY WILL TRANSPORT HOME
[2022-01-08] MEDS: Omeprazole 40 MG CAPSULE.DR PO (17:20)
[2022-01-08] MEDS: Albuterol/Iprat 2.5/0.5MG 3 ML AMPUL.NEB INHALE (19:52)
[2022-01-08] MEDS: Atorvastatin Calcium 80 MG TABLET PO (21:26)
[2022-01-09] MEDS: 0.9 % Sodium Chloride Flush 3 ML SYRINGE IVFLUSH (01:29)
[2022-01-09 03:54] VITALS: BP 129/58; PULSE 59; RESP 18; TEMP 36.3; O2SAT 96
[2022-01-09] MEDS: Omeprazole 40 MG CAPSULE.DR PO (06:04)
[2022-01-09 07:37] VITALS: BP 152/66; PULSE 63; RESP 18; TEMP 36; O2SAT 94
[2022-01-09 08:17] VITALS: PULSE 78; RESP 18; O2SAT 93
[2022-01-09] MEDS: Albuterol/Iprat 2.5/0.5MG 3 ML AMPUL.NEB INHALE (08:17)
[2022-01-09] MEDS: diphenhydrAMINE HCL 25 MG TABLET PO (10:42)
--- NOTE | 2022-01-09 12:29 | P.PNNP_ITS ---
Subjective Subjective Date of Service: 01/09/22 Interval history: Seen and examained, currently on HD cont with hemoptysis but less Seen by pulm Physical Exam Vital Signs: Vital Signs: Last Vital Signs Temp 96.8 F 01/09/22 07:37 Pulse 78 01/09/22 08:17 Resp 18 01/09/22 08:17 BP 152/66 H 01/09/22 07:37 Pulse Ox 94 01/09/22 07:37 O2 Del Method 01/09/22 07:37 O2 Flow Rate 2.0 01/09/22 07:37 BMI result Body Mass Index 39.0 Const: Other: Constitutional - Awake and Alert, No apparent distress Eyes - PERRLA, EOMI Cardiovascular - S1S2, RRR, No edema Respiratory - scattered bronchial breath sounds; mild accessory muscle usage with conversation Gastrointestinal - NT / ND; +BS; No rebound or guarding - No CVA tenderness Extremities - no calf tenderness bilaterally, no swelling Musculoskeletal - Normal inspection, normal ROM Skin - Warm/Dry Neurological - Alert & oriented x3, No focal deficit Psychological - Appropriate affect General: comfortable (But slightly short of breath), no acute distress, alert and awake Orientation/consciousness: patient oriented x3 HEENT: Other: Has a round face. Oropharynx is crowded and narrow, Mallampati class 4. No bleeding noted in the oropharynx Head: Yes normal to inspection General nose exam: No nasal polyps present and No nasal discharge present Face and sinus: Yes sinuses nontender Mouth: oropharynx normal Throat: Yes posterior oropharynx normal Eyes: Other: Left eye is blind General: appearance normal, both eyes and all related struc tures Neck: Neck: Yes normal visual inspection, Yes no lymphadenopathy, Yes trachea midline, Yes no JVD and Yes other (Neck is short and obese.) Thyroid: Thyroid normal Chest: Chest palpation & inspection: normal inspection of the chest, normal palpation of entire chest wall and no tenderness Resp: Other: Percussion note is not perceptible due to thick chest wall. Breath sounds are somewhat distant, A few inspiratory crepitations heard over the basilar areas. No wheezes are heard. Cardio: Palpation: normal PMI Rate: regular rate Rhythm: regular rhythm Heart sounds: no gallops and no murmurs GI: Palpation (GI): Soft to palpation, nontender, No hepatosplenomegaly present, no masses and Other GI palpation findings present (Abdomen is protuberant) Auscultation: normal bowel sounds Back/Spine/Pelvis: Other: Not examined Thoracic/Lumbar Spine: thoracic and lumbar spine normal to inspection Skin: General skin exam: no rashes or lesions noted Neuro: General: patient oriented x3 and no focal motor deficits Cranial nerves: Yes CN's II-XII intact bilaterally Extrem: General: Yes normal to inspection, Yes no calf tenderness and Yes edema (Mild edema around the ankle) Psych: Appearance: grossly normal Speech and movement: Normal speech and movement present Objective Data Labs CBC & Chem 7: 01/08/22 06:06 01/08/22 06:06 Procedures Date of Service Date of Service: 01/09/22 Assessment & Plan Assessment and plan (1) Pulmonary edema: Status: Acute (2) MILAD (obstructive sleep apnea): Status: Acute (3) ESRD (end stage renal disease): Status: Acute (4) Hemoptysis: Status: Acute Plan ESRD: [facility] ( [facility]) SOB: CHF Hemoaccess: translumbar Pcath Anemia: epo as ordered MBD Hemoptysis: pulm eval; ques d/t pulm edema but need to r/o other causes REC: ok to d/c home after HD from renal standpointt; ques home O2 candidate Time Spent With Patient Time: Total time spent is greater than 50% in coordination of care (as documented) at patient's floor/unit and/or counseling patient: Progress Note: Quality Stroke Does the patient have a stroke diagnosis?: No
--- NOTE | 2022-01-09 12:43 | P.DS_ITS ---
DS: Providers Provider Date of Service: 01/09/22 Date of admission: 01/07/22 08:55 Primary care physician: Tessa Shelton MD Consults: 01/07/22 07:28 Consult to Nephrology Routine Consulting Provider: Catarino Banerjee Reason for consultation: esrd 01/07/22 08:58 Consult to Pulmonology Routine Consulting Provider: Erinn Gloria Reason for consultation: abnormal cxr, ct chest pending, hemoptysis Attending physician on discharge: Alexis Martinez Discharging clinician: Alexis Martinez DS: Diagnosis Discharge Diagnosis (1) Pulmonary edema: Status: Acute (2) MILAD (obstructive sleep apnea): Status: Acute (3) ESRD (end stage renal disease): Status: Acute (4) Hemoptysis: Status: Acute (5) Abnormal chest CT: Status: Acute DS: Summary Hospital Course Hospital Course: 51-year-old male with a past medical history of hypertension, hyperlipidemia, ESRD on hemodialysis, peripheral vascular disease, CAD, MILAD, anemia of chronic disease, history of GI bleed presented to the hospital today with a chief complaint of hematemesis.? Patient denies any fever chills cough, abdominal pain, chest pain or palpitations.? ?denies any shortness of breath or dyspnea on exertion.? Review of all other systems is negative except mentioned above ER course: Per ER team patient reportedly had few episodes of hematemesis prior to coming to the ER, did not have any episodes after coming to the ER.? Hemoglobin slightly dropped from his baseline but remained stable on follow-up hemoglobin.? Notified Gastroenterology Dr. Nash.? Admitted to the hospital for further management. Hospital course: Patient was admitted to the hospital because of shortness of breath and Acute Respiratory failure with hypoxia secondary to fluid overload from ESRD -possibly related to fluid overload due to his ESRD: Patient got dialysisx2-seems to be improved significantly and now is at his baseline. In addition patient also has hemoptysis and was seen by Pulmonary-possible mild tracheobronchitis- given nebs and seems to be improving, hemoptysis also getting better: Discussed with pulmonary upon discharge hold aspirin for 1 week and patient is to follow up outpatient with ENT, pulmonary( for sleep study as well as further workup for hemoptysis if needed outpatient). Added albuterol prn upon discharge. abnormal CT scan ( please see imaging section). Plan: Follow-up with PCP and Pulmonary out patiently, monitor for hemoptysis. Further follow-up for with chest imaging for abnormal CT scan out patiently as well as sleep study with his pulmonary and PCP. Consider ENT evaluation if continue to have hemoptysis. Above management discussed with the patient in detail length he understand and in agreement with the above plan, time spent 50 minutes and 50% time spent on counseling. Significant findings: As above. Procedures performed: None. Treatment and response: As above. Complications: None. Time Spent with Patient Time attestation: Total time spent providing and/or coordinating discharge services: Discharge coordination time: Greater than 30 minutes Quality: Safe Use of Opioids Does Pt have an Active Cancer Diagnosis on the Problem List?: No Quality: Stroke Does the patient have a stroke diagnosis?: No Physical Exam Vital Signs: Vital Signs: Last Vital Signs Temp 96.8 F 01/09/22 07:37 Pulse 78 01/09/22 08:17 Resp 18 01/09/22 08:17 BP 152/66 H 01/09/22 07:37 Pulse Ox 94 01/09/22 07:37 O2 Del Method 01/09/22 07:37 O2 Flow Rate 2.0 01/09/22 07:37 BMI result Body Mass Index 39.0 Appearance: Alert.? Oriented X3.?sob cvs: rrr, [id number] . res: air entry fair , no rales or wheezing abd: no rebound or guarding ,nt, bs present. ext pulses present , no cyanosis. neuro: axo3 , nonfocal. DS: Data Data Completed and Pending Completed studies during hospitalization [Text1]: Procedures Drainage of Right Knee Joint, Percutaneous Approach, Diagnostic (07/04/20) Excision of Ascending Colon, Via Natural or Artificial Opening Endoscopic, Diagnostic (08/18/20) Excision of Cecum, Via Natural or Artificial Opening Endoscopic, Diagnostic (08/18/20) Excision of Duodenum, Via Natural or Artificial Opening Endoscopic, Diagnostic (08/18/20) Excision of Esophagogastric Junction, Via Natural or Artificial Opening Endoscopic, Diagnostic (08/18/20) Excision of Right Knee Joint, Percutaneous Endoscopic Approach (07/04/20) Excision of Stomach, Pylorus, Via Natural or Artificial Opening Endoscopic, Diagnostic (08/18/20) Excision of Transverse Colon, Via Natural or Artificial Opening Endoscopic, Diagnostic (08/18/20) Inspection of Upper Intestinal Tract, Via Natural or Artificial Opening Endoscopic (11/22/21) Irrigation of Joints using Irrigating Substance, Percutaneous Endoscopic Approach (07/04/20) Performance of Urinary Filtration, Intermittent, Less than 6 Hours Per Day (08/18/20) Transfusion of Nonautologous Red Blood Cells into Peripheral Vein, Percutaneous Approach (08/18/20) Additional Comments Additional comments: CT/CT chest wo IV con IMPRESSION: *? Chronic atherosclerotic disease of coronary arteries. *? Lungs have mosaic attenuation and there are findings of mild interstitial edema with small bilateral pleural effusions. Anasarca is present. The subcutaneous tissues of the chest wall are diffusely edematous. *? Old foci of calcific density are present in the anterior segment right upper lobe and within both lower lobes. A new, nonspecific 0.8 cm nodule is detected in the right lung apex. If Fleischner Society guidelines are followed, then chest CT follow-up would be recommended in the next 6-12 months. *? Renal osteodystrophy. ? Discharge Plan Discharge Anticipated Discharge Date/Time: 01/09/22 12:34 Patient Disposition: Home, Self-Care Discharge Diagnosis: Acute respiratory failure is with hypoxia secondary to flu id overload with ESRD. Hemoptysis resolved. Referrals: Tessa Shelton MD [Primary Care Provider] - 1 Week Discharge Medications: New albuterol sulfate 90 mcg/actuation aerosol powdr breath activated 1 inh inhalation Q4-6H PRN (Reason: shortness of breath) Qty: 1 0RF Continued pantoprazole 40 mg tablet,delayed release (DR/EC) 40 mg PO BID Qty: 60 0RF cholecalciferol (vitamin D3) [Vitamin D3] 50 mcg (2,000 unit) capsule 50 mcg PO DAILY sevelamer carbonate 800 mg tablet 2,400 mg PO TIDWM atorvastatin 80 mg tablet 80 mg PO BEDTIME metoprolol tartrate 50 mg tablet 50 mg PO BID Qty: 100 3RF Held aspirin [Enteric Coated Aspirin] 81 mg tablet,delayed release (DR/EC) 81 mg PO DAILY Qty: 90 3RF Hold Instructions: Resume on 01/14/22. Discharge Orders: Discharge Order (Routine); Ordered 01/09/22 Ordered By: Alexis Martinez Diet: Advance to usual diet Activity on Discharge: As tolerated Stand Alone Forms: Patient Portal Discharge page Care Plan Goals: Patient was admitted to the hospital because of shortness of breath-possibly related to fluid overload due to his ESRD: Patient got dialysisx2-seems to be improved significantly and now is at his baseline. In addition patient also has hemoptysis and was seen by Pulmonary-possible mild tracheobronchitis- given nebs and seems to be improving, hemoptysis also getting better: Discussed with pulmonary upon discharge hold aspirin for 1 week and patient is to follow up outpatient with ENT, pulmonary( for sleep study as well as further workup for hemoptysis if needed outpatient). Added albuterol prn upon discharge. Above was discussed with the patient in detail length he understand and in agreement with the plan. Health Concerns: As above. Plan of Treatment: As above. Follow-up with PCP and Pulmonary out patiently, monitor for hemoptysis. Further follow-up for with chest imaging for abnormal CT scan out patiently as per his pulmonary and PCP. moniter cbc in 1 week. further use of aspirin outpatient as per pcp. Consider ENT evaluation if continue to have hemoptysis. Assessment: As above.
--- NOTE | 2022-01-09 13:43 | MHC.CM.PN ---
PT MEDICALLY CLEARED FOR DC TODAY, HOME, NO SERVICES ORDERED. [facility] TRANSITIONS OF CARE NURSE BELLA MADE AWARE. RN AWARE FAMILY TO TRANSPORT HOME
[2022-01-09 13:47] VITALS: BP 142/69; PULSE 69; RESP 17; TEMP 36.3; O2SAT 98
== END 2022-01-09 16:07 | disposition home or self-care (01) | DRG 640 ==
LOC: HO.ED 06:20 → HO.EDOVER 08:59 → HO.S3 18:45
PROVIDERS: Admitting Provider Family Medicine; Emergency Provider Emergency Medicine; PCP Internal Medicine; Visit Provider Internal Medicine
DX: E87.79 Other fluid overload (principal); J96.01 Acute respiratory failure with hypoxia; N18.6 End stage renal disease; I12.0 Hypertensive chronic kidney disease with stage 5 chronic kidney disease or end stage renal disease; I25.10 Atherosclerotic heart disease of native coronary artery without angina pectoris; N25.0 Renal osteodystrophy; I25.2 Old myocardial infarction; J40 Bronchitis, not specified as acute or chronic; G47.33 Obstructive sleep apnea (adult) (pediatric); E66.01 Morbid (severe) obesity due to excess calories; Z68.31 Body mass index [BMI] 31.0-31.9, adult; D63.1 Anemia in chronic kidney disease; Z99.2 Dependence on renal dialysis; Z20.822 Contact with and (suspected) exposure to COVID-19; Z79.82 Long term (current) use of aspirin; Z79.899 Other long term (current) drug therapy
CPT/HCPCS: 0241U; 36415; 71045; 71250; 80048; 80076; 83690; 83880; 84484; 85025; 85027; 90999; 93005; 94640; 99285; J1940; Q0163

== ENCOUNTER 2022-02-12 18:48 | Outpatient (REF) | payer OTHER, SELFPAY ==
--- NOTE | ~2022-02-12 | MR_ITS ---
EXAMINATION: MR SHOULDER WITHOUT AND WITH CONTRAST, LEFT CLINICAL INFORMATION: Left shoulder pain. Evaluate for osteomyelitis versus septic arthritis. COMPARISON: Multiple priors, most recent left shoulder radiographs dated 12/25/2021 and left shoulder MRI dated 10/12/2018. TECHNIQUE: MRI of the shoulder was performed before and after the intravenous administration of 7 mL Gadavist on a high-field scanner. FINDINGS: ROTATOR CUFF: Mild supraspinatus and infraspinatus tendinosis with articular surface fraying/partial tearing throughout the tendon fibers, increased in prominence when compared to the prior MRI. Fgnpqkin-[id number] subscapularis tendinosis with articular surface fraying/partial tearing, increased when compared to the prior examination. Mild, diffuse rotator cuff muscle atrophy. BICEPS: Increased T2 signal within the proximal long head biceps tendon with attenuation consistent with tendinosis and longitudinal partial tearing. CORACOACROMIAL ARCH: The undersurface of the acromion is minimally curved with subacromial spurring. Moderate acromioclavicular osteoarthritis. Prominent fluid within the subacromial-subdeltoid bursa with peripheral enhancement consistent with bursitis. LABRUM/CAPSULE: Fluid signal within the undersurface of the superior labrum consistent with nondisplaced undersurface labral tearing, new when compared to the prior MRI. GLENOHUMERAL JOINT/MARROW: Mild articular cartilage thinning with tiny marginal osteophytes. Uinni-ol-[id number] joint effusion with synovitis. No marrow enhancement to suggest acute osteomyelitis/septic arthritis. MR/MR shoulder LT wo/w con IMPRESSION: 1. Mild supraspinatus and infraspinatus tendinosis with articular surface fraying/partial tearing, increased in prominence when compared to the prior MRI. Nkftxtmk-[id number] subscapularis tendinosis with articular surface fraying/partial tearing, increased when compared to the prior examination. Mild, diffuse rotator cuff muscle atrophy. 2. Prominent subacromial-subdeltoid bursitis, increased when compared to the prior examination. 3. Moderate acromioclavicular osteoarthritis with subacromial spurring, subtly progressed. 4. Nondisplaced undersurface tear of the superior labrum, new when compared to the prior MRI. 5. Mild glenohumeral osteoarthritis with a [id number] joint effusion and synovitis. No evidence of acute osteomyelitis/septic arthritis.
== END 2022-02-12 18:49 | disposition home or self-care (01) ==
LOC: HO.MRI 18:48
PROVIDERS: Visit Provider Student in an Organized Health Care Education/Training Program
DX: M86.9 Osteomyelitis, unspecified (principal)
CPT/HCPCS: 73223; A9585

== ENCOUNTER → 2022-02-20 13:27 | Outpatient (BNVA) | payer OTHER, SELFPAY | PROVIDERS: PCP Internal Medicine; Visit Provider Student in an Organized Health Care Education/Training Program | DX: M12.812 Other specific arthropathies, not elsewhere classified, left shoulder (principal) | CPT/HCPCS: 20610; 99212 ==

== ENCOUNTER → 2022-05-13 13:37 | Outpatient (BNVA) | payer OTHER, SELFPAY | PROVIDERS: PCP Internal Medicine; Visit Provider Physician Assistant | DX: M75.102 Unspecified rotator cuff tear or rupture of left shoulder, not specified as traumatic (principal) | CPT/HCPCS: 20610; 99212; J1040 ==

== ENCOUNTER → 2022-05-14 15:10 | Outpatient (BNVA) | payer OTHER, SELFPAY | PROVIDERS: PCP Internal Medicine; Visit Provider Student in an Organized Health Care Education/Training Program | DX: G56.03 Carpal tunnel syndrome, bilateral upper limbs (principal); M25.512 Pain in left shoulder; M12.812 Other specific arthropathies, not elsewhere classified, left shoulder | CPT/HCPCS: 99212 ==

== ENCOUNTER → 2022-05-15 15:01 | Outpatient (BNVA) | payer OTHER, SELFPAY | PROVIDERS: PCP Internal Medicine; Visit Provider Nurse Practitioner Family | DX: I25.10 Atherosclerotic heart disease of native coronary artery without angina pectoris (principal); I21.4 Non-ST elevation (NSTEMI) myocardial infarction; Z98.890 Other specified postprocedural states | CPT/HCPCS: 99212 ==

== ENCOUNTER 2022-06-29 07:17 | Outpatient (REF) | payer OTHER, SELFPAY ==
[2022-06-29 07:30] LABS: MANUAL DIFF FLAG NO
[2022-06-29 07:39] LABS: Eosinophils Absolute Auto 0.1 X10*3/uL (0.0-0.4); Eosinophils Percent Auto 1.6 % (0-4); Hematocrit 33.4 % (42.0-52.0); Hemoglobin 10.8 g/dl (14.0-18.0); Imm Gran Abs Auto 0.01 X10*3/uL (0.00-0.03); Imm Gran Pct Auto 0.3 % (0.0-0.4); Lymphocytes Percent Auto 26.9 % (20-40); Mean Corpuscular HGB Conc 32.3 g/dl (31.0-36.0); Mean Corpuscular Hemoglobin 30.7 pg (27.0-33.0); Mean Corpuscular Volume 94.9 fL (80.0-98.0); Mean Platelet Volume 10.6 fL (9.4-12.4); Monocytes Absolute Auto 0.5 X10*3/uL (0.1-1.2); Monocytes Percent Auto 12.3 % (2-11); Neutrophils Absolute Auto 2.2 x10*3/uL (2.0-8.3); Neutrophils Percent Auto 58.9 % (45-73); Platelet Count 174 X10*3/uL (160-400); Red Blood Count 3.52 X10*6/uL (4.60-5.80); Red Cell Distribution Width 13.8 % (11.0-16.0); White Blood Count 3.8 X10*3/uL (4.8-10.8)
[2022-06-29 08:31] LABS: Prostate Specific Antigen Scr 0.69 ng/mL (<0.05-4.0)
== END 2022-06-29 07:18 | disposition home or self-care (01) ==
LOC: HO.LAB 07:17
PROVIDERS: PCP Internal Medicine; Visit Provider Internal Medicine
DX: Z00.01 Encounter for general adult medical examination with abnormal findings (principal); D63.1 Anemia in chronic kidney disease; E78.00 Pure hypercholesterolemia, unspecified; M65.331 Trigger finger, right middle finger; M67.813 Other specified disorders of tendon, right shoulder; Z12.5 Encounter for screening for malignant neoplasm of prostate
CPT/HCPCS: 36415; 84153; 85025